=== PATIENT | female | born 1970 | race Hispanic/Latino ===

== ENCOUNTER 2017-08-02 17:01 | Emergency (ER) | payer MEDICAID ==
[2017-08-02] MEDS ORDERED: ASPIRIN 325 MG TABLET ONE (17:33)
[2017-08-02] MEDS ORDERED: HYDRALAZINE HCL 20 MG/ML VIAL ONE (17:33)
[2017-08-02 17:37] LABS: BASOPHILS % (AUTO) 0.2 % (0.0-5.0); EOSINOPHILS % (AUTO) 4.2 % (0.0-8.0); HEMATOCRIT 35.5 % (36-48); LYMPHOCYTES % (AUTO) 26.8 % (21.0-51.0); MEAN CORPUSCULAR HEMOGLOBIN 28.2 pg (27.0-33.0); MEAN CORPUSCULAR HGB CONC 34.1 g/dL (32.0-36.0); MEAN CORPUSCULAR VOLUME 82.7 fL (79-99); MONOCYTES % (AUTO) 7.3 % (3.0-13.0); NEUTROPHILS % (AUTO) 61.5 % (40.0-77.0); PLATELET COUNT (AUTO) 534 K/uL (130-400); RED BLOOD CELL COUNT(AUTO) 4.29 MIL/uL (4.00-5.50); RED CELL DISTRIBUTION WIDTH 15.5 % (11.0-15.5); WHITE BLOOD COUNT (AUTO) 9.8 K/uL (4.8-10.8)
[2017-08-02 17:49] LABS: CREATININE 1.5 mg/dL (0.5-1.5); POTASSIUM 4.1 mmol/L (3.5-5.1)
[2017-08-02 18:02] LABS: ALBUMIN 1.7 g/dL (3.5-5.0); BILIRUBIN,TOTAL 0.2 mg/dL (0.2-1.0); CREATINE KINASE MB 0.5 ng/mL (0.5-3.6); TOTAL PROTEIN, SERUM 5.8 g/dL (6.0-8.3)
[2017-08-02 18:39] LABS: APPEARANCE,URINE Clear (CLEAR); BILIRUBIN,URINE Negative (NEGATIVE); COLOR,URINE Yellow (YELLOW); GLUCOSE, URINE (UA) >=1000 mg/dL (NEGATIVE); KETONES,URINE Negative (NEGATIVE); LEUKOCYTE ESTERASE ,URINE Negative (NEGATIVE); NITRATE,URINE Negative (NEGATIVE); OCCULT BLOOD,URINE Trace (NEGATIVE); PH,URINE 6.5 (5.0-8.0); PROTEIN,URINE >=1000 (NEGATIVE); UROBILINOGEN,URINE 0.2 mg/dL (0.2-1.0)
[2017-08-02 18:45] LABS: AMPHET/METH SCREEN,URINE NEGATIVE (NEGATIVE); BARBITURATE SCREEN, URINE NEGATIVE (NEGATIVE); BENZODIAZEPINES SCREEN,URINE NEGATIVE (NEGATIVE); CANNABINOID SCREEN,URINE NEGATIVE (NEGATIVE); COCAINE SCREEN,URINE NEGATIVE (NEGATIVE); OPIATE SCREEN,URINE NEGATIVE (NEGATIVE); PHENCYCLIDINE SCREEN,URINE NEGATIVE (NEGATIVE)
[2017-08-02] MEDS ORDERED: INSULIN HUMULIN R 100 UNIT/ML 3ML ONE (18:56)
[2017-08-02 19:10] LABS: BACTERIA,URINE Few /HPF (None Seen); RBC,URINE None Seen /HPF (0-1); SQUAMOUS EPITHELIAL CELL,UR 0-2 /LPF (0-2)
[2017-09-27] MEDS ORDERED: FOLI1TAB61 PO (09:42)
[2017-09-27] MEDS ORDERED: GLIP10TA9 PO (09:42)
[2017-09-27] MEDS ORDERED: CHOL100040 PO (09:42)
[2017-09-27] MEDS ORDERED: LINA5TAB PO (09:42)
[2017-09-27] MEDS ORDERED: ASPI-555 PO (09:42)
[2017-09-27] MEDS ORDERED: LEVO50TA11 PO (09:42)
[2017-09-27] MEDS ORDERED: FURO20TA6 PO (09:42)
[2017-09-27] MEDS ORDERED: ATOR40TA71 PO (09:42)
[2017-09-27] MEDS ORDERED: LOSA25TA21 PO (10:55)
[2017-09-27] MEDS ORDERED: INSU100V12 SQ (10:55)
[2017-11-23] MEDS ORDERED: TRAM50TA4 PO (10:37)
[2017-11-23] MEDS ORDERED: CEPH500C2 PO (10:37)
[2017-11-23] MEDS ORDERED: INSU100I21 SQ ×2 (10:37)
== END 2017-08-02 22:38 | disposition left against medical advice (07) ==
LOC: EDH 17:01 → UNDOADMIN 17:02 → EDHIP 17:02 → EDH 22:38
DX: R07.89 Other chest pain (principal); R06.02 Shortness of breath; M79.89 Other specified soft tissue disorders; I10 Essential (primary) hypertension; E11.9 Type 2 diabetes mellitus without complications
CPT/HCPCS: 36415; 71045; 80053; 80305; 81001; 82550; 82553; 84484; 85025; 93005; 96374; 96375; 99285; J0360; J1815

== ENCOUNTER → 2017-08-18 | Outpatient (CLI) | payer MEDICAID ==
[~2017-08-18] MED LIST: ASPI-555 PO; ATOR40TA71 PO; CEPH500C2 PO; CHOL100040 PO; FOLI1TAB61 PO; FURO20TA6 PO; GLIP10TA9 PO; INSU100I21 SQ; INSU100V12 SQ; LEVO50TA11 PO; LINA5TAB PO; LOSA25TA21 PO; TRAM50TA4 PO
== END | disposition home or self-care (01) ==
LOC: SHCH 07:58
PROVIDERS: ATTEND Internal Medicine Cardiovascular Disease
DX: R01.1 Cardiac murmur, unspecified (principal)
CPT/HCPCS: 93306

== ENCOUNTER → 2017-08-26 | Outpatient (CLI) | payer MEDICAID ==
[~2017-08-26] MED LIST changes: +REGADENOSON 0.4 MG/5 ML PF SYG IVP SCH
== END | disposition home or self-care (01) ==
LOC: SHCH 10:29
PROVIDERS: ATTEND Internal Medicine Cardiovascular Disease
DX: R94.31 Abnormal electrocardiogram [ECG] [EKG] (principal)
CPT/HCPCS: 78452; 93017; 96374; A9500 ×2; J2785

== ENCOUNTER → 2017-09-27 | Outpatient (CLI) | payer MEDICAID ==
[~2017-09-27] VITALS: Ht 157.5 cm; Wt 61.3 kg
[~2017-09-27] MED LIST changes: +ACETAMINOPHEN 325 MG TAB PO PRN; -REGADENOSON 0.4 MG/5 ML PF SYG IVP SCH; +SODIUM CHLORIDE 0.9% 500ML 500 ML IV SCH
[2017-09-27 09:03] VITALS: BP 145/75
[2017-09-27 09:10] LABS: BASOPHILS % (AUTO) 1.1 % (0.0-5.0); EOSINOPHILS % (AUTO) 3.6 % (0.0-8.0); HEMATOCRIT 33.2 % (36-48); LYMPHOCYTES % (AUTO) 11.9 % (21.0-51.0); MEAN CORPUSCULAR HEMOGLOBIN 27.8 pg (27.0-33.0); MEAN CORPUSCULAR HGB CONC 33.4 g/dL (32.0-36.0); MEAN CORPUSCULAR VOLUME 83.2 fL (79-99); MONOCYTES % (AUTO) 8.7 % (3.0-13.0); NEUTROPHILS % (AUTO) 74.7 % (40.0-77.0); PLATELET COUNT (AUTO) 432 K/uL (130-400); RED BLOOD CELL COUNT(AUTO) 3.99 MIL/uL (4.00-5.50); RED CELL DISTRIBUTION WIDTH 15.5 % (11.0-15.5); WHITE BLOOD COUNT (AUTO) 12.7 K/uL (4.8-10.8)
[2017-09-27 09:10] LABS: BILIRUBIN,URINE Negative (NEGATIVE); COLOR,URINE Yellow (YELLOW); GLUCOSE, URINE (UA) 500 mg/dL (NEGATIVE); KETONES,URINE Negative (NEGATIVE); LEUKOCYTE ESTERASE ,URINE Negative (NEGATIVE); NITRATE,URINE Negative (NEGATIVE); OCCULT BLOOD,URINE Large (NEGATIVE); PROTEIN,URINE >=1000 (NEGATIVE); UROBILINOGEN,URINE 0.2 mg/dL (0.2-1.0)
[2017-09-27 09:14] LABS: APPEARANCE,URINE SLIGHTLY CLOUDY (CLEAR)
[2017-09-27 09:19] LABS: INR 0.91 (0.85-1.15); PARTIAL THROMBOPLASTIN TIME 25.9 SEC (26.3-35.5); POTASSIUM 4.3 mmol/L (3.5-5.1); PROTHROMBIN TIME 9.6 SEC (9.6-11.6)
[2017-09-27 09:48] LABS: BACTERIA,URINE Moderate /HPF (None Seen)
[2017-09-27 09:49] LABS: MUCUS,URINE Moderate LPF (None Seen); SQUAMOUS EPITHELIAL CELL,UR Many /HPF (0-2)
== END | disposition home or self-care (01) ==
LOC: EDSTATUS 08:00 → DAH 10:00
PROVIDERS: ATTEND Internal Medicine Cardiovascular Disease
DX: Z01.818 Encounter for other preprocedural examination (principal); I25.10 Atherosclerotic heart disease of native coronary artery without angina pectoris; R79.89 Other specified abnormal findings of blood chemistry
CPT/HCPCS: 36415; 71045; 80048; 81001; 85025; 85610; 85730; 93005

== ENCOUNTER → 2017-10-21 | Outpatient (CLI) | payer MEDICAID ==
[~2017-10-21] VITALS: Ht 154.9 cm; Wt 63.4 kg
[~2017-10-21] MED LIST changes: -ACETAMINOPHEN 325 MG TAB PO PRN
[2017-10-21 10:16] VITALS: BP 160/88
[2017-10-21 10:19] LABS: BASOPHILS % (AUTO) 0.8 % (0.0-5.0); EOSINOPHILS % (AUTO) 6.1 % (0.0-8.0); HEMATOCRIT 29.1 % (36-48); LYMPHOCYTES % (AUTO) 14.1 % (21.0-51.0); MEAN CORPUSCULAR HEMOGLOBIN 28.1 pg (27.0-33.0); MEAN CORPUSCULAR HGB CONC 33.2 g/dL (32.0-36.0); MEAN CORPUSCULAR VOLUME 84.8 fL (79-99); MONOCYTES % (AUTO) 9.4 % (3.0-13.0); NEUTROPHILS % (AUTO) 69.6 % (40.0-77.0); PLATELET COUNT (AUTO) 386 K/uL (130-400); RED BLOOD CELL COUNT(AUTO) 3.43 MIL/uL (4.00-5.50); RED CELL DISTRIBUTION WIDTH 16.8 % (11.0-15.5); WHITE BLOOD COUNT (AUTO) 13.2 K/uL (4.8-10.8)
[2017-10-21 10:23] LABS: CREATININE 1.6 mg/dL (0.5-1.5); POTASSIUM 4.3 mmol/L (3.5-5.1)
[2017-10-21 10:31] LABS: APPEARANCE,URINE CLOUDY (CLEAR); BILIRUBIN,URINE NEGATIVE (NEGATIVE); COLOR,URINE RED (YELLOW); GLUCOSE, URINE (UA) 250 mg/dL (NEGATIVE); KETONES,URINE 15 mg/dL (NEGATIVE); LEUKOCYTE ESTERASE ,URINE LARGE (NEGATIVE); NITRATE,URINE POSITIVE (NEGATIVE); OCCULT BLOOD,URINE LARGE (NEGATIVE); PH,URINE 6.5 (5.0-8.0); PROTEIN,URINE >=300 (NEGATIVE)
[2017-10-21 10:35] LABS: INR 0.9 (0.85-1.15); PROTHROMBIN TIME 9.5 SEC (9.6-11.6)
[2017-10-21 10:50] LABS: RBC,URINE >100 /HPF (0-1)
[2017-10-21 10:51] LABS: BACTERIA,URINE Few /HPF (None Seen)
[2017-10-21 10:52] LABS: SQUAMOUS EPITHELIAL CELL,UR 0-2 /HPF (0-2)
== END ==
LOC: EDSTATUS 09:00 → DAH 10:00
PROVIDERS: ATTEND Internal Medicine Cardiovascular Disease
DX: Z01.818 Encounter for other preprocedural examination (principal); R94.31 Abnormal electrocardiogram [ECG] [EKG]
CPT/HCPCS: 36415; 71045; 80048; 81001; 84703; 85025; 85610; 85730; 93005

== ENCOUNTER → 2017-11-23 | Outpatient (CLI) | payer MEDICAID ==
[~2017-11-23] VITALS: Ht 154.9 cm; Wt 61.5 kg
[~2017-11-23] MED LIST changes: -SODIUM CHLORIDE 0.9% 500ML 500 ML IV SCH
[2017-11-23 09:24] LABS: BASOPHILS % (AUTO) 1.4 % (0.0-5.0); EOSINOPHILS % (AUTO) 4.4 % (0.0-8.0); HEMATOCRIT 27.5 % (36-48); LYMPHOCYTES % (AUTO) 14.8 % (21.0-51.0); MEAN CORPUSCULAR HEMOGLOBIN 27.9 pg (27.0-33.0); MEAN CORPUSCULAR HGB CONC 33.2 g/dL (32.0-36.0); MONOCYTES % (AUTO) 6.3 % (3.0-13.0); NEUTROPHILS % (AUTO) 73.1 % (40.0-77.0); PLATELET COUNT (AUTO) 419 K/uL (130-400); RED BLOOD CELL COUNT(AUTO) 3.27 MIL/uL (4.00-5.50); RED CELL DISTRIBUTION WIDTH 15.2 % (11.0-15.5); WHITE BLOOD COUNT (AUTO) 11.7 K/uL (4.8-10.8)
[2017-11-23 09:27] LABS: APPEARANCE,URINE TURBID (CLEAR); BILIRUBIN,URINE SMALL (NEGATIVE); COLOR,URINE RED (YELLOW); GLUCOSE, URINE (UA) >=1000 mg/dL (NEGATIVE); KETONES,URINE NEGATIVE (NEGATIVE); LEUKOCYTE ESTERASE ,URINE TRACE (NEGATIVE); NITRATE,URINE NEGATIVE (NEGATIVE); OCCULT BLOOD,URINE LARGE (NEGATIVE); PH,URINE 5.5 (5.0-8.0); PROTEIN,URINE >=300 (NEGATIVE); UROBILINOGEN,URINE 0.2 mg/dL (0.2-1.0)
[2017-11-23 09:28] VITALS: BP 108/59
[2017-11-23 09:36] LABS: BACTERIA,URINE Rare /HPF (None Seen); RBC,URINE TNTC /HPF (0-1); SQUAMOUS EPITHELIAL CELL,UR Rare /HPF (0-2)
[2017-11-23 09:55] LABS: INR 0.92 (0.85-1.15); PARTIAL THROMBOPLASTIN TIME 24.6 SEC (26.3-35.5); PROTHROMBIN TIME 9.7 SEC (9.6-11.6)
[2017-11-23 10:08] LABS: CREATININE 2.1 mg/dL (0.5-1.5); POTASSIUM 4.7 mmol/L (3.5-5.1)
== END | disposition home or self-care (01) ==
LOC: EDSTATUS 09:00 → DAH 10:00
PROVIDERS: ATTEND Internal Medicine Cardiovascular Disease
DX: Z01.818 Encounter for other preprocedural examination (principal); I10 Essential (primary) hypertension; I25.119 Atherosclerotic heart disease of native coronary artery with unspecified angina pectoris; E11.9 Type 2 diabetes mellitus without complications; R79.1 Abnormal coagulation profile
CPT/HCPCS: 36415; 71045; 80048; 81001; 85025; 85610; 85730; 93005

== ENCOUNTER 2018-10-02 16:05 | Inpatient (IN) | payer MEDICAID ==
[~2018-10-02] VITALS: Ht 154.9 cm; Wt 58.6 kg
[~2018-10-02 16:05] MED LIST changes: -GLIP10TA9 PO; -INSU100V12 SQ; -LOSA25TA21 PO; +LOSA25TA41 PO
[2018-10-02] MEDS ORDERED: ONDANSETRON HCL 4 MG/2 ML VIAL ONE (16:56)
[2018-10-02 17:00] LABS: APPEARANCE,URINE Clear (CLEAR); BILIRUBIN,URINE Negative (NEGATIVE); COLOR,URINE Yellow (YELLOW); GLUCOSE, URINE (UA) >=1000 mg/dL (NEGATIVE); KETONES,URINE Negative (NEGATIVE); LEUKOCYTE ESTERASE ,URINE Negative (NEGATIVE); NITRATE,URINE Negative (NEGATIVE); OCCULT BLOOD,URINE Small (NEGATIVE); PH,URINE 6.5 (5.0-8.0); PROTEIN,URINE >=1000 mg/dL (NEGATIVE); UROBILINOGEN,URINE 0.2 mg/dL (0.2-1.0)
[2018-10-02 17:03] LABS: BASOPHILS % (AUTO) 1.4 % (0.0-5.0); EOSINOPHILS % (AUTO) 4.5 % (0.0-8.0); HEMATOCRIT 31.3 % (36-48); LYMPHOCYTES % (AUTO) 23.5 % (21.0-51.0); MEAN CORPUSCULAR HEMOGLOBIN 26.5 pg (27.0-33.0); MEAN CORPUSCULAR HGB CONC 32.5 g/dL (32.0-36.0); MEAN CORPUSCULAR VOLUME 81.6 fL (79-99); MONOCYTES % (AUTO) 8.7 % (3.0-13.0); NEUTROPHILS % (AUTO) 61.9 % (40.0-77.0); NUCLEATED RED BLOOD CELLS 0.1 % (0.0-0.19); PLATELET COUNT (AUTO) 467 K/uL (130-400); RED BLOOD CELL COUNT(AUTO) 3.84 MIL/uL (4.00-5.50); RED CELL DISTRIBUTION WIDTH 18.9 % (11.0-15.5); WHITE BLOOD COUNT (AUTO) 10.6 K/uL (4.8-10.8)
[2018-10-02 17:09] LABS: BACTERIA,URINE Rare /HPF (None Seen); MUCUS,URINE Moderate LPF (None Seen); RBC,URINE 0-1 /HPF (0-1); WBC,URINE None Seen /HPF (0-1)
[2018-10-02 17:13] LABS: CREATININE 3.4 mg/dL (0.5-1.5); POTASSIUM 3.9 mmol/L (3.5-5.1)
[2018-10-02 17:16] LABS: INR 0.9 (0.85-1.15); PARTIAL THROMBOPLASTIN TIME 25.4 SEC (26.3-35.5); PROTHROMBIN TIME 9.5 SEC (9.6-11.6)
[2018-10-02 17:18] LABS: ALBUMIN 1.5 g/dL (3.5-5.0); BILIRUBIN,TOTAL 0.1 mg/dL (0.2-1.0); TOTAL PROTEIN, SERUM 6.2 g/dL (6.0-8.3)
[2018-10-02] MEDS: SODIUM CHLORIDE 0.9% 1000ML 1,000 ML IV SCH (20:22)
[2018-10-02] MEDS ORDERED: ACETAMINOPHEN 325 MG TAB PO PRN ×2 (20:30)
[2018-10-02] MEDS ORDERED: DEXTROSE 50%-WATER 50 ML DISP.SYRIN IV PRN (20:30)
[2018-10-02] MEDS ORDERED: GLUCAGON 1MG KIT 1 MG ML IM PRN (20:30)
[2018-10-02] MEDS: INSULIN HUMULIN R 100 UNIT/ML 3ML SQ SCH (21:00)
[2018-10-02] MEDS ORDERED: GUAIFENESIN-DM 200/20 MG 10 ML PO PRN (23:00)
[2018-10-03] MEDS: IPRATROPIUM 0.5 MG/2.5 ML INH IH SCH ×5 (00:41→23:17)
[2018-10-03] MEDS ORDERED: FAMOTIDINE 20MG TAB 20 MG TAB ONE ×2 (02:27→09:14)
[2018-10-03] MEDS ORDERED: HYDROCODONE/ACETAMINOPHEN 5/325 MG TAB ONE (02:27)
[2018-10-03 05:59] LABS: BASOPHILS % (AUTO) 1.4 % (0.0-5.0); HEMATOCRIT 26.2 % (36-48); LYMPHOCYTES % (AUTO) 30.5 % (21.0-51.0); MEAN CORPUSCULAR HGB CONC 31.9 g/dL (32.0-36.0); MEAN CORPUSCULAR VOLUME 81.6 fL (79-99); MONOCYTES % (AUTO) 7.3 % (3.0-13.0); NEUTROPHILS % (AUTO) 55.8 % (40.0-77.0); NUCLEATED RED BLOOD CELLS 0.3 % (0.0-0.19); PLATELET COUNT (AUTO) 414 K/uL (130-400); RED BLOOD CELL COUNT(AUTO) 3.21 MIL/uL (4.00-5.50); RED CELL DISTRIBUTION WIDTH 18.4 % (11.0-15.5); WHITE BLOOD COUNT (AUTO) 9.8 K/uL (4.8-10.8)
[2018-10-03 06:20] LABS: ALBUMIN 1.2 g/dL (3.5-5.0); BILIRUBIN,TOTAL 0.2 mg/dL (0.2-1.0); POTASSIUM 3.6 mmol/L (3.5-5.1)
[2018-10-03] MEDS: SODIUM CHLORIDE 0.9% 1000ML 1,000 ML IV SCH ×2 (06:22→16:22)
[2018-10-03] MEDS ORDERED: IPRATROPIUM 0.5 MG/2.5 ML INH IH ONE ×2 (06:28→11:17)
[2018-10-03] MEDS: INSULIN HUMULIN R 100 UNIT/ML 3ML SQ SCH ×4 (07:30→20:45)
[2018-10-03] MEDS: ENOXAPARIN SODIUM 30 MG/0.3 ML SQ SCH (09:00)
[2018-10-03] MEDS ORDERED: FAMOTIDINE 20MG TAB 20 MG TAB PO SCH (09:00)
[2018-10-03] MEDS ORDERED: ENOXAPARIN SODIUM 30 MG/0.3 ML SQ ONE (09:14)
--- NOTE | 2018-10-03 10:38 | NUR ---
NANETTE Bonilla met with pt who states she is from her [place] [phone], and pt lives with her kids 17,13,9. Pt has Medicaid, is pending SSI, has a provider 2.5hrs daily thru [facility] to assist with ADLS and Home management. Pt has no DME, but reports multiple falls in recent days, last fall was yesterday, and states she needs a walker. pt states she has discussed with Dr Mercado, but is still waiting.Friends drive as needed. Plan is home at [place], to f/u and assist as needed Addendum: 10/03/18 at 1042 by DARIO ISSA Amended: Links added.
[2018-10-03] MEDS ORDERED: MECLIZINE HCL 25 MG TABLET ONE (10:39)
[2018-10-03] MEDS ORDERED: AMLODIPINE BESYLATE 5 MG TAB PO ONE (10:39)
[2018-10-03 11:24] LABS: AMPHET/METH SCREEN,URINE NEGATIVE (NEGATIVE); BARBITURATE SCREEN, URINE NEGATIVE (NEGATIVE); BENZODIAZEPINES SCREEN,URINE NEGATIVE (NEGATIVE); CANNABINOID SCREEN,URINE NEGATIVE (NEGATIVE); COCAINE SCREEN,URINE NEGATIVE (NEGATIVE); OPIATE SCREEN,URINE NEGATIVE (NEGATIVE); PHENCYCLIDINE SCREEN,URINE NEGATIVE (NEGATIVE)
[2018-10-03] MEDS ORDERED: ONDANSETRON HCL 4 MG/2 ML VIAL ONE (11:37)
[2018-10-03 13:45] VITALS: BP 151/73
[2018-10-03] MEDS ORDERED: MECLIZINE HCL 25 MG TABLET PO PRN (14:15)
[2018-10-03] MEDS ORDERED: ASPIRIN 81MG TAB.CHEW ONE (14:15)
[2018-10-03] MEDS ORDERED: ACETAMINOPHEN 325 MG TAB ONE (14:16)
[2018-10-03 15:45] VITALS: BP 151/73
--- NOTE | 2018-10-03 16:00 | NUR ---
ER ADMIT TO ROOM 305, AWAKE AND ALERT. ADMISSION DATABASE COMPLETED, NO C/O VOICED AT TIS TIME.. HAS BEEN SEEN IN ER BY MALU.
[2018-10-03] MEDS: MECLIZINE HCL 25 MG TABLET PO SCH ×2 (18:33→23:29)
[2018-10-03 20:00] VITALS: BP 165/85
[2018-10-03] MEDS: FAMOTIDINE 20MG TAB 20 MG TAB PO SCH (20:26)
[2018-10-03] MEDS: LOSARTAN 50 MG TABLET PO SCH (20:26)
[2018-10-04] VITALS (10 sets, daily range): BP systolic 107–159; BP diastolic 50–89
[2018-10-04 05:32] LABS: HEMATOCRIT 27.5 % (36-48); MEAN CORPUSCULAR HEMOGLOBIN 26.2 pg (27.0-33.0); MEAN CORPUSCULAR HGB CONC 32.2 g/dL (32.0-36.0); MEAN CORPUSCULAR VOLUME 81.2 fL (79-99); NUCLEATED RED BLOOD CELLS 0.9 % (0.0-0.19); PLATELET COUNT (AUTO) 405 K/uL (130-400); RED BLOOD CELL COUNT(AUTO) 3.38 MIL/uL (4.00-5.50); RED CELL DISTRIBUTION WIDTH 18.2 % (11.0-15.5); WHITE BLOOD COUNT (AUTO) 8.7 K/uL (4.8-10.8)
[2018-10-04 05:50] LABS: ALBUMIN 1.2 g/dL (3.5-5.0); BILIRUBIN,TOTAL 0.1 mg/dL (0.2-1.0); CREATININE 3.1 mg/dL (0.5-1.5); PHOSPHORUS 4.6 mg/dL (2.5-4.9); POTASSIUM 3.6 mmol/L (3.5-5.1); TOTAL PROTEIN, SERUM 5.1 g/dL (6.0-8.3); URIC ACID 5.4 mg/dL (2.6-7.2)
[2018-10-04] MEDS: MECLIZINE HCL 25 MG TABLET PO SCH ×3 (05:53→18:00)
[2018-10-04] MEDS: SODIUM CHLORIDE 0.9% 1000ML 1,000 ML IV SCH (05:55)
[2018-10-04] MEDS: IPRATROPIUM 0.5 MG/2.5 ML INH IH SCH ×4 (06:08→23:34)
[2018-10-04] MEDS ORDERED: HYDROMORPHONE HCL 0.5 MG/0.5 ML ML ONE (06:20)
[2018-10-04] MEDS: LEVOTHYROXINE 50 MCG TABLET PO SCH (06:25)
[2018-10-04] MEDS: INSULIN HUMULIN R 100 UNIT/ML 3ML SQ SCH ×4 (06:26→21:00)
[2018-10-04] MEDS ORDERED: HYDROMORPHONE HCL 0.5 MG/0.5 ML ML IVP SCH (06:30)
[2018-10-04 06:34] LABS: % IRON SATURATION 4.7 % (22-44)
--- NOTE | 2018-10-04 08:00 | NUR ---
ASSESSMENT PT IS AWAKE, ALERT AND ORIENTED X3, VOICES NO COMPLAINTS OF PAIN, DENIES DIZZINESS, CALL LLOYD WITHIN REACH.
[2018-10-04] MEDS: FOLIC ACID/VITAMIN B COMP W-C 1 MG CAPSULE PO SCH (08:58)
[2018-10-04] MEDS: ASPIRIN 81MG TAB.CHEW PO SCH (08:58)
[2018-10-04] MEDS: ATORVASTATIN CALCIUM 40 MG TABLET PO SCH (08:58)
[2018-10-04] MEDS: LOSARTAN 50 MG TABLET PO SCH ×2 (08:58→22:05)
[2018-10-04] MEDS: FUROSEMIDE 20 MG TABLET PO SCH (08:59)
[2018-10-04] MEDS: AMLODIPINE BESYLATE 5 MG TAB PO SCH (08:59)
[2018-10-04] MEDS: FAMOTIDINE 20MG TAB 20 MG TAB PO SCH ×2 (08:59→22:04)
[2018-10-04] MEDS: Cholecalciferol (Vitamin D3) (Vitamin D3) 1,000 UNIT PO SCH (09:00)
[2018-10-04] MEDS: ENOXAPARIN SODIUM 30 MG/0.3 ML SQ SCH (09:00)
--- NOTE | 2018-10-04 09:09 | NUR ---
HOME MEDS INFORMED PT NEED TO BRING IN TO CLARIFY
--- NOTE | 2018-10-04 09:30 | NUR ---
JIL/DR. KEYONA RAND HERE TO SEE PT., NO ORDERS BUT STATES PT CAN BE DISCHARGE FROM HIS STANDPOINT.
--- NOTE | 2018-10-04 13:10 | NUR ---
CALL TO DR. PARRISH T/C PLACED TO DR. PARRISH AND INFORMED OF CONSULT Addendum: 10/04/18 at 1326 by NORIS ODEN RN INCORRECT PT
--- NOTE | 2018-10-04 13:20 | NUR ---
CALL TO DR. JOSE'S OFFICE T/C PLACED TO DR. JOSE'S OFFICE AND SPOKE WITH HAMZAH, STATES THEY WILL INFORM MD OF CONSULT Addendum: 10/04/18 at 1327 by NORIS ODEN RN IN CORRECT PT
[2018-10-04] MEDS: HYDROMORPHONE HCL 0.5 MG/0.5 ML ML IVP PRN ×2 (13:57→22:44)
--- NOTE | 2018-10-04 14:10 | NUR ---
JIL/ DR. MALU TORIBIO HERE TO SEE PT, PLAN OF CARE DISCUSSED, SISTER IS PRESENT WELL.
[2018-10-04] MEDS ORDERED: LACTULOSE 20 GM/30 ML UDCUP PO PRN (14:15)
[2018-10-04] MEDS ORDERED: COMPOUND IV MISC 1 EACH IVSOLN MISC PRN (15:45)
--- NOTE | 2018-10-04 18:10 | NUR ---
NURSING OBSERVATION PT IS STILL SLEEPING, ANTIVERT NOT GIVEN
[2018-10-04] MEDS: SODIUM BICARBONATE 650 MG TAB PO SCH (22:04)
[2018-10-05] VITALS (8 sets, daily range): BP systolic 119–147; BP diastolic 58–79
[2018-10-05 05:57] LABS: CREATININE 3.5 mg/dL (0.5-1.5); PHOSPHORUS 4.7 mg/dL (2.5-4.9); POTASSIUM 3.6 mmol/L (3.5-5.1)
[2018-10-05 05:58] LABS: BASOPHILS % (AUTO) 1.1 % (0.0-5.0); EOSINOPHILS % (AUTO) 6.7 % (0.0-8.0); HEMATOCRIT 27.5 % (36-48); LYMPHOCYTES % (AUTO) 21.5 % (21.0-51.0); MEAN CORPUSCULAR HEMOGLOBIN 26.1 pg (27.0-33.0); MEAN CORPUSCULAR HGB CONC 32.1 g/dL (32.0-36.0); MEAN CORPUSCULAR VOLUME 81.1 fL (79-99); MONOCYTES % (AUTO) 9.6 % (3.0-13.0); NEUTROPHILS % (AUTO) 61.1 % (40.0-77.0); NUCLEATED RED BLOOD CELLS 1.1 % (0.0-0.19); PLATELET COUNT (AUTO) 403 K/uL (130-400); RED BLOOD CELL COUNT(AUTO) 3.39 MIL/uL (4.00-5.50); RED CELL DISTRIBUTION WIDTH 18.4 % (11.0-15.5); WHITE BLOOD COUNT (AUTO) 9.5 K/uL (4.8-10.8)
[2018-10-05] MEDS: MECLIZINE HCL 25 MG TABLET PO SCH ×4 (06:10→17:27)
[2018-10-05] MEDS: IPRATROPIUM 0.5 MG/2.5 ML INH IH SCH ×4 (06:51→23:48)
[2018-10-05] MEDS: INSULIN HUMULIN R 100 UNIT/ML 3ML SQ SCH ×4 (07:30→21:00)
[2018-10-05] MEDS: LEVOTHYROXINE 50 MCG TABLET PO SCH (08:20)
[2018-10-05] MEDS: IRON SUCROSE COMPLEX 100 MG in SODIUM CHLORIDE 0.9% 50 ML IV SCH (08:27)
[2018-10-05] MEDS: ASPIRIN 81MG TAB.CHEW PO SCH (08:27)
[2018-10-05] MEDS: LOSARTAN 50 MG TABLET PO SCH ×2 (08:27→20:47)
[2018-10-05] MEDS: Cholecalciferol (Vitamin D3) (Vitamin D3) 1,000 UNIT PO SCH (08:34)
[2018-10-05] MEDS: ATORVASTATIN CALCIUM 40 MG TABLET PO SCH (08:36)
[2018-10-05] MEDS: FUROSEMIDE 20 MG TABLET PO SCH (08:36)
[2018-10-05] MEDS: AMLODIPINE BESYLATE 5 MG TAB PO SCH (08:36)
[2018-10-05] MEDS: FOLIC ACID/VITAMIN B COMP W-C 1 MG CAPSULE PO SCH (08:36)
[2018-10-05] MEDS: FAMOTIDINE 20MG TAB 20 MG TAB PO SCH ×2 (08:37→20:48)
[2018-10-05] MEDS: ENOXAPARIN SODIUM 30 MG/0.3 ML SQ SCH (08:37)
[2018-10-05] MEDS: SODIUM BICARBONATE 650 MG TAB PO SCH ×2 (08:37→20:48)
[2018-10-05] MEDS: ONDANSETRON HCL 4 MG/2 ML VIAL IV PRN (08:56)
[2018-10-05] MEDS: HYDROMORPHONE HCL 0.5 MG/0.5 ML ML IVP PRN ×2 (08:57→18:48)
--- NOTE | 2018-10-05 11:56 | NUR ---
INSTRUCTIONS DISCHARGE INSTRUCTIONS GIVEN TO PATIENT USING TEACH BACK. F/U APPOINTMENTS MADE. NEW PRESCRIPTION PLACED IN PACKET ALONG WITH ALL PRINTED INFORMATION AND MD INSTRUCTIONS. NO QUESTIONS OR CONCERNS VOICED. IV REMOVED WITH TIP INTACT. DIRECT PRESSURE APPLIED UNTIL BLEEDING CONTROLLED THEN SITE COVERED WITH GAUZE AND SECURED WITH TAPE. PENDING RIDE HOME.
[2018-10-06] VITALS: BP 129/69
[2018-10-06] MEDS: MECLIZINE HCL 25 MG TABLET PO SCH ×4 (00:18→18:02)
[2018-10-06 04:00] VITALS: BP 143/77
[2018-10-06] MEDS: HYDROMORPHONE HCL 0.5 MG/0.5 ML ML IVP PRN ×3 (04:24→18:21)
[2018-10-06 05:45] LABS: EOSINOPHILS % (AUTO) 4.9 % (0.0-8.0); HEMATOCRIT 26.7 % (36-48); MEAN CORPUSCULAR HEMOGLOBIN 26.3 pg (27.0-33.0); MEAN CORPUSCULAR HGB CONC 32.7 g/dL (32.0-36.0); MEAN CORPUSCULAR VOLUME 80.5 fL (79-99); MONOCYTES % (AUTO) 8.5 % (3.0-13.0); NEUTROPHILS % (AUTO) 61.6 % (40.0-77.0); NUCLEATED RED BLOOD CELLS 1.7 % (0.0-0.19); PLATELET COUNT (AUTO) 393 K/uL (130-400); RED BLOOD CELL COUNT(AUTO) 3.32 MIL/uL (4.00-5.50); RED CELL DISTRIBUTION WIDTH 17.6 % (11.0-15.5); WHITE BLOOD COUNT (AUTO) 9.7 K/uL (4.8-10.8)
[2018-10-06 05:54] LABS: CREATININE 3.6 mg/dL (0.5-1.5); POTASSIUM 3.7 mmol/L (3.5-5.1)
[2018-10-06] MEDS: LEVOTHYROXINE 50 MCG TABLET PO SCH (06:13)
[2018-10-06] MEDS: IPRATROPIUM 0.5 MG/2.5 ML INH IH SCH ×4 (06:40→23:21)
[2018-10-06] MEDS: INSULIN HUMULIN R 100 UNIT/ML 3ML SQ SCH ×4 (06:50→20:29)
[2018-10-06 08:00] VITALS: BP 152/79
[2018-10-06] MEDS: Cholecalciferol (Vitamin D3) (Vitamin D3) 1,000 UNIT PO SCH (09:00)
[2018-10-06] MEDS: FOLIC ACID/VITAMIN B COMP W-C 1 MG CAPSULE PO SCH (09:04)
[2018-10-06] MEDS: IRON SUCROSE COMPLEX 100 MG in SODIUM CHLORIDE 0.9% 50 ML IV SCH (09:04)
[2018-10-06] MEDS: ASPIRIN 81MG TAB.CHEW PO SCH (09:04)
[2018-10-06] MEDS: LOSARTAN 50 MG TABLET PO SCH ×2 (09:05→21:31)
[2018-10-06] MEDS: ATORVASTATIN CALCIUM 40 MG TABLET PO SCH (09:05)
[2018-10-06] MEDS: AMLODIPINE BESYLATE 5 MG TAB PO SCH (09:05)
[2018-10-06] MEDS: FUROSEMIDE 20 MG TABLET PO SCH (09:05)
[2018-10-06] MEDS: SODIUM BICARBONATE 650 MG TAB PO SCH ×2 (09:05→21:31)
[2018-10-06] MEDS: FAMOTIDINE 20MG TAB 20 MG TAB PO SCH ×2 (09:06→21:31)
[2018-10-06] MEDS: ENOXAPARIN SODIUM 30 MG/0.3 ML SQ SCH (09:06)
[2018-10-06 12:00] VITALS: BP 130/75
--- NOTE | 2018-10-06 12:13 | NUR ---
Nutrition Intervention: Nutrition consult for renal diabetic diet education. Pt. admitted with Dx of Acute Kidney Injury, Dizziness. Pt. on 75gm CCD Heart Healthy diet with good p.o. intake, per pt. Labs reviewed(Alb 1.2, BUN 30, Creat 3.6, GFR 14, HgbA1c 10.0). Pt. with severe visceral protein depletion. Protein supplementation contraindicated due to elevated renal lab values. LBM: 09/30/18. Pt. on lactulose to help alleviate lower GI distress. SR-20, elastic. Pt. with 1+ Edema to BLE. BMI: 27.3, overweight. Pt. educated on Diabetic Renal Non dialysis diet and provided with education material. Pt. verbalized understanding. Recommendations: 1) Rec. Renal Non dialysis diet. 2) Diabetic Renal Non dialysis diet education given to patient. 3) Continue to monitor pt's nutritional status. 4) Consult RD as additional nutrition concerns arise. Addendum: 10/06/18 at [address] Amended: Links added.
[2018-10-06 16:00] VITALS: BP 139/73
[2018-10-06 20:00] VITALS: BP 131/67
[2018-10-06] MEDS: EPOETIN ALFA 10,000 UNIT/ML VIAL SQ SCH (21:31)
[2018-10-07] VITALS: BP 119/65
[2018-10-07 04:00] VITALS: BP 129/65
[2018-10-07] MEDS: HYDROMORPHONE HCL 0.5 MG/0.5 ML ML IVP PRN (04:08)
[2018-10-07 05:26] LABS: BASOPHILS % (AUTO) 1.5 % (0.0-5.0); HEMATOCRIT 26.3 % (36-48); LYMPHOCYTES % (AUTO) 27.4 % (21.0-51.0); MEAN CORPUSCULAR HEMOGLOBIN 25.8 pg (27.0-33.0); MEAN CORPUSCULAR HGB CONC 31.5 g/dL (32.0-36.0); MEAN CORPUSCULAR VOLUME 81.8 fL (79-99); MONOCYTES % (AUTO) 9.2 % (3.0-13.0); NEUTROPHILS % (AUTO) 56.9 % (40.0-77.0); NUCLEATED RED BLOOD CELLS 2.5 % (0.0-0.19); PLATELET COUNT (AUTO) 407 K/uL (130-400); RED BLOOD CELL COUNT(AUTO) 3.22 MIL/uL (4.00-5.50); RED CELL DISTRIBUTION WIDTH 17.6 % (11.0-15.5); WHITE BLOOD COUNT (AUTO) 9.5 K/uL (4.8-10.8)
[2018-10-07 05:34] LABS: CREATININE 3.5 mg/dL (0.5-1.5); POTASSIUM 3.8 mmol/L (3.5-5.1)
[2018-10-07] MEDS: IPRATROPIUM 0.5 MG/2.5 ML INH IH SCH ×3 (06:15→18:10)
[2018-10-07] MEDS: INSULIN HUMULIN R 100 UNIT/ML 3ML SQ SCH ×4 (06:27→21:00)
[2018-10-07] MEDS: LEVOTHYROXINE 50 MCG TABLET PO SCH (06:27)
[2018-10-07] MEDS: MECLIZINE HCL 25 MG TABLET PO SCH ×4 (06:27→17:48)
[2018-10-07 08:00] VITALS: BP 137/68
[2018-10-07] MEDS: Cholecalciferol (Vitamin D3) (Vitamin D3) 1,000 UNIT PO SCH (09:00)
[2018-10-07] MEDS: IRON SUCROSE COMPLEX 100 MG in SODIUM CHLORIDE 0.9% 50 ML IV SCH (09:11)
[2018-10-07] MEDS: LOSARTAN 50 MG TABLET PO SCH ×2 (09:12→21:39)
[2018-10-07] MEDS: ENOXAPARIN SODIUM 30 MG/0.3 ML SQ SCH (09:12)
[2018-10-07] MEDS: FUROSEMIDE 20 MG TABLET PO SCH (09:13)
[2018-10-07] MEDS: AMLODIPINE BESYLATE 5 MG TAB PO SCH (09:13)
[2018-10-07] MEDS: ASPIRIN 81MG TAB.CHEW PO SCH (09:13)
[2018-10-07] MEDS: SODIUM BICARBONATE 650 MG TAB PO SCH ×2 (09:13→21:39)
[2018-10-07] MEDS: FOLIC ACID/VITAMIN B COMP W-C 1 MG CAPSULE PO SCH (09:13)
[2018-10-07] MEDS: ATORVASTATIN CALCIUM 40 MG TABLET PO SCH (09:13)
[2018-10-07] MEDS: FAMOTIDINE 20MG TAB 20 MG TAB PO SCH ×2 (09:14→21:39)
[2018-10-07 12:00] VITALS: BP 116/72
[2018-10-07 16:00] VITALS: BP 137/75
[2018-10-07] MEDS: TRAMADOL HCL 50 MG TABLET PO PRN (16:06)
[2018-10-07 20:00] VITALS: BP 135/70
[2018-10-08] VITALS (7 sets, daily range): BP systolic 115–152; BP diastolic 58–79
[2018-10-08] MEDS: IPRATROPIUM 0.5 MG/2.5 ML INH IH SCH ×5 (00:04→23:31)
[2018-10-08] MEDS: TRAMADOL HCL 50 MG TABLET PO PRN (05:04)
[2018-10-08] MEDS: LEVOTHYROXINE 50 MCG TABLET PO SCH (05:05)
[2018-10-08] MEDS: MECLIZINE HCL 25 MG TABLET PO SCH ×4 (05:05→17:38)
[2018-10-08] MEDS: INSULIN HUMULIN R 100 UNIT/ML 3ML SQ SCH ×4 (06:19→22:05)
[2018-10-08 06:52] LABS: CREATININE 3.5 mg/dL (0.5-1.5); POTASSIUM 3.2 mmol/L (3.5-5.1)
[2018-10-08 06:58] LABS: HEMATOCRIT 27.2 % (36-48); MEAN CORPUSCULAR HEMOGLOBIN 26.4 pg (27.0-33.0); MEAN CORPUSCULAR HGB CONC 32.7 g/dL (32.0-36.0); MEAN CORPUSCULAR VOLUME 80.7 fL (79-99); NUCLEATED RED BLOOD CELLS 1.2 % (0.0-0.19); PLATELET COUNT (AUTO) 401 K/uL (130-400); RED BLOOD CELL COUNT(AUTO) 3.37 MIL/uL (4.00-5.50); RED CELL DISTRIBUTION WIDTH 17.6 % (11.0-15.5); WHITE BLOOD COUNT (AUTO) 10.4 K/uL (4.8-10.8)
[2018-10-08] MEDS: Cholecalciferol (Vitamin D3) (Vitamin D3) 1,000 UNIT PO SCH (09:00)
[2018-10-08] MEDS: IRON SUCROSE COMPLEX 100 MG in SODIUM CHLORIDE 0.9% 50 ML IV SCH (09:11)
[2018-10-08] MEDS: LOSARTAN 50 MG TABLET PO SCH ×2 (09:11→21:35)
[2018-10-08] MEDS: AMLODIPINE BESYLATE 5 MG TAB PO SCH (09:12)
[2018-10-08] MEDS: FUROSEMIDE 20 MG TABLET PO SCH (09:12)
[2018-10-08] MEDS: ASPIRIN 81MG TAB.CHEW PO SCH (09:12)
[2018-10-08] MEDS: FOLIC ACID/VITAMIN B COMP W-C 1 MG CAPSULE PO SCH (09:12)
[2018-10-08] MEDS: ATORVASTATIN CALCIUM 40 MG TABLET PO SCH (09:12)
[2018-10-08] MEDS: FAMOTIDINE 20MG TAB 20 MG TAB PO SCH ×2 (09:12→21:35)
[2018-10-08] MEDS: SODIUM BICARBONATE 650 MG TAB PO SCH ×2 (09:12→21:35)
[2018-10-08] MEDS: ENOXAPARIN SODIUM 30 MG/0.3 ML SQ SCH (09:13)
[2018-10-08] MEDS ORDERED: POTASSIUM CHLORIDE 20MEQ/100ML 100 ML IV PRN (10:45)
[2018-10-08] MEDS ORDERED: POTASSIUM CHLORIDE 10% ELIXIR 20 MEQ/15 ML UDCUP PO PRN (10:45)
[2018-10-08] MEDS ORDERED: LIDOCAINE HCL-MPF 1% 2ML VIAL IVP PRN (10:45)
[2018-10-08] MEDS: POTASSIUM CHLORIDE 20 MEQ ERTAB PO PRN ×3 (12:01→15:58)
--- NOTE | 2018-10-08 17:55 | NUR ---
IV IV IN RIGHT AC WAS DISCONTINUED, BLEEDING CONTROLLED, CATHLON INTACT, PATIENT TOLERATED WITHOUT INCIDENT. NEW IV ESTABLISHED IN LEFT WRIST 20 GAUGE, SALINE LOCKED.
--- NOTE | 2018-10-08 21:00 | NUR ---
PT IN BED, AWAKE. AAO3. PERRLA. NO DISTRESS NOTED. STATES THAT HAD BEEN HAVING NAUSEA EARLIER DURING THE DAY BUT AT THE MOMENT NONE NOTED.ACTIVE BOWEL SOUNDS. 10/08. ABLE TO TAKE MEDICATIONS DIRECTED. PT STATES NO PAIN AND NO SOB. PT AWARE THAT DIALYSIS AV GRAFT TO RIGHT ARM IS PART OF PLAN OF CARE. RIGHT ARM PRECAUTIONS.
[2018-10-09] VITALS (7 sets, daily range): BP systolic 107–146; BP diastolic 60–85
[2018-10-09] MEDS: IPRATROPIUM 0.5 MG/2.5 ML INH IH SCH ×4 (05:12→23:14)
[2018-10-09] MEDS: MECLIZINE HCL 25 MG TABLET PO SCH ×5 (05:38→18:31)
[2018-10-09] MEDS: LEVOTHYROXINE 50 MCG TABLET PO SCH (05:38)
[2018-10-09] MEDS: INSULIN HUMULIN R 100 UNIT/ML 3ML SQ SCH ×4 (05:39→21:00)
[2018-10-09] MEDS: POTASSIUM CHLORIDE 20 MEQ ERTAB PO PRN (06:12)
[2018-10-09] MEDS: TRAMADOL HCL 50 MG TABLET PO PRN (06:20)
--- NOTE | 2018-10-09 06:41 | NUR ---
C/O PAIN TO BACK AREA. TRAMADOL PRN GIVEN. 50MG
[2018-10-09] MEDS: Cholecalciferol (Vitamin D3) (Vitamin D3) 1,000 UNIT PO SCH (09:00)
[2018-10-09] MEDS: ENOXAPARIN SODIUM 30 MG/0.3 ML SQ SCH (09:00)
[2018-10-09] MEDS: ATORVASTATIN CALCIUM 40 MG TABLET PO SCH (10:39)
[2018-10-09] MEDS: FOLIC ACID/VITAMIN B COMP W-C 1 MG CAPSULE PO SCH (10:39)
[2018-10-09] MEDS: SODIUM BICARBONATE 650 MG TAB PO SCH ×2 (10:39→22:09)
[2018-10-09] MEDS: LOSARTAN 50 MG TABLET PO SCH ×2 (10:40→22:09)
[2018-10-09] MEDS: ASPIRIN 81MG TAB.CHEW PO SCH (10:40)
[2018-10-09] MEDS: FAMOTIDINE 20MG TAB 20 MG TAB PO SCH ×2 (10:40→22:09)
[2018-10-09] MEDS: AMLODIPINE BESYLATE 5 MG TAB PO SCH (10:40)
[2018-10-09] MEDS: FUROSEMIDE 20 MG TABLET PO SCH (10:41)
[2018-10-09] MEDS: IRON SUCROSE COMPLEX 100 MG in SODIUM CHLORIDE 0.9% 50 ML IV SCH (10:44)
--- NOTE | 2018-10-09 16:00 | NUR ---
PT AGREES TO DIALYSIS AND PERMCATH PLACEMENT PATIENT AGREES TO DIALYSIS AFTER DR JOSUE LORENZ SPOKE WITH PATIENT ABOUT THE IMPORTANCE FOR DIALYSIS. DR. TORIBIO PAGED FOR ORDERS, PENDING CALL BACK PERMACATH AND HD.
--- NOTE | 2018-10-09 16:06 | NUR ---
DR. TORIBIO PAGED FOR PERMACATH OR DIALYSIS PLANS; STATES NO PLANS AT THIS TIME PATIENT JUST WANTS AV GRAFT. UNLESS SHE AGREES THEN WE CAN ORDER PERMACATH AND DIALYSIS.
--- NOTE | 2018-10-09 20:05 | NUR ---
US VEIN MAPPING US vein mapping reports a small thrombus on the right antecubital. MD Bullard is rounding on the floor. Informed him of patient's status and diagnose and reported and read report of the US vein mapping. He is aware and no orders are obtained. Patient is on Lovenox sq daily.
[2018-10-10] VITALS (13 sets, daily range): BP systolic 119–155; BP diastolic 67–92
[2018-10-10 04:52] LABS: BASOPHILS % (AUTO) 1.1 % (0.0-5.0); EOSINOPHILS % (AUTO) 7.4 % (0.0-8.0); HEMATOCRIT 30.7 % (36-48); MEAN CORPUSCULAR HEMOGLOBIN 27.1 pg (27.0-33.0); MEAN CORPUSCULAR HGB CONC 32.7 g/dL (32.0-36.0); MEAN CORPUSCULAR VOLUME 82.7 fL (79-99); NEUTROPHILS % (AUTO) 60.5 % (40.0-77.0); NUCLEATED RED BLOOD CELLS 0.4 % (0.0-0.19); PLATELET COUNT (AUTO) 462 K/uL (130-400); RED BLOOD CELL COUNT(AUTO) 3.72 MIL/uL (4.00-5.50); RED CELL DISTRIBUTION WIDTH 18.1 % (11.0-15.5); WHITE BLOOD COUNT (AUTO) 9.7 K/uL (4.8-10.8)
[2018-10-10 05:04] LABS: INR 0.91 (0.85-1.15); PARTIAL THROMBOPLASTIN TIME 29.7 SEC (26.3-35.5); PROTHROMBIN TIME 9.6 SEC (9.6-11.6)
[2018-10-10 05:11] LABS: CREATININE 3.6 mg/dL (0.5-1.5); POTASSIUM 3.5 mmol/L (3.5-5.1)
[2018-10-10] MEDS: IPRATROPIUM 0.5 MG/2.5 ML INH IH SCH ×3 (05:21→18:48)
[2018-10-10] MEDS: MECLIZINE HCL 25 MG TABLET PO SCH ×4 (06:00→18:07)
[2018-10-10] MEDS: LEVOTHYROXINE 50 MCG TABLET PO SCH (06:01)
[2018-10-10] MEDS: INSULIN HUMULIN R 100 UNIT/ML 3ML SQ SCH ×4 (06:17→21:00)
[2018-10-10] MEDS ORDERED: LIDOCAINE HCL 1% MDV 50ML VIAL ONE (08:43)
[2018-10-10] MEDS: Cholecalciferol (Vitamin D3) (Vitamin D3) 1,000 UNIT PO SCH (09:00)
[2018-10-10] MEDS: FOLIC ACID/VITAMIN B COMP W-C 1 MG CAPSULE PO SCH (10:18)
[2018-10-10] MEDS: ATORVASTATIN CALCIUM 40 MG TABLET PO SCH (10:18)
[2018-10-10] MEDS: TRAMADOL HCL 50 MG TABLET PO PRN (10:18)
[2018-10-10] MEDS: SODIUM BICARBONATE 650 MG TAB PO SCH ×2 (10:18→21:00)
[2018-10-10] MEDS: FUROSEMIDE 20 MG TABLET PO SCH (10:18)
[2018-10-10] MEDS: FAMOTIDINE 20MG TAB 20 MG TAB PO SCH ×2 (10:18→21:00)
[2018-10-10] MEDS: ASPIRIN 81MG TAB.CHEW PO SCH (10:18)
[2018-10-10] MEDS: LOSARTAN 50 MG TABLET PO SCH ×2 (10:19→21:00)
[2018-10-10] MEDS: AMLODIPINE BESYLATE 5 MG TAB PO SCH (10:19)
[2018-10-10] MEDS: IRON SUCROSE COMPLEX 100 MG in SODIUM CHLORIDE 0.9% 50 ML IV SCH (10:19)
[2018-10-10] MEDS: HYDROMORPHONE HCL 0.5 MG/0.5 ML ML IVP PRN ×2 (13:38→19:32)
[2018-10-10] MEDS: ENOXAPARIN SODIUM 30 MG/0.3 ML SQ SCH (13:44)
[2018-10-10 14:26] LABS: HEMATOCRIT 29.7 % (36-48)
--- NOTE | 2018-10-10 14:26 | NUR ---
KENYON Note: [facility] [facility] [place] approval and chair time CM met with pt discussed MD wilkins for outpatient dialysis, pt in agreement. ABRIL signed for [facility]. Faxed clinicals and order. Pt pending labs and dialysis #1, #2, #3. Will fax clinicals once available. Pt pending approval, acceptance, and chair time. Primary nurse aware. CM to cont to follow up.
[2018-10-10 14:39] LABS: HEMOGLOBIN A1C 9.3 % (4.0-6.0)
[2018-10-10 14:47] LABS: ALBUMIN 1.4 g/dL (3.5-5.0); CREATININE 3.5 mg/dL (0.5-1.5)
[2018-10-10] MEDS ORDERED: SODIUM CHLORIDE 0.9% 1000ML 1,000 ML IV PRN (15:15)
[2018-10-10] MEDS ORDERED: 0.9% SODIUM CHLORIDE 1000 ML IV BAG IV PRN (15:15)
[2018-10-10] MEDS ORDERED: ACETAMINOPHEN 325 MG TAB PO PRN (15:15)
[2018-10-10] MEDS ORDERED: NITROGLYCERIN 0.4 MG SL TAB SL PRN (15:15)
[2018-10-10 15:21] LABS: % IRON SATURATION 100.4 % (22-44)
--- NOTE | 2018-10-10 16:00 | NUR ---
S/P LEFT CHEST PERMACATH
[2018-10-10] MEDS: HEPARIN SODIUM 5000UNIT/ML 1ML VIAL IJ PRN (16:48)
--- NOTE | 2018-10-10 17:00 | NUR ---
PT BEING DIALYZED
[2018-10-10] MEDS: ONDANSETRON HCL 4 MG/2 ML VIAL IV PRN (22:10)
[2018-10-11] MEDS: IPRATROPIUM 0.5 MG/2.5 ML INH IH SCH ×4 (00:36→18:38)
[2018-10-11] MEDS: HYDROMORPHONE HCL 0.5 MG/0.5 ML ML IVP PRN (01:22)
[2018-10-11 03:28] VITALS: BP 117/67
[2018-10-11 05:08] LABS: EOSINOPHILS % (AUTO) 3.3 % (0.0-8.0); HEMATOCRIT 28.7 % (36-48); LYMPHOCYTES % (AUTO) 16.5 % (21.0-51.0); MEAN CORPUSCULAR HEMOGLOBIN 26.5 pg (27.0-33.0); MEAN CORPUSCULAR VOLUME 82.6 fL (79-99); NEUTROPHILS % (AUTO) 68.2 % (40.0-77.0); NUCLEATED RED BLOOD CELLS 0.2 % (0.0-0.19); PLATELET COUNT (AUTO) 415 K/uL (130-400); RED BLOOD CELL COUNT(AUTO) 3.48 MIL/uL (4.00-5.50); WHITE BLOOD COUNT (AUTO) 10.8 K/uL (4.8-10.8)
[2018-10-11 05:16] LABS: CREATININE 3.1 mg/dL (0.5-1.5); POTASSIUM 3.5 mmol/L (3.5-5.1)
[2018-10-11] MEDS: INSULIN HUMULIN R 100 UNIT/ML 3ML SQ SCH ×4 (06:15→21:00)
[2018-10-11] MEDS: MECLIZINE HCL 25 MG TABLET PO SCH ×4 (06:15→19:52)
[2018-10-11] MEDS: LEVOTHYROXINE 50 MCG TABLET PO SCH (06:15)
[2018-10-11 08:00] VITALS: BP 125/78
[2018-10-11] MEDS: Cholecalciferol (Vitamin D3) (Vitamin D3) 1,000 UNIT PO SCH (09:00)
[2018-10-11] MEDS: SODIUM BICARBONATE 650 MG TAB PO SCH ×2 (09:40→21:00)
[2018-10-11] MEDS: FUROSEMIDE 20 MG TABLET PO SCH (09:40)
[2018-10-11] MEDS: FOLIC ACID/VITAMIN B COMP W-C 1 MG CAPSULE PO SCH (09:40)
[2018-10-11] MEDS: ATORVASTATIN CALCIUM 40 MG TABLET PO SCH (09:40)
[2018-10-11] MEDS: LOSARTAN 50 MG TABLET PO SCH ×2 (09:41→21:00)
[2018-10-11] MEDS: ASPIRIN 81MG TAB.CHEW PO SCH (09:41)
[2018-10-11] MEDS: AMLODIPINE BESYLATE 5 MG TAB PO SCH (09:41)
[2018-10-11] MEDS: FAMOTIDINE 20MG TAB 20 MG TAB PO SCH ×2 (09:41→21:00)
[2018-10-11] MEDS: ENOXAPARIN SODIUM 30 MG/0.3 ML SQ SCH (09:43)
[2018-10-11] MEDS: IRON SUCROSE COMPLEX 100 MG in SODIUM CHLORIDE 0.9% 50 ML IV SCH (09:56)
[2018-10-11 10:21] LABS: HEPATITIS Bs ANTIGEN SCREEN P Negative (Negative)
[2018-10-11 12:00] VITALS: BP 114/69
[2018-10-11 16:00] VITALS: BP 98/56
[2018-10-11 20:00] VITALS: BP 111/64
[2018-10-11] MEDS: HEPARIN SODIUM 5000UNIT/ML 1ML VIAL IJ PRN (23:43)
[2018-10-12] VITALS: BP 127/67
[2018-10-12] MEDS: HYDROMORPHONE HCL 0.5 MG/0.5 ML ML IVP PRN ×2 (00:35→09:30)
[2018-10-12] MEDS: ONDANSETRON HCL 4 MG/2 ML VIAL IV PRN (00:35)
[2018-10-12 04:00] VITALS: BP 121/62
[2018-10-12 05:16] LABS: BASOPHILS % (AUTO) 0.8 % (0.0-5.0); EOSINOPHILS % (AUTO) 3.5 % (0.0-8.0); HEMATOCRIT 28.3 % (36-48); LYMPHOCYTES % (AUTO) 19.8 % (21.0-51.0); MEAN CORPUSCULAR HEMOGLOBIN 27.3 pg (27.0-33.0); MEAN CORPUSCULAR HGB CONC 32.7 g/dL (32.0-36.0); MEAN CORPUSCULAR VOLUME 83.5 fL (79-99); MONOCYTES % (AUTO) 10.4 % (3.0-13.0); NEUTROPHILS % (AUTO) 65.5 % (40.0-77.0); NUCLEATED RED BLOOD CELLS 0.1 % (0.0-0.19); PLATELET COUNT (AUTO) 342 K/uL (130-400); RED BLOOD CELL COUNT(AUTO) 3.39 MIL/uL (4.00-5.50); RED CELL DISTRIBUTION WIDTH 18.5 % (11.0-15.5); WHITE BLOOD COUNT (AUTO) 10.6 K/uL (4.8-10.8)
[2018-10-12 05:18] LABS: CREATININE 2.8 mg/dL (0.5-1.5); POTASSIUM 3.2 mmol/L (3.5-5.1)
[2018-10-12] MEDS: TRAMADOL HCL 50 MG TABLET PO PRN (05:31)
[2018-10-12] MEDS: IPRATROPIUM 0.5 MG/2.5 ML INH IH SCH ×5 (06:27→23:24)
[2018-10-12] MEDS: INSULIN HUMULIN R 100 UNIT/ML 3ML SQ SCH ×4 (06:30→21:00)
[2018-10-12] MEDS: LEVOTHYROXINE 50 MCG TABLET PO SCH (06:55)
[2018-10-12] MEDS: MECLIZINE HCL 25 MG TABLET PO SCH ×5 (06:55→23:04)
[2018-10-12 08:00] VITALS: BP 117/73
[2018-10-12] MEDS: Cholecalciferol (Vitamin D3) (Vitamin D3) 1,000 UNIT PO SCH (09:00)
[2018-10-12] MEDS: FOLIC ACID/VITAMIN B COMP W-C 1 MG CAPSULE PO SCH (09:28)
[2018-10-12] MEDS: ATORVASTATIN CALCIUM 40 MG TABLET PO SCH (09:29)
[2018-10-12] MEDS: SODIUM BICARBONATE 650 MG TAB PO SCH ×2 (09:29→23:04)
[2018-10-12] MEDS: ASPIRIN 81MG TAB.CHEW PO SCH (09:29)
[2018-10-12] MEDS: FAMOTIDINE 20MG TAB 20 MG TAB PO SCH ×2 (09:29→23:04)
[2018-10-12] MEDS: FUROSEMIDE 20 MG TABLET PO SCH (09:29)
[2018-10-12] MEDS: LOSARTAN 50 MG TABLET PO SCH ×2 (09:29→23:05)
[2018-10-12] MEDS: AMLODIPINE BESYLATE 5 MG TAB PO SCH (09:30)
[2018-10-12] MEDS: ENOXAPARIN SODIUM 30 MG/0.3 ML SQ SCH (09:36)
[2018-10-12 11:55] VITALS: BP 100/60
[2018-10-12] MEDS: IRON SUCROSE COMPLEX 100 MG in SODIUM CHLORIDE 0.9% 50 ML IV SCH (12:40)
[2018-10-12 16:00] VITALS: BP 97/57
[2018-10-12 20:00] VITALS: BP_SYST 122; BP_SYST 133; BP_DIAS 68; BP_DIAS 73
[2018-10-13] VITALS (14 sets, daily range): BP systolic 103–147; BP diastolic 57–75
[2018-10-13] MEDS: HYDROMORPHONE HCL 0.5 MG/0.5 ML ML IVP PRN ×2 (00:10→17:26)
[2018-10-13] MEDS: MECLIZINE HCL 25 MG TABLET PO SCH ×4 (06:00→23:56)
[2018-10-13 06:03] LABS: HEMATOCRIT 31.5 % (36-48); MEAN CORPUSCULAR HEMOGLOBIN 26.9 pg (27.0-33.0); MEAN CORPUSCULAR HGB CONC 32.2 g/dL (32.0-36.0); MEAN CORPUSCULAR VOLUME 83.4 fL (79-99); NUCLEATED RED BLOOD CELLS 0.2 % (0.0-0.19); PLATELET COUNT (AUTO) 380 K/uL (130-400); RED BLOOD CELL COUNT(AUTO) 3.77 MIL/uL (4.00-5.50); RED CELL DISTRIBUTION WIDTH 18.8 % (11.0-15.5); WHITE BLOOD COUNT (AUTO) 9.3 K/uL (4.8-10.8)
[2018-10-13] MEDS: IPRATROPIUM 0.5 MG/2.5 ML INH IH SCH (06:23)
[2018-10-13 06:25] LABS: INR 0.91 (0.85-1.15); PARTIAL THROMBOPLASTIN TIME 30.1 SEC (26.3-35.5); PROTHROMBIN TIME 9.6 SEC (9.6-11.6)
[2018-10-13] MEDS ORDERED: IPRATROPIUM 0.5 MG/2.5 ML INH IH PRN (06:30)
[2018-10-13] MEDS: LEVOTHYROXINE 50 MCG TABLET PO SCH (06:30)
[2018-10-13 06:43] LABS: CREATININE 3.8 mg/dL (0.5-1.5); POTASSIUM 3.7 mmol/L (3.5-5.1)
[2018-10-13 06:51] LABS: BASOPHILS % (MANUAL) 1 % (0-2); EOSINOPHILS % (MANUAL) 5 % (1-6); LYMPHOCYTES % (MANUAL) 12 % (22-44); MAN.DIFF COMMENT-IMPRESSION MANUAL DIFFERENTIAL; MONOCYTES % (MANUAL) 12 % (2-9); PLATELET MORPHOLOGY COMMENT ADEQUATE; SEGMENTED NEUTROPHILS % 70 % (40-70)
[2018-10-13] MEDS ORDERED: LIDOCAINE HCL 2% 20ML ONE (07:19)
[2018-10-13] MEDS ORDERED: IOHEXOL-350 50ML VIAL IV ONE (07:19)
[2018-10-13] MEDS ORDERED: IOHEXOL 350 MG/ML 100ML INFUS..BTL IV ONE (07:19)
[2018-10-13] MEDS ORDERED: HEPARIN SODIUM 1000UNIT/ML 10ML VIAL ONE (07:19)
[2018-10-13] MEDS: INSULIN HUMULIN R 100 UNIT/ML 3ML SQ SCH ×4 (07:30→22:32)
--- NOTE | 2018-10-13 08:30 | NUR ---
S/P RIGHT HEART CATH REPORT RECEIVED FROM HARSHAW. PATIENT VITALS SIGNS STABLE. NO C/O PAIN. NO SWELLING, BLEEDING OR DISCONFORT NOTED ON THE SITE. ORDERS RECEIVED FOR STRICT BED REST FOR 8 HRS (UNTIL 4PM). PATIENT VERBALIZES UNDERSTANDING OF RESTRICTED ACTIVITY. BILATERAL DORSALIS PEDIS PULSES PALPABLE.
[2018-10-13] MEDS: Cholecalciferol (Vitamin D3) (Vitamin D3) 1,000 UNIT PO SCH (09:00)
[2018-10-13] MEDS: FUROSEMIDE 20 MG TABLET PO SCH (09:00)
[2018-10-13] MEDS: ASPIRIN 81MG TAB.CHEW PO SCH (09:00)
[2018-10-13] MEDS: LOSARTAN 50 MG TABLET PO SCH ×2 (09:00→22:09)
[2018-10-13] MEDS: AMLODIPINE BESYLATE 5 MG TAB PO SCH (09:00)
[2018-10-13] MEDS: FOLIC ACID/VITAMIN B COMP W-C 1 MG CAPSULE PO SCH (09:36)
[2018-10-13] MEDS: FAMOTIDINE 20MG TAB 20 MG TAB PO SCH ×2 (09:36→22:09)
[2018-10-13] MEDS: SODIUM BICARBONATE 650 MG TAB PO SCH ×2 (09:36→22:08)
[2018-10-13] MEDS: IRON SUCROSE COMPLEX 100 MG in SODIUM CHLORIDE 0.9% 50 ML IV SCH (09:37)
--- NOTE | 2018-10-13 11:14 | NUR ---
Nutrition Follow-up: Pt. S/P Left Chest Permacath, HD tx initiated. Pt. on 75gm CCD Renal Dialysis diet with good p.o. intake, as per pt. Labs reviewed(Alb 1.4). Spoke with pt. regarding protein supplementation and pt. agreed to try. LBM: 10/12/18. SR-22, elastic. Pt. previously educated on Renal Non diaysis diet on 10/06/18. Briefly reviewed / reinforced Renal Dialysis diet. Pt. verbalized understanding. Recommendations: 1) Continue current diet. 2) Rec. 30ml ProMod TID with meals. 3) Continue to monitor pt's nutritional status. 4) Consult RD as additional nutrition concerns arise. Addendum: 10/13/18 at [address] Amended: Links added.
--- NOTE | 2018-10-13 12:00 | NUR ---
MD JIL DUONG VISITED WITH PT. S/O ON THE CASE. WILL F/U AN OUT PATIENT. NO INTERVENTION FOR RIGHT NOW..
--- NOTE | 2018-10-13 16:36 | NUR ---
PATIENT BEING DIALYZED. VS STABLE. WILL CONTINUE TO MONITOR PATIENT.
--- NOTE | 2018-10-13 17:40 | NUR ---
DR. LANG BEEF RIBBER FOR [facility]. PAGED DR. LANG AND ASKED ABOUT CARDIAC CLEARANCE FOR PT. DR. LANG STATED IF HEART CATH NORMAL, PT MAY BE CLEARED, BUT HE WILL ROUND TOMORROW FOR A FINAL ORDER. BOB CHARGE NURSE AWARE.
[2018-10-13] MEDS: ATORVASTATIN CALCIUM 40 MG TABLET PO SCH (22:08)
[2018-10-13] MEDS: EPOETIN ALFA 10,000 UNIT/ML VIAL SQ SCH (22:09)
[2018-10-14 04:00] VITALS: BP 114/68
[2018-10-14 05:52] LABS: BASOPHILS % (AUTO) 0.8 % (0.0-5.0); EOSINOPHILS % (AUTO) 3.1 % (0.0-8.0); HEMATOCRIT 30.2 % (36-48); LYMPHOCYTES % (AUTO) 20.6 % (21.0-51.0); MEAN CORPUSCULAR HEMOGLOBIN 27.1 pg (27.0-33.0); MEAN CORPUSCULAR HGB CONC 32.7 g/dL (32.0-36.0); MEAN CORPUSCULAR VOLUME 83.1 fL (79-99); MONOCYTES % (AUTO) 11.8 % (3.0-13.0); NEUTROPHILS % (AUTO) 63.7 % (40.0-77.0); NUCLEATED RED BLOOD CELLS 0.1 % (0.0-0.19); PLATELET COUNT (AUTO) 389 K/uL (130-400); RED BLOOD CELL COUNT(AUTO) 3.64 MIL/uL (4.00-5.50); RED CELL DISTRIBUTION WIDTH 19.4 % (11.0-15.5); WHITE BLOOD COUNT (AUTO) 11.4 K/uL (4.8-10.8)
[2018-10-14] MEDS: LEVOTHYROXINE 50 MCG TABLET PO SCH (06:03)
[2018-10-14] MEDS: MECLIZINE HCL 25 MG TABLET PO SCH ×3 (06:03→17:54)
[2018-10-14] MEDS: INSULIN HUMULIN R 100 UNIT/ML 3ML SQ SCH ×4 (06:06→20:38)
[2018-10-14] MEDS: HYDROMORPHONE HCL 0.5 MG/0.5 ML ML IVP PRN ×2 (06:06→14:35)
[2018-10-14 06:07] LABS: CREATININE 3.2 mg/dL (0.5-1.5); POTASSIUM 3.3 mmol/L (3.5-5.1)
[2018-10-14] MEDS: IRON SUCROSE COMPLEX 100 MG in SODIUM CHLORIDE 0.9% 50 ML IV SCH (08:30)
[2018-10-14] MEDS: FOLIC ACID/VITAMIN B COMP W-C 1 MG CAPSULE PO SCH (08:32)
[2018-10-14] MEDS: ASPIRIN 81MG TAB.CHEW PO SCH (08:32)
[2018-10-14] MEDS: SODIUM BICARBONATE 650 MG TAB PO SCH ×2 (08:32→20:38)
[2018-10-14] MEDS: FUROSEMIDE 20 MG TABLET PO SCH (08:32)
[2018-10-14] MEDS: Cholecalciferol (Vitamin D3) (Vitamin D3) 1,000 UNIT PO SCH (08:33)
[2018-10-14] MEDS: LOSARTAN 50 MG TABLET PO SCH ×2 (08:33→20:32)
[2018-10-14] MEDS: AMLODIPINE BESYLATE 5 MG TAB PO SCH (08:35)
[2018-10-14] MEDS: FAMOTIDINE 20MG TAB 20 MG TAB PO SCH ×2 (08:35→20:38)
[2018-10-14 08:51] VITALS: BP 112/62
--- NOTE | 2018-10-14 11:30 | NUR ---
DR. CHISHOLM AWARE OF PT CARDIAC CLEARANCE. STATED HE WILL TALK TO DR. KOEHLER ABOUT THE POSSIBILITY OF HAVING AN AV FISTULA DONE BEFORE PT IS DISCHARGED.
[2018-10-14 12:01] VITALS: BP 117/66
[2018-10-14] MEDS: POTASSIUM CHLORIDE 20 MEQ ERTAB PO SCH (12:02)
[2018-10-14 16:06] VITALS: BP 106/60
[2018-10-14 20:00] VITALS: BP 91/50
--- NOTE | 2018-10-14 20:35 | NUR ---
REFUSED PT CLAIMS OF BACK PAINS. PT ASSISTED BY PCP FROM THE BATHROOM TO THE CHAIR. PT REFUSED MEDS AT THIS TIME. CLAIMS SHE DOES NOT WANT ANYTHING. PT IS CRYING IN THE CHAIR AND DOES NOT WANT TO GO BACK IN BED YET. LEFT PT BE FOR NOW.
[2018-10-14] MEDS: ATORVASTATIN CALCIUM 40 MG TABLET PO SCH (20:38)
--- NOTE | 2018-10-14 21:00 | NUR ---
RE-ASSESS PT ALREADY BACK IN BED. ASKED IF SHE WANTS HER MEDS BUT REFUSED. KEPT COMFORTABLE IN BED WITH HOB ELEVATED. WILL MONITOR PT.
[2018-10-14 23:40] VITALS: BP 114/58
--- NOTE | 2018-10-15 | NUR ---
RE-ASSESS PT IS FAIRLY ASLEEP WITH RESPIRATIONS EVEN AND UNLABORED. NO DISTRESS NOTED. KEPT UNDISTURBED FOR NOW. WILL MONITOR PT.
--- NOTE | 2018-10-15 02:00 | NUR ---
ROUNDS PT RESTING WELL, FAIRLY ASLEEP. NO DISTRESS NOTED. KEPT RESTED AND COMFORTABLE. WILL MONITOR PT. CALL LIGHT WITHIN REACH.
[2018-10-15] MEDS: HYDROMORPHONE HCL 0.5 MG/0.5 ML ML IVP PRN ×4 (03:39→23:49)
[2018-10-15 04:00] VITALS: BP 141/72
[2018-10-15] MEDS: LEVOTHYROXINE 50 MCG TABLET PO SCH (05:35)
[2018-10-15] MEDS: MECLIZINE HCL 25 MG TABLET PO SCH ×5 (05:35→23:31)
--- NOTE | 2018-10-15 05:40 | NUR ---
MEDS PT ALREADY AWAKE. NO CONCERNS VERBALIZED. DUE MEDS ADMINISTERED, TOLERATED WELL.KEPT RESTED. FOR MORE CARE.
[2018-10-15] MEDS: INSULIN HUMULIN R 100 UNIT/ML 3ML SQ SCH ×4 (06:13→21:32)
[2018-10-15 07:10] LABS: BASOPHILS % (AUTO) 1.2 % (0.0-5.0); EOSINOPHILS % (AUTO) 5.5 % (0.0-8.0); HEMATOCRIT 32.3 % (36-48); LYMPHOCYTES % (AUTO) 17.5 % (21.0-51.0); MEAN CORPUSCULAR HGB CONC 32.2 g/dL (32.0-36.0); MEAN CORPUSCULAR VOLUME 83.8 fL (79-99); NEUTROPHILS % (AUTO) 63.8 % (40.0-77.0); NUCLEATED RED BLOOD CELLS 0.1 % (0.0-0.19); PLATELET COUNT (AUTO) 381 K/uL (130-400); RED BLOOD CELL COUNT(AUTO) 3.85 MIL/uL (4.00-5.50); RED CELL DISTRIBUTION WIDTH 19.5 % (11.0-15.5); WHITE BLOOD COUNT (AUTO) 10.5 K/uL (4.8-10.8)
[2018-10-15 07:24] LABS: CREATININE 4.2 mg/dL (0.5-1.5); POTASSIUM 3.2 mmol/L (3.5-5.1)
[2018-10-15 07:37] VITALS: BP 108/80
[2018-10-15] MEDS: POTASSIUM CHLORIDE 20 MEQ ERTAB PO SCH (08:45)
[2018-10-15] MEDS: Cholecalciferol (Vitamin D3) (Vitamin D3) 1,000 UNIT PO SCH (09:00)
[2018-10-15] MEDS: FAMOTIDINE 20MG TAB 20 MG TAB PO SCH ×2 (09:14→20:07)
[2018-10-15] MEDS: FUROSEMIDE 20 MG TABLET PO SCH (09:14)
[2018-10-15] MEDS: AMLODIPINE BESYLATE 5 MG TAB PO SCH (09:14)
[2018-10-15] MEDS: FOLIC ACID/VITAMIN B COMP W-C 1 MG CAPSULE PO SCH (09:14)
[2018-10-15] MEDS: SODIUM BICARBONATE 650 MG TAB PO SCH ×2 (09:14→20:06)
[2018-10-15] MEDS: LOSARTAN 50 MG TABLET PO SCH ×2 (09:14→20:07)
[2018-10-15] MEDS: ASPIRIN 81MG TAB.CHEW PO SCH (09:14)
[2018-10-15] MEDS: IRON SUCROSE COMPLEX 100 MG in SODIUM CHLORIDE 0.9% 50 ML IV SCH (09:14)
[2018-10-15 11:17] VITALS: BP 119/70
[2018-10-15 16:01] VITALS: BP 118/66
[2018-10-15] MEDS: TRAMADOL HCL 50 MG TABLET PO PRN (16:23)
[2018-10-15 20:00] VITALS: BP 111/64
--- NOTE | 2018-10-15 20:00 | NUR ---
ASSESS SHIFT ASSESSMENT DONE, PLEASE REFER TO CHART. DUE MEDS ADMINISTERED, TOLERATED WELL. KEPT RESTED AND COMFORTABLE. CALL LIGHT WITHIN REACH. WILL MONITOR PT. Addendum: 10/15/18 at 2215 by TERRENCE DEVI RN RN Amended: Links added.
[2018-10-15] MEDS: POTASSIUM CHLORIDE 20 MEQ ERTAB PO PRN ×2 (20:06→23:32)
[2018-10-15] MEDS: ATORVASTATIN CALCIUM 40 MG TABLET PO SCH (20:07)
--- NOTE | 2018-10-15 21:32 | NUR ---
MEDS PT RESTING WELL. NO CONCERNS VERBALIZED. NO DISTRESS NOTED. INSULIN DOSE ADMINISTERED. KEPT RESTED. ENCOURAGED TO SLEEP.
--- NOTE | 2018-10-15 22:30 | NUR ---
PAGED CALLED RESOURCE NURSE AND ASKED ABOUT ANY UPDATES ON AV FISTULA PLACEMENT FOR PT. INFORMED RESOURCE NURSE THAT DR CHISHOLM INFORMED AM NURSE THAT HE WILL GET A HOLD OF DR KOEHLER HIMSELF FOR PROCEDURE. RESOURCE NURSE INSTRUCTED EXERCISE MANAGER TO CALL DR CHISHOLM AND ASK IF HE HAD SPOKEN TO DR KOEHLER. PAGED DR CHISHOLM VIA ANSWERING SERVICE. AWAITING CALL BACK.
--- NOTE | 2018-10-15 22:57 | NUR ---
CALL NO CALL BACK FROM DR CHISHOLM. PAGED DR KOEHLER VIA ANSWERING SERVICE. CALLED BACK AND ASKED ABOUT AV FISTULA PLACEMENT FOR PT. INFORMED THAT CARDIOLOGY HAD ALREADY CLEARED PT. STATED THAT HER SCHEDULE FOR THE NEXT TWO DAYS IS VERY HECTIC AND SHE WILL BE LEAVING OUT OF TOWN NEXT WEEK AND CAN DO THE PROCEDURE WHEN SHE COMES BACK BUT NOT BEFORE. FURTHER STATED THAT IF THE CHRONOMETER ASSEMBLER WANT, THEY CAN GET ANOTHER SURGEON TO DO THE PROCEDURE. WILL ENDORSE TO AM SHIFT TO CONSULT ANOTHER SURGEON IN AM.
--- NOTE | 2018-10-15 23:49 | NUR ---
PAIN PT COMPLAINTS OF ABACK PAINS. MEDICATED WITH DILAUDID IV. KEPT RESTED IN BED. CALL LIGHT WITHIN REACH. WILL RE-ASSESS PT. Addendum: 10/15/18 at 2468 by TERRENCE DEVI RN RN Amended: Links added.
[2018-10-15 23:56] VITALS: BP 103/60
--- NOTE | 2018-10-16 02:00 | NUR ---
ROUNDS PT RESTING WELL, FAIRLY ASLEEP. NO DISTRESS NOTED. KEPT UNDISTURBED FOR NOW. WILL CONTINUE TO MONITOR.
[2018-10-16 03:51] VITALS: BP 114/62
[2018-10-16] MEDS: MECLIZINE HCL 25 MG TABLET PO SCH ×4 (05:22→23:22)
[2018-10-16] MEDS: LEVOTHYROXINE 50 MCG TABLET PO SCH (05:23)
[2018-10-16] MEDS: TRAMADOL HCL 50 MG TABLET PO PRN (05:24)
--- NOTE | 2018-10-16 05:25 | NUR ---
MEDS AWAKENED PT FOR DUE MEDS. PCP IN TO GET BLOOD SUGAR=89. PT CLAIMS SHE IS NOT FEELING GOOD, HAVING DIZZINESS AND PAIN TO THE PERMA CATH SITE. MEDICATED PT. KEPT COMFORTABLE. WILL RE-ASSESS PT. FOR MORE CARE.
[2018-10-16 05:39] LABS: EOSINOPHILS % (AUTO) 4.3 % (0.0-8.0); HEMATOCRIT 31.2 % (36-48); LYMPHOCYTES % (AUTO) 19.9 % (21.0-51.0); MEAN CORPUSCULAR HEMOGLOBIN 27.2 pg (27.0-33.0); MEAN CORPUSCULAR HGB CONC 32.1 g/dL (32.0-36.0); MEAN CORPUSCULAR VOLUME 84.8 fL (79-99); MONOCYTES % (AUTO) 12.1 % (3.0-13.0); NEUTROPHILS % (AUTO) 62.7 % (40.0-77.0); NUCLEATED RED BLOOD CELLS 0.1 % (0.0-0.19); PLATELET COUNT (AUTO) 389 K/uL (130-400); RED BLOOD CELL COUNT(AUTO) 3.68 MIL/uL (4.00-5.50); WHITE BLOOD COUNT (AUTO) 11.2 K/uL (4.8-10.8)
[2018-10-16 05:49] LABS: CREATININE 4.6 mg/dL (0.5-1.5); POTASSIUM 3.5 mmol/L (3.5-5.1)
[2018-10-16] MEDS: INSULIN HUMULIN R 100 UNIT/ML 3ML SQ SCH ×4 (05:55→20:38)
[2018-10-16 07:00] VITALS: BP 118/76
[2018-10-16] MEDS: FAMOTIDINE 20MG TAB 20 MG TAB PO SCH ×2 (08:41→20:37)
[2018-10-16] MEDS: ONDANSETRON HCL 4 MG/2 ML VIAL IV PRN (08:41)
[2018-10-16] MEDS: FOLIC ACID/VITAMIN B COMP W-C 1 MG CAPSULE PO SCH (08:41)
[2018-10-16] MEDS: SODIUM BICARBONATE 650 MG TAB PO SCH ×2 (08:41→20:36)
[2018-10-16] MEDS: FUROSEMIDE 20 MG TABLET PO SCH (08:42)
[2018-10-16] MEDS: ASPIRIN 81MG TAB.CHEW PO SCH (08:42)
[2018-10-16] MEDS: POTASSIUM CHLORIDE 20 MEQ ERTAB PO SCH (08:45)
[2018-10-16] MEDS: Cholecalciferol (Vitamin D3) (Vitamin D3) 1,000 UNIT PO SCH (09:00)
[2018-10-16] MEDS: LOSARTAN 50 MG TABLET PO SCH ×2 (09:00→20:37)
[2018-10-16] MEDS: AMLODIPINE BESYLATE 5 MG TAB PO SCH (09:00)
--- NOTE | 2018-10-16 10:00 | NUR ---
cm note call [place] [facility] [place] spoke to states huong pt is accepted and has a chair for MwF schedule on 4th shift( approx 530pm.) [facility] pt can go on tuesday for 1st visit and be there around 5pm. updated pt with information provided written Hemodialysis info and times. pt verbalizes understanding. also updated primary nurse.
[2018-10-16 11:00] VITALS: BP 112/76
[2018-10-16] MEDS ORDERED: MECL-111 PO (14:27)
[2018-10-16 16:00] VITALS: BP 99/66
[2018-10-16] MEDS: IRON SUCROSE COMPLEX 100 MG in SODIUM CHLORIDE 0.9% 50 ML IV SCH (17:51)
[2018-10-16] MEDS: HEPARIN SODIUM 5000UNIT/ML 1ML VIAL IJ PRN (17:53)
[2018-10-16] MEDS: HYDROMORPHONE HCL 0.5 MG/0.5 ML ML IVP PRN (17:54)
[2018-10-16 20:00] VITALS: BP 108/59
[2018-10-16] MEDS ORDERED: TEMAZEPAM 15 MG CAPSULE PO ONE (20:30)
[2018-10-16] MEDS: ATORVASTATIN CALCIUM 40 MG TABLET PO SCH (20:37)
--- NOTE | 2018-10-16 23:23 | NUR ---
Pt sleeping at this time, no episode of nausea and vomiting, nursing will continue to monitor.
[2018-10-17] VITALS: BP 104/60
[2018-10-17 04:00] VITALS: BP 114/65
[2018-10-17 05:26] LABS: HEMATOCRIT 34.2 % (36-48); MEAN CORPUSCULAR HEMOGLOBIN 27.8 pg (27.0-33.0); MEAN CORPUSCULAR HGB CONC 32.3 g/dL (32.0-36.0); MEAN CORPUSCULAR VOLUME 86.1 fL (79-99); NUCLEATED RED BLOOD CELLS 0.1 % (0.0-0.19); PLATELET COUNT (AUTO) 413 K/uL (130-400); RED BLOOD CELL COUNT(AUTO) 3.97 MIL/uL (4.00-5.50); RED CELL DISTRIBUTION WIDTH 20.2 % (11.0-15.5); WHITE BLOOD COUNT (AUTO) 9.3 K/uL (4.8-10.8)
[2018-10-17] MEDS: HYDROMORPHONE HCL 0.5 MG/0.5 ML ML IVP PRN ×3 (05:34→20:55)
[2018-10-17 05:37] LABS: INR 0.95 (0.85-1.15); PARTIAL THROMBOPLASTIN TIME 29.2 SEC (26.3-35.5)
[2018-10-17 05:43] LABS: CREATININE 3.3 mg/dL (0.5-1.5); POTASSIUM 3.5 mmol/L (3.5-5.1)
[2018-10-17] MEDS: MECLIZINE HCL 25 MG TABLET PO SCH ×3 (06:00→18:00)
[2018-10-17] MEDS: LEVOTHYROXINE 50 MCG TABLET PO SCH (06:20)
[2018-10-17] MEDS: INSULIN HUMULIN R 100 UNIT/ML 3ML SQ SCH ×4 (06:54→21:00)
[2018-10-17 08:00] VITALS: BP 136/73
[2018-10-17] MEDS: POTASSIUM CHLORIDE 20 MEQ ERTAB PO SCH (08:45)
[2018-10-17] MEDS: Cholecalciferol (Vitamin D3) (Vitamin D3) 1,000 UNIT PO SCH (09:00)
[2018-10-17] MEDS: IRON SUCROSE COMPLEX 100 MG in SODIUM CHLORIDE 0.9% 50 ML IV SCH (09:00)
[2018-10-17] MEDS: LOSARTAN 50 MG TABLET PO SCH ×2 (09:36→20:55)
[2018-10-17] MEDS: FAMOTIDINE 20MG TAB 20 MG TAB PO SCH ×2 (09:36→20:54)
[2018-10-17] MEDS: AMLODIPINE BESYLATE 5 MG TAB PO SCH (09:36)
[2018-10-17] MEDS: SODIUM BICARBONATE 650 MG TAB PO SCH ×2 (09:37→20:55)
[2018-10-17] MEDS: FUROSEMIDE 20 MG TABLET PO SCH (09:41)
[2018-10-17] MEDS ORDERED: CEFAZOLIN SODIUM 1 GM VIAL IVP PRN (11:30)
[2018-10-17 12:00] VITALS: BP 126/73
[2018-10-17] MEDS ORDERED: SODIUM CHLORIDE 0.9% 1000ML 1,000 ML IV SCH (13:00)
[2018-10-17] MEDS: ASPIRIN 81MG TAB.CHEW PO SCH (14:01)
[2018-10-17] MEDS: FOLIC ACID/VITAMIN B COMP W-C 1 MG CAPSULE PO SCH (14:01)
[2018-10-17 16:00] VITALS: BP 119/71
[2018-10-17 19:00] VITALS: BP 115/61
[2018-10-17] MEDS ORDERED: TEMAZEPAM 15 MG CAPSULE PO ONE (20:00)
[2018-10-17] MEDS: ATORVASTATIN CALCIUM 40 MG TABLET PO SCH (20:54)
[2018-10-17] MEDS: EPOETIN ALFA 10,000 UNIT/ML VIAL SQ SCH (20:56)
[2018-10-18] VITALS (23 sets, daily range): BP systolic 110–146; BP diastolic 56–81
--- NOTE | 2018-10-18 00:43 | NUR ---
ROUNDS Pt sleeping at this time, no episode of nausea and vomiting noted.
[2018-10-18] MEDS: MECLIZINE HCL 25 MG TABLET PO SCH ×4 (04:10→17:13)
[2018-10-18] MEDS: INSULIN HUMULIN R 100 UNIT/ML 3ML SQ SCH ×4 (04:11→21:08)
[2018-10-18] MEDS: LEVOTHYROXINE 50 MCG TABLET PO SCH (04:11)
[2018-10-18 05:12] LABS: BASOPHILS % (AUTO) 1.1 % (0.0-5.0); EOSINOPHILS % (AUTO) 6.6 % (0.0-8.0); HEMATOCRIT 31.4 % (36-48); LYMPHOCYTES % (AUTO) 22.5 % (21.0-51.0); MEAN CORPUSCULAR HGB CONC 32.8 g/dL (32.0-36.0); MEAN CORPUSCULAR VOLUME 85.5 fL (79-99); NEUTROPHILS % (AUTO) 58.8 % (40.0-77.0); NUCLEATED RED BLOOD CELLS 0.1 % (0.0-0.19); PLATELET COUNT (AUTO) 452 K/uL (130-400); RED BLOOD CELL COUNT(AUTO) 3.67 MIL/uL (4.00-5.50); RED CELL DISTRIBUTION WIDTH 20.3 % (11.0-15.5)
[2018-10-18 05:23] LABS: CREATININE 4.2 mg/dL (0.5-1.5); POTASSIUM 3.2 mmol/L (3.5-5.1)
[2018-10-18] MEDS ORDERED: LIDOCAINE HCL 1% 20 ML VIAL ONE (07:32)
[2018-10-18] MEDS ORDERED: BUPIVACAINE/PF 0.5% 30ML VIAL ONE (07:32)
[2018-10-18] MEDS ORDERED: BACITRACIN 50,000 UNIT VIAL ONE (07:32)
[2018-10-18] MEDS ORDERED: CEFAZOLIN SODIUM 1 GM VIAL ONE (08:04)
[2018-10-18] MEDS ORDERED: KETAMINE 50MG/ML SYRINGE 50 MG/ML DISP.SYRIN IV ONE (08:25)
[2018-10-18] MEDS ORDERED: SUCCINYLCHOLINE 200MG/10ML SYR ONE (08:26)
[2018-10-18] MEDS ORDERED: MIDAZOLAM HCL 1 MG/ML 2ML VIAL ONE (08:26)
[2018-10-18] MEDS ORDERED: DEXAMETHASONE SOD PHOSPHATE 10MG/ML 1ML VIAL ONE (08:26)
[2018-10-18] MEDS ORDERED: LIDOCAINE PF 2% 5ML ABBOJECT ONE (08:26)
[2018-10-18] MEDS ORDERED: GLYCOPYRROLATE 1 MG/5 ML SYRINGE ONE (08:27)
[2018-10-18] MEDS ORDERED: NEOSTIGMINE 5MG/5ML SYR IV ONE (08:27)
[2018-10-18] MEDS ORDERED: PROPOFOL 10 MG/ML 20ML VIAL IV ONE (08:27)
[2018-10-18] MEDS ORDERED: ONDANSETRON HCL 4 MG/2 ML VIAL ONE (08:27)
[2018-10-18] MEDS ORDERED: ROCURONIUM 10MG/1ML SYR 10 MG/ML ML ONE (08:28)
[2018-10-18] MEDS ORDERED: FENTANYL CITRATE PF 50 MCG/1 ML 2ML VIAL ONE (08:29)
[2018-10-18] MEDS: POTASSIUM CHLORIDE 20 MEQ ERTAB PO SCH (08:45)
[2018-10-18] MEDS: AMLODIPINE BESYLATE 5 MG TAB PO SCH (09:00)
[2018-10-18] MEDS: ASPIRIN 81MG TAB.CHEW PO SCH (09:00)
[2018-10-18] MEDS: FAMOTIDINE 20MG TAB 20 MG TAB PO SCH ×2 (09:00→21:10)
[2018-10-18] MEDS: Cholecalciferol (Vitamin D3) (Vitamin D3) 1,000 UNIT PO SCH (09:00)
[2018-10-18] MEDS: FOLIC ACID/VITAMIN B COMP W-C 1 MG CAPSULE PO SCH (09:00)
[2018-10-18] MEDS: LOSARTAN 50 MG TABLET PO SCH ×2 (09:00→21:12)
[2018-10-18] MEDS: FUROSEMIDE 20 MG TABLET PO SCH (09:00)
[2018-10-18] MEDS: IRON SUCROSE COMPLEX 100 MG in SODIUM CHLORIDE 0.9% 50 ML IV SCH (09:00)
[2018-10-18] MEDS: SODIUM BICARBONATE 650 MG TAB PO SCH ×2 (09:00→21:10)
[2018-10-18] MEDS ORDERED: EPHEDRINE SULFATE 50 MG/ML AMPULE ONE (09:08)
[2018-10-18] MEDS ORDERED: POTASSIUM CHLORIDE 20 MEQ ERTAB PO SCH (09:15)
[2018-10-18] MEDS ORDERED: TRAMADOL HCL 50 MG TABLET PO PRN ×2 (09:15)
[2018-10-18] MEDS ORDERED: METOCLOPRAMIDE 10 MG/2 ML VIAL ONE (09:22)
[2018-10-18] MEDS ORDERED: DEXAMETHASONE SOD PHOSPHATE 4 MG/ML 1ML VIAL ONE (09:22)
[2018-10-18] MEDS ORDERED: PROTAMINE SULFATE 10 MG/ML 25ML VIAL IV ONE (09:43)
[2018-10-18] MEDS ORDERED: HEPARIN SODIUM 1000UNIT/ML 10ML VIAL ONE (09:43)
[2018-10-18] MEDS ORDERED: MEPERIDINE-PF 25 MG/ML SYG ONE (10:35)
--- NOTE | 2018-10-18 11:07 | NUR ---
NOTIFIED CONRAD SCHWARTZ OF [facility] 207, NO NEW ORDERS THIS TIME. WILL CONTINUE TO MONITOR. Addendum: 10/18/18 at 1108 by CORI KELLY RN RN Amended: Links added.
[2018-10-18] MEDS: HYDROMORPHONE HCL 0.5 MG/0.5 ML ML IVP PRN (18:43)
--- NOTE | 2018-10-18 19:20 | NUR ---
pt Update Pt s/p AV fistula creation today on right cephalic, undergoing dialysis at the time of report on temporary left chest perma cath, 1 liter removed at the end of dialysis with stable vital signs, later complaining of pain at right incision site, medicated for pain, plan is to d/c home tomorrow. nursing will continue to monitor.
[2018-10-18] MEDS: ATORVASTATIN CALCIUM 40 MG TABLET PO SCH (21:10)
[2018-10-18] MEDS: TRAMADOL HCL 50 MG TABLET PO PRN (21:12)
[2018-10-19 04:10] VITALS: BP 134/72
[2018-10-19 05:01] LABS: HEMATOCRIT 32.9 % (36-48); MEAN CORPUSCULAR HEMOGLOBIN 27.5 pg (27.0-33.0); MEAN CORPUSCULAR HGB CONC 32.1 g/dL (32.0-36.0); MEAN CORPUSCULAR VOLUME 85.9 fL (79-99); NUCLEATED RED BLOOD CELLS 0.1 % (0.0-0.19); PLATELET COUNT (AUTO) 473 K/uL (130-400); RED BLOOD CELL COUNT(AUTO) 3.83 MIL/uL (4.00-5.50); RED CELL DISTRIBUTION WIDTH 20.3 % (11.0-15.5); WHITE BLOOD COUNT (AUTO) 12.8 K/uL (4.8-10.8)
[2018-10-19 05:16] LABS: CREATININE 3.4 mg/dL (0.5-1.5); POTASSIUM 3.2 mmol/L (3.5-5.1)
[2018-10-19] MEDS: LEVOTHYROXINE 50 MCG TABLET PO SCH (05:55)
[2018-10-19] MEDS: MECLIZINE HCL 25 MG TABLET PO SCH ×3 (05:55→11:22)
[2018-10-19] MEDS: POTASSIUM CHLORIDE 20 MEQ ERTAB PO SCH (06:56)
[2018-10-19] MEDS: INSULIN HUMULIN R 100 UNIT/ML 3ML SQ SCH ×3 (07:30→16:51)
[2018-10-19 08:00] VITALS: BP 128/75
[2018-10-19] MEDS: Cholecalciferol (Vitamin D3) (Vitamin D3) 1,000 UNIT PO SCH (09:00)
[2018-10-19] MEDS: SODIUM BICARBONATE 650 MG TAB PO SCH (09:46)
[2018-10-19] MEDS: AMLODIPINE BESYLATE 5 MG TAB PO SCH (09:46)
[2018-10-19] MEDS: FUROSEMIDE 20 MG TABLET PO SCH (09:46)
[2018-10-19] MEDS: FOLIC ACID/VITAMIN B COMP W-C 1 MG CAPSULE PO SCH (09:46)
[2018-10-19] MEDS: HYDROMORPHONE HCL 0.5 MG/0.5 ML ML IVP PRN ×2 (09:47→16:23)
[2018-10-19] MEDS: IRON SUCROSE COMPLEX 100 MG in SODIUM CHLORIDE 0.9% 50 ML IV SCH (09:47)
[2018-10-19] MEDS: ASPIRIN 81MG TAB.CHEW PO SCH (09:47)
[2018-10-19] MEDS: LOSARTAN 50 MG TABLET PO SCH (09:47)
[2018-10-19] MEDS: FAMOTIDINE 20MG TAB 20 MG TAB PO SCH (09:47)
[2018-10-19 12:00] VITALS: BP 129/67
[2018-10-19] MEDS ORDERED: POTASSIUM CHLORIDE 20 MEQ ERTAB PO SCH (13:00)
[2018-10-19] MEDS ORDERED: FERS325 PO (13:04)
[2018-10-19] MEDS ORDERED: METF-444 PO (13:05)
[2018-10-19 16:00] VITALS: BP 96/59
--- NOTE | 2018-10-19 17:30 | NUR ---
DISCHARGE PATIENT GIVEN DISCHARGE INSTRUCTIONS AND EDUCATION ON FOLLOW UP APPOINTMENTS AND NEW PRESCRIBED MEDICATIONS. PATIENT VERBALIZED UNDERSTANDING ON ALL EDUCATION GIVEN VIA TEACH BACK. IV DISCONTINUED, CATHETER INTACT. NO DISTRESS NOTED UPON DISCHARGE. PATIENT LEFT VIA WHEELCHAIR TO PRIVATE CAR. ALL BELONGINGS TAKEN WITH.
== END 2018-10-19 17:50 | disposition home or self-care (01) | DRG 180 ==
LOC: EDH 16:05 → OBSVTOIN 16:06 → EDHIP 16:06 → 3BH 10-03 15:12
PROVIDERS: ADMIT Internal Medicine; ATTEND Internal Medicine
PROC: 5A1D70Z Performance of Urinary Filtration, Intermittent, Less than 6 Hours Per Day (ICD-10-PCS; 2018-10-10)
PROC: 0JH63XZ Insertion of Tunneled Vascular Access Device into Chest Subcutaneous Tissue and Fascia, Percutaneous Approach (ICD-10-PCS; 2018-10-10)
PROC: 02HV33Z Insertion of Infusion Device into Superior Vena Cava, Percutaneous Approach (ICD-10-PCS; 2018-10-10)
PROC: B5181ZA Fluoroscopy of Superior Vena Cava using Low Osmolar Contrast, Guidance (ICD-10-PCS; 2018-10-10)
PROC: B544ZZA Ultrasonography of Left Jugular Veins, Guidance (ICD-10-PCS; 2018-10-10)
PROC: 5A1D70Z Performance of Urinary Filtration, Intermittent, Less than 6 Hours Per Day (ICD-10-PCS; 2018-10-11)
PROC: B2111ZZ Fluoroscopy of Multiple Coronary Arteries using Low Osmolar Contrast (ICD-10-PCS; principal; 2018-10-13)
PROC: 4A023N7 Measurement of Cardiac Sampling and Pressure, Left Heart, Percutaneous Approach (ICD-10-PCS; 2018-10-13)
PROC: B2151ZZ Fluoroscopy of Left Heart using Low Osmolar Contrast (ICD-10-PCS; 2018-10-13)
PROC: 5A1D70Z Performance of Urinary Filtration, Intermittent, Less than 6 Hours Per Day (ICD-10-PCS; 2018-10-13)
PROC: 5A1D70Z Performance of Urinary Filtration, Intermittent, Less than 6 Hours Per Day (ICD-10-PCS; 2018-10-16)
PROC: 031B0ZF Bypass Right Radial Artery to Lower Arm Vein, Open Approach (ICD-10-PCS; 2018-10-18)
PROC: 5A1D70Z Performance of Urinary Filtration, Intermittent, Less than 6 Hours Per Day (ICD-10-PCS; 2018-10-18)
DX: I13.2 Hypertensive heart and chronic kidney disease with heart failure and with stage 5 chronic kidney disease, or end stage renal disease (principal); G93.41 Metabolic encephalopathy; E43 Unspecified severe protein-calorie malnutrition; N17.9 Acute kidney failure, unspecified; E11.22 Type 2 diabetes mellitus with diabetic chronic kidney disease; N18.6 End stage renal disease; E87.2 Acidosis; E11.65 Type 2 diabetes mellitus with hyperglycemia; N04.9 Nephrotic syndrome with unspecified morphologic changes; D63.1 Anemia in chronic kidney disease; E11.51 Type 2 diabetes mellitus with diabetic peripheral angiopathy without gangrene; E87.0 Hyperosmolality and hypernatremia; I25.10 Atherosclerotic heart disease of native coronary artery without angina pectoris; E78.5 Hyperlipidemia, unspecified; E87.6 Hypokalemia; E87.8 Other disorders of electrolyte and fluid balance, not elsewhere classified; H81.399 Other peripheral vertigo, unspecified ear; I50.30 Unspecified diastolic (congestive) heart failure; I95.1 Orthostatic hypotension; J32.9 Chronic sinusitis, unspecified; I35.1 Nonrheumatic aortic (valve) insufficiency; Z91.14 Patient's other noncompliance with medication regimen; Z99.2 Dependence on renal dialysis; Z91.19 Patient's noncompliance with other medical treatment and regimen; Z83.3 Family history of diabetes mellitus; Z82.49 Family history of ischemic heart disease and other diseases of the circulatory system; Z68.24 Body mass index [BMI] 24.0-24.9, adult
CPT/HCPCS: 36415; 36558; 70450; 70551; 71045; 76770; 77001; 80048; 80053; 80061; 80305; 81001; 82040; 82306; 82565; 82728; 82948; 83036; 83540; 83550; 83735; 84100; 84132; 84443; 84484; 84520; 84550; 85014; 85018; 85025; 85027; 85610; 85730; 86701; 86704; 86706; 86850; 86900; 86901; 87040; 87340; 87390; 87520; 90935; 93005; 93306; 93458; 93880; 93970; 93971; 94640; 94664; A4218; C1750; C1894; G0378; J0330; J0690; J0885; J1100; J1170; J1644; J1650; J1756; J1815; J2001; J2175; J2250; J2405; J2704; J2710; J2720; J2765; J3010; J3490; J7030; Q9967

== ENCOUNTER 2018-10-31 09:52 | Emergency (ER) | payer MEDICAID ==
[~2018-10-31 09:52] MED LIST changes: +FERS325 PO; +MECL-111 PO; +METF-444 PO
[2018-10-31 10:39] LABS: BASOPHILS % (AUTO) 1.2 % (0.0-5.0); EOSINOPHILS % (AUTO) 3.2 % (0.0-8.0); HEMATOCRIT 39.5 % (36-48); LYMPHOCYTES % (AUTO) 12.1 % (21.0-51.0); MEAN CORPUSCULAR HGB CONC 32.6 g/dL (32.0-36.0); MONOCYTES % (AUTO) 6.8 % (3.0-13.0); NEUTROPHILS % (AUTO) 76.7 % (40.0-77.0); NUCLEATED RED BLOOD CELLS 0.1 % (0.0-0.19); PLATELET COUNT (AUTO) 377 K/uL (130-400); RED BLOOD CELL COUNT(AUTO) 4.44 MIL/uL (4.00-5.50); RED CELL DISTRIBUTION WIDTH 20.1 % (11.0-15.5); WHITE BLOOD COUNT (AUTO) 11.5 K/uL (4.8-10.8)
[2018-10-31 10:50] LABS: CREATININE 3.5 mg/dL (0.5-1.5)
[2018-10-31 10:53] LABS: INR 0.94 (0.85-1.15); PARTIAL THROMBOPLASTIN TIME 26.9 SEC (26.3-35.5); PROTHROMBIN TIME 9.9 SEC (9.6-11.6)
[2018-10-31] MEDS ORDERED: HYDROCODONE/ACETAMINOPHEN 10/325 MG TAB ONE (12:24)
== END 2018-10-31 13:24 | disposition home or self-care (01) ==
LOC: EDH 09:52
DX: L03.113 Cellulitis of right upper limb (principal); I12.0 Hypertensive chronic kidney disease with stage 5 chronic kidney disease or end stage renal disease; E11.22 Type 2 diabetes mellitus with diabetic chronic kidney disease; N18.6 End stage renal disease; Z99.2 Dependence on renal dialysis
CPT/HCPCS: 36415; 80048; 83605; 85025; 85610; 85730; 87040; 93005; 93990

== ENCOUNTER 2018-12-03 16:34 | Emergency (ER) | payer MEDICARE ==
[2018-12-03 17:31] LABS: BASOPHILS % (AUTO) 1.7 % (0.0-5.0); EOSINOPHILS % (AUTO) 5.1 % (0.0-8.0); HEMATOCRIT 37.6 % (36-48); LYMPHOCYTES % (AUTO) 13.9 % (21.0-51.0); MEAN CORPUSCULAR HEMOGLOBIN 28.7 pg (27.0-33.0); MEAN CORPUSCULAR HGB CONC 32.8 g/dL (32.0-36.0); MEAN CORPUSCULAR VOLUME 87.5 fL (79-99); MONOCYTES % (AUTO) 8.3 % (3.0-13.0); PLATELET COUNT (AUTO) 306 K/uL (130-400); RED BLOOD CELL COUNT(AUTO) 4.29 MIL/uL (4.00-5.50); WHITE BLOOD COUNT (AUTO) 11.7 K/uL (4.8-10.8)
[2018-12-03 17:45] LABS: ALBUMIN 2.1 g/dL (3.5-5.0); BILIRUBIN,TOTAL 0.2 mg/dL (0.2-1.0); CREATININE 4.2 mg/dL (0.5-1.5); POTASSIUM 3.8 mmol/L (3.5-5.1); TOTAL PROTEIN, SERUM 6.2 g/dL (6.0-8.3)
[2018-12-03] MEDS ORDERED: INSULIN HUMULIN R 100 UNIT/ML 3ML ONE (18:01)
[2018-12-03] MEDS ORDERED: MAGNESIUM CITRATE 296 ML SOLUTION ONE (18:35)
== END 2018-12-03 19:26 | disposition home or self-care (01) ==
LOC: EDH 16:34
DX: M54.6 Pain in thoracic spine (principal); I12.0 Hypertensive chronic kidney disease with stage 5 chronic kidney disease or end stage renal disease; E11.22 Type 2 diabetes mellitus with diabetic chronic kidney disease; N18.6 End stage renal disease; Z99.2 Dependence on renal dialysis
CPT/HCPCS: 36415; 74176; 80053; 82948; 85025; 96374; 99285; J1815

== ENCOUNTER 2018-12-31 16:53 | Inpatient (IN) | payer MEDICARE ==
[~2018-12-31] VITALS: Ht 154.9 cm; Wt 57.2 kg
[2018-12-31] MEDS ORDERED: MORPHINE SULFATE 2 MG/ML 1ML SYG ONE (17:36)
[2018-12-31] MEDS ORDERED: ONDANSETRON HCL 4 MG/2 ML VIAL ONE (17:36)
[2018-12-31 17:50] LABS: BASOPHILS % (AUTO) 1.1 % (0.0-5.0); EOSINOPHILS % (AUTO) 1.4 % (0.0-8.0); LYMPHOCYTES % (AUTO) 8.2 % (21.0-51.0); MEAN CORPUSCULAR HEMOGLOBIN 29.1 pg (27.0-33.0); MEAN CORPUSCULAR HGB CONC 33.1 g/dL (32.0-36.0); MEAN CORPUSCULAR VOLUME 87.9 fL (79-99); MONOCYTES % (AUTO) 8.6 % (3.0-13.0); NEUTROPHILS % (AUTO) 80.7 % (40.0-77.0); PLATELET COUNT (AUTO) 349 K/uL (130-400); RED BLOOD CELL COUNT(AUTO) 4.21 MIL/uL (4.00-5.50); RED CELL DISTRIBUTION WIDTH 15.6 % (11.0-15.5); WHITE BLOOD COUNT (AUTO) 18.6 K/uL (4.8-10.8)
[2018-12-31 18:08] LABS: CREATININE 5.9 mg/dL (0.5-1.5); POTASSIUM 3.9 mmol/L (3.5-5.1)
[2018-12-31 18:13] LABS: ALBUMIN 2.3 g/dL (3.5-5.0); BILIRUBIN,TOTAL 0.6 mg/dL (0.2-1.0); TOTAL PROTEIN, SERUM 7.1 g/dL (6.0-8.3)
[2018-12-31] MEDS ORDERED: ZOSYN 3.375GM+NS 50ML 50 ML IV ONE (19:04)
[2018-12-31] MEDS ORDERED: INSULIN HUMULIN R 100 UNIT/ML 3ML ONE (19:16)
[2018-12-31] MEDS ORDERED: DEXTROSE 50%-WATER 50 ML DISP.SYRIN IV PRN (19:45)
[2018-12-31] MEDS ORDERED: GLUCAGON 1MG KIT 1 MG ML IM PRN (19:45)
[2018-12-31 20:09] LABS: HEMOGLOBIN A1C 10.5 % (4.0-6.0)
[2018-12-31] MEDS ORDERED: SODIUM CHLORIDE 0.9% 1000ML 1,000 ML IV SCH (20:59)
[2018-12-31] MEDS ORDERED: ACETAMINOPHEN 650 MG SUPPOSITORY RC PRN ×2 (21:00)
[2018-12-31] MEDS ORDERED: NITROGLYCERIN 0.4 MG SL TAB SL PRN (21:00)
[2018-12-31] MEDS ORDERED: MORPHINE SULFATE 4 MG/1ML SYG ONE (21:13)
[2018-12-31] MEDS ORDERED: METRONIDAZOLE 500MG/100ML BAG 100 ML IV SCH (22:00)
[2018-12-31 23:25] VITALS: BP 150/86
[2019-01-01] MEDS: FAMOTIDINE/PF 20 MG/2 ML VIAL IV SCH ×2 (00:07→08:48)
[2019-01-01] MEDS ORDERED: MORPHINE SULFATE 2 MG/ML 1ML SYG ONE (00:10)
[2019-01-01] MEDS ORDERED: MORPHINE SULFATE 2 MG/ML 1ML SYG IVP ONE (00:15)
[2019-01-01] MEDS: INSULIN HUMULIN R 100 UNIT/ML 3ML SQ SCH ×4 (00:16→18:00)
[2019-01-01 02:13] LABS: APPEARANCE,URINE SL CLOUDY (CLEAR); BILIRUBIN,URINE NEGATIVE (NEGATIVE); COLOR,URINE YELLOW (YELLOW); GLUCOSE, URINE (UA) 500 mg/dL (NEGATIVE); KETONES,URINE NEGATIVE (NEGATIVE); LEUKOCYTE ESTERASE ,URINE SMALL (NEGATIVE); NITRATE,URINE POSITIVE (NEGATIVE); OCCULT BLOOD,URINE MODERATE (NEGATIVE); PROTEIN,URINE >=300 mg/dL (NEGATIVE); UROBILINOGEN,URINE 0.2 mg/dL (0.2-1.0)
[2019-01-01 02:22] LABS: BACTERIA,URINE Few /HPF (None Seen); MUCUS,URINE Moderate LPF (None Seen); SQUAMOUS EPITHELIAL CELL,UR Many /HPF (0-2); WBC,URINE 26-50 /HPF (0-1)
[2019-01-01 03:13] VITALS: BP 98/53
[2019-01-01] MEDS ORDERED: ZOSYN 3.375GM+NS 50ML 50 ML IV SCH (04:00)
[2019-01-01 04:26] LABS: HEMATOCRIT 33.8 % (36-48); MEAN CORPUSCULAR HEMOGLOBIN 29.2 pg (27.0-33.0); MEAN CORPUSCULAR VOLUME 88.5 fL (79-99); PLATELET COUNT (AUTO) 308 K/uL (130-400); RED BLOOD CELL COUNT(AUTO) 3.82 MIL/uL (4.00-5.50); RED CELL DISTRIBUTION WIDTH 15.8 % (11.0-15.5)
[2019-01-01 04:51] LABS: ALBUMIN 1.9 g/dL (3.5-5.0); BILIRUBIN,TOTAL 0.6 mg/dL (0.2-1.0); CREATININE 5.5 mg/dL (0.5-1.5); POTASSIUM 3.3 mmol/L (3.5-5.1); TOTAL PROTEIN, SERUM 6.1 g/dL (6.0-8.3)
[2019-01-01 05:07] LABS: LYMPHOCYTES % (MANUAL) 8 % (22-44); MAN.DIFF COMMENT-IMPRESSION MANUAL DIFFERENTIAL; MONOCYTES % (MANUAL) 13 % (2-9); PLATELET MORPHOLOGY COMMENT ADEQUATE; SEGMENTED NEUTROPHILS % 79 % (40-70)
[2019-01-01] MEDS: MORPHINE SULFATE 2 MG/ML 1ML SYG IV PRN ×2 (05:10→11:56)
[2019-01-01 07:30] VITALS: BP 125/67
[2019-01-01] MEDS ORDERED: RENAL DOSE IV SCH (08:30)
--- NOTE | 2019-01-01 08:30 | NUR ---
DR. YESSENIA CHOUDHURY HERE TO SEE PATIENT. MD SPOKE TO PATIENT REGARDING DIVERTICULITIS DIAGNOSIS AND PLAN OF CARE (ANTIBIOTICS, NPO STATUS, SYMPTOMATIC CARE). PATIENT VERBALIZED UNDERSTANDING.
[2019-01-01] MEDS: METRONIDAZOLE 500MG/100ML BAG 100 ML IV SCH ×3 (08:48→21:57)
[2019-01-01] MEDS: ENOXAPARIN SODIUM 30 MG/0.3 ML SQ SCH (08:50)
--- NOTE | 2019-01-01 09:00 | NUR ---
PATIENT TEACHING REINFORCED DR. CASAS INSTRUCTIONS REGARDING PLAN OF CARE. PATIENT APPEARS UPSET THAT SHE IS UNABLE TO EAT OR DRINK. PROVIDED EDUCATION ON DIVERTICULITIS PATHOPHYSIOLOGY AND MD PLAN OF CARE (ANTIBIOTICS, PLAN OF CARE, NPO STATUS). PATIENT VERBALIZED THAT SHE UNDERSTOOD TEACHING, BUT PATIENT MAY NEED CONTINUE REINFORCEMENT TEACHING.
--- NOTE | 2019-01-01 09:15 | NUR ---
DR. VÍCTOR CHISHOLM MD HERE TO SEE PATIENT. PLACED ORDER FOR PATIENT TO CONTINE HEMODIALYSIS TREATMENTS IN HOSPITAL.
[2019-01-01 10:07] LABS: ALBUMIN 1.9 g/dL (3.5-5.0); CREATININE 5.5 mg/dL (0.5-1.5)
[2019-01-01 10:10] LABS: HEMATOCRIT 33.5 % (36-48); HEMOGLOBIN A1C 10.6 % (4.0-6.0)
[2019-01-01 10:27] LABS: % IRON SATURATION 15.3 % (22-44)
--- NOTE | 2019-01-01 10:45 | NUR ---
PATIENT REINFORCEMENT TEACHING PATIENT PRESSED CALL LIGHT TO INFORM NURSING STAFF THAT SHE WAS THIRSTY. PROVIDED MOUTH SWABS AND VASELINE TO PATIENT AND INSTRUCTED PATIENT ON USE OF MOUTH SWABS AND VASELINE FOR ORAL CARE AND TO PROMOTE COMFORT. PATIENT STATES "I'M SO THIRSTY. CAN'T I DRINK ANYTHING?" PROVIDED REINFORCEMENT TEACHING TO PATIENT REGARDING DIVERTICULITIS PLAN OF CARE AND DANGERS OF EATING WHILE STILL HAVING ABDOMINAL PAIN. APPEARS PATIENT MAY NEED CONTINUED REINFORCEMENT TEACHING.
[2019-01-01 11:00] VITALS: BP 145/76
[2019-01-01] MEDS ORDERED: EPOETIN ALFA 10,000 UNIT/ML VIAL SQ SCH (12:30)
--- NOTE | 2019-01-01 14:05 | NUR ---
HEMODIALYSIS PATIENT CURRENTLY STARTING HEMODIALYSIS TREATMENT IN ROOM
[2019-01-01] MEDS: MORPHINE SULFATE 4 MG/1ML SYG IV PRN ×2 (14:58→22:33)
[2019-01-01] MEDS ORDERED: SODIUM CHLORIDE 0.9% 1000ML 1,000 ML IV PRN (15:00)
[2019-01-01] MEDS ORDERED: ACETAMINOPHEN 325 MG TAB PO PRN (15:00)
[2019-01-01] MEDS ORDERED: 0.9% SODIUM CHLORIDE 1000 ML IV BAG IV PRN (15:00)
[2019-01-01] MEDS ORDERED: HEPARIN SODIUM 5000UNIT/ML 1ML VIAL IJ PRN (15:00)
[2019-01-01] MEDS ORDERED: NITROGLYCERIN 0.4 MG SL TAB SL PRN (15:00)
[2019-01-01 16:00] VITALS: BP 137/70
[2019-01-01 19:58] VITALS: BP 140/80
[2019-01-01] MEDS: ONDANSETRON HCL 4 MG/2 ML VIAL IV PRN (22:32)
[2019-01-01 23:29] VITALS: BP 100/58
[2019-01-02] MEDS: ZOSYN 3.375GM+NS 50ML 50 ML IV SCH ×2 (01:00→12:21)
[2019-01-02 04:00] VITALS: BP 104/52
[2019-01-02] MEDS: METRONIDAZOLE 500MG/100ML BAG 100 ML IV SCH ×3 (05:37→21:52)
[2019-01-02] MEDS: INSULIN HUMULIN R 100 UNIT/ML 3ML SQ SCH ×4 (05:37→18:00)
[2019-01-02] MEDS: IRON SUCROSE COMPLEX 100 MG in SODIUM CHLORIDE 0.9% 50 ML IV SCH (08:01)
[2019-01-02] MEDS: FAMOTIDINE/PF 20 MG/2 ML VIAL IV SCH (08:01)
[2019-01-02] MEDS: ENOXAPARIN SODIUM 30 MG/0.3 ML SQ SCH (08:02)
[2019-01-02 08:08] VITALS: BP 127/69
--- NOTE | 2019-01-02 08:40 | NUR ---
Patient awake, alert, oriented x 3. Dr Ferrera rounded. Pt denies pain when Dr Ferrera palpated her abdomen and stated that she is ready to eat. Dr Ferrera explained that he will start clear liquids and if she does well, she might get to go home later and if not we need to stop the liquids.
[2019-01-02] MEDS ORDERED: ACETAMINOPHEN-CODEINE 300/30MG TAB PO PRN (09:00)
[2019-01-02 09:18] LABS: BASOPHILS % (AUTO) 1.6 % (0.0-5.0); HEMATOCRIT 31.3 % (36-48); LYMPHOCYTES % (AUTO) 14.1 % (21.0-51.0); MEAN CORPUSCULAR HEMOGLOBIN 28.9 pg (27.0-33.0); MEAN CORPUSCULAR HGB CONC 32.9 g/dL (32.0-36.0); MONOCYTES % (AUTO) 10.6 % (3.0-13.0); NEUTROPHILS % (AUTO) 70.7 % (40.0-77.0); PLATELET COUNT (AUTO) 320 K/uL (130-400); RED BLOOD CELL COUNT(AUTO) 3.56 MIL/uL (4.00-5.50); RED CELL DISTRIBUTION WIDTH 15.4 % (11.0-15.5); WHITE BLOOD COUNT (AUTO) 14.1 K/uL (4.8-10.8)
[2019-01-02 11:43] VITALS: BP 122/67
--- NOTE | 2019-01-02 12:00 | NUR ---
Patient stated that her pain came back after she ate her clear liquid diet and asking for pain medication
[2019-01-02 12:12] LABS: HEPATITIS Bs ANTIGEN SCREEN P Negative (Negative)
[2019-01-02] MEDS: MORPHINE SULFATE 2 MG/ML 1ML SYG IV PRN ×2 (12:28→22:16)
--- NOTE | 2019-01-02 13:00 | NUR ---
INITIAL MET W PATIENT , ALONE, AAOX3; LIVES W 3 CHILDREN AND BOYFRIEND, NO NAME GIVEN., [facility] EDU[facility] WILL PROVIDE TRANSPORT HAS BEEN ON HD 3 MOS, GOES TO [facility]; NO DME, BOYFRIEND DRIVES TO HD. NO DC NEEDS CITED; WILL FOLLOW PT STILL IN ABD PAIN. Addendum: 01/02/19 at 1631 by CAESAR UP RN CM Amended: Links added.
--- NOTE | 2019-01-02 15:35 | NUR ---
RD Notification Pt in overt pain at time of visit. Discussed with RN trial of clear liquid diet, cause Pt severe pain to abdomen. RD to follow up for continued POC. Pt LBM 12/31/18. Pt monitored labs: Glu73, BUN 46, Cr 5.5, GFR 9, Alb 1.9, HDL 140, K 3.2. Please notify RD as additional nutrition concerns arise. Thank you. Addendum: 01/02/19 at [address] Amended: Links added.
[2019-01-02 17:12] VITALS: BP 98/55
[2019-01-02 20:00] VITALS: BP 145/78
[2019-01-02] MEDS: ONDANSETRON HCL 4 MG/2 ML VIAL IV PRN (22:16)
[2019-01-02 23:49] VITALS: BP 102/52
[2019-01-03] MEDS: ZOSYN 3.375GM+NS 50ML 50 ML IV SCH ×2 (00:48→14:27)
[2019-01-03 04:00] VITALS: BP 130/63
[2019-01-03 04:28] LABS: HEMATOCRIT 30.8 % (36-48); MEAN CORPUSCULAR HEMOGLOBIN 29.1 pg (27.0-33.0); MEAN CORPUSCULAR VOLUME 88.3 fL (79-99); NUCLEATED RED BLOOD CELLS 0.1 % (0.0-0.19); PLATELET COUNT (AUTO) 328 K/uL (130-400); RED BLOOD CELL COUNT(AUTO) 3.49 MIL/uL (4.00-5.50); RED CELL DISTRIBUTION WIDTH 15.3 % (11.0-15.5); WHITE BLOOD COUNT (AUTO) 12.7 K/uL (4.8-10.8)
[2019-01-03 04:33] LABS: CREATININE 5.2 mg/dL (0.5-1.5); POTASSIUM 3.3 mmol/L (3.5-5.1)
[2019-01-03] MEDS: METRONIDAZOLE 500MG/100ML BAG 100 ML IV SCH ×2 (05:24→14:00)
[2019-01-03] MEDS: INSULIN HUMULIN R 100 UNIT/ML 3ML SQ SCH ×3 (05:26→12:00)
[2019-01-03 08:22] VITALS: BP 148/80
[2019-01-03] MEDS: FAMOTIDINE/PF 20 MG/2 ML VIAL IV SCH (09:26)
[2019-01-03] MEDS: ENOXAPARIN SODIUM 30 MG/0.3 ML SQ SCH (09:27)
[2019-01-03] MEDS: IRON SUCROSE COMPLEX 100 MG in SODIUM CHLORIDE 0.9% 50 ML IV SCH (09:27)
[2019-01-03] MEDS ORDERED: LACTULOSE 20 GM/30 ML UDCUP PO PRN (09:45)
[2019-01-03] MEDS ORDERED: TYL3 PO (10:07)
[2019-01-03] MEDS ORDERED: METR-172 PO (10:07)
[2019-01-03] MEDS ORDERED: LEVO500T2 PO (10:07)
[2019-01-03 11:56] VITALS: BP 141/77
--- NOTE | 2019-01-03 14:30 | NUR ---
PT BEING HEMODIALYZED
[2019-01-03 16:20] VITALS: BP 161/88
--- NOTE | 2019-01-03 18:51 | NUR ---
PT D/C WITH EDUCATION GIVEN TEACH BACK SUCCESSFULLY IV REMOVED, CATHETER INTACT PT DIALYSIS REMOVED 1.5 LITERS
== END 2019-01-03 18:37 | disposition home or self-care (01) | DRG 871 ==
LOC: EDH 16:53 → EDHIP 19:53 → 4BH 23:09
PROVIDERS: ADMIT Hospitalist; ATTEND Hospitalist
PROC: 5A1D70Z Performance of Urinary Filtration, Intermittent, Less than 6 Hours Per Day (ICD-10-PCS; principal; 2019-01-01)
PROC: 5A1D70Z Performance of Urinary Filtration, Intermittent, Less than 6 Hours Per Day (ICD-10-PCS; 2019-01-03)
DX: A41.9 Sepsis, unspecified organism (principal); N18.6 End stage renal disease; N39.0 Urinary tract infection, site not specified; E44.0 Moderate protein-calorie malnutrition; K57.92 Diverticulitis of intestine, part unspecified, without perforation or abscess without bleeding; I12.0 Hypertensive chronic kidney disease with stage 5 chronic kidney disease or end stage renal disease; Z99.2 Dependence on renal dialysis; K52.9 Noninfective gastroenteritis and colitis, unspecified; E11.65 Type 2 diabetes mellitus with hyperglycemia; D64.9 Anemia, unspecified; E11.22 Type 2 diabetes mellitus with diabetic chronic kidney disease; Z91.19 Patient's noncompliance with other medical treatment and regimen; Z83.3 Family history of diabetes mellitus; Z82.49 Family history of ischemic heart disease and other diseases of the circulatory system; Z79.899 Other long term (current) drug therapy; Z68.23 Body mass index [BMI] 23.0-23.9, adult; Z79.84 Long term (current) use of oral hypoglycemic drugs
CPT/HCPCS: 36415; 71045; 74176; 80048; 80053; 80061; 81001; 82040; 82565; 82728; 82948; 83036; 83540; 83550; 83690; 84520; 85014; 85018; 85025; 85027; 86701; 86704; 86706; 87040; 87088; 87340; 87390; 87520; 90935; 93005; G0378; J0885; J1644; J1650; J1756; J1815; J2270; J2405; J2543; J3490; J7070

== ENCOUNTER 2019-01-17 19:48 | Emergency (ER) | payer MEDICARE ==
[~2019-01-17 19:48] MED LIST changes: -CEPH500C2 PO; +LEVO500T2 PO; -METF-444 PO; +METR-172 PO; -TRAM50TA4 PO; +TYL3 PO
[2019-01-17 21:07] LABS: BASOPHILS % (AUTO) 1.6 % (0.0-5.0); EOSINOPHILS % (AUTO) 3.4 % (0.0-8.0); HEMATOCRIT 35.8 % (36-48); LYMPHOCYTES % (AUTO) 18.4 % (21.0-51.0); MEAN CORPUSCULAR HEMOGLOBIN 28.9 pg (27.0-33.0); MEAN CORPUSCULAR HGB CONC 33.3 g/dL (32.0-36.0); MEAN CORPUSCULAR VOLUME 86.8 fL (79-99); MONOCYTES % (AUTO) 6.7 % (3.0-13.0); NEUTROPHILS % (AUTO) 69.9 % (40.0-77.0); PLATELET COUNT (AUTO) 469 K/uL (130-400); RED BLOOD CELL COUNT(AUTO) 4.12 MIL/uL (4.00-5.50); WHITE BLOOD COUNT (AUTO) 10.9 K/uL (4.8-10.8)
[2019-01-17] MEDS ORDERED: ONDANSETRON HCL 4 MG/2 ML VIAL ONE (21:15)
[2019-01-17] MEDS ORDERED: MORPHINE SULFATE 4 MG/1ML SYG ONE (21:16)
[2019-01-17 21:19] LABS: CREATININE 3.1 mg/dL (0.5-1.5); POTASSIUM 3.6 mmol/L (3.5-5.1)
[2019-01-17 21:23] LABS: ALBUMIN 2.4 g/dL (3.5-5.0); BILIRUBIN,TOTAL 0.2 mg/dL (0.2-1.0); TOTAL PROTEIN, SERUM 7.2 g/dL (6.0-8.3)
[2019-01-17 21:26] LABS: APPEARANCE,URINE Clear (CLEAR); BILIRUBIN,URINE Negative (NEGATIVE); COLOR,URINE Yellow (YELLOW); GLUCOSE, URINE (UA) 500 mg/dL (NEGATIVE); KETONES,URINE Negative (NEGATIVE); LEUKOCYTE ESTERASE ,URINE Trace (NEGATIVE); NITRATE,URINE Negative (NEGATIVE); OCCULT BLOOD,URINE Trace (NEGATIVE); PROTEIN,URINE >=1000 mg/dL (NEGATIVE); UROBILINOGEN,URINE 0.2 mg/dL (0.2-1.0)
[2019-01-17 21:40] LABS: RBC,URINE 0-1 /HPF (0-1)
[2019-01-17 21:41] LABS: BACTERIA,URINE Few /HPF (None Seen); SQUAMOUS EPITHELIAL CELL,UR Moderate /HPF (0-2)
[2019-01-17] MEDS ORDERED: CLONIDINE HCL 0.1 MG TABLET ONE (22:40)
== END 2019-01-17 23:42 | disposition home or self-care (01) ==
LOC: EDH 19:48
DX: M54.5 Low back pain (principal); R42 Dizziness and giddiness; I12.0 Hypertensive chronic kidney disease with stage 5 chronic kidney disease or end stage renal disease; E11.22 Type 2 diabetes mellitus with diabetic chronic kidney disease; N18.6 End stage renal disease; Z99.2 Dependence on renal dialysis; Z98.890 Other specified postprocedural states
CPT/HCPCS: 36415; 74176; 76856; 80053; 81001; 84484; 85025; 93005; 96374; 96375; 99285; J2270; J2405

== ENCOUNTER 2019-01-22 00:15 | Emergency (ER) | payer MEDICARE ==
[2019-01-22] MEDS ORDERED: ONDANSETRON HCL 4 MG/2 ML VIAL ONE (00:38)
[2019-01-22 00:43] LABS: BASOPHILS % (AUTO) 1.8 % (0.0-5.0); EOSINOPHILS % (AUTO) 5.3 % (0.0-8.0); HEMATOCRIT 33.2 % (36-48); LYMPHOCYTES % (AUTO) 25.9 % (21.0-51.0); MEAN CORPUSCULAR HEMOGLOBIN 29.1 pg (27.0-33.0); MEAN CORPUSCULAR VOLUME 88.3 fL (79-99); MONOCYTES % (AUTO) 8.9 % (3.0-13.0); NEUTROPHILS % (AUTO) 58.1 % (40.0-77.0); NUCLEATED RED BLOOD CELLS 0.1 % (0.0-0.19); PLATELET COUNT (AUTO) 369 K/uL (130-400); RED BLOOD CELL COUNT(AUTO) 3.76 MIL/uL (4.00-5.50); RED CELL DISTRIBUTION WIDTH 15.6 % (11.0-15.5); WHITE BLOOD COUNT (AUTO) 9.6 K/uL (4.8-10.8)
[2019-01-22 00:51] LABS: CARBON DIOXIDE 21 mmol/L (21-32); CHLORIDE 105 mmol/L (101-111); CREATININE 5.2 mg/dL (0.5-1.5); GLOMERULAR FILTR. RATE CALC 9 mL/min (>60); GLUCOSE,RANDOM 302 mg/dL (70-105); POTASSIUM 4.2 mmol/L (3.5-5.1); SODIUM SERUM 140 mmol/L (136-145); UREA NITROGEN, BLOOD 41 mg/dL (7-18)
[2019-01-22 00:55] LABS: ALANINE AMINOTRANSFERASE 26 U/L (12-78); ALBUMIN 2.4 g/dL (3.5-5.0); ASPARTATE AMINOTRANSFERASE 37 U/L (10-37); BILIRUBIN,DIRECT < 0.1 mg/dL (0.0-0.3); BILIRUBIN,TOTAL 0.3 mg/dL (0.2-1.0); CREATINE KINASE, TOTAL 109 U/L (21-232); LIPASE 129 U/L (114-286); TOTAL PROTEIN, SERUM 7.2 g/dL (6.0-8.3)
[2019-01-22] MEDS ORDERED: DiphenhydrAMINE HCL 50 MG/ML VIAL ONE (02:27)
[2019-01-22] MEDS ORDERED: INSULIN HUMULIN R 100 UNIT/ML 3ML ONE (02:28)
== END 2019-01-22 06:00 | disposition home or self-care (01) ==
LOC: EDH 00:15
DX: I12.0 Hypertensive chronic kidney disease with stage 5 chronic kidney disease or end stage renal disease (principal); E11.22 Type 2 diabetes mellitus with diabetic chronic kidney disease; N18.6 End stage renal disease; G89.29 Other chronic pain; M54.5 Low back pain; R11.2 Nausea with vomiting, unspecified; R42 Dizziness and giddiness; Z99.2 Dependence on renal dialysis
CPT/HCPCS: 36415; 80048; 80076; 82550; 82948; 83690; 84484 ×2; 85025; 93005 ×2; 96374; 96375; 99285; J1200; J1815; J2405

== ENCOUNTER 2019-02-05 12:44 | Emergency (ER) | payer MEDICARE ==
[2019-02-05 13:41] LABS: BASOPHILS % (AUTO) 0.9 % (0.0-5.0); HEMATOCRIT 35.4 % (36-48); LYMPHOCYTES % (AUTO) 25.9 % (21.0-51.0); MEAN CORPUSCULAR HEMOGLOBIN 30.2 pg (27.0-33.0); MEAN CORPUSCULAR HGB CONC 33.7 g/dL (32.0-36.0); MEAN CORPUSCULAR VOLUME 89.6 fL (79-99); NEUTROPHILS % (AUTO) 58.2 % (40.0-77.0); NUCLEATED RED BLOOD CELLS 0.1 % (0.0-0.19); PLATELET COUNT (AUTO) 268 K/uL (130-400); RED BLOOD CELL COUNT(AUTO) 3.96 MIL/uL (4.00-5.50); RED CELL DISTRIBUTION WIDTH 16.3 % (11.0-15.5); WHITE BLOOD COUNT (AUTO) 8.8 K/uL (4.8-10.8)
[2019-02-05] MEDS ORDERED: ONDANSETRON HCL 4 MG/2 ML VIAL ONE (13:55)
[2019-02-05] MEDS ORDERED: MORPHINE SULFATE 2 MG/ML 1ML SYG ONE (13:55)
[2019-02-05 14:02] LABS: CREATININE 2.8 mg/dL (0.5-1.5); POTASSIUM 3.4 mmol/L (3.5-5.1)
[2019-02-05] MEDS ORDERED: MECLIZINE HCL 25 MG TABLET ONE (14:57)
== END 2019-02-05 15:03 | disposition home or self-care (01) ==
LOC: EDH 12:44
DX: H81.399 Other peripheral vertigo, unspecified ear (principal); E11.22 Type 2 diabetes mellitus with diabetic chronic kidney disease; I12.0 Hypertensive chronic kidney disease with stage 5 chronic kidney disease or end stage renal disease; N18.6 End stage renal disease; Z99.2 Dependence on renal dialysis
CPT/HCPCS: 36415; 70450; 80048; 84484; 85025; 93005; 96374; 96375; 99285; J2405

== ENCOUNTER 2019-03-08 13:44 | Emergency (ER) | payer MEDICARE ==
[2019-03-08 14:29] LABS: BASOPHILS % (AUTO) 0.8 % (0.0-5.0); EOSINOPHILS % (AUTO) 3.7 % (0.0-8.0); HEMATOCRIT 38.8 % (36-48); LYMPHOCYTES % (AUTO) 8.4 % (21.0-51.0); MEAN CORPUSCULAR HEMOGLOBIN 30.1 pg (27.0-33.0); MEAN CORPUSCULAR HGB CONC 32.9 g/dL (32.0-36.0); MEAN CORPUSCULAR VOLUME 91.6 fL (79-99); NEUTROPHILS % (AUTO) 82.1 % (40.0-77.0); NUCLEATED RED BLOOD CELLS 0.1 % (0.0-0.19); PLATELET COUNT (AUTO) 344 K/uL (130-400); RED BLOOD CELL COUNT(AUTO) 4.24 MIL/uL (4.00-5.50); RED CELL DISTRIBUTION WIDTH 15.8 % (11.0-15.5); WHITE BLOOD COUNT (AUTO) 12.3 K/uL (4.8-10.8)
[2019-03-08 14:30] LABS: APPEARANCE,URINE Clear (CLEAR); BILIRUBIN,URINE Negative (NEGATIVE); COLOR,URINE Yellow (YELLOW); GLUCOSE, URINE (UA) >=1000 mg/dL (NEGATIVE); KETONES,URINE Negative (NEGATIVE); LEUKOCYTE ESTERASE ,URINE Negative (NEGATIVE); NITRATE,URINE Negative (NEGATIVE); OCCULT BLOOD,URINE Small (NEGATIVE); PROTEIN,URINE >=1000 mg/dL (NEGATIVE); UROBILINOGEN,URINE 0.2 mg/dL (0.2-1.0)
[2019-03-08 14:40] LABS: BACTERIA,URINE Few /HPF (None Seen); MUCUS,URINE Few LPF (None Seen); POTASSIUM 4.2 mmol/L (3.5-5.1); WBC,URINE 0-1 /HPF (0-1)
[2019-03-08 14:45] LABS: ALBUMIN 2.4 g/dL (3.5-5.0); BILIRUBIN,TOTAL 0.6 mg/dL (0.2-1.0); TOTAL PROTEIN, SERUM 7.2 g/dL (6.0-8.3)
[2019-03-08] MEDS ORDERED: HYDROCODONE/ACETAMINOPHEN 5/325 MG TAB ONE (15:54)
== END 2019-03-08 18:59 | disposition home or self-care (01) ==
LOC: EDH 13:44
DX: R07.89 Other chest pain (principal); R42 Dizziness and giddiness; I12.0 Hypertensive chronic kidney disease with stage 5 chronic kidney disease or end stage renal disease; E11.22 Type 2 diabetes mellitus with diabetic chronic kidney disease; N18.6 End stage renal disease; E78.00 Pure hypercholesterolemia, unspecified; E07.9 Disorder of thyroid, unspecified; Z99.2 Dependence on renal dialysis
CPT/HCPCS: 36415; 71045; 76604; 80053; 81001; 85025; 93005

== ENCOUNTER 2019-05-14 07:41 | Emergency (ER) | payer MEDICARE ==
[2019-05-14] MEDS ORDERED: HYDRALAZINE HCL 20 MG/ML VIAL ONE (08:21)
[2019-05-14] MEDS ORDERED: NIFEDIPINE ER 30 MG TAB PO ONE (08:21)
[2019-05-14 08:27] LABS: EOSINOPHILS % (AUTO) 6.6 % (0.0-8.0); HEMATOCRIT 38.2 % (36-48); LYMPHOCYTES % (AUTO) 15.8 % (21.0-51.0); MEAN CORPUSCULAR HEMOGLOBIN 29.8 pg (27.0-33.0); MEAN CORPUSCULAR HGB CONC 32.2 g/dL (32.0-36.0); MEAN CORPUSCULAR VOLUME 92.6 fL (79-99); MONOCYTES % (AUTO) 10.1 % (3.0-13.0); NEUTROPHILS % (AUTO) 66.5 % (40.0-77.0); NUCLEATED RED BLOOD CELLS 0.1 % (0.0-0.19); PLATELET COUNT (AUTO) 289 K/uL (130-400); RED BLOOD CELL COUNT(AUTO) 4.13 MIL/uL (4.00-5.50); RED CELL DISTRIBUTION WIDTH 15.5 % (11.0-15.5); WHITE BLOOD COUNT (AUTO) 10.5 K/uL (4.8-10.8)
[2019-05-14 08:47] LABS: ALBUMIN 2.7 g/dL (3.5-5.0); BILIRUBIN,TOTAL 0.5 mg/dL (0.2-1.0); POTASSIUM 4.5 mmol/L (3.5-5.1); TOTAL PROTEIN, SERUM 7.4 g/dL (6.0-8.3)
[2019-05-14 08:52] LABS: CREATININE 8.6 mg/dL (0.5-1.5)
[2019-05-14] MEDS ORDERED: SODIUM BICARB 50MEQ 50ML VIAL ONE (09:10)
[2019-05-14] MEDS ORDERED: DIAZEPAM 2 MG TAB ONE (09:11)
[2019-05-14] MEDS ORDERED: HYDROCODONE/ACETAMINOPHEN 5/325 MG TAB ONE (09:40)
== END 2019-05-14 10:13 | disposition home or self-care (01) ==
LOC: EDH 07:41
DX: I12.0 Hypertensive chronic kidney disease with stage 5 chronic kidney disease or end stage renal disease (principal); E11.22 Type 2 diabetes mellitus with diabetic chronic kidney disease; N18.6 End stage renal disease; I16.0 Hypertensive urgency; E87.2 Acidosis; M54.5 Low back pain; E78.00 Pure hypercholesterolemia, unspecified; E07.9 Disorder of thyroid, unspecified; Z99.2 Dependence on renal dialysis
CPT/HCPCS: 36415; 80053; 85025; 96374; 96375; 99284; J0360; J3490

== ENCOUNTER 2019-07-13 14:38 | Emergency (ER) | payer MEDICARE ==
[~2019-07-13 14:38] MED LIST changes: -MECL-111 PO; +MECL-160 PO
[2019-07-13] MEDS ORDERED: MORPHINE SULFATE 4 MG/1ML SYG ONE (15:16)
[2019-07-13] MEDS ORDERED: ONDANSETRON HCL 4 MG/2 ML VIAL ONE (15:16)
[2019-07-13 15:17] LABS: BASOPHILS % (AUTO) 1.4 % (0.0-5.0); EOSINOPHILS % (AUTO) 4.4 % (0.0-8.0); HEMATOCRIT 34.7 % (36-48); LYMPHOCYTES % (AUTO) 17.4 % (21.0-51.0); MEAN CORPUSCULAR HEMOGLOBIN 28.9 pg (27.0-33.0); MEAN CORPUSCULAR HGB CONC 32.3 g/dL (32.0-36.0); MEAN CORPUSCULAR VOLUME 89.7 fL (79-99); MONOCYTES % (AUTO) 11.6 % (3.0-13.0); NEUTROPHILS % (AUTO) 64.9 % (40.0-77.0); PLATELET COUNT (AUTO) 288 K/uL (130-400); RED BLOOD CELL COUNT(AUTO) 3.87 MIL/uL (4.00-5.50); RED CELL DISTRIBUTION WIDTH 14.9 % (11.0-15.5); WHITE BLOOD COUNT (AUTO) 7.3 K/uL (4.8-10.8)
[2019-07-13 15:28] LABS: CREATININE 5.5 mg/dL (0.5-1.5)
[2019-07-13 15:32] LABS: ALBUMIN 3.2 g/dL (3.5-5.0); BILIRUBIN,TOTAL 0.6 mg/dL (0.2-1.0); TOTAL PROTEIN, SERUM 7.4 g/dL (6.0-8.3)
[2019-07-13 16:53] LABS: APPEARANCE,URINE Clear (CLEAR); BILIRUBIN,URINE Negative (NEGATIVE); COLOR,URINE Yellow (YELLOW); GLUCOSE, URINE (UA) 250 mg/dL (NEGATIVE); KETONES,URINE Trace mg/dL (NEGATIVE); LEUKOCYTE ESTERASE ,URINE Trace (NEGATIVE); NITRATE,URINE Negative (NEGATIVE); OCCULT BLOOD,URINE Small (NEGATIVE); PROTEIN,URINE >=1000 mg/dL (NEGATIVE); UROBILINOGEN,URINE 0.2 mg/dL (0.2-1.0)
[2019-07-13 17:55] LABS: RBC,URINE None Seen /HPF (0-1)
[2019-07-13 17:56] LABS: BACTERIA,URINE Few /HPF (None Seen)
== END 2019-07-13 17:30 | disposition home or self-care (01) ==
LOC: EDH 14:38
DX: G89.29 Other chronic pain (principal); M54.5 Low back pain; R10.9 Unspecified abdominal pain; M79.18 Myalgia, other site; I12.0 Hypertensive chronic kidney disease with stage 5 chronic kidney disease or end stage renal disease; E11.22 Type 2 diabetes mellitus with diabetic chronic kidney disease; N18.6 End stage renal disease; E78.00 Pure hypercholesterolemia, unspecified; E07.9 Disorder of thyroid, unspecified; Z99.2 Dependence on renal dialysis
CPT/HCPCS: 36415; 80053; 81001; 83690; 84484; 85025; 93005; 96374; 96375; 99285; J2270; J2405

== ENCOUNTER 2019-08-18 23:11 | Emergency (ER) | payer MEDICARE ==
[2019-08-18 23:53] LABS: EOSINOPHILS % (AUTO) 6.1 % (0.0-8.0); HEMATOCRIT 36.7 % (36-48); LYMPHOCYTES % (AUTO) 19.4 % (21.0-51.0); MEAN CORPUSCULAR HEMOGLOBIN 28.6 pg (27.0-33.0); MEAN CORPUSCULAR HGB CONC 32.2 g/dL (32.0-36.0); MEAN CORPUSCULAR VOLUME 89.1 fL (79-99); MONOCYTES % (AUTO) 10.6 % (3.0-13.0); NEUTROPHILS % (AUTO) 62.8 % (40.0-77.0); PLATELET COUNT (AUTO) 237 K/uL (130-400); RED BLOOD CELL COUNT(AUTO) 4.12 MIL/uL (4.00-5.50); RED CELL DISTRIBUTION WIDTH 14.4 % (11.0-15.5); WHITE BLOOD COUNT (AUTO) 7.7 K/uL (4.8-10.8)
[2019-08-19 00:04] LABS: CREATININE 4.9 mg/dL (0.5-1.5); POTASSIUM 3.4 mmol/L (3.5-5.1)
[2019-08-19 00:10] LABS: ALBUMIN 2.7 g/dL (3.5-5.0); BILIRUBIN,TOTAL 0.5 mg/dL (0.2-1.0); TOTAL PROTEIN, SERUM 6.8 g/dL (6.0-8.3)
[2019-08-19] MEDS ORDERED: DiphenhydrAMINE HCL 50 MG/ML VIAL ONE (00:17)
== END 2019-08-19 00:45 | disposition home or self-care (01) ==
LOC: EDH 23:11
DX: G89.29 Other chronic pain (principal); M54.6 Pain in thoracic spine; E11.22 Type 2 diabetes mellitus with diabetic chronic kidney disease; I12.0 Hypertensive chronic kidney disease with stage 5 chronic kidney disease or end stage renal disease; N18.6 End stage renal disease; Z99.2 Dependence on renal dialysis
CPT/HCPCS: 36415; 71045; 80053; 83690; 84484; 85025; 93005; 96374; 99285; J1200

== ENCOUNTER 2019-12-02 13:11 | Inpatient (IN) | payer MEDICARE ==
[~2019-12-02] VITALS: Ht 157.5 cm; Wt 50.5 kg
[~2019-12-02 13:11] MED LIST changes: -ASPI-555 PO; +ASPI-556 PO
[2019-12-02] MEDS ORDERED: FUROSEMIDE 10 MG/ML 4ML VIAL ONE (13:36)
[2019-12-02] MEDS ORDERED: NITROGLYCERIN 1GM/1 INCH PACKET TD ONE (13:36)
[2019-12-02] MEDS ORDERED: FUROSEMIDE 10 MG/ML 2ML VIAL ONE (13:36)
[2019-12-02 13:50] LABS: ABG BASE EXCESS -5.4 mmol/L (-2.0-3.0); ABG HCO3 19.6 mmol/L (21.0-28.0); ABG OXYGEN SATURATION 93.2 % (95.0-99.0); ABG PCO2 37 mmHg (32-45)
[2019-12-02 13:55] LABS: BASOPHILS % (AUTO) 0.7 % (0.0-5.0); EOSINOPHILS % (AUTO) 0.6 % (0.0-8.0); HEMATOCRIT 39.5 % (36-48); LYMPHOCYTES % (AUTO) 6.3 % (21.0-51.0); MEAN CORPUSCULAR HGB CONC 32.9 g/dL (32.0-36.0); MEAN CORPUSCULAR VOLUME 91.2 fL (79-99); MONOCYTES % (AUTO) 11.4 % (3.0-13.0); NEUTROPHILS % (AUTO) 80.7 % (40.0-77.0); PLATELET COUNT (AUTO) 308 K/uL (130-400); RED BLOOD CELL COUNT(AUTO) 4.33 MIL/uL (4.00-5.50); RED CELL DISTRIBUTION WIDTH 15.9 % (11.0-15.5); WHITE BLOOD COUNT (AUTO) 8.6 K/uL (4.8-10.8)
[2019-12-02 14:07] LABS: INR 1.12 (0.85-1.15); PARTIAL THROMBOPLASTIN TIME 29.7 SEC (26.3-35.5)
[2019-12-02] MEDS ORDERED: ONDANSETRON HCL 4 MG/2 ML VIAL ONE (14:09)
[2019-12-02 14:11] LABS: ALBUMIN 2.9 g/dL (3.5-5.0); BILIRUBIN,TOTAL 0.7 mg/dL (0.2-1.0); POTASSIUM 4.8 mmol/L (3.5-5.1); TOTAL PROTEIN, SERUM 7.6 g/dL (6.0-8.3)
[2019-12-02 14:14] LABS: CREATININE 9.4 mg/dL (0.5-1.5)
[2019-12-02] MEDS ORDERED: ACETAMINOPHEN 325 MG TAB PO PRN (16:00)
[2019-12-02] MEDS ORDERED: GLUCAGON 1MG KIT 1 MG ML IM PRN (16:00)
[2019-12-02] MEDS ORDERED: ONDANSETRON HCL 4 MG/2 ML VIAL IVP PRN (16:00)
[2019-12-02] MEDS ORDERED: DEXTROSE 50%-WATER 50 ML DISP.SYRIN IV PRN (16:00)
[2019-12-02] MEDS ORDERED: ACETAMINOPHEN 325 MG TAB ONE (16:25)
[2019-12-02] MEDS ORDERED: INSULIN R PO SS1/2 SQ SCH (16:30)
[2019-12-02] MEDS ORDERED: DILTIAZEM HCL 125 MG/25 ML VIAL IV ONE (16:47)
[2019-12-02] MEDS ORDERED: DILTIAZEM HCL 5 MG/ML 10 ML VIAL IV ONE (16:57)
[2019-12-02] MEDS ORDERED: DILTIAZEM HCL 125 MG/25 ML 125 MG in SODIUM CHLORIDE 0.9% 100 ML IV PRN (17:00)
[2019-12-02] MEDS ORDERED: DILTIAZEM HCL 5 MG/ML 5 ML VIAL IVP PRN (17:00)
[2019-12-02 18:02] LABS: APPEARANCE,URINE Clear (CLEAR); BILIRUBIN,URINE Negative (NEGATIVE); COLOR,URINE Yellow (YELLOW); GLUCOSE, URINE (UA) TRACE mg/dL (NEGATIVE); KETONES,URINE Negative (NEGATIVE); LEUKOCYTE ESTERASE ,URINE Small (NEGATIVE); NITRATE,URINE Negative (NEGATIVE); OCCULT BLOOD,URINE Trace (NEGATIVE); PH,URINE 8.5 (5.0-8.0); PROTEIN,URINE >=1000 mg/dL (NEGATIVE)
[2019-12-02 18:17] LABS: BACTERIA,URINE Few /HPF (None Seen)
[2019-12-02 18:18] LABS: SQUAMOUS EPITHELIAL CELL,UR Few /HPF (0-2); TRIPLE PHOSPHATE CRYSTAL,UR Moderate /LPF (None Seen)
[2019-12-02 19:40] VITALS: BP 118/84
--- NOTE | 2019-12-02 19:40 | NUR ---
Received patient from ER on cardizem drip @5mg/hr.Patient was dialyzed in ER as per report and 1 liter of fluid was removed.
--- NOTE | 2019-12-02 20:55 | NUR ---
Patient converted to SB HR 40 and cardizem drip weaned off.Will continue to monitor patient.
[2019-12-02] MEDS: INSULIN R PO SS1 SQ SCH (21:00)
[2019-12-02] MEDS ORDERED: TRAMADOL HCL 50 MG TABLET ONE (23:01)
[2019-12-02] MEDS: METOPROLOL TARTRATE 25 MG TAB PO SCH (23:04)
[2019-12-02 23:40] VITALS: BP 134/74
[2019-12-03 00:59] LABS: CREATINE KINASE, TOTAL 36 U/L (21-232); MYOGLOBIN 256 ng/mL (10-92); TROPONIN I < 0.04 ng/mL (0.00-0.06)
[2019-12-03] MEDS: TRAMADOL HCL 50 MG TABLET PO PRN ×2 (01:37→11:56)
[2019-12-03 04:13] VITALS: BP 109/50
[2019-12-03 05:52] LABS: MEAN CORPUSCULAR HEMOGLOBIN 30.3 pg (27.0-33.0); MEAN CORPUSCULAR HGB CONC 33.1 g/dL (32.0-36.0); MEAN CORPUSCULAR VOLUME 91.4 fL (79-99); PLATELET COUNT (AUTO) 267 K/uL (130-400); RED BLOOD CELL COUNT(AUTO) 3.83 MIL/uL (4.00-5.50); RED CELL DISTRIBUTION WIDTH 16.1 % (11.0-15.5); WHITE BLOOD COUNT (AUTO) 7.7 K/uL (4.8-10.8)
[2019-12-03 06:21] LABS: B-TYPE NATRIURETIC PEPTIDE > 5000 pg/mL (0-100)
[2019-12-03 06:33] LABS: ALANINE AMINOTRANSFERASE 9 U/L (12-78); ALBUMIN 2.5 g/dL (3.5-5.0); ASPARTATE AMINOTRANSFERASE 15 U/L (10-37); BILIRUBIN,TOTAL 0.8 mg/dL (0.2-1.0); CARBON DIOXIDE 25 mmol/L (21-32); CHLORIDE 97 mmol/L (101-111); CREATINE KINASE, TOTAL 32 U/L (21-232); CREATININE 7.3 mg/dL (0.5-1.5); GLOMERULAR FILTR. RATE CALC 6 mL/min (>60); GLUCOSE,RANDOM 94 mg/dL (70-105); MYOGLOBIN 247 ng/mL (10-92); PHOSPHORUS 8.2 mg/dL (2.5-4.9); POTASSIUM 4.6 mmol/L (3.5-5.1); SODIUM SERUM 134 mmol/L (136-145); TOTAL PROTEIN, SERUM 6.6 g/dL (6.0-8.3); TROPONIN I < 0.04 ng/mL (0.00-0.06); UREA NITROGEN, BLOOD 49 mg/dL (7-18)
--- NOTE | 2019-12-03 06:34 | NUR ---
Patient remained sinus rhythm at this time.Patient had episode of nausea and vomiting and Zofran was given.Patient tolerated well.
[2019-12-03] MEDS: INSULIN R PO SS1 SQ SCH ×4 (06:36→21:00)
[2019-12-03 07:59] VITALS: BP 141/72
[2019-12-03] MEDS: FERROUS SULFATE 325 MG TABLET.DR PO SCH ×2 (09:17→21:38)
[2019-12-03] MEDS: METOPROLOL TARTRATE 25 MG TAB PO SCH ×2 (09:17→21:38)
[2019-12-03] MEDS: LEVOTHYROXINE 50 MCG TABLET PO SCH (09:18)
[2019-12-03] MEDS: ATORVASTATIN CALCIUM 40 MG TABLET PO SCH (09:18)
[2019-12-03 11:39] VITALS: BP 152/76
--- NOTE | 2019-12-03 12:04 | NUR ---
DCP: HOME SW met with pt who lives in [facility] with her 3 kids 17,12,and 8. Pt on SSD for ESRD, goes to [facility] at 3:00pm for treatments. Pt states she has provider 2.5hrs a day, can't remember name of agency. No HH, has walker, w/c, shower chair and states she needs O2 for home use. PCP is Suni Mercado and she uses [facility] for rx. Plan is home at ar. Ex Curt Gamble is ER contact at [phone] Addendum: 12/03/19 at 1207 by DARIO ISSA Amended: Links added.
--- NOTE | 2019-12-03 12:57 | NUR ---
DR. TORIBIO IN ROOM SPEAKING WITH PT. RE:PLAN OF CARE AND PT.'S NEED FOR COMPLIANCE WITH HD.
[2019-12-03] MEDS ORDERED: PANTOPRAZOLE 40 MG/VIAL IVP SCH (16:00)
[2019-12-03 16:31] VITALS: BP 137/74
[2019-12-03 19:00] VITALS: BP 126/64
[2019-12-03 23:00] VITALS: BP 139/66
[2019-12-04 03:00] VITALS: BP 125/56
[2019-12-04 04:22] LABS: HEMATOCRIT 36.4 % (36-48); MEAN CORPUSCULAR HEMOGLOBIN 30.3 pg (27.0-33.0); MEAN CORPUSCULAR HGB CONC 32.4 g/dL (32.0-36.0); MEAN CORPUSCULAR VOLUME 93.3 fL (79-99); RED BLOOD CELL COUNT(AUTO) 3.9 MIL/uL (4.00-5.50); WHITE BLOOD COUNT (AUTO) 7.9 K/uL (4.8-10.8)
[2019-12-04 04:38] LABS: CREATININE 6.4 mg/dL (0.5-1.5); PHOSPHORUS 7.3 mg/dL (2.5-4.9); POTASSIUM 4.3 mmol/L (3.5-5.1)
[2019-12-04] MEDS: INSULIN R PO SS1 SQ SCH ×4 (06:26→21:00)
[2019-12-04] MEDS: PANTOPRAZOLE SODIUM 40 MG TABLET.DR PO SCH (06:42)
[2019-12-04 08:00] VITALS: BP 150/65
[2019-12-04 09:39] LABS: HEMATOCRIT 34.4 % (36-48)
[2019-12-04 09:52] LABS: HEMOGLOBIN A1C 5.1 % (4.0-6.0)
[2019-12-04] MEDS: ATORVASTATIN CALCIUM 40 MG TABLET PO SCH (09:52)
[2019-12-04] MEDS: METOPROLOL TARTRATE 25 MG TAB PO SCH (09:52)
[2019-12-04] MEDS: FERROUS SULFATE 325 MG TABLET.DR PO SCH ×2 (09:52→20:41)
[2019-12-04] MEDS: LEVOTHYROXINE 50 MCG TABLET PO SCH (09:52)
[2019-12-04] MEDS: ASPIRIN 81MG TAB.CHEW PO SCH (09:53)
[2019-12-04 09:56] LABS: ALBUMIN 2.5 g/dL (3.5-5.0); CREATININE 4.9 mg/dL (0.5-1.5)
[2019-12-04 11:00] VITALS: BP 131/64
--- NOTE | 2019-12-04 13:02 | NUR ---
CM NOTE/DIALYSIS NEW ORDER FROM DR. TORIBIO FOR OUTPATIENT HEMODIALYSIS. MEET WITH PATIENT IN ROOM, CURRENTLY RECEIVING DIALYSIS TREATMENT. PATIENT AAOX3, STATES SHE ALREADY HAS DIALYSIS SET UP THRU [facility]ICE. [facility] CALLED AT [phone], PER STAFF, PATIENT IS SET UP TTS. PRIMARY NURSE, DEREK GUARDADO, MADE AWARE OF DIALYSIS SET UP.
--- NOTE | 2019-12-04 13:22 | NUR ---
CM NOTE/O2 REQUEST FROM PATIENT PER PATIENT, REQUESTING HOME 02 FOR COMPLAIN OF SHORTNESS OF BREATH AT TIMES. VITAL SIGNS NOTED, 02 SATURATION OF 91 AT REST ON ROOM AIR. HOME O2 FORMS FLAGGED IN CHART FOR MD TO REVIEW AND SIGN, PRIMARY NURSE, DEREK GUARDADO, MADE AWARE OF PENDING FORMS SIGNATURE. CM TO FOLLOW UP.
--- NOTE | 2019-12-04 14:12 | NUR ---
NUTRITION EDUCATION CHRISTIANO provided Renal Dialysis, Heart Failure Nutrition Education. Pt reports has received nutrition education in past. Pt was receptive to reference materials and handouts. CHRISTIANO reviewed handouts with Pt. Pt verbalized understanding. Addendum: 12/04/19 at [address] Amended: Links added.
--- NOTE | 2019-12-04 14:25 | NUR ---
RD Notification Pt admitted with CHF, Fluid overload. Pt tolerating Renal Dialysis diet with 1L fluid restriction per day. Pt reports poor appetite but ate 50-75% lunch today. RD provided nutrition education. Recommend continue Renal Dialysis Diet with 1L Fluid restriction Recommend 30mL ProMod TID RD to continue to monitor. Please notify as additional nutrition concerns arise. Thank you. Addendum: 12/04/19 at [address] Amended: Links added.
[2019-12-04 14:43] LABS: ABG BASE EXCESS 5.3 mmol/L (-2.0-3.0); ABG HCO3 30.3 mmol/L (21.0-28.0); ABG OXYGEN SATURATION 89.5 % (95.0-99.0); ABG PCO2 45 mmHg (32-45)
--- NOTE | 2019-12-04 15:00 | NUR ---
PATIENT PLACED ON 2L NC AT THIS TIME DUE TO ABG RESULTS; PATIENT DENIES ANY SHORTNESS OF BREATH; HOME O2 QUALIFICATION PENDING TO BE COMPLETED BY CM
[2019-12-04] MEDS: TRAMADOL HCL 50 MG TABLET PO PRN (15:57)
[2019-12-04 16:00] VITALS: BP 117/77
--- NOTE | 2019-12-04 18:15 | NUR ---
PATIENT HAS COMPLAINTS OF SEVERE BACK PAIN; DR TORIBIO PAGELakisha; NO NEW ORDERS FOR PAIN RELIEF AT THIS TIME DUE TO RENAL FAILURE; TRAMADOL HAS ALREADY BEEN GIVEN AND PATIENT STATES SHE DOES NOT WANT TYLENOL OR ZOFRAN AT THIS TIME
--- NOTE | 2019-12-04 18:30 | NUR ---
PATIENT IN BED SLEEPING AT THIS TIME
--- NOTE | 2019-12-04 19:00 | NUR ---
BRADYCARDIA PATIENT NOTED TO HAVE NONSTAINED AND SUSTAINED PERIODS OF BRADYCARDIA RANGING FROM HIGH 30S-LOW 40S; DR TORIBIO MADE AWARE EARLY THIS AFTERNOON AND DISCONTINUED PATIENT METOPROLOL; DR AVILES PAGED ABOUT HALF AN HOUR AGO TO UPDATE HIM ON PATIENT STATUS AND HAS NOT RETURNED PAGE OF YET; REPORT GIVEN TO PEDIATRIC PHYSIATRIST NURSE; PATIENT ASYMPTOMATIC
--- NOTE | 2019-12-04 19:49 | NUR ---
Dr.Yardley patrick CHOUDHURY was called and notified regarding patient's HR 39 and BP 79/38 and patient verbalized she is not feeling well because of she has been having back pain.No new order received but to call
[2019-12-04 19:54] VITALS: BP 79/38
--- NOTE | 2019-12-04 20:15 | NUR ---
Second page placed for ,vocational rehab consultant MD waiting to call back.
--- NOTE | 2019-12-04 20:23 | NUR ---
called back and updatedwith patients condition and HR 39 and BP 79/38,received order for stat EKG and Cardiac panel and [id number] Bolus.Will carry out order.
[2019-12-04] MEDS ORDERED: SODIUM CHLORIDE 0.9% 500ML 500 ML IV ONE (20:26)
[2019-12-04] MEDS ORDERED: SODIUM CHLORIDE 0.9% 500ML 500 ML IV SCH (20:30)
[2019-12-04 21:26] LABS: CREATINE KINASE, TOTAL 38 U/L (21-232); MYOGLOBIN 269 ng/mL (10-92); TROPONIN I < 0.04 ng/mL (0.00-0.06)
--- NOTE | 2019-12-04 21:40 | NUR ---
After 500 ml NS Bolus was given BP rechecked and its 102/65,HR 39 ,patient is awake and alert ,she states she is feeling much better,call light placed within her reach instructed to use call light for assistance.She denies chest pain,shortness of breath or dizziness. paged for lab results and updates ,waiting to call back.
[2019-12-04 23:16] VITALS: BP 141/83
[2019-12-05 03:30] VITALS: BP 137/63
[2019-12-05 04:33] LABS: BASOPHILS % (AUTO) 0.6 % (0.0-5.0); EOSINOPHILS % (AUTO) 1.1 % (0.0-8.0); HEMATOCRIT 37.1 % (36-48); LYMPHOCYTES % (AUTO) 11.1 % (21.0-51.0); MEAN CORPUSCULAR HEMOGLOBIN 30.1 pg (27.0-33.0); MEAN CORPUSCULAR HGB CONC 33.2 g/dL (32.0-36.0); MEAN CORPUSCULAR VOLUME 90.7 fL (79-99); MONOCYTES % (AUTO) 13.2 % (3.0-13.0); NEUTROPHILS % (AUTO) 73.8 % (40.0-77.0); PLATELET COUNT (AUTO) 288 K/uL (130-400); RED BLOOD CELL COUNT(AUTO) 4.09 MIL/uL (4.00-5.50); RED CELL DISTRIBUTION WIDTH 15.7 % (11.0-15.5); WHITE BLOOD COUNT (AUTO) 8.3 K/uL (4.8-10.8)
[2019-12-05 04:52] LABS: CREATININE 5.4 mg/dL (0.5-1.5); PHOSPHORUS 5.6 mg/dL (2.5-4.9); POTASSIUM 3.7 mmol/L (3.5-5.1)
[2019-12-05] MEDS: INSULIN R PO SS1 SQ SCH ×4 (06:40→21:00)
[2019-12-05] MEDS: PANTOPRAZOLE SODIUM 40 MG TABLET.DR PO SCH (06:44)
[2019-12-05 07:00] VITALS: BP 176/78
[2019-12-05 07:14] LABS: HEPATITIS Bs ANTIGEN SCREEN P Negative (Negative)
--- NOTE | 2019-12-05 08:00 | NUR ---
PT AAO X 3 , QUIET , REVIEW PLAN OF CARE , PER DIALYSIS STAFF, PT IS NOT DUE FOR DIALYSIS TODAY,AND HER DIALYSIS DAYS AR ESTELA WILLIAMSON, SAT.. DENIES ANY SOB. AND FALL RISK AND CALL LIGHT IN REACH, ON ROOM AIR. [id number] 96%
[2019-12-05] MEDS: ATORVASTATIN CALCIUM 40 MG TABLET PO SCH (09:33)
[2019-12-05] MEDS: ASPIRIN 81MG TAB.CHEW PO SCH (09:33)
[2019-12-05] MEDS: LEVOTHYROXINE 50 MCG TABLET PO SCH (09:33)
[2019-12-05] MEDS: FERROUS SULFATE 325 MG TABLET.DR PO SCH ×2 (09:33→20:22)
[2019-12-05 11:00] VITALS: BP 151/78
--- NOTE | 2019-12-05 13:30 | NUR ---
DR. LAW HERE , AND SPOKE WITH PT . OF HER CARE, AND NEEDED STANDPOINT OF HER DIALYSIS . CARE, AND THAT PT NEEDED TO STAY ON HER DIALYSIS TREATMENT OR SHE WOULD GET SICKER , QUESTION REVIEW OF PLAN OF CARE, AND CALL LIGHT IN REACH. PT WAS ABLE TO FOCUS OF DR. LAW CONCERNS OF HER CARE.
[2019-12-05 16:00] VITALS: BP 133/67
[2019-12-05 19:52] VITALS: BP 148/71
[2019-12-05 23:41] VITALS: BP 138/73
[2019-12-06 04:45] VITALS: BP 176/77
[2019-12-06] MEDS: PANTOPRAZOLE SODIUM 40 MG TABLET.DR PO SCH (06:04)
[2019-12-06] MEDS: INSULIN R PO SS1 SQ SCH ×2 (07:01→11:30)
[2019-12-06 07:30] VITALS: BP 146/69
[2019-12-06] MEDS: FERROUS SULFATE 325 MG TABLET.DR PO SCH (09:00)
[2019-12-06] MEDS: ASPIRIN 81MG TAB.CHEW PO SCH (09:00)
[2019-12-06] MEDS: ATORVASTATIN CALCIUM 40 MG TABLET PO SCH (09:00)
[2019-12-06] MEDS: LEVOTHYROXINE 50 MCG TABLET PO SCH (09:00)
[2019-12-06 09:36] LABS: HEMATOCRIT 34.5 % (36-48); MEAN CORPUSCULAR HEMOGLOBIN 30.2 pg (27.0-33.0); MEAN CORPUSCULAR HGB CONC 33.6 g/dL (32.0-36.0); MEAN CORPUSCULAR VOLUME 89.8 fL (79-99); RED BLOOD CELL COUNT(AUTO) 3.84 MIL/uL (4.00-5.50); RED CELL DISTRIBUTION WIDTH 15.6 % (11.0-15.5)
--- NOTE | 2019-12-06 09:40 | NUR ---
STARTED ON H-D TX. NOW.
[2019-12-06 09:49] LABS: CREATININE 7.2 mg/dL (0.5-1.5); POTASSIUM 3.8 mmol/L (3.5-5.1)
[2019-12-06 11:00] VITALS: BP 134/72
--- NOTE | 2019-12-06 12:40 | NUR ---
H-D TX. NOW COMPLETE,2.2 LITERS REMOVED.TOLERATED TX WELL. BP 131/57, HR 76, T98.4
--- NOTE | 2019-12-06 14:30 | NUR ---
DR. TORIBIO HERE, DC ORDERS GIVEN.
--- NOTE | 2019-12-06 17:00 | NUR ---
DISCHARGED NOW USING TEACH BACK. SALINE LOCK REMOVED, HEART MONITOR DCD .INST AND DRS. JESSICA MADE FOR HER, STRESSED IMPORTANCE OF KEEPING DIALYSIS SCHEDULE AND TAKING MEDS INST. DR. TORIBIO STATES IS VERY NON COMPLIANT.
== END 2019-12-06 17:00 | disposition home or self-care (01) | DRG 291 ==
LOC: EDH 13:11 → EDHIP 15:10 → 4DH 20:09
PROVIDERS: ADMIT Internal Medicine Nephrology; ATTEND Internal Medicine Nephrology
PROC: 5A1D70Z Performance of Urinary Filtration, Intermittent, Less than 6 Hours Per Day (ICD-10-PCS; principal; 2019-12-02)
PROC: 5A1D70Z Performance of Urinary Filtration, Intermittent, Less than 6 Hours Per Day (ICD-10-PCS; 2019-12-03)
PROC: 5A1D70Z Performance of Urinary Filtration, Intermittent, Less than 6 Hours Per Day (ICD-10-PCS; 2019-12-04)
PROC: 5A1D70Z Performance of Urinary Filtration, Intermittent, Less than 6 Hours Per Day (ICD-10-PCS; 2019-12-06)
DX: I13.2 Hypertensive heart and chronic kidney disease with heart failure and with stage 5 chronic kidney disease, or end stage renal disease (principal); N18.6 End stage renal disease; I50.33 Acute on chronic diastolic (congestive) heart failure; I31.3 Pericardial effusion (noninflammatory); I48.91 Unspecified atrial fibrillation; E11.22 Type 2 diabetes mellitus with diabetic chronic kidney disease; E03.9 Hypothyroidism, unspecified; I48.0 Paroxysmal atrial fibrillation; I08.1 Rheumatic disorders of both mitral and tricuspid valves; E78.5 Hyperlipidemia, unspecified; D64.9 Anemia, unspecified; M54.9 Dorsalgia, unspecified; I25.10 Atherosclerotic heart disease of native coronary artery without angina pectoris; Z99.2 Dependence on renal dialysis; Z91.19 Patient's noncompliance with other medical treatment and regimen; Z91.15 Patient's noncompliance with renal dialysis; Z79.4 Long term (current) use of insulin
CPT/HCPCS: 36415; 36600; 71045; 71250; 74176; 80048; 80053; 80061; 81001; 82040; 82150; 82435; 82550; 82565; 82728; 82803; 82947; 82948; 83036; 83540; 83550; 83605; 83690; 83735; 83874; 83880; 84100; 84132; 84295; 84443; 84484; 84520; 85014; 85018; 85025; 85027; 85610; 85730; 86701; 86704; 86706; 87040; 87088; 87340; 87390; 87520; 90935; 93005; 93306; 93356; 97039; 99291; C9113; G0378; J1940; J2405; J3490; J7040

== ENCOUNTER 2020-04-13 18:31 | Emergency (ER) | payer MEDICARE ==
[2020-04-13] MEDS ORDERED: FENTANYL 25 MCG/HR PATCH TD ONE (20:10)
[2020-04-13] MEDS ORDERED: HYDROMORPHONE 1 MG/1 ML AMP ONE (20:11)
== END 2020-04-13 22:53 | disposition home or self-care (01) ==
LOC: EDH 18:31
DX: E11.52 Type 2 diabetes mellitus with diabetic peripheral angiopathy with gangrene (principal); I96 Gangrene, not elsewhere classified; I12.0 Hypertensive chronic kidney disease with stage 5 chronic kidney disease or end stage renal disease; E11.22 Type 2 diabetes mellitus with diabetic chronic kidney disease; N18.6 End stage renal disease; E78.00 Pure hypercholesterolemia, unspecified; Z99.2 Dependence on renal dialysis
CPT/HCPCS: 96372; 99283; J1170

== ENCOUNTER 2020-08-15 04:50 | Inpatient (IN) | payer MEDICARE ==
[~2020-08-15] VITALS: Ht 154.9 cm; Wt 50.8 kg
[~2020-08-15 04:50] MED LIST changes: -LEVO500T2 PO; -METR-172 PO; -TYL3 PO
[2020-08-15 05:08] LABS: BASOPHILS % (AUTO) 0.7 % (0.0-5.0); HEMATOCRIT 39.2 % (36-48); LYMPHOCYTES % (AUTO) 6.5 % (21.0-51.0); MEAN CORPUSCULAR HEMOGLOBIN 30.8 pg (27.0-33.0); MEAN CORPUSCULAR HGB CONC 33.7 g/dL (32.0-36.0); MEAN CORPUSCULAR VOLUME 91.4 fL (79-99); MONOCYTES % (AUTO) 11.2 % (3.0-13.0); NEUTROPHILS % (AUTO) 79.2 % (40.0-77.0); PLATELET COUNT (AUTO) 262 K/uL (130-400); RED BLOOD CELL COUNT(AUTO) 4.29 MIL/uL (4.00-5.50); RED CELL DISTRIBUTION WIDTH 16.3 % (11.0-15.5); WHITE BLOOD COUNT (AUTO) 7.6 K/uL (4.8-10.8)
[2020-08-15 05:26] LABS: INR 1.12 (0.85-1.15); PROTHROMBIN TIME 12.1 SEC (9.6-11.6)
[2020-08-15 05:27] LABS: PARTIAL THROMBOPLASTIN TIME 25.5 SEC (26.3-35.5)
[2020-08-15 05:28] LABS: CREATININE 6.4 mg/dL (0.5-1.5); POTASSIUM 4.1 mmol/L (3.5-5.1)
[2020-08-15 05:32] LABS: ALBUMIN 2.9 g/dL (3.5-5.0); BILIRUBIN,TOTAL 1.1 mg/dL (0.2-1.0); TOTAL PROTEIN, SERUM 7.8 g/dL (6.0-8.3)
[2020-08-15] MEDS ORDERED: MORPHINE 2 MG SYG ONE (06:58)
[2020-08-15] MEDS ORDERED: ACETAMINOPHEN 325 MG TAB PO PRN (07:00)
[2020-08-15] MEDS: HEPARIN 5,000 UNIT VIAL SQ SCH ×3 (07:00→23:00)
[2020-08-15] MEDS ORDERED: DEXTROSE 50%-WATER 50 ML DISP.SYRIN IV PRN (07:15)
[2020-08-15] MEDS ORDERED: HYDROMORPHONE 1 MG INJ IVP PRN (07:15)
[2020-08-15] MEDS ORDERED: GLUCAGON 1MG KIT 1 MG ML IM PRN (07:15)
[2020-08-15] MEDS: INSULIN HUMULIN R 100 UNIT/ML 3ML SQ SCH ×4 (07:30→21:00)
[2020-08-15] MEDS ORDERED: FERROUS SULFATE 325 MG TABLET.DR ONE (07:48)
[2020-08-15] MEDS ORDERED: ASPIRIN 81MG CHEW TAB ONE (07:48)
[2020-08-15] MEDS ORDERED: FUROSEMIDE 20 MG TABLET ONE (07:48)
[2020-08-15] MEDS ORDERED: HEPARIN 5,000 UNIT VIAL ONE (07:49)
[2020-08-15] MEDS ORDERED: FAMOTIDINE 20MG TAB ONE (07:49)
[2020-08-15] MEDS ORDERED: ALBUMIN (HUMAN) 25% 200 ML IV ONE (08:55)
[2020-08-15] MEDS: FERROUS SULFATE 325 MG TABLET.DR PO SCH ×2 (09:00→23:06)
[2020-08-15] MEDS: ASPIRIN 81MG CHEW TAB PO SCH (09:00)
[2020-08-15] MEDS: FUROSEMIDE 20 MG TABLET PO SCH (09:00)
[2020-08-15] MEDS: FAMOTIDINE 20MG TAB PO SCH ×2 (09:00→23:06)
[2020-08-15] MEDS ORDERED: HYDROMORPHONE 0.5 MG SYG (0.5MG/0.5ML) ONE ×3 (12:07→18:50)
[2020-08-15 13:14] VITALS: BP 143/81
[2020-08-15 17:15] LABS: APPEARANCE BODY FLUID CLEAR (CLEAR); BODY FLUID WBC 48 /cu. mm.; COLOR,BODY FLUID YELLOW (LT YELLOW); SPECIMENTYPE,BODY FLUID ASCITES; TOTAL VOLUME,BODY FLUID 7000 mL
[2020-08-15 17:16] LABS: BODY FLUID RBC 105 /cu. mm.
[2020-08-15 18:30] LABS: BF LYMPHOCYTE 36 %; BF MONOCYTE 3 %; BF OTHER CELLS 2
[2020-08-15 18:45] VITALS: BP 139/79
[2020-08-15 19:39] VITALS: BP 138/78
[2020-08-15] MEDS ORDERED: ATORVASTATIN 40 MG TABLET PO SCH (21:00)
[2020-08-15 23:40] VITALS: BP 146/76
[2020-08-16] MEDS: HYDROMORPHONE 0.5 MG SYG (0.5MG/0.5ML) IVP PRN ×3 (00:23→13:41)
[2020-08-16] MEDS: ONDANSETRON 4MG INJ IVP PRN ×2 (00:24→06:40)
[2020-08-16 04:00] VITALS: BP 121/66
[2020-08-16 06:05] LABS: EOSINOPHILS % (AUTO) 1.3 % (0.0-8.0); HEMATOCRIT 37.1 % (36-48); LYMPHOCYTES % (AUTO) 9.3 % (21.0-51.0); MEAN CORPUSCULAR HEMOGLOBIN 29.6 pg (27.0-33.0); MEAN CORPUSCULAR HGB CONC 32.9 g/dL (32.0-36.0); MONOCYTES % (AUTO) 11.9 % (3.0-13.0); NEUTROPHILS % (AUTO) 76.4 % (40.0-77.0); PLATELET COUNT (AUTO) 238 K/uL (130-400); RED BLOOD CELL COUNT(AUTO) 4.12 MIL/uL (4.00-5.50); RED CELL DISTRIBUTION WIDTH 16.2 % (11.0-15.5); WHITE BLOOD COUNT (AUTO) 6.9 K/uL (4.8-10.8)
[2020-08-16 06:18] LABS: ALBUMIN 2.7 g/dL (3.5-5.0); BILIRUBIN,TOTAL 1.6 mg/dL (0.2-1.0); CREATININE 4.5 mg/dL (0.5-1.5); HEMOGLOBIN A1C 5.3 % (4.0-6.0); PHOSPHORUS 6.3 mg/dL (2.5-4.9); POTASSIUM 4.5 mmol/L (3.5-5.1); TOTAL PROTEIN, SERUM 6.3 g/dL (6.0-8.3)
[2020-08-16] MEDS ORDERED: LEVOTHYROXINE 50 MCG TABLET PO SCH (06:30)
[2020-08-16] MEDS: HEPARIN 5,000 UNIT VIAL SQ SCH ×2 (06:44→15:00)
[2020-08-16] MEDS: INSULIN HUMULIN R 100 UNIT/ML 3ML SQ SCH ×3 (06:45→16:08)
[2020-08-16] MEDS: FUROSEMIDE 20 MG TABLET PO SCH (08:39)
[2020-08-16] MEDS: FERROUS SULFATE 325 MG TABLET.DR PO SCH (08:39)
[2020-08-16] MEDS: ASPIRIN 81MG CHEW TAB PO SCH (08:39)
[2020-08-16] MEDS: FAMOTIDINE 20MG TAB PO SCH (08:39)
[2020-08-16 08:41] VITALS: BP 164/102
[2020-08-16 11:44] VITALS: BP 130/69
[2020-08-16 16:25] VITALS: BP 126/81
[2020-08-16 20:00] VITALS: BP 142/67
[2020-08-18 09:10] LABS: HEPATITIS A ANTIBODY IGM Negative (Negative); HEPATITIS B CORE IGM Negative (Negative); HEPATITIS Bs ANTIGEN SCREEN P Negative (Negative)
[2020-12-05] MEDS ORDERED: MECL-160 PO (00:14)
[2020-12-05] MEDS ORDERED: GABA-529 PO (00:14)
[2020-12-05] MEDS ORDERED: CALC667C10 PO (00:14)
[2020-12-05] MEDS ORDERED: ATOR40TA69 PO (00:14)
[2020-12-05] MEDS ORDERED: LOSA25TA41 PO (00:14)
[2020-12-05] MEDS ORDERED: FURO40TA5 PO (00:14)
[2020-12-05] MEDS ORDERED: IBUP-2076 PO (00:14)
[2020-12-05] MEDS ORDERED: LINA5TAB PO (00:14)
[2020-12-05] MEDS ORDERED: HYDR-4154 PO (00:14)
== END 2020-08-16 20:35 | disposition home or self-care (01) | DRG 640 ==
LOC: EDH 04:50 → EDHIP 06:35 → OBSVTOIN 06:35 → 3AH 13:09
PROVIDERS: ADMIT Family Medicine; ATTEND Family Medicine
PROC: 5A1D70Z Performance of Urinary Filtration, Intermittent, Less than 6 Hours Per Day (ICD-10-PCS; 2020-08-14)
PROC: 0W9G3ZZ Drainage of Peritoneal Cavity, Percutaneous Approach (ICD-10-PCS; principal; 2020-08-15)
PROC: 5A1D70Z Performance of Urinary Filtration, Intermittent, Less than 6 Hours Per Day (ICD-10-PCS; 2020-08-15)
DX: E87.70 Fluid overload, unspecified (principal); J96.01 Acute respiratory failure with hypoxia; N18.6 End stage renal disease; I12.0 Hypertensive chronic kidney disease with stage 5 chronic kidney disease or end stage renal disease; R18.8 Other ascites; L97.919 Non-pressure chronic ulcer of unspecified part of right lower leg with unspecified severity; E78.5 Hyperlipidemia, unspecified; E03.9 Hypothyroidism, unspecified; Z20.822 Contact with and (suspected) exposure to COVID-19; D64.9 Anemia, unspecified; E11.22 Type 2 diabetes mellitus with diabetic chronic kidney disease; E11.51 Type 2 diabetes mellitus with diabetic peripheral angiopathy without gangrene; Z79.899 Other long term (current) drug therapy; Z83.3 Family history of diabetes mellitus; Z82.49 Family history of ischemic heart disease and other diseases of the circulatory system; E11.65 Type 2 diabetes mellitus with hyperglycemia; Z91.15 Patient's noncompliance with renal dialysis; Z99.2 Dependence on renal dialysis; Z91.19 Patient's noncompliance with other medical treatment and regimen; Z98.891 History of uterine scar from previous surgery
CPT/HCPCS: 36415; 49083; 71045; 80053; 80074; 82550; 82948; 83036; 83605; 83690; 83735; 84100; 84484; 85025; 85610; 85730; 87071; 87205; 87426; 89051; 90935; 93005; 96365; C1729; G0378; J1170; J1644; J2405; P9046; U0003

== ENCOUNTER 2020-08-19 08:50 | Inpatient (IN) | payer MEDICARE ==
[~2020-08-19] VITALS: Ht 152.4 cm; Wt 55.3 kg
[2020-08-19] MEDS ORDERED: ZOSYN 3.375GM+NS 50ML 50 ML IV ONE ×2 (09:37→22:39)
[2020-08-19] MEDS ORDERED: ONDANSETRON 4MG INJ ONE (09:37)
[2020-08-19] MEDS ORDERED: MORPHINE 4 MG SYG ONE (09:38)
[2020-08-19 09:54] LABS: EOSINOPHILS % (AUTO) 3.1 % (0.0-8.0); HEMATOCRIT 39.9 % (36-48); LYMPHOCYTES % (AUTO) 11.1 % (21.0-51.0); MEAN CORPUSCULAR HEMOGLOBIN 29.6 pg (27.0-33.0); MEAN CORPUSCULAR HGB CONC 32.1 g/dL (32.0-36.0); MEAN CORPUSCULAR VOLUME 92.1 fL (79-99); MONOCYTES % (AUTO) 12.7 % (3.0-13.0); NEUTROPHILS % (AUTO) 71.8 % (40.0-77.0); PLATELET COUNT (AUTO) 287 K/uL (130-400); RED BLOOD CELL COUNT(AUTO) 4.33 MIL/uL (4.00-5.50)
[2020-08-19 10:13] LABS: INR 1.1 (0.85-1.15); PROTHROMBIN TIME 11.9 SEC (9.6-11.6)
[2020-08-19 10:15] LABS: PARTIAL THROMBOPLASTIN TIME 25.7 SEC (26.3-35.5)
[2020-08-19 10:17] LABS: CARBON DIOXIDE 27 mmol/L (21-32); CHLORIDE 99 mmol/L (101-111); CREATININE 5.5 mg/dL (0.5-1.5); GLOMERULAR FILTR. RATE CALC 9 mL/min (>60); GLUCOSE,RANDOM 91 mg/dL (70-105); POTASSIUM 5.4 mmol/L (3.5-5.1); SODIUM SERUM 137 mmol/L (136-145); UREA NITROGEN, BLOOD 47 mg/dL (7-18)
[2020-08-19 10:28] LABS: ALANINE AMINOTRANSFERASE 21 U/L (12-78); ALBUMIN 2.8 g/dL (3.5-5.0); ASPARTATE AMINOTRANSFERASE 25 U/L (10-37); CREATINE KINASE, TOTAL 61 U/L (21-232); MYOGLOBIN 256 ng/mL (10-92); TOTAL PROTEIN, SERUM 7.5 g/dL (6.0-8.3); TROPONIN I < 0.04 ng/mL (0.00-0.06)
[2020-08-19] MEDS: NITROGLYCERIN 1GM OINT 1 INCH/1GM TD SCH ×2 (11:45→19:45)
[2020-08-19] MEDS ORDERED: HYDROMORPHONE 0.5 MG SYG (0.5MG/0.5ML) ONE ×2 (12:01→21:55)
[2020-08-19] MEDS ORDERED: NITROGLYCERIN 1GM OINT 1 INCH/1GM TD ONE ×2 (13:50→22:29)
[2020-08-19] MEDS: HEPARIN 5,000 UNIT VIAL SQ SCH ×2 (14:00→21:00)
[2020-08-19] MEDS ORDERED: ACETAMINOPHEN WITH CODEINE 1 TAB TAB ONE (14:17)
[2020-08-19] MEDS ORDERED: FAMOTIDINE 20MG VIAL IV ONE (22:29)
[2020-08-19] MEDS ORDERED: HEPARIN 5,000 UNIT VIAL ONE (22:29)
[2020-08-20] MEDS ORDERED: HYDROMORPHONE 0.5 MG SYG (0.5MG/0.5ML) ONE ×3 (02:34→12:46)
[2020-08-20] MEDS: NITROGLYCERIN 1GM OINT 1 INCH/1GM TD SCH ×3 (03:45→19:45)
[2020-08-20 05:35] LABS: BASOPHILS % (AUTO) 0.6 % (0.0-5.0); HEMATOCRIT 35.6 % (36-48); LYMPHOCYTES % (AUTO) 8.8 % (21.0-51.0); MEAN CORPUSCULAR HEMOGLOBIN 29.8 pg (27.0-33.0); MEAN CORPUSCULAR HGB CONC 32.9 g/dL (32.0-36.0); MEAN CORPUSCULAR VOLUME 90.6 fL (79-99); MONOCYTES % (AUTO) 13.2 % (3.0-13.0); NEUTROPHILS % (AUTO) 75.1 % (40.0-77.0); PLATELET COUNT (AUTO) 260 K/uL (130-400); RED BLOOD CELL COUNT(AUTO) 3.93 MIL/uL (4.00-5.50); RED CELL DISTRIBUTION WIDTH 16.5 % (11.0-15.5); WHITE BLOOD COUNT (AUTO) 6.4 K/uL (4.8-10.8)
[2020-08-20 05:46] LABS: CREATININE 3.9 mg/dL (0.5-1.5); POTASSIUM 4.5 mmol/L (3.5-5.1)
[2020-08-20 05:51] LABS: ALBUMIN 2.4 g/dL (3.5-5.0); BILIRUBIN,DIRECT 0.5 mg/dL (0.0-0.3); MAGNESIUM 1.8 mg/dL (1.80-2.40); PHOSPHORUS 6.8 mg/dL (2.5-4.9); TOTAL PROTEIN, SERUM 6.3 g/dL (6.0-8.3)
[2020-08-20] MEDS ORDERED: DEXTROSE 50%-WATER 50 ML DISP.SYRIN IV ONE ×2 (06:02→20:10)
[2020-08-20] MEDS ORDERED: ZOSYN 3.375GM+NS 50ML 50 ML IV ONE (07:27)
[2020-08-20] MEDS: FAMOTIDINE 20MG VIAL IV SCH (09:00)
[2020-08-20] MEDS: HEPARIN 5,000 UNIT VIAL SQ SCH ×3 (09:00→20:40)
[2020-08-20] MEDS: ASPIRIN 81MG CHEW TAB PO SCH (09:00)
[2020-08-20] MEDS ORDERED: HEPARIN 5,000 UNIT VIAL ONE (09:11)
[2020-08-20] MEDS ORDERED: ASPIRIN 81MG CHEW TAB ONE (09:11)
[2020-08-20] MEDS ORDERED: FAMOTIDINE 20MG VIAL IV ONE (09:12)
[2020-08-20] MEDS ORDERED: IODIXANOL 320 MG/ML 100 ML VIAL ONE (15:18)
[2020-08-20] MEDS ORDERED: LIDOCAINE HCL 1% MDV 50ML VIAL ONE (15:19)
[2020-08-20] MEDS ORDERED: MIDAZOLAM HCL 1 MG/ML 2ML VIAL ONE ×2 (15:36→16:55)
[2020-08-20] MEDS ORDERED: FENTANYL CITRATE PF 50 MCG/1 ML 2ML VIAL ONE (15:36)
[2020-08-20 18:00] VITALS: BP 135/73
[2020-08-20 20:13] VITALS: BP 116/68
[2020-08-20] MEDS ORDERED: GLUCAGON 1MG KIT 1 MG ML IM PRN (20:15)
[2020-08-20] MEDS: ZOSYN 3.375GM+NS 50ML 50 ML IV SCH (20:15)
[2020-08-20] MEDS: ATORVASTATIN 20 MG TABLET PO SCH (20:23)
[2020-08-20] MEDS: ONDANSETRON 4MG INJ IV PRN (21:16)
[2020-08-20] MEDS: MORPHINE 2 MG SYG IM PRN (21:16)
[2020-08-20 23:37] VITALS: BP 120/63
[2020-08-21] MEDS: MORPHINE 2 MG SYG IM PRN (01:15)
[2020-08-21] MEDS: NITROGLYCERIN 1GM OINT 1 INCH/1GM TD SCH ×4 (03:40→18:21)
[2020-08-21 03:49] VITALS: BP 125/63
[2020-08-21 04:01] LABS: BASOPHILS % (AUTO) 0.9 % (0.0-5.0); EOSINOPHILS % (AUTO) 3.2 % (0.0-8.0); HEMATOCRIT 36.6 % (36-48); LYMPHOCYTES % (AUTO) 9.1 % (21.0-51.0); MEAN CORPUSCULAR HEMOGLOBIN 29.9 pg (27.0-33.0); MEAN CORPUSCULAR HGB CONC 32.2 g/dL (32.0-36.0); MEAN CORPUSCULAR VOLUME 92.9 fL (79-99); NEUTROPHILS % (AUTO) 71.5 % (40.0-77.0); PLATELET COUNT (AUTO) 272 K/uL (130-400); RED BLOOD CELL COUNT(AUTO) 3.94 MIL/uL (4.00-5.50); RED CELL DISTRIBUTION WIDTH 16.9 % (11.0-15.5); WHITE BLOOD COUNT (AUTO) 6.9 K/uL (4.8-10.8)
[2020-08-21 04:17] LABS: ALBUMIN 2.4 g/dL (3.5-5.0); BILIRUBIN,TOTAL 0.9 mg/dL (0.2-1.0); CREATININE 4.8 mg/dL (0.5-1.5); POTASSIUM 4.8 mmol/L (3.5-5.1); TOTAL PROTEIN, SERUM 6.4 g/dL (6.0-8.3)
[2020-08-21] MEDS: HYDROMORPHONE 1 MG INJ IV PRN ×4 (04:35→23:00)
[2020-08-21] MEDS: DEXTROSE 50%-WATER 50 ML DISP.SYRIN IV PRN (05:54)
[2020-08-21 07:42] VITALS: BP 120/69
[2020-08-21] MEDS: ZOSYN 3.375GM+NS 50ML 50 ML IV SCH ×2 (09:00→21:17)
[2020-08-21] MEDS: HEPARIN 5,000 UNIT VIAL SQ SCH ×3 (09:00→21:18)
[2020-08-21 10:55] VITALS: BP 127/70
[2020-08-21] MEDS: FAMOTIDINE 20MG VIAL IV SCH (11:59)
[2020-08-21] MEDS: ASPIRIN 81MG CHEW TAB PO SCH (12:00)
[2020-08-21 16:25] VITALS: BP 124/67
[2020-08-21 20:00] VITALS: BP 139/70
[2020-08-21] MEDS: ATORVASTATIN 20 MG TABLET PO SCH (21:17)
[2020-08-22] VITALS: BP 123/72
[2020-08-22] MEDS: NITROGLYCERIN 1GM OINT 1 INCH/1GM TD SCH ×4 (03:45→19:45)
[2020-08-22 04:00] VITALS: BP 128/66
[2020-08-22 08:00] VITALS: BP 143/76
[2020-08-22 08:00] LABS: HEMATOCRIT 37.7 % (36-48); MEAN CORPUSCULAR HEMOGLOBIN 30.1 pg (27.0-33.0); MEAN CORPUSCULAR HGB CONC 31.8 g/dL (32.0-36.0); MEAN CORPUSCULAR VOLUME 94.5 fL (79-99); RED BLOOD CELL COUNT(AUTO) 3.99 MIL/uL (4.00-5.50); RED CELL DISTRIBUTION WIDTH 16.7 % (11.0-15.5); WHITE BLOOD COUNT (AUTO) 6.8 K/uL (4.8-10.8)
[2020-08-22 08:16] LABS: ALBUMIN 2.6 g/dL (3.5-5.0); BILIRUBIN,TOTAL 0.9 mg/dL (0.2-1.0); CREATININE 4.1 mg/dL (0.5-1.5); PHOSPHORUS 7.1 mg/dL (2.5-4.9); POTASSIUM 4.2 mmol/L (3.5-5.1); TOTAL PROTEIN, SERUM 7.1 g/dL (6.0-8.3)
[2020-08-22] MEDS: HYDROMORPHONE 1 MG INJ IV PRN ×3 (08:24→22:40)
[2020-08-22] MEDS: ZOSYN 3.375GM+NS 50ML 50 ML IV SCH ×2 (08:26→22:20)
[2020-08-22] MEDS: HEPARIN 5,000 UNIT VIAL SQ SCH ×4 (08:29→21:00)
[2020-08-22] MEDS: ASPIRIN 81MG CHEW TAB PO SCH (08:30)
[2020-08-22] MEDS: FAMOTIDINE 20MG VIAL IV SCH (08:30)
[2020-08-22 11:45] VITALS: BP 138/76
[2020-08-22 16:00] VITALS: BP 143/69
[2020-08-22 20:00] VITALS: BP 132/73
[2020-08-22] MEDS: ATORVASTATIN 20 MG TABLET PO SCH (22:21)
[2020-08-23] VITALS: BP 143/76
[2020-08-23] MEDS: NITROGLYCERIN 1GM OINT 1 INCH/1GM TD SCH ×4 (03:14→21:06)
[2020-08-23 04:00] VITALS: BP 146/91
[2020-08-23] MEDS: HYDROMORPHONE 1 MG INJ IV PRN ×4 (05:14→21:05)
[2020-08-23 05:35] LABS: POTASSIUM 4.8 mmol/L (3.5-5.1)
[2020-08-23 05:39] LABS: BASOPHILS % (AUTO) 0.9 % (0.0-5.0); EOSINOPHILS % (AUTO) 3.9 % (0.0-8.0); HEMATOCRIT 34.8 % (36-48); LYMPHOCYTES % (AUTO) 9.3 % (21.0-51.0); MEAN CORPUSCULAR HEMOGLOBIN 30.2 pg (27.0-33.0); MEAN CORPUSCULAR HGB CONC 32.8 g/dL (32.0-36.0); MEAN CORPUSCULAR VOLUME 92.3 fL (79-99); MONOCYTES % (AUTO) 13.2 % (3.0-13.0); NEUTROPHILS % (AUTO) 72.4 % (40.0-77.0); PLATELET COUNT (AUTO) 295 K/uL (130-400); RED BLOOD CELL COUNT(AUTO) 3.77 MIL/uL (4.00-5.50); RED CELL DISTRIBUTION WIDTH 16.4 % (11.0-15.5); WHITE BLOOD COUNT (AUTO) 7.9 K/uL (4.8-10.8)
[2020-08-23 08:00] VITALS: BP 134/69
[2020-08-23] MEDS: HEPARIN 5,000 UNIT VIAL SQ SCH ×3 (09:00→21:00)
[2020-08-23] MEDS: ASPIRIN 81MG CHEW TAB PO SCH (09:52)
[2020-08-23] MEDS: ZOSYN 3.375GM+NS 50ML 50 ML IV SCH ×2 (09:52→21:07)
[2020-08-23] MEDS: FAMOTIDINE 20MG VIAL IV SCH (09:52)
[2020-08-23 12:08] VITALS: BP 156/82
[2020-08-23 16:00] VITALS: BP 134/71
[2020-08-23] MEDS: HONEY 1 APPL/ML TUBE TP SCH (17:15)
[2020-08-23] MEDS: ATORVASTATIN 20 MG TABLET PO SCH (21:06)
[2020-08-23 21:31] VITALS: BP 156/79
[2020-08-24 00:40] VITALS: BP 146/76
[2020-08-24] MEDS: ONDANSETRON 4MG INJ IV PRN (01:03)
[2020-08-24] MEDS: HYDROMORPHONE 1 MG INJ IV PRN ×3 (01:04→11:22)
[2020-08-24] MEDS: NITROGLYCERIN 1GM OINT 1 INCH/1GM TD SCH ×3 (03:45→19:45)
[2020-08-24 03:51] VITALS: BP 129/68
[2020-08-24 06:06] LABS: BASOPHILS % (AUTO) 1.2 % (0.0-5.0); EOSINOPHILS % (AUTO) 5.3 % (0.0-8.0); HEMATOCRIT 35.4 % (36-48); LYMPHOCYTES % (AUTO) 11.5 % (21.0-51.0); MEAN CORPUSCULAR HEMOGLOBIN 30.1 pg (27.0-33.0); MEAN CORPUSCULAR HGB CONC 31.9 g/dL (32.0-36.0); MEAN CORPUSCULAR VOLUME 94.4 fL (79-99); MONOCYTES % (AUTO) 14.9 % (3.0-13.0); NEUTROPHILS % (AUTO) 66.8 % (40.0-77.0); PLATELET COUNT (AUTO) 289 K/uL (130-400); RED BLOOD CELL COUNT(AUTO) 3.75 MIL/uL (4.00-5.50); RED CELL DISTRIBUTION WIDTH 16.7 % (11.0-15.5); WHITE BLOOD COUNT (AUTO) 7.5 K/uL (4.8-10.8)
[2020-08-24 06:41] LABS: CREATININE 3.6 mg/dL (0.5-1.5); POTASSIUM 3.8 mmol/L (3.5-5.1)
[2020-08-24 08:00] VITALS: BP 128/73
[2020-08-24] MEDS: HEPARIN 5,000 UNIT VIAL SQ SCH ×3 (09:00→20:19)
[2020-08-24] MEDS: ZOSYN 3.375GM+NS 50ML 50 ML IV SCH ×2 (10:11→20:09)
[2020-08-24] MEDS: ASPIRIN 81MG CHEW TAB PO SCH (10:11)
[2020-08-24] MEDS: FAMOTIDINE 20MG VIAL IV SCH (10:11)
[2020-08-24] MEDS: DEXTROSE 50%-WATER 50 ML DISP.SYRIN IV PRN (11:34)
[2020-08-24 12:00] VITALS: BP 137/75
[2020-08-24 16:00] VITALS: BP 140/74
[2020-08-24] MEDS: HONEY 1 APPL/ML TUBE TP SCH (17:15)
[2020-08-24] MEDS: ACETAMINOPHEN WITH CODEINE 1 TAB TAB PO PRN (17:20)
[2020-08-24] MEDS: ATORVASTATIN 20 MG TABLET PO SCH (20:10)
[2020-08-24 20:12] VITALS: BP 139/79
[2020-08-24] MEDS: HYDROMORPHONE 0.5 MG SYG (0.5MG/0.5ML) IVP PRN (20:15)
[2020-08-25] VITALS (26 sets, daily range): BP systolic 102–149; BP diastolic 59–92
[2020-08-25] MEDS: HYDROMORPHONE 0.5 MG SYG (0.5MG/0.5ML) IVP PRN ×5 (00:48→21:36)
[2020-08-25] MEDS: NITROGLYCERIN 1GM OINT 1 INCH/1GM TD SCH ×3 (03:45→19:45)
[2020-08-25] MEDS: DEXTROSE 50%-WATER 50 ML DISP.SYRIN IV PRN ×3 (05:09→13:32)
[2020-08-25 05:43] LABS: EOSINOPHILS % (AUTO) 5.8 % (0.0-8.0); HEMATOCRIT 36.7 % (36-48); LYMPHOCYTES % (AUTO) 12.4 % (21.0-51.0); MEAN CORPUSCULAR HGB CONC 31.9 g/dL (32.0-36.0); MEAN CORPUSCULAR VOLUME 94.1 fL (79-99); MONOCYTES % (AUTO) 14.3 % (3.0-13.0); NEUTROPHILS % (AUTO) 66.2 % (40.0-77.0); PLATELET COUNT (AUTO) 346 K/uL (130-400); RED CELL DISTRIBUTION WIDTH 16.6 % (11.0-15.5); WHITE BLOOD COUNT (AUTO) 6.9 K/uL (4.8-10.8)
[2020-08-25 05:48] LABS: CREATININE 4.5 mg/dL (0.5-1.5); POTASSIUM 4.6 mmol/L (3.5-5.1)
[2020-08-25] MEDS: ASPIRIN 81MG CHEW TAB PO SCH (09:00)
[2020-08-25] MEDS: FAMOTIDINE 20MG VIAL IV SCH (09:00)
[2020-08-25] MEDS: HEPARIN 5,000 UNIT VIAL SQ SCH ×3 (09:00→21:00)
[2020-08-25] MEDS: ZOSYN 3.375GM+NS 50ML 50 ML IV SCH ×2 (11:36→21:32)
[2020-08-25] MEDS ORDERED: ROCURONIUM 10MG/1ML SYR 10 MG/ML ML ONE (11:56)
[2020-08-25] MEDS ORDERED: NEOSTIGMINE 5MG/5ML SYR IV ONE (11:56)
[2020-08-25] MEDS ORDERED: GLYCOPYRROLATE 1 MG/5 ML SYRINGE ONE (11:56)
[2020-08-25] MEDS ORDERED: MIDAZOLAM HCL 1 MG/ML 2ML VIAL ONE (11:56)
[2020-08-25] MEDS ORDERED: DEXAMETHASONE SOD PHOSPHATE 10MG/ML 1ML VIAL ONE (11:56)
[2020-08-25] MEDS ORDERED: FENTANYL CITRATE PF 50 MCG/1 ML 2ML VIAL ONE (11:56)
[2020-08-25] MEDS ORDERED: ONDANSETRON 4MG INJ ONE (11:56)
[2020-08-25] MEDS ORDERED: LIDOCAINE PF 100MG/5ML (2%) SYRINGE 5ML ONE ×2 (11:56→11:57)
[2020-08-25] MEDS ORDERED: PROPOFOL 10 MG/ML 20ML VIAL IV ONE (11:56)
[2020-08-25] MEDS ORDERED: SUCCINYLCHOLINE 200MG/10ML SYR ONE ×2 (11:56→11:57)
[2020-08-25] MEDS ORDERED: CEFAZOLIN SODIUM 1 GM VIAL ONE (12:34)
[2020-08-25] MEDS ORDERED: ROPIVACAINE 0.5% 5MG/ML 30ML IJ ONE (12:40)
[2020-08-25] MEDS: HONEY 1 APPL/ML TUBE TP SCH (16:49)
[2020-08-25] MEDS: SOLU-MEDROL 40MG VIAL IVP SCH ×2 (16:49→21:33)
[2020-08-25] MEDS: ATORVASTATIN 20 MG TABLET PO SCH (21:35)
[2020-08-26] VITALS (7 sets, daily range): BP systolic 136–149; BP diastolic 78–87
[2020-08-26] MEDS: HYDROMORPHONE 0.5 MG SYG (0.5MG/0.5ML) IVP PRN ×5 (01:31→21:26)
[2020-08-26] MEDS: NITROGLYCERIN 1GM OINT 1 INCH/1GM TD SCH ×3 (01:40→19:45)
[2020-08-26] MEDS: SOLU-MEDROL 40MG VIAL IVP SCH ×4 (02:07→21:26)
[2020-08-26 05:06] LABS: HEMATOCRIT 37.3 % (36-48); MEAN CORPUSCULAR HEMOGLOBIN 29.7 pg (27.0-33.0); MEAN CORPUSCULAR HGB CONC 31.6 g/dL (32.0-36.0); PLATELET COUNT (AUTO) 335 K/uL (130-400); RED BLOOD CELL COUNT(AUTO) 3.97 MIL/uL (4.00-5.50); RED CELL DISTRIBUTION WIDTH 16.3 % (11.0-15.5); WHITE BLOOD COUNT (AUTO) 4.7 K/uL (4.8-10.8)
[2020-08-26 05:24] LABS: BAND NEUTROPHILS % (MANUAL) 8 % (0-2); LYMPHOCYTES % (MANUAL) 4 % (22-44); MAN.DIFF COMMENT-IMPRESSION MANUAL DIFFERENTIAL; MONOCYTES % (MANUAL) 8 % (2-9); PLATELET MORPHOLOGY COMMENT ADEQUATE; SEGMENTED NEUTROPHILS % 80 % (40-70)
[2020-08-26 05:29] LABS: CREATININE 5.3 mg/dL (0.5-1.5); PHOSPHORUS 8.9 mg/dL (2.5-4.9); POTASSIUM 5.1 mmol/L (3.5-5.1)
[2020-08-26] MEDS: HEPARIN 5,000 UNIT VIAL SQ SCH ×3 (09:00→21:00)
[2020-08-26] MEDS: ZOSYN 3.375GM+NS 50ML 50 ML IV SCH ×2 (09:27→21:26)
[2020-08-26] MEDS: FAMOTIDINE 20MG VIAL IV SCH (09:27)
[2020-08-26] MEDS: ASPIRIN 81MG CHEW TAB PO SCH (09:27)
[2020-08-26] MEDS: ATORVASTATIN 20 MG TABLET PO SCH (21:25)
[2020-08-26] MEDS: HONEY 1 APPL/ML TUBE TP SCH (21:27)
[2020-08-27 01:11] VITALS: BP 134/79
[2020-08-27] MEDS: SOLU-MEDROL 40MG VIAL IVP SCH ×4 (01:30→19:30)
[2020-08-27] MEDS: HYDROMORPHONE 0.5 MG SYG (0.5MG/0.5ML) IVP PRN ×3 (01:40→12:09)
[2020-08-27] MEDS: NITROGLYCERIN 1GM OINT 1 INCH/1GM TD SCH ×3 (03:45→19:45)
[2020-08-27 04:56] VITALS: BP 142/78
[2020-08-27 05:16] LABS: HEMATOCRIT 36.2 % (36-48); MEAN CORPUSCULAR HEMOGLOBIN 30.2 pg (27.0-33.0); MEAN CORPUSCULAR HGB CONC 32.3 g/dL (32.0-36.0); MEAN CORPUSCULAR VOLUME 93.3 fL (79-99); MONOCYTES % (AUTO) 6.1 % (3.0-13.0); NEUTROPHILS % (AUTO) 89.5 % (40.0-77.0); PLATELET COUNT (AUTO) 332 K/uL (130-400); RED BLOOD CELL COUNT(AUTO) 3.88 MIL/uL (4.00-5.50); RED CELL DISTRIBUTION WIDTH 16.5 % (11.0-15.5); WHITE BLOOD COUNT (AUTO) 6.7 K/uL (4.8-10.8)
[2020-08-27 05:26] LABS: CREATININE 4.3 mg/dL (0.5-1.5); POTASSIUM 4.2 mmol/L (3.5-5.1)
[2020-08-27] MEDS: HEPARIN 5,000 UNIT VIAL SQ SCH ×3 (09:00→20:40)
[2020-08-27] MEDS: ZOSYN 3.375GM+NS 50ML 50 ML IV SCH ×2 (09:05→20:40)
[2020-08-27] MEDS: FAMOTIDINE 20MG VIAL IV SCH (09:06)
[2020-08-27] MEDS: ASPIRIN 81MG CHEW TAB PO SCH (09:06)
[2020-08-27] MEDS: ACETAMINOPHEN WITH CODEINE 1 TAB TAB PO PRN ×2 (09:10→18:11)
[2020-08-27 10:38] VITALS: BP 149/83
[2020-08-27] MEDS ORDERED: CEPH500B PO (14:39)
[2020-08-27] MEDS ORDERED: METH4TAB3 PO (14:41)
[2020-08-27 16:00] VITALS: BP 151/84
[2020-08-27] MEDS: HONEY 1 APPL/ML TUBE TP SCH (17:55)
[2020-08-27] MEDS: ATORVASTATIN 20 MG TABLET PO SCH (20:40)
[2020-12-05] MEDS ORDERED: GABA-529 PO (00:14)
[2020-12-05] MEDS ORDERED: ATOR40TA69 PO (00:14)
[2020-12-05] MEDS ORDERED: IBUP-2076 PO (00:14)
[2020-12-05] MEDS ORDERED: CALC667C10 PO (00:14)
[2020-12-05] MEDS ORDERED: LOSA25TA41 PO (00:14)
[2020-12-05] MEDS ORDERED: HYDR-4154 PO (00:14)
[2020-12-05] MEDS ORDERED: MECL-160 PO (00:14)
[2020-12-05] MEDS ORDERED: LINA5TAB PO (00:14)
[2020-12-05] MEDS ORDERED: FURO40TA5 PO (00:14)
== END 2020-08-27 22:45 | disposition home or self-care (01) | DRG 255 ==
LOC: EDH 08:50 → EDHIP 11:36 → 3DH 08-20 18:10
PROVIDERS: ADMIT Internal Medicine; ATTEND Internal Medicine
PROC: 5A1D70Z Performance of Urinary Filtration, Intermittent, Less than 6 Hours Per Day (ICD-10-PCS; 2020-08-19)
PROC: B51W1ZZ Fluoroscopy of Dialysis Shunt/Fistula using Low Osmolar Contrast (ICD-10-PCS; principal; 2020-08-20)
PROC: B54MZZA Ultrasonography of Right Upper Extremity Veins, Guidance (ICD-10-PCS; 2020-08-20)
PROC: B31H1ZZ Fluoroscopy of Right Upper Extremity Arteries using Low Osmolar Contrast (ICD-10-PCS; 2020-08-20)
PROC: 5A1D70Z Performance of Urinary Filtration, Intermittent, Less than 6 Hours Per Day (ICD-10-PCS; 2020-08-21)
PROC: 5A1D70Z Performance of Urinary Filtration, Intermittent, Less than 6 Hours Per Day (ICD-10-PCS; 2020-08-23)
PROC: 0X6N0Z2 Detachment at Right Index Finger, Mid, Open Approach (ICD-10-PCS; 2020-08-25)
PROC: 5A1D70Z Performance of Urinary Filtration, Intermittent, Less than 6 Hours Per Day (ICD-10-PCS; 2020-08-26)
DX: E11.52 Type 2 diabetes mellitus with diabetic peripheral angiopathy with gangrene (principal); N18.6 End stage renal disease; T82.898A Other specified complication of vascular prosthetic devices, implants and grafts, initial encounter; I12.0 Hypertensive chronic kidney disease with stage 5 chronic kidney disease or end stage renal disease; R18.8 Other ascites; L97.919 Non-pressure chronic ulcer of unspecified part of right lower leg with unspecified severity; E11.22 Type 2 diabetes mellitus with diabetic chronic kidney disease; E11.40 Type 2 diabetes mellitus with diabetic neuropathy, unspecified; Z99.2 Dependence on renal dialysis; D64.9 Anemia, unspecified; E03.9 Hypothyroidism, unspecified; E78.5 Hyperlipidemia, unspecified; E83.39 Other disorders of phosphorus metabolism; F17.210 Nicotine dependence, cigarettes, uncomplicated; K74.60 Unspecified cirrhosis of liver; Z83.3 Family history of diabetes mellitus; Z82.49 Family history of ischemic heart disease and other diseases of the circulatory system; Z91.19 Patient's noncompliance with other medical treatment and regimen; Z98.891 History of uterine scar from previous surgery; E11.649 Type 2 diabetes mellitus with hypoglycemia without coma; Y83.8 Other surgical procedures as the cause of abnormal reaction of the patient, or of later complication, without mention of misadventure at the time of the procedure; Y92.89 Other specified places as the place of occurrence of the external cause
CPT/HCPCS: 36415; 36901; 70450; 71045; 73030; 73070; 73140; 73200; 80048; 80053; 80076; 82550; 82948; 83605; 83735; 83874; 84100; 84145; 84484; 85025; 85027; 85610; 85730; 86850; 86900; 86901; 87040; 88305; 88311; 90935; 93005; 93931; 99156; 99157; A4606; C1769; C1894; G0378; J0330; J0690; J1100; J1170; J1644; J2001; J2250; J2270; J2405; J2543; J2704; J2710; J2795; J2920; J3010; J3490; J7030; J7070; Q9967

== ENCOUNTER 2020-09-09 09:18 | Inpatient (IN) | payer MEDICARE ==
[~2020-09-09] VITALS: Ht 154.9 cm; Wt 49.6 kg
[~2020-09-09 09:18] MED LIST changes: -ASPI-556 PO; -ATOR40TA71 PO; +CEPH500B PO; -CHOL100040 PO; -FERS325 PO; -FOLI1TAB61 PO; -FURO20TA6 PO; -INSU100I21 SQ; -LEVO50TA11 PO; -LINA5TAB PO; -LOSA25TA41 PO; -MECL-160 PO; +METH4TAB3 PO
[2020-09-09 10:01] LABS: BASOPHILS % (AUTO) 0.9 % (0.0-5.0); EOSINOPHILS % (AUTO) 2.4 % (0.0-8.0); HEMATOCRIT 39.2 % (36-48); LYMPHOCYTES % (AUTO) 7.7 % (21.0-51.0); MEAN CORPUSCULAR HGB CONC 31.6 g/dL (32.0-36.0); MEAN CORPUSCULAR VOLUME 94.9 fL (79-99); MONOCYTES % (AUTO) 9.9 % (3.0-13.0); NEUTROPHILS % (AUTO) 78.7 % (40.0-77.0); PLATELET COUNT (AUTO) 355 K/uL (130-400); RED BLOOD CELL COUNT(AUTO) 4.13 MIL/uL (4.00-5.50); RED CELL DISTRIBUTION WIDTH 17.3 % (11.0-15.5); WHITE BLOOD COUNT (AUTO) 9.1 K/uL (4.8-10.8)
[2020-09-09 10:11] LABS: INR 1.14 (0.85-1.15); PROTHROMBIN TIME 12.3 SEC (9.6-11.6)
[2020-09-09 10:12] LABS: PARTIAL THROMBOPLASTIN TIME 27.6 SEC (26.3-35.5); POTASSIUM 4.9 mmol/L (3.5-5.1)
[2020-09-09 10:16] LABS: ALBUMIN 2.6 g/dL (3.5-5.0); TOTAL PROTEIN, SERUM 7.7 g/dL (6.0-8.3)
[2020-09-09 10:30] LABS: B-TYPE NATRIURETIC PEPTIDE > 5000 pg/mL (0-100)
[2020-09-09] MEDS ORDERED: HYDROCODONE/ACETAMINOPHEN 5/325 MG TAB ONE (12:18)
[2020-09-09] MEDS ORDERED: HYDROMORPHONE 1 MG INJ IVP PRN (13:15)
[2020-09-09] MEDS: HEPARIN 5,000 UNIT VIAL SQ SCH (13:15)
[2020-09-09] MEDS: FUROSEMIDE 40MG VIAL IV SCH ×2 (13:15→21:15)
[2020-09-09] MEDS ORDERED: GLUCAGON 1MG KIT 1 MG ML IM PRN (13:15)
[2020-09-09] MEDS ORDERED: DEXTROSE 50%-WATER 50 ML DISP.SYRIN IV PRN (13:15)
[2020-09-09] MEDS ORDERED: ACETAMINOPHEN 325 MG TAB PO PRN (13:15)
[2020-09-09] MEDS ORDERED: FUROSEMIDE 40MG VIAL ONE (15:25)
[2020-09-09] MEDS ORDERED: HYDROMORPHONE 1 MG INJ ONE (15:25)
[2020-09-09] MEDS ORDERED: HEPARIN 5,000 UNIT VIAL ONE ×2 (15:25→19:54)
[2020-09-09 16:22] LABS: TROPONIN I 0.1 ng/mL (0.00-0.06)
[2020-09-09] MEDS: INSULIN HUMULIN R 100 UNIT/ML 3ML SQ SCH ×2 (16:30→21:00)
[2020-09-09] MEDS ORDERED: HYDROMORPHONE 0.5 MG SYG (0.5MG/0.5ML) ONE (19:55)
[2020-09-09] MEDS ORDERED: FAMOTIDINE 20MG VIAL IV ONE (19:55)
[2020-09-09] MEDS: FAMOTIDINE 20MG VIAL IV SCH (21:00)
[2020-09-10 00:07] LABS: TROPONIN I 0.11 ng/mL (0.00-0.06)
[2020-09-10] MEDS ORDERED: FUROSEMIDE 40MG VIAL ONE ×2 (00:11→16:44)
[2020-09-10] MEDS: HEPARIN 5,000 UNIT VIAL SQ SCH ×2 (01:15→13:15)
[2020-09-10] MEDS: FUROSEMIDE 40MG VIAL IV SCH ×3 (05:15→20:16)
[2020-09-10 05:55] LABS: EOSINOPHILS % (AUTO) 1.5 % (0.0-8.0); HEMATOCRIT 35.5 % (36-48); LYMPHOCYTES % (AUTO) 7.6 % (21.0-51.0); MEAN CORPUSCULAR HEMOGLOBIN 30.3 pg (27.0-33.0); MEAN CORPUSCULAR HGB CONC 32.4 g/dL (32.0-36.0); MEAN CORPUSCULAR VOLUME 93.4 fL (79-99); MONOCYTES % (AUTO) 10.5 % (3.0-13.0); NEUTROPHILS % (AUTO) 78.9 % (40.0-77.0); NUCLEATED RED BLOOD CELLS 0.2 % (0.0-0.19); PLATELET COUNT (AUTO) 357 K/uL (130-400); RED CELL DISTRIBUTION WIDTH 17.1 % (11.0-15.5); WHITE BLOOD COUNT (AUTO) 10.1 K/uL (4.8-10.8)
[2020-09-10 06:15] LABS: ALBUMIN 2.4 g/dL (3.5-5.0); BILIRUBIN,TOTAL 1.1 mg/dL (0.2-1.0); POTASSIUM 5.6 mmol/L (3.5-5.1)
[2020-09-10 06:24] LABS: CREATININE 8.4 mg/dL (0.5-1.5)
[2020-09-10 06:25] LABS: B-TYPE NATRIURETIC PEPTIDE > 5000 pg/mL (0-100)
[2020-09-10] MEDS: INSULIN HUMULIN R 100 UNIT/ML 3ML SQ SCH ×4 (07:30→20:16)
[2020-09-10] MEDS: AMLODIPINE 5 MG TAB PO SCH (09:00)
[2020-09-10] MEDS ORDERED: ALBUMIN (HUMAN) 25% 200 ML IV ONE (09:06)
[2020-09-10] MEDS ORDERED: HYDROMORPHONE 0.5 MG SYG (0.5MG/0.5ML) ONE ×2 (10:18→15:39)
[2020-09-10] MEDS ORDERED: AMLODIPINE 5 MG TAB ONE (10:18)
[2020-09-10] MEDS ORDERED: DEXTROSE 50%-WATER 50 ML DISP.SYRIN IV ONE (11:46)
[2020-09-10 16:01] LABS: APPEARANCE BODY FLUID SLIGHTLY CLOUDY (CLEAR); COLOR,BODY FLUID DARK YELLOW (LT YELLOW); SPECIMENTYPE,BODY FLUID ASCITES; TOTAL VOLUME,BODY FLUID 6200 mL
[2020-09-10 16:02] LABS: BODY FLUID RBC 2200 /cu. mm.; BODY FLUID WBC 514 /cu. mm.
[2020-09-10 16:40] LABS: BF EOSINOPHIL 3 %; BF LYMPHOCYTE 7 %; BF MESOTHELIAL 1 %; BF MONOCYTE 2 %
[2020-09-10] MEDS ORDERED: HEPARIN 5,000 UNIT VIAL ONE (16:44)
[2020-09-10 18:50] VITALS: BP 140/72
[2020-09-10] MEDS: FAMOTIDINE 20MG VIAL IV SCH (20:16)
[2020-09-10] MEDS: HYDROMORPHONE 0.5 MG SYG (0.5MG/0.5ML) IVP PRN (20:23)
[2020-09-10 23:46] VITALS: BP 138/79
[2020-09-11] MEDS: HYDROMORPHONE 0.5 MG SYG (0.5MG/0.5ML) IVP PRN ×4 (00:38→17:12)
[2020-09-11] MEDS: HEPARIN 5,000 UNIT VIAL SQ SCH ×2 (00:39→13:15)
[2020-09-11] MEDS: FUROSEMIDE 40MG VIAL IV SCH ×2 (04:43→13:15)
[2020-09-11 05:09] VITALS: BP 133/71
[2020-09-11 05:31] LABS: BASOPHILS % (AUTO) 0.9 % (0.0-5.0); EOSINOPHILS % (AUTO) 1.9 % (0.0-8.0); LYMPHOCYTES % (AUTO) 6.8 % (21.0-51.0); MEAN CORPUSCULAR HEMOGLOBIN 30.6 pg (27.0-33.0); MEAN CORPUSCULAR HGB CONC 32.9 g/dL (32.0-36.0); MEAN CORPUSCULAR VOLUME 92.9 fL (79-99); MONOCYTES % (AUTO) 10.9 % (3.0-13.0); NEUTROPHILS % (AUTO) 79.1 % (40.0-77.0); PLATELET COUNT (AUTO) 333 K/uL (130-400); RED BLOOD CELL COUNT(AUTO) 3.66 MIL/uL (4.00-5.50); WHITE BLOOD COUNT (AUTO) 9.4 K/uL (4.8-10.8)
[2020-09-11 06:03] LABS: B-TYPE NATRIURETIC PEPTIDE > 5000 pg/mL (0-100)
[2020-09-11 06:18] LABS: ALBUMIN 2.6 g/dL (3.5-5.0); BILIRUBIN,TOTAL 1.1 mg/dL (0.2-1.0); CREATININE 6.2 mg/dL (0.5-1.5); MAGNESIUM 2.3 mg/dL (1.80-2.40); PHOSPHORUS 9.5 mg/dL (2.5-4.9); POTASSIUM 4.6 mmol/L (3.5-5.1); THYROID STIMULATING HORMONE 10.58 uIU/mL (0.36-3.74); TOTAL PROTEIN, SERUM 6.5 g/dL (6.0-8.3)
[2020-09-11] MEDS: INSULIN HUMULIN R 100 UNIT/ML 3ML SQ SCH ×3 (06:24→16:30)
[2020-09-11 07:30] VITALS: BP 129/72
[2020-09-11] MEDS: AMLODIPINE 5 MG TAB PO SCH (09:00)
[2020-09-11 11:55] VITALS: BP 134/83
[2020-09-11] MEDS ORDERED: HONEY 1 APPL/ML TUBE TP SCH (14:30)
[2020-09-11 15:59] VITALS: BP 152/81
[2020-12-05] MEDS ORDERED: HYDR-4154 PO (00:14)
[2020-12-05] MEDS ORDERED: LINA5TAB PO (00:14)
[2020-12-05] MEDS ORDERED: IBUP-2076 PO (00:14)
[2020-12-05] MEDS ORDERED: FURO40TA5 PO (00:14)
[2020-12-05] MEDS ORDERED: ATOR40TA69 PO (00:14)
[2020-12-05] MEDS ORDERED: CALC667C10 PO (00:14)
[2020-12-05] MEDS ORDERED: MECL-160 PO (00:14)
[2020-12-05] MEDS ORDERED: LOSA25TA41 PO (00:14)
[2020-12-05] MEDS ORDERED: GABA-529 PO (00:14)
== END 2020-09-11 19:15 | disposition home health service (06) | DRG 640 ==
LOC: EDH 09:18 → OBSVTOIN 13:14 → EDHIP 13:14 → 3DH 09-10 18:46
PROVIDERS: ADMIT Family Medicine; ATTEND Family Medicine
PROC: 0W9G3ZZ Drainage of Peritoneal Cavity, Percutaneous Approach (ICD-10-PCS; principal; 2020-09-10)
PROC: 5A1D70Z Performance of Urinary Filtration, Intermittent, Less than 6 Hours Per Day (ICD-10-PCS; 2020-09-10)
PROC: 5A1D70Z Performance of Urinary Filtration, Intermittent, Less than 6 Hours Per Day (ICD-10-PCS; 2020-09-11)
DX: E87.70 Fluid overload, unspecified (principal); N18.6 End stage renal disease; E43 Unspecified severe protein-calorie malnutrition; I12.0 Hypertensive chronic kidney disease with stage 5 chronic kidney disease or end stage renal disease; R18.8 Other ascites; J90 Pleural effusion, not elsewhere classified; L97.919 Non-pressure chronic ulcer of unspecified part of right lower leg with unspecified severity; K74.60 Unspecified cirrhosis of liver; E11.22 Type 2 diabetes mellitus with diabetic chronic kidney disease; E78.5 Hyperlipidemia, unspecified; E11.51 Type 2 diabetes mellitus with diabetic peripheral angiopathy without gangrene; Z20.822 Contact with and (suspected) exposure to COVID-19; D64.9 Anemia, unspecified; Z68.20 Body mass index [BMI] 20.0-20.9, adult; Z99.2 Dependence on renal dialysis; Z89.021 Acquired absence of right finger(s); Z91.15 Patient's noncompliance with renal dialysis; Z91.19 Patient's noncompliance with other medical treatment and regimen; Z83.3 Family history of diabetes mellitus; Z82.49 Family history of ischemic heart disease and other diseases of the circulatory system
CPT/HCPCS: 36415; 49083; 70450; 71045; 72170; 73502; 76604; 76705; 80053; 82550; 82948; 83605; 83735; 83874; 83880; 84100; 84145; 84443; 84484; 84550; 85025; 85610; 85730; 87071; 87205; 87426; 89051; 90935; 93005; 96365; C1729; G0378; J1170; J1644; J1940; J3490; J7070; P9046; U0003

== ENCOUNTER 2020-09-24 23:24 | Inpatient (IN) | payer MEDICARE ==
[~2020-09-24] VITALS: Ht 154.9 cm; Wt 52.5 kg
[2020-09-25 00:15] LABS: BASOPHILS % (AUTO) 1.4 % (0.0-5.0); EOSINOPHILS % (AUTO) 2.5 % (0.0-8.0); HEMATOCRIT 36.8 % (36-48); LYMPHOCYTES % (AUTO) 9.1 % (21.0-51.0); MEAN CORPUSCULAR HEMOGLOBIN 30.3 pg (27.0-33.0); MEAN CORPUSCULAR HGB CONC 32.1 g/dL (32.0-36.0); MEAN CORPUSCULAR VOLUME 94.6 fL (79-99); MONOCYTES % (AUTO) 9.2 % (3.0-13.0); NEUTROPHILS % (AUTO) 76.8 % (40.0-77.0); PLATELET COUNT (AUTO) 506 K/uL (130-400); RED BLOOD CELL COUNT(AUTO) 3.89 MIL/uL (4.00-5.50); RED CELL DISTRIBUTION WIDTH 16.7 % (11.0-15.5); WHITE BLOOD COUNT (AUTO) 9.7 K/uL (4.8-10.8)
[2020-09-25 00:46] LABS: CREATININE 7.7 mg/dL (0.5-1.5); POTASSIUM 4.7 mmol/L (3.5-5.1)
[2020-09-25 00:50] LABS: ALBUMIN 2.6 g/dL (3.5-5.0); BILIRUBIN,TOTAL 0.7 mg/dL (0.2-1.0); TOTAL PROTEIN, SERUM 7.3 g/dL (6.0-8.3)
[2020-09-25 00:54] LABS: B-TYPE NATRIURETIC PEPTIDE > 5000 pg/mL (0-100)
[2020-09-25] MEDS ORDERED: MORPHINE 2 MG SYG ONE (03:43)
[2020-09-25] MEDS ORDERED: DiphenhydrAMINE HCL 50 MG/ML VIAL IV PRN (04:45)
[2020-09-25] MEDS ORDERED: MAG/ALUM/SIMETH 30 ML UDCUP PO PRN (04:45)
[2020-09-25] MEDS ORDERED: LACTULOSE 20 GM/30 ML UDCUP PO PRN (04:45)
[2020-09-25] MEDS ORDERED: ACETAMINOPHEN 325 MG TAB PO PRN ×2 (04:45)
[2020-09-25] MEDS ORDERED: NITROGLYCERIN 0.4 MG SL TAB SL PRN (04:45)
[2020-09-25] MEDS ORDERED: GUAIFENESIN-DM 200/20 MG 10 ML PO PRN (04:45)
[2020-09-25] MEDS ORDERED: ONDANSETRON 4MG INJ IV PRN (04:45)
[2020-09-25] MEDS ORDERED: DIPHENHYDRAMINE HCL 25 MG CAPSULE PO PRN (04:45)
[2020-09-25 06:20] VITALS: BP 159/83
[2020-09-25 08:00] VITALS: BP 155/73
[2020-09-25] MEDS: FAMOTIDINE 20MG VIAL IV SCH ×2 (08:59→19:54)
[2020-09-25] MEDS: TRAMADOL HCL 50 MG TABLET PO SCH ×2 (09:00→19:56)
[2020-09-25] MEDS: HYDROMORPHONE 1 MG INJ IV PRN ×3 (11:58→22:26)
[2020-09-25 12:00] VITALS: BP 148/79
[2020-09-25 12:07] LABS: INR 1.1 (0.85-1.15); PROTHROMBIN TIME 11.9 SEC (9.6-11.6)
[2020-09-25 13:04] LABS: AMYLASE,BODY FLUID 29 U/L
[2020-09-25 13:06] LABS: LIPASE,BODY FLUID 42 U/L
[2020-09-25 14:10] LABS: SPECIMENTYPE,BODY FLUID PARACENTESIS
[2020-09-25 14:11] LABS: APPEARANCE BODY FLUID CLEAR (CLEAR); BODY FLUID RBC 175 /cu. mm.; BODY FLUID WBC 138 /cu. mm.; COLOR,BODY FLUID YELLOW (LT YELLOW); TOTAL VOLUME,BODY FLUID 1100 mL
[2020-09-25 14:15] LABS: BF LYMPHOCYTE 29 %; BF MESOTHELIAL 49 %; BF MONOCYTE 1 %
[2020-09-25 16:00] VITALS: BP 133/69
[2020-09-25 16:56] LABS: HEMATOCRIT 30.7 % (36-48)
[2020-09-25 19:34] VITALS: BP 157/77
[2020-09-25 23:55] VITALS: BP 126/69
[2020-09-26 04:00] VITALS: BP 133/79
[2020-09-26] MEDS: HYDROMORPHONE 1 MG INJ IV PRN ×2 (04:44→11:41)
[2020-09-26 05:22] LABS: BASOPHILS % (AUTO) 1.2 % (0.0-5.0); EOSINOPHILS % (AUTO) 1.9 % (0.0-8.0); HEMATOCRIT 33.6 % (36-48); LYMPHOCYTES % (AUTO) 8.6 % (21.0-51.0); MEAN CORPUSCULAR HEMOGLOBIN 30.2 pg (27.0-33.0); MEAN CORPUSCULAR HGB CONC 32.1 g/dL (32.0-36.0); MEAN CORPUSCULAR VOLUME 93.9 fL (79-99); MONOCYTES % (AUTO) 9.7 % (3.0-13.0); NEUTROPHILS % (AUTO) 77.8 % (40.0-77.0); PLATELET COUNT (AUTO) 405 K/uL (130-400); RED BLOOD CELL COUNT(AUTO) 3.58 MIL/uL (4.00-5.50); RED CELL DISTRIBUTION WIDTH 16.5 % (11.0-15.5); WHITE BLOOD COUNT (AUTO) 9.3 K/uL (4.8-10.8)
[2020-09-26 05:33] LABS: CREATININE 5.5 mg/dL (0.5-1.5); MAGNESIUM 2.1 mg/dL (1.80-2.40); PHOSPHORUS 8.5 mg/dL (2.5-4.9); POTASSIUM 4.5 mmol/L (3.5-5.1)
[2020-09-26 08:00] VITALS: BP 139/82
[2020-09-26] MEDS: TRAMADOL HCL 50 MG TABLET PO SCH ×2 (08:09→20:44)
[2020-09-26] MEDS: FAMOTIDINE 20MG VIAL IV SCH ×2 (08:09→20:43)
[2020-09-26] MEDS: SEVELAMER HCL 800 MG TABLET PO SCH ×2 (13:05→16:51)
[2020-09-26 16:00] VITALS: BP 110/62
[2020-09-26 20:00] VITALS: BP 139/75
[2020-09-27] VITALS: BP 143/76
[2020-09-27 04:00] VITALS: BP 137/66
[2020-09-27 04:36] LABS: EOSINOPHILS % (AUTO) 2.2 % (0.0-8.0); HEMATOCRIT 33.1 % (36-48); LYMPHOCYTES % (AUTO) 6.9 % (21.0-51.0); MEAN CORPUSCULAR HEMOGLOBIN 29.7 pg (27.0-33.0); MEAN CORPUSCULAR HGB CONC 31.7 g/dL (32.0-36.0); MEAN CORPUSCULAR VOLUME 93.8 fL (79-99); MONOCYTES % (AUTO) 9.5 % (3.0-13.0); NEUTROPHILS % (AUTO) 79.8 % (40.0-77.0); PLATELET COUNT (AUTO) 409 K/uL (130-400); RED BLOOD CELL COUNT(AUTO) 3.53 MIL/uL (4.00-5.50); RED CELL DISTRIBUTION WIDTH 16.5 % (11.0-15.5)
[2020-09-27 04:55] LABS: CREATININE 6.4 mg/dL (0.5-1.5)
[2020-09-27 06:13] LABS: HEPATITIS B CORE IGM Negative (Negative); HEPATITIS Bs ANTIGEN SCREEN P Negative (Negative)
[2020-09-27 08:00] VITALS: BP 149/75
[2020-09-27] MEDS: HYDROMORPHONE 1 MG INJ IV PRN ×2 (11:22→15:00)
[2020-09-27] MEDS: SEVELAMER HCL 800 MG TABLET PO SCH ×2 (11:27→13:32)
[2020-09-27] MEDS: FAMOTIDINE 20MG VIAL IV SCH (11:27)
[2020-09-27 12:00] VITALS: BP 148/69
[2020-09-27 12:04] LABS: APPEARANCE BODY FLUID CLEAR (CLEAR); COLOR,BODY FLUID LT YELLOW (LT YELLOW); SPECIMENTYPE,BODY FLUID PLEURAL; TOTAL VOLUME,BODY FLUID 400 mL
[2020-09-27 12:35] LABS: BODY FLUID RBC 52 /cu. mm.; BODY FLUID WBC 170 /cu. mm.
[2020-09-27 12:41] LABS: BF BASOPHIL 6 %; BF EOSINOPHIL 1 %; BF LYMPHOCYTE 53 %; BF MESOTHELIAL 1 %; BF MONOCYTE 25 %
[2020-09-27] MEDS: TRAMADOL HCL 50 MG TABLET PO SCH (13:32)
[2020-09-27 16:00] VITALS: BP 144/76
[2020-12-05] MEDS ORDERED: CALC667C10 PO (00:14)
[2020-12-05] MEDS ORDERED: GABA-529 PO (00:14)
[2020-12-05] MEDS ORDERED: FURO40TA5 PO (00:14)
[2020-12-05] MEDS ORDERED: ATOR40TA69 PO (00:14)
[2020-12-05] MEDS ORDERED: HYDR-4154 PO (00:14)
[2020-12-05] MEDS ORDERED: LINA5TAB PO (00:14)
[2020-12-05] MEDS ORDERED: MECL-160 PO (00:14)
[2020-12-05] MEDS ORDERED: LOSA25TA41 PO (00:14)
[2020-12-05] MEDS ORDERED: IBUP-2076 PO (00:14)
== END 2020-09-27 16:45 | disposition home or self-care (01) | DRG 682 ==
LOC: EDH 23:24 → EDHIP 09-25 04:37 → 4DH 09-25 05:53
PROVIDERS: ADMIT Family Medicine; ATTEND Family Medicine
PROC: 0W9G3ZZ Drainage of Peritoneal Cavity, Percutaneous Approach (ICD-10-PCS; principal; 2020-09-25)
PROC: 5A1D70Z Performance of Urinary Filtration, Intermittent, Less than 6 Hours Per Day (ICD-10-PCS; 2020-09-25)
PROC: 0W9B30Z Drainage of Left Pleural Cavity with Drainage Device, Percutaneous Approach (ICD-10-PCS; 2020-09-27)
PROC: 5A1D70Z Performance of Urinary Filtration, Intermittent, Less than 6 Hours Per Day (ICD-10-PCS; 2020-09-27)
DX: I13.11 Hypertensive heart and chronic kidney disease without heart failure, with stage 5 chronic kidney disease, or end stage renal disease (principal); N18.6 End stage renal disease; E43 Unspecified severe protein-calorie malnutrition; R18.8 Other ascites; J91.8 Pleural effusion in other conditions classified elsewhere; E87.70 Fluid overload, unspecified; E11.51 Type 2 diabetes mellitus with diabetic peripheral angiopathy without gangrene; D64.9 Anemia, unspecified; E11.22 Type 2 diabetes mellitus with diabetic chronic kidney disease; E78.5 Hyperlipidemia, unspecified; E83.39 Other disorders of phosphorus metabolism; Z99.2 Dependence on renal dialysis; Z82.49 Family history of ischemic heart disease and other diseases of the circulatory system; Z83.3 Family history of diabetes mellitus; Z89.021 Acquired absence of right finger(s); Z90.5 Acquired absence of kidney; Z91.15 Patient's noncompliance with renal dialysis; Z91.19 Patient's noncompliance with other medical treatment and regimen; Z68.21 Body mass index [BMI] 21.0-21.9, adult
CPT/HCPCS: 36415; 71045; 76700; 80048; 80053; 80074; 82042; 82150; 82570; 82945; 82948; 83615; 83690; 83735; 83880; 83986; 84100; 84145; 84157; 84300; 85014; 85018; 85025; 85610; 87071; 87116; 87205; 87206; 88112; 88305; 89051; 90935; 93005; G0378; J1170; J2405; J3490

== ENCOUNTER 2020-10-11 11:58 | Inpatient (IN) | payer MEDICARE ==
[~2020-10-11] VITALS: Ht 154.9 cm; Wt 48.1 kg
[2020-10-11 12:29] LABS: EOSINOPHILS % (AUTO) 1.9 % (0.0-8.0); HEMATOCRIT 33.9 % (36-48); LYMPHOCYTES % (AUTO) 7.9 % (21.0-51.0); MEAN CORPUSCULAR HEMOGLOBIN 30.6 pg (27.0-33.0); MEAN CORPUSCULAR HGB CONC 32.4 g/dL (32.0-36.0); MEAN CORPUSCULAR VOLUME 94.4 fL (79-99); MONOCYTES % (AUTO) 8.4 % (3.0-13.0); NEUTROPHILS % (AUTO) 79.5 % (40.0-77.0); PLATELET COUNT (AUTO) 448 K/uL (130-400); RED BLOOD CELL COUNT(AUTO) 3.59 MIL/uL (4.00-5.50); RED CELL DISTRIBUTION WIDTH 16.5 % (11.0-15.5); WHITE BLOOD COUNT (AUTO) 11.5 K/uL (4.8-10.8)
[2020-10-11 12:47] LABS: ALBUMIN 2.4 g/dL (3.5-5.0); BILIRUBIN,TOTAL 0.6 mg/dL (0.2-1.0); CREATININE 7.1 mg/dL (0.5-1.5); POTASSIUM 4.6 mmol/L (3.5-5.1); TOTAL PROTEIN, SERUM 7.2 g/dL (6.0-8.3)
[2020-10-11] MEDS ORDERED: MORPHINE 2 MG SYG ONE (13:11)
[2020-10-11] MEDS ORDERED: ONDANSETRON 4MG INJ ONE (13:11)
[2020-10-11] MEDS ORDERED: ACETAMINOPHEN 325 MG TAB PO PRN ×2 (15:45)
[2020-10-11] MEDS ORDERED: ACETAMINOPHEN WITH CODEINE 1 TAB TAB PO PRN (15:45)
[2020-10-11] MEDS ORDERED: ONDANSETRON 4MG INJ IV PRN (15:45)
[2020-10-11] MEDS ORDERED: CEFEPIME HCL 2 GM VIAL IVP SCH (16:45)
[2020-10-11] MEDS ORDERED: VANCOMYCIN PROTOCOL PER PHARMACY IV SCH (16:45)
[2020-10-11] MEDS ORDERED: GLUCAGON 1MG KIT 1 MG ML IM PRN (16:45)
[2020-10-11] MEDS ORDERED: DEXTROSE 50%-WATER 50 ML DISP.SYRIN IV PRN (16:45)
[2020-10-11] MEDS ORDERED: CEFEPIME HCL 2 GM VIAL ONE (17:11)
[2020-10-11] MEDS ORDERED: VANCOMYCIN 1G/250ML KIT 250 ML IV SCH (18:00)
[2020-10-11] MEDS ORDERED: ACETAMINOPHEN WITH CODEINE 1 TAB TAB ONE (18:25)
[2020-10-11 20:23] VITALS: BP 145/70
[2020-10-11] MEDS: INSULIN HUMULIN R 100 UNIT/ML 3ML SQ SCH (21:00)
[2020-10-11 23:01] VITALS: BP 121/70
[2020-10-12] MEDS ORDERED: MORPHINE 2 MG SYG ONE (00:56)
[2020-10-12] MEDS: MORPHINE 2 MG SYG IVP PRN ×4 (01:06→16:11)
[2020-10-12 03:49] VITALS: BP 131/68
[2020-10-12 04:13] LABS: EOSINOPHILS % (AUTO) 2.4 % (0.0-8.0); HEMATOCRIT 35.5 % (36-48); LYMPHOCYTES % (AUTO) 7.3 % (21.0-51.0); MEAN CORPUSCULAR HEMOGLOBIN 29.9 pg (27.0-33.0); MEAN CORPUSCULAR HGB CONC 30.7 g/dL (32.0-36.0); MEAN CORPUSCULAR VOLUME 97.3 fL (79-99); MONOCYTES % (AUTO) 7.3 % (3.0-13.0); NEUTROPHILS % (AUTO) 80.9 % (40.0-77.0); NUCLEATED RED BLOOD CELLS 0.3 % (0.0-0.19); PLATELET COUNT (AUTO) 358 K/uL (130-400); RED BLOOD CELL COUNT(AUTO) 3.65 MIL/uL (4.00-5.50); RED CELL DISTRIBUTION WIDTH 16.9 % (11.0-15.5); WHITE BLOOD COUNT (AUTO) 11.4 K/uL (4.8-10.8)
[2020-10-12 04:33] LABS: ALBUMIN 2.3 g/dL (3.5-5.0); BILIRUBIN,TOTAL 0.7 mg/dL (0.2-1.0); CREATININE 4.7 mg/dL (0.5-1.5); POTASSIUM 4.5 mmol/L (3.5-5.1); TOTAL PROTEIN, SERUM 6.9 g/dL (6.0-8.3)
[2020-10-12] MEDS: INSULIN HUMULIN R 100 UNIT/ML 3ML SQ SCH ×4 (06:31→21:00)
[2020-10-12 07:00] VITALS: BP 140/80
[2020-10-12] MEDS: ENOXAPARIN SODIUM 30 MG/0.3 ML SQ SCH (09:46)
[2020-10-12] MEDS: FUROSEMIDE 20MG VIAL IV SCH (09:47)
[2020-10-12] MEDS: FAMOTIDINE 20MG TAB PO SCH (09:47)
[2020-10-12 11:00] VITALS: BP 144/73
[2020-10-12 15:00] VITALS: BP 144/78
[2020-10-12] MEDS: CEFEPIME HCL 1 GM VIAL IVP SCH (17:10)
[2020-10-12 20:26] VITALS: BP 151/80
[2020-10-12 23:46] VITALS: BP 137/76
[2020-10-13] VITALS (22 sets, daily range): BP systolic 125–155; BP diastolic 59–81
[2020-10-13] MEDS: MORPHINE 2 MG SYG IVP PRN ×4 (00:18→20:38)
[2020-10-13 05:24] LABS: BASOPHILS % (AUTO) 0.9 % (0.0-5.0); EOSINOPHILS % (AUTO) 4.4 % (0.0-8.0); HEMATOCRIT 31.6 % (36-48); LYMPHOCYTES % (AUTO) 6.7 % (21.0-51.0); MEAN CORPUSCULAR HEMOGLOBIN 29.8 pg (27.0-33.0); MEAN CORPUSCULAR HGB CONC 31.3 g/dL (32.0-36.0); MEAN CORPUSCULAR VOLUME 95.2 fL (79-99); MONOCYTES % (AUTO) 10.3 % (3.0-13.0); NUCLEATED RED BLOOD CELLS 0.3 % (0.0-0.19); PLATELET COUNT (AUTO) 309 K/uL (130-400); RED BLOOD CELL COUNT(AUTO) 3.32 MIL/uL (4.00-5.50); RED CELL DISTRIBUTION WIDTH 16.6 % (11.0-15.5); WHITE BLOOD COUNT (AUTO) 10.3 K/uL (4.8-10.8)
[2020-10-13 06:10] LABS: CREATININE 6.8 mg/dL (0.5-1.5); PHOSPHORUS 8.9 mg/dL (2.5-4.9); POTASSIUM 4.7 mmol/L (3.5-5.1)
[2020-10-13] MEDS: INSULIN HUMULIN R 100 UNIT/ML 3ML SQ SCH ×4 (06:38→20:49)
[2020-10-13 08:46] LABS: INR 1.11 (0.85-1.15)
[2020-10-13] MEDS: FAMOTIDINE 20MG TAB PO SCH (08:46)
[2020-10-13 08:47] LABS: PARTIAL THROMBOPLASTIN TIME 25.5 SEC (26.3-35.5)
[2020-10-13] MEDS: FUROSEMIDE 20MG VIAL IV SCH (08:47)
[2020-10-13] MEDS: ENOXAPARIN SODIUM 30 MG/0.3 ML SQ SCH (08:47)
[2020-10-13] MEDS ORDERED: 0.9% NACL 500ML IV.SOLN 500 ML IV ONE (11:10)
[2020-10-13] MEDS: MEPERIDINE-PF 25 MG/ML SYG ONE ×2 (11:30→11:31)
[2020-10-13] MEDS ORDERED: MEPERIDINE-PF 25 MG/ML SYG IVP SCH (11:30)
[2020-10-13] MEDS ORDERED: MEPERIDINE HCL/PF 25 MG/0.5 ML AMPUL IVP SCH (11:30)
[2020-10-13] MEDS ORDERED: MIDAZOLAM HCL 1 MG/ML 2ML VIAL ONE (11:50)
[2020-10-13] MEDS ORDERED: PROPOFOL 10 MG/ML 20ML VIAL IV ONE (11:50)
[2020-10-13] MEDS ORDERED: FENTANYL CITRATE PF 50 MCG/1 ML 2ML VIAL ONE (11:50)
[2020-10-13] MEDS ORDERED: GLYCOPYRROLATE 1 MG/5 ML SYRINGE ONE (11:50)
[2020-10-13] MEDS ORDERED: NEOSTIGMINE 5MG/5ML SYR IV ONE (11:50)
[2020-10-13] MEDS ORDERED: DEXAMETHASONE SOD PHOSPHATE 10MG/ML 1ML VIAL ONE (11:50)
[2020-10-13] MEDS ORDERED: LIDOCAINE PF 100MG/5ML (2%) SYRINGE 5ML ONE (11:50)
[2020-10-13] MEDS ORDERED: SUCCINYLCHOLINE 200MG/10ML SYR ONE (11:50)
[2020-10-13] MEDS ORDERED: ROCURONIUM 10MG/1ML SYR 10 MG/ML ML ONE (11:50)
[2020-10-13] MEDS ORDERED: CEFAZOLIN SODIUM 1 GM VIAL ONE (12:00)
[2020-10-13] MEDS ORDERED: SUGAMMADEX SODIUM 200 MG/2 ML VIAL IV ONE (12:26)
[2020-10-13] MEDS: CEFEPIME HCL 1 GM VIAL IVP SCH (17:53)
[2020-10-13] MEDS: ACETAMINOPHEN WITH CODEINE 1 TAB TAB PO PRN (18:54)
[2020-10-13] MEDS ORDERED: HYDROMORPHONE 0.5 MG SYG (0.5MG/0.5ML) ONE (22:45)
[2020-10-14 04:00] VITALS: BP 137/80
[2020-10-14] MEDS: HYDROMORPHONE 0.5 MG SYG (0.5MG/0.5ML) IVP PRN ×2 (04:45→12:20)
[2020-10-14 05:30] LABS: EOSINOPHILS % (AUTO) 5.1 % (0.0-8.0); HEMATOCRIT 33.2 % (36-48); MEAN CORPUSCULAR HEMOGLOBIN 29.9 pg (27.0-33.0); MEAN CORPUSCULAR VOLUME 96.5 fL (79-99); MONOCYTES % (AUTO) 10.7 % (3.0-13.0); NEUTROPHILS % (AUTO) 75.3 % (40.0-77.0); NUCLEATED RED BLOOD CELLS 0.3 % (0.0-0.19); PLATELET COUNT (AUTO) 330 K/uL (130-400); RED BLOOD CELL COUNT(AUTO) 3.44 MIL/uL (4.00-5.50); RED CELL DISTRIBUTION WIDTH 17.1 % (11.0-15.5)
[2020-10-14 06:08] LABS: ALBUMIN 2.2 g/dL (3.5-5.0); BILIRUBIN,TOTAL 0.6 mg/dL (0.2-1.0); CREATININE 7.7 mg/dL (0.5-1.5); POTASSIUM 5.5 mmol/L (3.5-5.1); TOTAL PROTEIN, SERUM 6.8 g/dL (6.0-8.3)
[2020-10-14] MEDS: INSULIN HUMULIN R 100 UNIT/ML 3ML SQ SCH ×3 (06:33→16:30)
[2020-10-14 08:00] VITALS: BP 139/75
[2020-10-14] MEDS: FAMOTIDINE 20MG TAB PO SCH (09:02)
[2020-10-14] MEDS: ACETAMINOPHEN WITH CODEINE 1 TAB TAB PO PRN (09:02)
[2020-10-14] MEDS: FUROSEMIDE 20MG VIAL IV SCH ×2 (09:02→12:19)
[2020-10-14] MEDS: ENOXAPARIN SODIUM 30 MG/0.3 ML SQ SCH (09:03)
[2020-10-14] MEDS ORDERED: CEFD300C3 PO (11:11)
[2020-10-14] MEDS ORDERED: ACET1TAB25 PO (11:11)
[2020-10-14 12:00] VITALS: BP 126/61
[2020-10-14] MEDS ORDERED: EPOETIN ALFA-EPBX (ESRD) 10,000 UNIT/ML VIAL SQ SCH (12:45)
[2020-10-14] MEDS: CEFEPIME HCL 1 GM VIAL IVP SCH (17:18)
[2020-12-05] MEDS ORDERED: HYDR-4154 PO (00:14)
[2020-12-05] MEDS ORDERED: ATOR40TA69 PO (00:14)
[2020-12-05] MEDS ORDERED: GABA-529 PO (00:14)
[2020-12-05] MEDS ORDERED: LOSA25TA41 PO (00:14)
[2020-12-05] MEDS ORDERED: CALC667C10 PO (00:14)
[2020-12-05] MEDS ORDERED: LINA5TAB PO (00:14)
[2020-12-05] MEDS ORDERED: FURO40TA5 PO (00:14)
[2020-12-05] MEDS ORDERED: MECL-160 PO (00:14)
[2020-12-05] MEDS ORDERED: IBUP-2076 PO (00:14)
== END 2020-10-14 17:37 | disposition home or self-care (01) | DRG 255 ==
LOC: EDH 11:58 → EDHIP 15:44 → 4BH 20:09
PROVIDERS: ADMIT Internal Medicine; ATTEND Internal Medicine
PROC: 5A1D70Z Performance of Urinary Filtration, Intermittent, Less than 6 Hours Per Day (ICD-10-PCS; 2020-10-11)
PROC: 0W9G3ZZ Drainage of Peritoneal Cavity, Percutaneous Approach (ICD-10-PCS; 2020-10-13)
PROC: 0X6N0Z0 Detachment at Right Index Finger, Complete, Open Approach (ICD-10-PCS; principal; 2020-10-13 11:52)
PROC: 5A1D70Z Performance of Urinary Filtration, Intermittent, Less than 6 Hours Per Day (ICD-10-PCS; 2020-10-14)
DX: E11.52 Type 2 diabetes mellitus with diabetic peripheral angiopathy with gangrene (principal); N18.6 End stage renal disease; T82.898A Other specified complication of vascular prosthetic devices, implants and grafts, initial encounter; I12.0 Hypertensive chronic kidney disease with stage 5 chronic kidney disease or end stage renal disease; R18.8 Other ascites; J90 Pleural effusion, not elsewhere classified; M86.8X4 Other osteomyelitis, hand; E11.22 Type 2 diabetes mellitus with diabetic chronic kidney disease; D64.9 Anemia, unspecified; D72.829 Elevated white blood cell count, unspecified; E11.69 Type 2 diabetes mellitus with other specified complication; E78.5 Hyperlipidemia, unspecified; E87.5 Hyperkalemia; I25.10 Atherosclerotic heart disease of native coronary artery without angina pectoris; E83.39 Other disorders of phosphorus metabolism; Y83.8 Other surgical procedures as the cause of abnormal reaction of the patient, or of later complication, without mention of misadventure at the time of the procedure; I99.8 Other disorder of circulatory system; Z99.2 Dependence on renal dialysis; Z83.3 Family history of diabetes mellitus; Z91.14 Patient's other noncompliance with medication regimen; Z91.15 Patient's noncompliance with renal dialysis; Z91.19 Patient's noncompliance with other medical treatment and regimen; Z82.49 Family history of ischemic heart disease and other diseases of the circulatory system; Y92.89 Other specified places as the place of occurrence of the external cause
CPT/HCPCS: 36415; 49083; 71045; 80048; 80053; 82150; 82948; 83605; 83690; 83880; 84100; 85025; 85610; 85730; 87040; 88305; 88311; 90935; A4606; C1729; G0378; J0330; J0690; J0692; J1100; J1170; J1650; J1940; J2001; J2175; J2250; J2405; J2704; J2710; J3010; J3370; J3490; J7040; J7120

== ENCOUNTER 2020-11-04 13:44 | Emergency (ER) | payer MEDICARE ==
[~2020-11-04 13:44] MED LIST changes: +ACET1TAB25 PO; +CEFD300C3 PO; -CEPH500B PO; -METH4TAB3 PO
[2020-11-04 14:11] LABS: BASOPHILS % (AUTO) 1.5 % (0.0-5.0); EOSINOPHILS % (AUTO) 6.5 % (0.0-8.0); HEMATOCRIT 37.4 % (36-48); LYMPHOCYTES % (AUTO) 12.1 % (21.0-51.0); MEAN CORPUSCULAR HEMOGLOBIN 30.6 pg (27.0-33.0); MEAN CORPUSCULAR HGB CONC 32.4 g/dL (32.0-36.0); MEAN CORPUSCULAR VOLUME 94.4 fL (79-99); MONOCYTES % (AUTO) 12.1 % (3.0-13.0); NEUTROPHILS % (AUTO) 67.3 % (40.0-77.0); PLATELET COUNT (AUTO) 341 K/uL (130-400); RED BLOOD CELL COUNT(AUTO) 3.96 MIL/uL (4.00-5.50); WHITE BLOOD COUNT (AUTO) 8.6 K/uL (4.8-10.8)
[2020-11-04 14:22] LABS: INR 1.07 (0.85-1.15); PROTHROMBIN TIME 11.6 SEC (9.6-11.6)
[2020-11-04 14:23] LABS: PARTIAL THROMBOPLASTIN TIME 25.7 SEC (26.3-35.5)
[2020-11-04 14:25] LABS: ALBUMIN 2.6 g/dL (3.5-5.0); BILIRUBIN,TOTAL 0.7 mg/dL (0.2-1.0); TOTAL PROTEIN, SERUM 7.2 g/dL (6.0-8.3)
[2020-11-04] MEDS ORDERED: ALBUMIN (HUMAN) 25% 200 ML IV ONE (14:26)
[2020-11-04 14:29] LABS: POTASSIUM 6.1 mmol/L (3.5-5.1)
[2020-11-04 14:31] LABS: CREATININE 9.2 mg/dL (0.5-1.5)
[2020-11-04] MEDS ORDERED: KAYEXALATE 15GM/60ML ONE (15:32)
[2020-12-05] MEDS ORDERED: CALC667C10 PO (00:14)
[2020-12-05] MEDS ORDERED: LOSA25TA41 PO (00:14)
[2020-12-05] MEDS ORDERED: HYDR-4154 PO (00:14)
[2020-12-05] MEDS ORDERED: MECL-160 PO (00:14)
[2020-12-05] MEDS ORDERED: IBUP-2076 PO (00:14)
[2020-12-05] MEDS ORDERED: FURO40TA5 PO (00:14)
[2020-12-05] MEDS ORDERED: ATOR40TA69 PO (00:14)
[2020-12-05] MEDS ORDERED: GABA-529 PO (00:14)
[2020-12-05] MEDS ORDERED: LINA5TAB PO (00:14)
== END 2020-11-04 15:50 | disposition home or self-care (01) ==
LOC: EDH 13:44
DX: R18.8 Other ascites (principal); I12.0 Hypertensive chronic kidney disease with stage 5 chronic kidney disease or end stage renal disease; E11.22 Type 2 diabetes mellitus with diabetic chronic kidney disease; N18.6 End stage renal disease; Z99.2 Dependence on renal dialysis
CPT/HCPCS: 36415; 49083; 71045; 80053; 83690; 85025; 85610; 85730; 93005; 96365; 99285; A4215; P9046; C1729

== ENCOUNTER 2020-11-25 08:47 | Emergency (ER) | payer MEDICARE ==
[2020-11-25 09:28] LABS: BASOPHILS % (AUTO) 1.1 % (0.0-5.0); EOSINOPHILS % (AUTO) 5.8 % (0.0-8.0); LYMPHOCYTES % (AUTO) 9.5 % (21.0-51.0); MEAN CORPUSCULAR HEMOGLOBIN 30.2 pg (27.0-33.0); MEAN CORPUSCULAR HGB CONC 32.6 g/dL (32.0-36.0); MEAN CORPUSCULAR VOLUME 92.6 fL (79-99); MONOCYTES % (AUTO) 14.6 % (3.0-13.0); NEUTROPHILS % (AUTO) 68.6 % (40.0-77.0); PLATELET COUNT (AUTO) 363 K/uL (130-400); RED BLOOD CELL COUNT(AUTO) 3.67 MIL/uL (4.00-5.50); RED CELL DISTRIBUTION WIDTH 15.1 % (11.0-15.5); WHITE BLOOD COUNT (AUTO) 9.3 K/uL (4.8-10.8)
[2020-11-25 09:41] LABS: INR 1.1 (0.85-1.15); PROTHROMBIN TIME 11.9 SEC (9.6-11.6)
[2020-11-25 09:42] LABS: PARTIAL THROMBOPLASTIN TIME 27.3 SEC (26.3-35.5)
[2020-11-25 09:47] LABS: ALBUMIN 2.7 g/dL (3.5-5.0); BILIRUBIN,TOTAL 0.7 mg/dL (0.2-1.0); CREATININE 7.2 mg/dL (0.5-1.5); POTASSIUM 4.7 mmol/L (3.5-5.1); TOTAL PROTEIN, SERUM 7.2 g/dL (6.0-8.3)
[2020-11-25] MEDS ORDERED: MORPHINE SULFATE 4 MG/1ML SYG ONE (11:46)
[2020-11-25] MEDS ORDERED: ONDANSETRON HCL 4 MG/2 ML VIAL ONE (11:46)
[2020-11-25] MEDS ORDERED: ALBUMIN (HUMAN) 25% 200 ML IV ONE (12:24)
[2020-11-25] MEDS ORDERED: ALBUMIN (HUMAN) 25% 100 ML IV SCH (12:30)
[2020-11-25 14:00] LABS: APPEARANCE BODY FLUID CLEAR (CLEAR); COLOR,BODY FLUID YELLOW (LT YELLOW); SPECIMENTYPE,BODY FLUID ASCITES; TOTAL VOLUME,BODY FLUID 4800 mL
[2020-11-25 14:04] LABS: BODY FLUID RBC 194 /cu. mm.; BODY FLUID WBC 214 /cu. mm.
[2020-11-25 14:14] LABS: BF LYMPHOCYTE 45 %; BF MESOTHELIAL 42 %; BF MONOCYTE 11 %
== END 2020-11-25 13:47 | disposition home or self-care (01) ==
LOC: EDH 08:47
DX: R18.8 Other ascites (principal); I12.0 Hypertensive chronic kidney disease with stage 5 chronic kidney disease or end stage renal disease; E11.22 Type 2 diabetes mellitus with diabetic chronic kidney disease; N18.6 End stage renal disease; E78.00 Pure hypercholesterolemia, unspecified; Z99.2 Dependence on renal dialysis; Z98.890 Other specified postprocedural states
CPT/HCPCS: 36415; 49083; 80053; 83690; 84484; 85025; 85610; 85730; 87071; 87205; 89051; 93005; 96365; 96375; 99285; A4215; J2270; J2405; P9046

== ENCOUNTER 2020-12-27 11:46 | Emergency (ER) | payer MEDICARE ==
[~2020-12-27] VITALS: Ht 152.4 cm; Wt 49.4 kg
[~2020-12-27 11:46] MED LIST changes: +ATOR40TA69 PO; +CALC667C10 PO; +FURO40TA5 PO; +GABA-529 PO; +HYDR-4154 PO; +IBUP-2076 PO; +LINA5TAB PO; +LOSA25TA41 PO; +MECL-160 PO
[2020-12-27 11:56] VITALS: BP 161/72
[2020-12-27] MEDS ORDERED: FENTANYL CITRATE PF 50 MCG/1 ML 2ML VIAL ONE (12:23)
[2020-12-27] MEDS ORDERED: FENTANYL CITRATE PF 50 MCG/1 ML 2ML VIAL IM ONE (12:30)
[2020-12-27] MEDS ORDERED: FENTANYL 50 MCG/HR PATCH TD SCH (12:30)
== END 2020-12-27 13:13 | disposition home or self-care (01) ==
LOC: EDH 11:46
DX: G89.29 Other chronic pain (principal); M79.671 Pain in right foot; I10 Essential (primary) hypertension; E11.9 Type 2 diabetes mellitus without complications; E78.5 Hyperlipidemia, unspecified; I25.10 Atherosclerotic heart disease of native coronary artery without angina pectoris; F32.9 Major depressive disorder, single episode, unspecified; I73.9 Peripheral vascular disease, unspecified; Z89.421 Acquired absence of other right toe(s); Z79.899 Other long term (current) drug therapy
CPT/HCPCS: 96372; 99283; J3010

== ENCOUNTER → 2020-12-31 | Outpatient (CLI) | payer MEDICARE | END | disposition home or self-care (01) | LOC: WHH 08:24 | PROVIDERS: ATTEND Podiatrist Foot & Ankle Surgery | DX: I96 Gangrene, not elsewhere classified (principal); E11.52 Type 2 diabetes mellitus with diabetic peripheral angiopathy with gangrene; E11.22 Type 2 diabetes mellitus with diabetic chronic kidney disease; I12.0 Hypertensive chronic kidney disease with stage 5 chronic kidney disease or end stage renal disease; N18.6 End stage renal disease; E11.69 Type 2 diabetes mellitus with other specified complication; M86.672 Other chronic osteomyelitis, left ankle and foot; E11.40 Type 2 diabetes mellitus with diabetic neuropathy, unspecified; I25.10 Atherosclerotic heart disease of native coronary artery without angina pectoris; E78.5 Hyperlipidemia, unspecified; R18.8 Other ascites; E78.00 Pure hypercholesterolemia, unspecified; I35.0 Nonrheumatic aortic (valve) stenosis; G89.29 Other chronic pain; F32.9 Major depressive disorder, single episode, unspecified; Z79.899 Other long term (current) drug therapy; Z79.84 Long term (current) use of oral hypoglycemic drugs; Z89.421 Acquired absence of other right toe(s); Z99.2 Dependence on renal dialysis; Z98.890 Other specified postprocedural states; Z87.891 Personal history of nicotine dependence | CPT/HCPCS: A4450; G0463 ==

== ENCOUNTER 2021-02-03 10:41 | Observation (INO) | payer MEDICARE ==
[2021-02-03] VITALS (10 sets, daily range): BP systolic 124–150; BP diastolic 58–77
[~2021-02-03] VITALS: Ht 154.9 cm; Wt 48.4 kg
[~2021-02-03 10:41] MED LIST changes: -ACET1TAB25 PO; -CEFD300C3 PO
[2021-02-03 11:23] LABS: BASOPHILS % (AUTO) 1.9 % (0.0-5.0); EOSINOPHILS % (AUTO) 7.2 % (0.0-8.0); HEMATOCRIT 35.6 % (36-48); LYMPHOCYTES % (AUTO) 9.6 % (21.0-51.0); MEAN CORPUSCULAR HEMOGLOBIN 30.4 pg (27.0-33.0); MEAN CORPUSCULAR HGB CONC 32.6 g/dL (32.0-36.0); MEAN CORPUSCULAR VOLUME 93.2 fL (79-99); MONOCYTES % (AUTO) 16.3 % (3.0-13.0); NEUTROPHILS % (AUTO) 64.5 % (40.0-77.0); PLATELET COUNT (AUTO) 461 K/uL (130-400); RED BLOOD CELL COUNT(AUTO) 3.82 MIL/uL (4.00-5.50); RED CELL DISTRIBUTION WIDTH 17.5 % (11.0-15.5); WHITE BLOOD COUNT (AUTO) 9.7 K/uL (4.8-10.8)
[2021-02-03 11:33] LABS: CREATININE 6.4 mg/dL (0.5-1.5); POTASSIUM 4.5 mmol/L (3.5-5.1)
[2021-02-03 11:37] LABS: ALBUMIN 2.4 g/dL (3.5-5.0); BILIRUBIN,TOTAL 0.6 mg/dL (0.2-1.0); TOTAL PROTEIN, SERUM 7.9 g/dL (6.0-8.3)
[2021-02-03 11:54] LABS: INR 1.12 (0.85-1.15); PROTHROMBIN TIME 12.1 SEC (9.6-11.6)
[2021-02-03 11:55] LABS: PARTIAL THROMBOPLASTIN TIME 29.2 SEC (26.3-35.5)
[2021-02-03] MEDS ORDERED: ALBUMIN (HUMAN) 25% 200 ML IV ONE (12:52)
[2021-02-03] MEDS: 0.9%NACL 1000ML 1,000 ML IV SCH (16:00)
[2021-02-03] MEDS ORDERED: HYDROCODONE/ACETAMINOPHEN 5/325 MG TAB PO ONE (16:30)
[2021-02-03] MEDS ORDERED: DEXTROSE 50%-WATER 50 ML DISP.SYRIN IV ONE (17:50)
[2021-02-03] MEDS ORDERED: ACETAMINOPHEN 325 MG TAB PO PRN (19:30)
[2021-02-03] MEDS ORDERED: ONDANSETRON 4MG INJ IVP PRN (19:30)
[2021-02-03] MEDS ORDERED: ZINC454P MC (20:56)
[2021-02-03] MEDS ORDERED: IODOG TP (20:56)
[2021-02-03] MEDS ORDERED: SEVE800T7 PO (20:56)
[2021-02-03] MEDS ORDERED: MECL-160 PO (20:56)
[2021-02-03] MEDS ORDERED: FAMO20TA8 PO (20:56)
[2021-02-03] MEDS ORDERED: ASPI-1197 PO (20:56)
[2021-02-03] MEDS ORDERED: LOSA50TA64 PO (20:56)
[2021-02-03] MEDS ORDERED: BALS60OI TP (20:56)
[2021-02-03] MEDS ORDERED: [UNRECOGNIZED DRUG - CODE] IJ (20:56)
[2021-02-03] MEDS ORDERED: ONDA4TAB4 PO (20:56)
[2021-02-03] MEDS ORDERED: MULT-1311 PO (20:56)
[2021-02-03] MEDS ORDERED: ATOR40TA69 PO (20:56)
[2021-02-03] MEDS ORDERED: ZINC (20:56)
[2021-02-03] MEDS ORDERED: FOLI1TAB61 PO (20:56)
[2021-02-03] MEDS ORDERED: ZINC57OI4 TP (20:56)
[2021-02-03] MEDS ORDERED: THIA500T3 PO (20:56)
[2021-02-03] MEDS ORDERED: PROT946L PO (20:56)
[2021-02-03] MEDS ORDERED: GABA-529 PO (20:56)
[2021-02-03] MEDS ORDERED: ASCO500T10 PO (20:56)
[2021-02-03] MEDS ORDERED: NUTR1PAC14 PO (20:56)
[2021-02-03] MEDS ORDERED: TRAM1TAB PO (20:56)
[2021-02-03] MEDS ORDERED: METO25TA6 PO (20:56)
[2021-02-03] MEDS ORDERED: AMLO-257 PO (20:56)
[2021-02-03] MEDS ORDERED: ACET-66 PO (20:56)
[2021-02-03] MEDS ORDERED: LACT10SO9 PO (20:56)
[2021-02-03] MEDS: GLUTAMINE PO SCH (21:00)
[2021-02-03] MEDS: ARGININE PO SCH (21:00)
[2021-02-03] MEDS ORDERED: ACETAMINOPHEN 500 MG TABLET PO PRN (21:00)
[2021-02-03] MEDS ORDERED: ONDANSETRON 4MG TABLET PO PRN (21:00)
[2021-02-03] MEDS: CALCIUM HMB PO SCH (21:00)
[2021-02-03] MEDS ORDERED: ZINC OXIDE OINT 114 GM TUBE TP PRN (21:00)
[2021-02-03] MEDS ORDERED: ATORVASTATIN 40 MG TABLET PO SCH (21:00)
[2021-02-03] MEDS: LACTULOSE 20 GM/30 ML UDCUP PO SCH (21:00)
[2021-02-03] MEDS ORDERED: BALSAM PERU/CASTOR OIL 60 GM TUBE TP PRN (21:00)
[2021-02-03] MEDS: METOPROLOL TARTRATE 25 MG TAB PO SCH (22:13)
[2021-02-03] MEDS: SEVELAMER HCL 800 MG TABLET PO SCH (22:13)
[2021-02-03] MEDS: ASCORBIC ACID 500 MG TAB PO SCH (22:13)
[2021-02-03] MEDS: TRAMADOL /APAP 37.5MG/325MG TAB PO SCH (22:13)
[2021-02-03] MEDS: MECLIZINE HCL 25 MG TABLET PO SCH (22:14)
[2021-02-03] MEDS: GABAPENTIN 100 MG CAPSULE PO SCH (22:15)
[2021-02-03] MEDS: HEPARIN 5,000 UNIT VIAL SQ SCH (22:50)
[2021-02-04] VITALS (20 sets, daily range): BP systolic 112–148; BP diastolic 53–75
[2021-02-04 04:57] LABS: BASOPHILS % (AUTO) 1.2 % (0.0-5.0); EOSINOPHILS % (AUTO) 5.3 % (0.0-8.0); HEMATOCRIT 32.2 % (36-48); LYMPHOCYTES % (AUTO) 5.3 % (21.0-51.0); MEAN CORPUSCULAR HEMOGLOBIN 30.2 pg (27.0-33.0); MEAN CORPUSCULAR HGB CONC 32.9 g/dL (32.0-36.0); MEAN CORPUSCULAR VOLUME 91.7 fL (79-99); NEUTROPHILS % (AUTO) 72.7 % (40.0-77.0); PLATELET COUNT (AUTO) 401 K/uL (130-400); RED BLOOD CELL COUNT(AUTO) 3.51 MIL/uL (4.00-5.50); RED CELL DISTRIBUTION WIDTH 17.2 % (11.0-15.5); WHITE BLOOD COUNT (AUTO) 10.7 K/uL (4.8-10.8)
[2021-02-04 05:14] LABS: ALBUMIN 2.5 g/dL (3.5-5.0); BILIRUBIN,TOTAL 0.7 mg/dL (0.2-1.0); CREATININE 6.8 mg/dL (0.5-1.5); MAGNESIUM 2.9 mg/dL (1.80-2.40); POTASSIUM 4.9 mmol/L (3.5-5.1); TOTAL PROTEIN, SERUM 6.6 g/dL (6.0-8.3)
[2021-02-04] MEDS: CALCIUM AC 667MG CAP PO SCH ×3 (08:00→17:00)
[2021-02-04] MEDS: HEPARIN 5,000 UNIT VIAL SQ SCH (09:00)
[2021-02-04] MEDS: GLUTAMINE PO SCH (09:00)
[2021-02-04] MEDS ORDERED: IODOSORB GEL 40GM TP SCH (09:00)
[2021-02-04] MEDS: ARGININE PO SCH (09:00)
[2021-02-04] MEDS ORDERED: Vitamin B Complex/Vit C/Folic Acid PO SCH (09:00)
[2021-02-04] MEDS ORDERED: FAMOTIDINE 20MG TAB PO SCH (09:00)
[2021-02-04] MEDS ORDERED: THIAMINE HCL 100 MG TABLET PO SCH (09:00)
[2021-02-04] MEDS: GABAPENTIN 100 MG CAPSULE PO SCH (09:00)
[2021-02-04] MEDS ORDERED: PROTEIN SUPPLEMENT 946 ML BOTTLE PO SCH (09:00)
[2021-02-04] MEDS: CALCIUM HMB PO SCH (09:00)
[2021-02-04] MEDS: SEVELAMER HCL 800 MG TABLET PO SCH ×2 (09:00→14:36)
[2021-02-04] MEDS ORDERED: AMLODIPINE 5 MG TAB PO SCH (09:00)
[2021-02-04] MEDS ORDERED: MULTIVITAMIN WITH MINERALS TABLET PO SCH (09:00)
[2021-02-04] MEDS: ASCORBIC ACID 500 MG TAB PO SCH (09:00)
[2021-02-04] MEDS ORDERED: ZINC SULFATE 220 CAPSULE PO SCH (09:00)
[2021-02-04] MEDS: METOPROLOL TARTRATE 25 MG TAB PO SCH (09:00)
[2021-02-04] MEDS: MECLIZINE HCL 25 MG TABLET PO SCH ×2 (09:00→14:36)
[2021-02-04] MEDS: TRAMADOL /APAP 37.5MG/325MG TAB PO SCH (09:00)
[2021-02-04] MEDS: LACTULOSE 20 GM/30 ML UDCUP PO SCH (09:00)
[2021-02-04] MEDS ORDERED: ASPIRIN 81MG CHEW TAB PO SCH (09:00)
[2021-02-04] MEDS ORDERED: LOSARTAN 50 MG TABLET PO SCH (09:00)
[2021-02-04] MEDS: 0.9%NACL 1000ML 1,000 ML IV SCH (12:00)
[2021-02-05 08:14] LABS: HEPATITIS Bs ANTIGEN SCREEN P Negative (Negative)
[2021-02-10] MEDS ORDERED: EPOETIN ALFA-EPBX (NON-ESRD) 10,000 UNIT/ML VIAL IJ SCH (09:00)
== END 2021-02-04 18:30 ==
LOC: EDH 10:41 → EDHIP 18:55 → 3CH 20:25
PROVIDERS: ADMIT Internal Medicine Infectious Disease; ATTEND Internal Medicine Infectious Disease
DX: K74.60 Unspecified cirrhosis of liver (principal); Z20.822 Contact with and (suspected) exposure to COVID-19; R18.8 Other ascites; E87.70 Fluid overload, unspecified; I12.0 Hypertensive chronic kidney disease with stage 5 chronic kidney disease or end stage renal disease; N18.6 End stage renal disease; E11.22 Type 2 diabetes mellitus with diabetic chronic kidney disease; I73.9 Peripheral vascular disease, unspecified; D63.1 Anemia in chronic kidney disease; M86.9 Osteomyelitis, unspecified; E78.5 Hyperlipidemia, unspecified; L97.919 Non-pressure chronic ulcer of unspecified part of right lower leg with unspecified severity; Z99.2 Dependence on renal dialysis; Z98.891 History of uterine scar from previous surgery; Z79.899 Other long term (current) drug therapy; Z98.890 Other specified postprocedural states; Z91.19 Patient's noncompliance with other medical treatment and regimen; Z89.021 Acquired absence of right finger(s)
CPT/HCPCS: 36415 ×2; 49083; 71045; 80053 ×2; 82948 ×6; 83690; 83735; 85025 ×2; 85610; 85730; 86704; 86706; 87340; 87635; 90935; 93005; 96372; 97039; 97161; 99285; C1729; C9803; G0378 ×20; G8981; G8982; G8983; J1644; J7070; P9046

== ENCOUNTER → 2021-02-19 | Outpatient (CLI) | payer MEDICARE ==
[~2021-02-19] MED LIST changes: +ACET-66 PO; +ALBUMIN (HUMAN) 25% 200 ML IV ONE; +AMLO-257 PO; +ASCO500T10 PO; +ASPI-1197 PO; +BALS60OI TP; +FAMO20TA8 PO; +FOLI1TAB61 PO; +IODOG TP; +LACT10SO9 PO; +LOSA50TA64 PO; +METO25TA6 PO; +MULT-1311 PO; +NUTR1PAC14 PO; +ONDA4TAB4 PO; +PROT946L PO; +SEVE800T7 PO; +THIA500T3 PO; +TRAM1TAB PO; +ZINC; +ZINC454P MC; +ZINC57OI4 TP; +[UNRECOGNIZED DRUG - CODE] IJ
== END | disposition home or self-care (01) ==
LOC: RAH 07:41
PROVIDERS: ATTEND Internal Medicine Infectious Disease
DX: R18.8 Other ascites (principal); K74.60 Unspecified cirrhosis of liver; E11.52 Type 2 diabetes mellitus with diabetic peripheral angiopathy with gangrene; E11.22 Type 2 diabetes mellitus with diabetic chronic kidney disease; I12.0 Hypertensive chronic kidney disease with stage 5 chronic kidney disease or end stage renal disease; N18.6 End stage renal disease; M86.672 Other chronic osteomyelitis, left ankle and foot; E11.40 Type 2 diabetes mellitus with diabetic neuropathy, unspecified; I25.10 Atherosclerotic heart disease of native coronary artery without angina pectoris; E78.5 Hyperlipidemia, unspecified; E78.00 Pure hypercholesterolemia, unspecified; F32.9 Major depressive disorder, single episode, unspecified; Z79.899 Other long term (current) drug therapy; Z79.84 Long term (current) use of oral hypoglycemic drugs; Z89.421 Acquired absence of other right toe(s); Z99.2 Dependence on renal dialysis; Z98.890 Other specified postprocedural states; Z87.891 Personal history of nicotine dependence
CPT/HCPCS: 49083; C1729; P9046

== ENCOUNTER 2021-03-13 12:48 | Inpatient (IN) | payer MEDICARE ==
[~2021-03-13] VITALS: Ht 152.4 cm; Wt 53.1 kg
[~2021-03-13 12:48] MED LIST changes: -ALBUMIN (HUMAN) 25% 200 ML IV ONE
[2021-03-13 13:17] VITALS: BP 124/73
[2021-03-13 14:26] LABS: EOSINOPHILS % (AUTO) 1.5 % (0.0-8.0); HEMATOCRIT 34.2 % (36-48); LYMPHOCYTES % (AUTO) 9.1 % (21.0-51.0); MEAN CORPUSCULAR HEMOGLOBIN 29.9 pg (27.0-33.0); MEAN CORPUSCULAR HGB CONC 31.9 g/dL (32.0-36.0); MONOCYTES % (AUTO) 14.5 % (3.0-13.0); NEUTROPHILS % (AUTO) 73.1 % (40.0-77.0); PLATELET COUNT (AUTO) 496 K/uL (130-400); RED BLOOD CELL COUNT(AUTO) 3.64 MIL/uL (4.00-5.50); RED CELL DISTRIBUTION WIDTH 14.6 % (11.0-15.5)
[2021-03-13 14:39] LABS: ALBUMIN 2.1 g/dL (3.5-5.0); BILIRUBIN,TOTAL 0.5 mg/dL (0.2-1.0); TOTAL PROTEIN, SERUM 7.7 g/dL (6.0-8.3)
[2021-03-13 14:51] LABS: B-TYPE NATRIURETIC PEPTIDE > 5000 pg/mL (0-100)
[2021-03-13 16:00] VITALS: BP 122/73
[2021-03-13] MEDS ORDERED: DEXTROSE 50%-WATER 50 ML DISP.SYRIN IV ONE ×2 (17:00→18:34)
[2021-03-13] MEDS ORDERED: DEXTROSE 50%-WATER 25 GM/50 ML VIAL IV ONE (17:00)
[2021-03-13] MEDS ORDERED: INSULIN HUMULIN R 100 UNIT/ML 3ML IV ONE (17:00)
[2021-03-13] MEDS ORDERED: ASPIRIN 325MG TAB PO ONE (17:00)
[2021-03-13] MEDS ORDERED: KAYEXALATE 15GM/60ML PO ONE (18:00)
[2021-03-13] MEDS ORDERED: NITROGLYCERIN 0.4 MG SL TAB SL PRN (18:30)
[2021-03-13] MEDS ORDERED: ACETAMINOPHEN 325 MG TAB PO PRN (18:30)
[2021-03-13] MEDS ORDERED: LACTULOSE 20 GM/30 ML UDCUP PO PRN (18:30)
[2021-03-13] MEDS ORDERED: ONDANSETRON 4MG INJ IV PRN (18:30)
[2021-03-13] MEDS ORDERED: ASPIRIN 325MG TAB ONE (18:33)
[2021-03-13] MEDS ORDERED: INSULIN HUMULIN R 100 UNIT/ML 3ML ONE (18:34)
[2021-03-13] MEDS: NITROGLYCERIN 1GM OINT 1 INCH/1GM TD SCH (19:00)
[2021-03-13] MEDS: FAMOTIDINE 20MG VIAL IV SCH (19:03)
[2021-03-13] MEDS: METOPROLOL TARTRATE 25 MG TAB PO SCH (19:04)
[2021-03-13] MEDS: ATORVASTATIN 40 MG TABLET PO SCH (19:04)
[2021-03-13] MEDS: GABAPENTIN 100 MG CAPSULE PO SCH (19:05)
[2021-03-13 19:48] VITALS: BP 123/50
[2021-03-13 20:18] LABS: APPEARANCE,URINE Cloudy (CLEAR); BILIRUBIN,URINE Negative (NEGATIVE); COLOR,URINE Yellow (YELLOW); GLUCOSE, URINE (UA) Negative (NEGATIVE); KETONES,URINE Negative (NEGATIVE); LEUKOCYTE ESTERASE ,URINE Small (NEGATIVE); NITRATE,URINE Negative (NEGATIVE); OCCULT BLOOD,URINE Negative (NEGATIVE); PH,URINE 8.5 (5.0-8.0); PROTEIN,URINE >=1000 mg/dL (NEGATIVE); UROBILINOGEN,URINE 0.2 mg/dL (0.2-1.0)
[2021-03-13 20:30] LABS: BACTERIA,URINE Rare /HPF (None Seen); RBC,URINE 0-1 /HPF (0-1)
[2021-03-13 20:31] LABS: SQUAMOUS EPITHELIAL CELL,UR Rare /HPF (0-2)
[2021-03-13 21:50] VITALS: BP 127/67
[2021-03-13 23:28] VITALS: BP 156/60
[2021-03-14] VITALS (26 sets, daily range): BP systolic 104–142; BP diastolic 47–94
[2021-03-14] MEDS: NITROGLYCERIN 1GM OINT 1 INCH/1GM TD SCH ×4 (02:30→13:00)
[2021-03-14 03:17] LABS: CHOLESTEROL 82 mg/dL (<200); HDL CHOLESTEROL 48 mg/dL (35-85); LDL DIRECT 39 mg/dL (0-99); TRIGLYCERIDES 43 mg/dL (30-200)
[2021-03-14 08:47] LABS: BASOPHILS % (AUTO) 0.7 % (0.0-5.0); HEMATOCRIT 31.6 % (36-48); LYMPHOCYTES % (AUTO) 8.6 % (21.0-51.0); MEAN CORPUSCULAR HEMOGLOBIN 29.7 pg (27.0-33.0); MEAN CORPUSCULAR HGB CONC 31.6 g/dL (32.0-36.0); MEAN CORPUSCULAR VOLUME 93.8 fL (79-99); MONOCYTES % (AUTO) 12.8 % (3.0-13.0); NEUTROPHILS % (AUTO) 76.3 % (40.0-77.0); PLATELET COUNT (AUTO) 518 K/uL (130-400); RED BLOOD CELL COUNT(AUTO) 3.37 MIL/uL (4.00-5.50); RED CELL DISTRIBUTION WIDTH 14.6 % (11.0-15.5); WHITE BLOOD COUNT (AUTO) 11.8 K/uL (4.8-10.8)
[2021-03-14 09:06] LABS: BILIRUBIN,TOTAL 0.5 mg/dL (0.2-1.0); CREATININE 6.6 mg/dL (0.5-1.5); MAGNESIUM 2.6 mg/dL (1.80-2.40); PHOSPHORUS 8.4 mg/dL (2.5-4.9); POTASSIUM 5.7 mmol/L (3.5-5.1); TOTAL PROTEIN, SERUM 7.2 g/dL (6.0-8.3)
[2021-03-14] MEDS: FAMOTIDINE 20MG VIAL IV SCH ×2 (10:44→20:43)
[2021-03-14] MEDS: GABAPENTIN 100 MG CAPSULE PO SCH ×2 (10:45→20:42)
[2021-03-14] MEDS: AMLODIPINE 5 MG TAB PO SCH (10:45)
[2021-03-14] MEDS: ASPIRIN 81MG CHEW TAB PO SCH (10:45)
[2021-03-14] MEDS: METOPROLOL TARTRATE 25 MG TAB PO SCH ×2 (10:45→20:42)
[2021-03-14] MEDS: LOSARTAN 50 MG TABLET PO SCH (10:48)
[2021-03-14] MEDS: ENOXAPARIN SODIUM 30 MG/0.3 ML SQ SCH (10:48)
[2021-03-14] MEDS ORDERED: 0.9%NACL 1000ML 2,000 ML IV ONE (13:46)
[2021-03-14] MEDS ORDERED: THIA500T3 PO (14:14)
[2021-03-14] MEDS ORDERED: SEVE800T7 PO (14:56)
[2021-03-14] MEDS ORDERED: ZINC220T4 PO (14:57)
[2021-03-14] MEDS ORDERED: LACT10SO9 PO (15:03)
[2021-03-14] MEDS ORDERED: TRAM1TAB PO (15:06)
[2021-03-14] MEDS ORDERED: MEGE40L PO (15:12)
[2021-03-14] MEDS ORDERED: INSREG SQ (15:14)
[2021-03-14] MEDS ORDERED: LIDO1ADH71 TP (15:15)
[2021-03-14] MEDS ORDERED: BET120L MISC (15:16)
[2021-03-14] MEDS: SEVELAMER HCL 800 MG TABLET PO SCH (17:00)
[2021-03-14] MEDS: MORPHINE 2 MG SYG IV PRN ×2 (18:29→23:39)
[2021-03-14] MEDS: ATORVASTATIN 40 MG TABLET PO SCH (20:42)
[2021-03-15] VITALS (20 sets, daily range): BP systolic 99–178; BP diastolic 47–71
[2021-03-15] MEDS: NITROGLYCERIN 1GM OINT 1 INCH/1GM TD SCH ×3 (03:55→18:30)
[2021-03-15 05:05] LABS: BASOPHILS % (AUTO) 0.7 % (0.0-5.0); EOSINOPHILS % (AUTO) 1.9 % (0.0-8.0); HEMATOCRIT 28.5 % (36-48); LYMPHOCYTES % (AUTO) 7.9 % (21.0-51.0); MEAN CORPUSCULAR HGB CONC 31.9 g/dL (32.0-36.0); MEAN CORPUSCULAR VOLUME 94.1 fL (79-99); PLATELET COUNT (AUTO) 457 K/uL (130-400); RED BLOOD CELL COUNT(AUTO) 3.03 MIL/uL (4.00-5.50); RED CELL DISTRIBUTION WIDTH 14.6 % (11.0-15.5); WHITE BLOOD COUNT (AUTO) 13.4 K/uL (4.8-10.8)
[2021-03-15] MEDS ORDERED: DEXTROSE 50%-WATER 50 ML DISP.SYRIN IV ONE ×2 (05:17→07:59)
[2021-03-15 05:37] LABS: ALBUMIN 1.8 g/dL (3.5-5.0); BILIRUBIN,TOTAL 0.5 mg/dL (0.2-1.0); CREATININE 4.9 mg/dL (0.5-1.5); POTASSIUM 4.7 mmol/L (3.5-5.1); TOTAL PROTEIN, SERUM 6.4 g/dL (6.0-8.3)
[2021-03-15] MEDS: MORPHINE 2 MG SYG IV PRN ×2 (06:07→21:27)
[2021-03-15] MEDS: SEVELAMER HCL 800 MG TABLET PO SCH ×3 (08:00→17:53)
[2021-03-15] MEDS: METOPROLOL TARTRATE 25 MG TAB PO SCH ×2 (08:08→21:17)
[2021-03-15] MEDS: DEXTROSE 5%-WATER 1,000 ML IV SCH (08:30)
[2021-03-15] MEDS: GABAPENTIN 100 MG CAPSULE PO SCH ×2 (09:00→21:16)
[2021-03-15] MEDS: FAMOTIDINE 20MG VIAL IV SCH ×2 (09:00→21:16)
[2021-03-15] MEDS: ASPIRIN 81MG CHEW TAB PO SCH (09:00)
[2021-03-15] MEDS: ENOXAPARIN SODIUM 30 MG/0.3 ML SQ SCH (09:00)
[2021-03-15] MEDS: AMLODIPINE 5 MG TAB PO SCH (09:00)
[2021-03-15] MEDS: LOSARTAN 50 MG TABLET PO SCH (09:00)
[2021-03-15] MEDS ORDERED: PROPOFOL 10 MG/ML 20ML VIAL IV ONE (09:26)
[2021-03-15] MEDS: ATORVASTATIN 40 MG TABLET PO SCH (21:17)
[2021-03-15] MEDS: PANTOPRAZOLE 40 MG/VIAL IVP SCH (21:17)
[2021-03-16] MEDS: NITROGLYCERIN 1GM OINT 1 INCH/1GM TD SCH ×4 (02:13→22:47)
[2021-03-16] MEDS: DEXTROSE 5%-WATER 1,000 ML IV SCH (02:13)
[2021-03-16 03:56] VITALS: BP 108/48
[2021-03-16] MEDS: ACETAMINOPHEN 325 MG TAB PO PRN ×2 (05:34→21:48)
[2021-03-16 06:06] LABS: BASOPHILS % (AUTO) 0.5 % (0.0-5.0); HEMATOCRIT 28.1 % (36-48); LYMPHOCYTES % (AUTO) 6.5 % (21.0-51.0); MEAN CORPUSCULAR HEMOGLOBIN 29.6 pg (27.0-33.0); MEAN CORPUSCULAR HGB CONC 31.7 g/dL (32.0-36.0); MEAN CORPUSCULAR VOLUME 93.4 fL (79-99); MONOCYTES % (AUTO) 9.7 % (3.0-13.0); NEUTROPHILS % (AUTO) 80.8 % (40.0-77.0); PLATELET COUNT (AUTO) 462 K/uL (130-400); RED BLOOD CELL COUNT(AUTO) 3.01 MIL/uL (4.00-5.50); RED CELL DISTRIBUTION WIDTH 14.5 % (11.0-15.5); WHITE BLOOD COUNT (AUTO) 14.9 K/uL (4.8-10.8)
[2021-03-16 06:22] LABS: ALBUMIN 1.8 g/dL (3.5-5.0); BILIRUBIN,TOTAL 0.5 mg/dL (0.2-1.0); CREATININE 6.3 mg/dL (0.5-1.5); POTASSIUM 5.8 mmol/L (3.5-5.1); TOTAL PROTEIN, SERUM 6.4 g/dL (6.0-8.3)
[2021-03-16 08:10] VITALS: BP 122/61
[2021-03-16] MEDS: PANTOPRAZOLE 40 MG/VIAL IVP SCH ×2 (08:33→21:48)
[2021-03-16] MEDS: FAMOTIDINE 20MG VIAL IV SCH ×2 (08:33→21:48)
[2021-03-16] MEDS: AMLODIPINE 5 MG TAB PO SCH (08:33)
[2021-03-16] MEDS: METOPROLOL TARTRATE 25 MG TAB PO SCH ×2 (08:34→21:48)
[2021-03-16] MEDS: GABAPENTIN 100 MG CAPSULE PO SCH ×2 (08:34→21:47)
[2021-03-16] MEDS: SEVELAMER HCL 800 MG TABLET PO SCH ×3 (08:34→17:25)
[2021-03-16] MEDS: ASPIRIN 81MG CHEW TAB PO SCH (08:34)
[2021-03-16] MEDS: LOSARTAN 50 MG TABLET PO SCH (08:34)
[2021-03-16] MEDS: HYDROMORPHONE 0.5 MG SYG (0.5MG/0.5ML) IVP PRN ×2 (08:59→17:33)
[2021-03-16 11:47] VITALS: BP 119/59
[2021-03-16] MEDS ORDERED: KAYEXALATE 15GM/60ML PO SCH (12:30)
[2021-03-16 16:31] VITALS: BP 120/61
[2021-03-16] MEDS: ZOSYN 3.375GM +NS 50ML IV SCH (19:24)
[2021-03-16 20:00] VITALS: BP 108/57
[2021-03-16] MEDS: ATORVASTATIN 40 MG TABLET PO SCH (21:48)
[2021-03-17] VITALS (28 sets, daily range): BP systolic 93–136; BP diastolic 39–65
[2021-03-17] MEDS: ZOSYN 3.375GM +NS 50ML IV SCH (04:03)
[2021-03-17] MEDS: HYDROMORPHONE 0.5 MG SYG (0.5MG/0.5ML) IVP PRN ×3 (05:19→18:49)
[2021-03-17] MEDS ORDERED: DEXTROSE 50%-WATER 50 ML DISP.SYRIN IV ONE (05:22)
[2021-03-17] MEDS ORDERED: GLUCAGON 1MG KIT 1 MG ML IM PRN (05:30)
[2021-03-17] MEDS ORDERED: DEXTROSE 50%-WATER 50 ML DISP.SYRIN IV PRN (05:30)
[2021-03-17 06:01] LABS: BASOPHILS % (AUTO) 0.5 % (0.0-5.0); EOSINOPHILS % (AUTO) 1.8 % (0.0-8.0); HEMATOCRIT 27.4 % (36-48); LYMPHOCYTES % (AUTO) 5.5 % (21.0-51.0); MEAN CORPUSCULAR HEMOGLOBIN 30.1 pg (27.0-33.0); MEAN CORPUSCULAR HGB CONC 31.8 g/dL (32.0-36.0); MEAN CORPUSCULAR VOLUME 94.8 fL (79-99); MONOCYTES % (AUTO) 11.3 % (3.0-13.0); NEUTROPHILS % (AUTO) 80.4 % (40.0-77.0); PLATELET COUNT (AUTO) 465 K/uL (130-400); RED BLOOD CELL COUNT(AUTO) 2.89 MIL/uL (4.00-5.50); RED CELL DISTRIBUTION WIDTH 14.6 % (11.0-15.5); WHITE BLOOD COUNT (AUTO) 15.5 K/uL (4.8-10.8)
[2021-03-17 06:19] LABS: ALBUMIN 1.8 g/dL (3.5-5.0); BILIRUBIN,TOTAL 0.7 mg/dL (0.2-1.0); CREATININE 7.5 mg/dL (0.5-1.5); POTASSIUM 5.8 mmol/L (3.5-5.1); TOTAL PROTEIN, SERUM 6.4 g/dL (6.0-8.3)
[2021-03-17 06:55] LABS: INR 1.21 (0.85-1.15)
[2021-03-17 06:57] LABS: PARTIAL THROMBOPLASTIN TIME 27.5 SEC (26.3-35.5)
[2021-03-17] MEDS: AMLODIPINE 5 MG TAB PO SCH (08:04)
[2021-03-17] MEDS: PANTOPRAZOLE 40 MG/VIAL IVP SCH (08:04)
[2021-03-17] MEDS: SEVELAMER HCL 800 MG TABLET PO SCH ×3 (08:04→16:29)
[2021-03-17] MEDS: GABAPENTIN 100 MG CAPSULE PO SCH (08:04)
[2021-03-17] MEDS: ASPIRIN 81MG CHEW TAB PO SCH (08:05)
[2021-03-17] MEDS: LOSARTAN 50 MG TABLET PO SCH (08:05)
[2021-03-17] MEDS: FAMOTIDINE 20MG VIAL IV SCH (08:05)
[2021-03-17] MEDS: METOPROLOL TARTRATE 25 MG TAB PO SCH (08:05)
[2021-03-17] MEDS: NITROGLYCERIN 1GM OINT 1 INCH/1GM TD SCH ×2 (08:06→16:29)
[2021-03-17] MEDS ORDERED: VANCOMYCIN PROTOCOL PER PHARMACY IV SCH (10:30)
[2021-03-17] MEDS ORDERED: VANCOMYCIN 750MG 750 MG in 0.9% NACL 250ML 250 ML IVPB SCH (10:30)
[2021-03-17] MEDS ORDERED: COMPOUND IV REFRIGERATED 1 EACH IVSOLN MISC PRN (10:30)
[2021-03-17 11:49] LABS: APPEARANCE BODY FLUID CLOUDY (CLEAR); SPECIMENTYPE,BODY FLUID ASCITES
[2021-03-17 11:50] LABS: BODY FLUID RBC 690 /cu. mm.; BODY FLUID WBC 826 /cu. mm.; COLOR,BODY FLUID AMBER (LT YELLOW); TOTAL VOLUME,BODY FLUID 4500 mL
[2021-03-17 11:59] LABS: GLUCOSE,BODY FLUID 39 mg/dL (1-40)
[2021-03-17] MEDS ORDERED: VANCOMYCIN 750MG VIAL ONE (12:53)
[2021-03-17 13:14] LABS: BF LYMPHOCYTE 9 %; BF MESOTHELIAL 39 %; BF MONOCYTE 3 %
[2021-03-17 14:10] LABS: HEPATITIS Bs ANTIGEN SCREEN P Negative (Negative)
[2021-03-18] MEDS: NITROGLYCERIN 1GM OINT 1 INCH/1GM TD SCH (00:05)
[2021-03-18] MEDS: METOPROLOL TARTRATE 25 MG TAB PO SCH ×3 (00:08→11:11)
[2021-03-18] MEDS: ATORVASTATIN 40 MG TABLET PO SCH (00:09)
[2021-03-18] MEDS: GABAPENTIN 100 MG CAPSULE PO SCH (00:09)
[2021-03-18] MEDS: PANTOPRAZOLE 40 MG/VIAL IVP SCH ×2 (00:09→11:10)
[2021-03-18 04:05] VITALS: BP 125/60
[2021-03-18 04:25] LABS: HEMATOCRIT 25.8 % (36-48); MEAN CORPUSCULAR HGB CONC 32.6 g/dL (32.0-36.0); MEAN CORPUSCULAR VOLUME 92.1 fL (79-99); PLATELET COUNT (AUTO) 413 K/uL (130-400); RED CELL DISTRIBUTION WIDTH 14.5 % (11.0-15.5)
[2021-03-18 04:39] LABS: CREATININE 3.9 mg/dL (0.5-1.5); POTASSIUM 3.9 mmol/L (3.5-5.1)
[2021-03-18 05:14] LABS: BAND NEUTROPHILS % (MANUAL) 1 % (0-2); BASOPHILS % (MANUAL) 1 % (0-2); EOSINOPHILS % (MANUAL) 1 % (1-6); LYMPHOCYTES % (MANUAL) 5 % (22-44); MAN.DIFF COMMENT-IMPRESSION MANUAL DIFFERENTIAL; MONOCYTES % (MANUAL) 6 % (2-9); SEGMENTED NEUTROPHILS % 86 % (40-70)
[2021-03-18 08:00] VITALS: BP 130/60
[2021-03-18] MEDS: SEVELAMER HCL 800 MG TABLET PO SCH ×4 (08:00→16:17)
[2021-03-18] MEDS: AMLODIPINE 5 MG TAB PO SCH ×2 (09:00→11:11)
[2021-03-18] MEDS: ASPIRIN 81MG CHEW TAB PO SCH ×2 (09:00→11:10)
[2021-03-18] MEDS: LOSARTAN 50 MG TABLET PO SCH ×2 (09:00→11:25)
[2021-03-18] MEDS ORDERED: FAMOTIDINE 20MG VIAL IV SCH (09:00)
[2021-03-18 12:00] VITALS: BP 129/58
[2021-03-18 16:00] VITALS: BP 109/52
[2021-03-18] MEDS: ACETAMINOPHEN 325 MG TAB PO PRN (18:40)
== END 2021-03-18 19:25 | disposition left against medical advice (07) | DRG 380 ==
LOC: EDH 12:48 → EDHIP 18:01 → 4CH 03-14 17:39
PROVIDERS: ADMIT Internal Medicine; ATTEND Internal Medicine
PROC: 5A1D70Z Performance of Urinary Filtration, Intermittent, Less than 6 Hours Per Day (ICD-10-PCS; principal; 2021-03-14)
PROC: 0DB58ZX Excision of Esophagus, Via Natural or Artificial Opening Endoscopic, Diagnostic (ICD-10-PCS; 2021-03-15)
PROC: 5A1D70Z Performance of Urinary Filtration, Intermittent, Less than 6 Hours Per Day (ICD-10-PCS; 2021-03-17)
PROC: 0W9G3ZZ Drainage of Peritoneal Cavity, Percutaneous Approach (ICD-10-PCS; 2021-03-17)
DX: K22.11 Ulcer of esophagus with bleeding (principal); N18.6 End stage renal disease; I50.33 Acute on chronic diastolic (congestive) heart failure; I21.A1 Myocardial infarction type 2; K65.2 Spontaneous bacterial peritonitis; R18.8 Other ascites; I13.2 Hypertensive heart and chronic kidney disease with heart failure and with stage 5 chronic kidney disease, or end stage renal disease; I25.110 Atherosclerotic heart disease of native coronary artery with unstable angina pectoris; I42.8 Other cardiomyopathies; K74.60 Unspecified cirrhosis of liver; K29.70 Gastritis, unspecified, without bleeding; E87.5 Hyperkalemia; E11.22 Type 2 diabetes mellitus with diabetic chronic kidney disease; E78.5 Hyperlipidemia, unspecified; K27.9 Peptic ulcer, site unspecified, unspecified as acute or chronic, without hemorrhage or perforation; K31.89 Other diseases of stomach and duodenum; R13.10 Dysphagia, unspecified; E11.51 Type 2 diabetes mellitus with diabetic peripheral angiopathy without gangrene; E83.39 Other disorders of phosphorus metabolism; Y92.89 Other specified places as the place of occurrence of the external cause; Z99.2 Dependence on renal dialysis; Z79.82 Long term (current) use of aspirin; Z79.899 Other long term (current) drug therapy; Z87.19 Personal history of other diseases of the digestive system; Z89.021 Acquired absence of right finger(s); Z91.15 Patient's noncompliance with renal dialysis; Z91.19 Patient's noncompliance with other medical treatment and regimen; Z99.3 Dependence on wheelchair; Z83.3 Family history of diabetes mellitus; Z82.49 Family history of ischemic heart disease and other diseases of the circulatory system; Z20.822 Contact with and (suspected) exposure to COVID-19; R23.4 Changes in skin texture
CPT/HCPCS: 36415; 43239; 49083; 71045; 80048; 80053; 80061; 81001; 82550; 82945; 82948; 83036; 83615; 83735; 83874; 83880; 83986; 84100; 84157; 84484; 85025; 85610; 85730; 86704; 86706; 87040; 87071; 87088; 87205; 87340; 87635; 88305; 88312; 88341; 88342; 89051; 90935; 93005; A4606; C1729; C9113; G0378; J1170; J1650; J1815; J2543; J2704; J3490; J7030; J7050; J7070

== ENCOUNTER 2021-04-02 10:50 | Inpatient (IN) | payer MEDICARE ==
[~2021-04-02] VITALS: Ht 154.9 cm; Wt 46.1 kg
[2021-04-02] VITALS (21 sets, daily range): BP systolic 138–159; BP diastolic 57–83
[~2021-04-02 10:50] MED LIST changes: +BET120L MISC; -CALC667C10 PO; -FURO40TA5 PO; -HYDR-4154 PO; -IBUP-2076 PO; +INSREG SQ; -IODOG TP; +LIDO1ADH71 TP; -LINA5TAB PO; -LOSA25TA41 PO; +MEGE40L PO; -MULT-1311 PO; -PROT946L PO; -ZINC; +ZINC220T4 PO; -ZINC454P MC
[2021-04-02 11:20] LABS: MEAN CORPUSCULAR HEMOGLOBIN 29.9 pg (27.0-33.0); MEAN CORPUSCULAR VOLUME 93.5 fL (79-99); NUCLEATED RED BLOOD CELLS 0.2 % (0.0-0.19); PLATELET COUNT (AUTO) 581 K/uL (130-400); RED BLOOD CELL COUNT(AUTO) 3.21 MIL/uL (4.00-5.50); RED CELL DISTRIBUTION WIDTH 16.2 % (11.0-15.5); WHITE BLOOD COUNT (AUTO) 11.5 K/uL (4.8-10.8)
[2021-04-02 11:34] LABS: INR 1.1 (0.85-1.15); PROTHROMBIN TIME 11.9 SEC (9.6-11.6)
[2021-04-02 11:45] LABS: EOSINOPHILS % (MANUAL) 1 % (1-6); LYMPHOCYTES % (MANUAL) 7 % (22-44); MONOCYTES % (MANUAL) 6 % (2-9); SEGMENTED NEUTROPHILS % 86 % (40-70)
[2021-04-02 11:46] LABS: MAN.DIFF COMMENT-IMPRESSION MANUAL DIFFERENTIAL; PLATELET MORPHOLOGY COMMENT SLIGHT INCREASED
[2021-04-02 11:49] LABS: ALBUMIN 2.5 g/dL (3.5-5.0); BILIRUBIN,TOTAL 0.7 mg/dL (0.2-1.0); POTASSIUM 5.8 mmol/L (3.5-5.1); TOTAL PROTEIN, SERUM 8.3 g/dL (6.0-8.3)
[2021-04-02] MEDS ORDERED: TRAMADOL HCL 50 MG TABLET PO ONE (13:00)
[2021-04-02] MEDS ORDERED: ALBUMIN (HUMAN) 25% 200 ML IV ONE (13:57)
[2021-04-02] MEDS ORDERED: CEFTRIAXONE 2GM VIAL IVP SCH (17:00)
[2021-04-02] MEDS ORDERED: ACETAMINOPHEN 325 MG TAB PO PRN ×2 (17:30)
[2021-04-02] MEDS ORDERED: HYDROMORPHONE 1 MG INJ IVP ONE (18:00)
[2021-04-02] MEDS: ACETAMINOPHEN WITH CODEINE 1 TAB TAB PO PRN (19:07)
[2021-04-02] MEDS ORDERED: 0.9%NACL 50ML 50 ML IV ONE (21:17)
[2021-04-02] MEDS: HEPARIN 5,000 UNIT VIAL SQ SCH (21:35)
[2021-04-02] MEDS: FAMOTIDINE 20MG VIAL IV SCH (21:35)
[2021-04-03] VITALS: BP 124/67
[2021-04-03] MEDS: ACETAMINOPHEN WITH CODEINE 1 TAB TAB PO PRN (00:49)
[2021-04-03] MEDS ORDERED: ALPRAZOLAM 0.5 MG TABLET ONE (03:11)
[2021-04-03 03:20] VITALS: BP 143/69
[2021-04-03 04:19] LABS: BASOPHILS % (AUTO) 1.2 % (0.0-5.0); EOSINOPHILS % (AUTO) 2.6 % (0.0-8.0); HEMATOCRIT 25.8 % (36-48); LYMPHOCYTES % (AUTO) 7.8 % (21.0-51.0); MEAN CORPUSCULAR HEMOGLOBIN 29.3 pg (27.0-33.0); MEAN CORPUSCULAR HGB CONC 31.8 g/dL (32.0-36.0); MEAN CORPUSCULAR VOLUME 92.1 fL (79-99); MONOCYTES % (AUTO) 11.2 % (3.0-13.0); NEUTROPHILS % (AUTO) 76.7 % (40.0-77.0); PLATELET COUNT (AUTO) 483 K/uL (130-400); WHITE BLOOD COUNT (AUTO) 9.2 K/uL (4.8-10.8)
[2021-04-03 04:37] LABS: CREATININE 4.3 mg/dL (0.5-1.5); MAGNESIUM 2.1 mg/dL (1.80-2.40); PHOSPHORUS 6.3 mg/dL (2.5-4.9)
[2021-04-03 08:00] VITALS: BP 154/77
[2021-04-03] MEDS: CEFTRIAXONE 2GM VIAL IVP SCH ×2 (10:10→19:28)
[2021-04-03] MEDS: HEPARIN 5,000 UNIT VIAL SQ SCH ×2 (10:10→21:24)
[2021-04-03 12:00] VITALS: BP 134/68
[2021-04-03] MEDS: ALPRAZOLAM 0.5 MG TABLET PO PRN (14:56)
[2021-04-03] MEDS: GABAPENTIN 300 MG CAPSULE PO SCH (14:56)
[2021-04-03] MEDS: FAMOTIDINE 20MG VIAL IV SCH (19:29)
[2021-04-03 20:00] VITALS: BP 122/69
[2021-04-04] VITALS: BP 139/66
[2021-04-04] MEDS: ALPRAZOLAM 0.5 MG TABLET PO PRN ×3 (01:42→22:15)
[2021-04-04 04:00] VITALS: BP 132/65
[2021-04-04 06:58] LABS: BASOPHILS % (AUTO) 1.3 % (0.0-5.0); EOSINOPHILS % (AUTO) 5.3 % (0.0-8.0); HEMATOCRIT 26.8 % (36-48); LYMPHOCYTES % (AUTO) 9.6 % (21.0-51.0); MEAN CORPUSCULAR HEMOGLOBIN 29.4 pg (27.0-33.0); MEAN CORPUSCULAR HGB CONC 31.3 g/dL (32.0-36.0); MEAN CORPUSCULAR VOLUME 93.7 fL (79-99); MONOCYTES % (AUTO) 14.3 % (3.0-13.0); NEUTROPHILS % (AUTO) 69.2 % (40.0-77.0); PLATELET COUNT (AUTO) 432 K/uL (130-400); RED BLOOD CELL COUNT(AUTO) 2.86 MIL/uL (4.00-5.50); RED CELL DISTRIBUTION WIDTH 15.9 % (11.0-15.5); WHITE BLOOD COUNT (AUTO) 8.8 K/uL (4.8-10.8)
[2021-04-04 07:16] LABS: CREATININE 6.1 mg/dL (0.5-1.5); POTASSIUM 5.6 mmol/L (3.5-5.1)
[2021-04-04 08:00] VITALS: BP 138/66
[2021-04-04 08:13] LABS: HEPATITIS Bs ANTIGEN SCREEN P Negative (Negative)
[2021-04-04] MEDS: CEFTRIAXONE 2GM VIAL IVP SCH ×2 (10:18→20:05)
[2021-04-04] MEDS: HEPARIN 5,000 UNIT VIAL SQ SCH ×2 (10:25→20:05)
[2021-04-04 12:00] VITALS: BP 141/74
[2021-04-04] MEDS: GABAPENTIN 300 MG CAPSULE PO SCH (15:00)
[2021-04-04 16:00] VITALS: BP 127/59
[2021-04-04] MEDS ORDERED: PHARMACY COMMUNICATION MISC SCH (17:00)
[2021-04-04] MEDS ORDERED: MAG/ALUM/SIMETH 30 ML UDCUP PO SCH (17:45)
[2021-04-04] MEDS: PANTOPRAZOLE 40 MG TAB DR PO SCH (17:57)
[2021-04-04] MEDS: SUCRALFATE 1 GM TABLET PO SCH (17:57)
[2021-04-04] MEDS ORDERED: KAYEXALATE 15GM/60ML PO SCH (19:00)
[2021-04-04 20:00] VITALS: BP 127/63
[2021-04-05] VITALS: BP 139/75
[2021-04-05] MEDS ORDERED: FOLI1TAB85 PO (01:21)
[2021-04-05] MEDS: ACETAMINOPHEN WITH CODEINE 1 TAB TAB PO PRN ×2 (02:31→21:50)
[2021-04-05 04:00] VITALS: BP 150/75
[2021-04-05] MEDS: ALPRAZOLAM 0.5 MG TABLET PO PRN (04:46)
[2021-04-05 05:24] LABS: INR 1.09 (0.85-1.15); PROTHROMBIN TIME 11.8 SEC (9.6-11.6)
[2021-04-05 05:25] LABS: PARTIAL THROMBOPLASTIN TIME 27.2 SEC (26.3-35.5)
[2021-04-05 06:09] LABS: BASOPHILS % (AUTO) 0.6 % (0.0-5.0); EOSINOPHILS % (AUTO) 3.9 % (0.0-8.0); HEMATOCRIT 27.2 % (36-48); MEAN CORPUSCULAR HEMOGLOBIN 30.1 pg (27.0-33.0); MEAN CORPUSCULAR VOLUME 94.1 fL (79-99); MONOCYTES % (AUTO) 12.8 % (3.0-13.0); NEUTROPHILS % (AUTO) 75.9 % (40.0-77.0); PLATELET COUNT (AUTO) 456 K/uL (130-400); RED BLOOD CELL COUNT(AUTO) 2.89 MIL/uL (4.00-5.50); RED CELL DISTRIBUTION WIDTH 15.9 % (11.0-15.5); WHITE BLOOD COUNT (AUTO) 10.4 K/uL (4.8-10.8)
[2021-04-05 06:16] LABS: POTASSIUM 5.4 mmol/L (3.5-5.1)
[2021-04-05] MEDS: SUCRALFATE 1 GM TABLET PO SCH ×3 (06:30→17:01)
[2021-04-05 08:00] VITALS: BP 132/68
[2021-04-05] MEDS: HEPARIN 5,000 UNIT VIAL SQ SCH ×2 (09:00→22:01)
[2021-04-05] MEDS: PANTOPRAZOLE 40 MG TAB DR PO SCH (10:23)
[2021-04-05] MEDS: CEFTRIAXONE 2GM VIAL IVP SCH ×2 (10:23→21:52)
[2021-04-05 10:27] LABS: GLUCOSE,BODY FLUID 83 mg/dL (1-40)
[2021-04-05 12:00] VITALS: BP 127/69
[2021-04-05 14:00] LABS: APPEARANCE BODY FLUID SLIGHTLY CLOUDY (CLEAR); SPECIMENTYPE,BODY FLUID THORACENTESIS
[2021-04-05 14:01] LABS: COLOR,BODY FLUID YELLOW (LT YELLOW); TOTAL VOLUME,BODY FLUID 400 mL
[2021-04-05 14:02] LABS: BODY FLUID WBC 79 /cu. mm.
[2021-04-05 14:03] LABS: BODY FLUID RBC 875 /cu. mm.
[2021-04-05 14:06] LABS: BF LYMPHOCYTE 27 %; BF MONOCYTE 44 %
[2021-04-05 16:00] VITALS: BP 165/92
[2021-04-05] MEDS: SEVELAMER HCL 800 MG TABLET PO SCH (17:01)
[2021-04-05] MEDS: MECLIZINE HCL 25 MG TABLET PO SCH ×2 (17:12→21:52)
[2021-04-05] MEDS ORDERED: LORAZEPAM 0.5 MG TABLET PO ONE (18:00)
[2021-04-05 20:00] VITALS: BP 148/80
[2021-04-05] MEDS: ASCORBIC ACID 500 MG TAB PO SCH (21:53)
[2021-04-05] MEDS: GABAPENTIN 100 MG CAPSULE PO SCH (21:53)
[2021-04-06] VITALS: BP 131/70
[2021-04-06 04:00] VITALS: BP 122/60
[2021-04-06] MEDS: SUCRALFATE 1 GM TABLET PO SCH ×4 (06:56→17:00)
[2021-04-06] MEDS: ACETAMINOPHEN WITH CODEINE 1 TAB TAB PO PRN ×6 (07:03→16:16)
[2021-04-06 07:07] LABS: BASOPHILS % (AUTO) 0.5 % (0.0-5.0); EOSINOPHILS % (AUTO) 6.7 % (0.0-8.0); HEMATOCRIT 27.5 % (36-48); LYMPHOCYTES % (AUTO) 5.9 % (21.0-51.0); MEAN CORPUSCULAR HEMOGLOBIN 29.4 pg (27.0-33.0); MEAN CORPUSCULAR HGB CONC 30.9 g/dL (32.0-36.0); MEAN CORPUSCULAR VOLUME 95.2 fL (79-99); MONOCYTES % (AUTO) 10.5 % (3.0-13.0); NEUTROPHILS % (AUTO) 75.8 % (40.0-77.0); PLATELET COUNT (AUTO) 438 K/uL (130-400); RED BLOOD CELL COUNT(AUTO) 2.89 MIL/uL (4.00-5.50); WHITE BLOOD COUNT (AUTO) 11.3 K/uL (4.8-10.8)
[2021-04-06 07:19] LABS: POTASSIUM 5.4 mmol/L (3.5-5.1)
[2021-04-06 07:22] LABS: CREATININE 7.9 mg/dL (0.5-1.5)
[2021-04-06 08:00] VITALS: BP 146/77
[2021-04-06] MEDS: SEVELAMER HCL 800 MG TABLET PO SCH ×3 (08:00→17:00)
[2021-04-06] MEDS: CEFTRIAXONE 2GM VIAL IVP SCH ×2 (09:57→20:20)
[2021-04-06] MEDS: MECLIZINE HCL 25 MG TABLET PO SCH ×3 (09:57→20:21)
[2021-04-06] MEDS: MEGESTROL 400 MG/10 ML UDCUP PO SCH (09:58)
[2021-04-06] MEDS: LOSARTAN 50 MG TABLET PO SCH (09:58)
[2021-04-06] MEDS: ATORVASTATIN 40 MG TABLET PO SCH (09:58)
[2021-04-06] MEDS: ASPIRIN 81MG CHEW TAB PO SCH (09:58)
[2021-04-06] MEDS: ASCORBIC ACID 500 MG TAB PO SCH ×2 (09:59→20:21)
[2021-04-06] MEDS: Vitamin B Complex/Vit C/Folic Acid PO SCH (09:59)
[2021-04-06] MEDS: AMLODIPINE 5 MG TAB PO SCH (09:59)
[2021-04-06] MEDS: GABAPENTIN 100 MG CAPSULE PO SCH ×2 (09:59→20:21)
[2021-04-06] MEDS: PANTOPRAZOLE 40 MG TAB DR PO SCH (09:59)
[2021-04-06] MEDS: THIAMINE HCL 100 MG TABLET PO SCH (09:59)
[2021-04-06] MEDS: ONDANSETRON 4MG INJ IV PRN (10:21)
[2021-04-06] MEDS: HEPARIN 5,000 UNIT VIAL SQ SCH ×2 (10:25→20:24)
[2021-04-06 12:00] VITALS: BP 144/77
[2021-04-06 16:00] VITALS: BP 130/68
[2021-04-06 20:00] VITALS: BP 119/64
[2021-04-07] VITALS (22 sets, daily range): BP systolic 100–142; BP diastolic 54–85
[2021-04-07 06:34] LABS: BASOPHILS % (AUTO) 1.1 % (0.0-5.0); EOSINOPHILS % (AUTO) 4.8 % (0.0-8.0); HEMATOCRIT 26.5 % (36-48); LYMPHOCYTES % (AUTO) 6.9 % (21.0-51.0); MEAN CORPUSCULAR HEMOGLOBIN 29.7 pg (27.0-33.0); MEAN CORPUSCULAR HGB CONC 32.1 g/dL (32.0-36.0); MEAN CORPUSCULAR VOLUME 92.7 fL (79-99); MONOCYTES % (AUTO) 10.6 % (3.0-13.0); PLATELET COUNT (AUTO) 438 K/uL (130-400); RED BLOOD CELL COUNT(AUTO) 2.86 MIL/uL (4.00-5.50); RED CELL DISTRIBUTION WIDTH 15.9 % (11.0-15.5); WHITE BLOOD COUNT (AUTO) 8.2 K/uL (4.8-10.8)
[2021-04-07 06:43] LABS: MAGNESIUM 2.6 mg/dL (1.80-2.40); POTASSIUM 5.4 mmol/L (3.5-5.1)
[2021-04-07 06:51] LABS: CREATININE 8.6 mg/dL (0.5-1.5)
[2021-04-07] MEDS: SUCRALFATE 1 GM TABLET PO SCH ×3 (06:56→17:00)
[2021-04-07] MEDS: SEVELAMER HCL 800 MG TABLET PO SCH ×3 (08:00→17:00)
[2021-04-07] MEDS: ONDANSETRON 4MG INJ IV PRN (08:20)
[2021-04-07] MEDS: ASCORBIC ACID 500 MG TAB PO SCH ×2 (09:00→21:26)
[2021-04-07] MEDS: MEGESTROL 400 MG/10 ML UDCUP PO SCH (09:00)
[2021-04-07] MEDS: ATORVASTATIN 40 MG TABLET PO SCH (09:00)
[2021-04-07] MEDS: MECLIZINE HCL 25 MG TABLET PO SCH ×3 (09:00→21:26)
[2021-04-07] MEDS: PANTOPRAZOLE 40 MG TAB DR PO SCH (09:00)
[2021-04-07] MEDS: LOSARTAN 50 MG TABLET PO SCH (09:00)
[2021-04-07] MEDS: Vitamin B Complex/Vit C/Folic Acid PO SCH (09:00)
[2021-04-07] MEDS: GABAPENTIN 100 MG CAPSULE PO SCH ×2 (09:00→21:26)
[2021-04-07] MEDS: ASPIRIN 81MG CHEW TAB PO SCH (09:00)
[2021-04-07] MEDS: HEPARIN 5,000 UNIT VIAL SQ SCH ×2 (09:00→21:00)
[2021-04-07] MEDS: AMLODIPINE 5 MG TAB PO SCH (09:00)
[2021-04-07] MEDS: THIAMINE HCL 100 MG TABLET PO SCH (09:00)
[2021-04-07] MEDS: ACETAMINOPHEN WITH CODEINE 1 TAB TAB PO PRN ×2 (10:52→21:43)
[2021-04-07] MEDS: EPOETIN ALFA-EPBX (ESRD) 10,000 UNIT/ML VIAL SQ SCH (14:25)
[2021-04-07] MEDS ORDERED: HYDROMORPHONE 0.5 MG SYG (0.5MG/0.5ML) IVP ONE (15:30)
[2021-04-07] MEDS: CEFTRIAXONE 2GM VIAL IVP SCH (21:27)
[2021-04-08] VITALS (7 sets, daily range): BP systolic 105–153; BP diastolic 50–83
[2021-04-08] MEDS ORDERED: HYDROMORPHONE 0.5 MG SYG (0.5MG/0.5ML) ONE (00:54)
[2021-04-08] MEDS ORDERED: HYDROMORPHONE 0.5 MG SYG (0.5MG/0.5ML) IVP ONE (01:00)
[2021-04-08 04:21] LABS: HEMATOCRIT 24.6 % (36-48); MEAN CORPUSCULAR HEMOGLOBIN 29.7 pg (27.0-33.0); MEAN CORPUSCULAR HGB CONC 32.1 g/dL (32.0-36.0); MEAN CORPUSCULAR VOLUME 92.5 fL (79-99); RED BLOOD CELL COUNT(AUTO) 2.66 MIL/uL (4.00-5.50); RED CELL DISTRIBUTION WIDTH 16.4 % (11.0-15.5); WHITE BLOOD COUNT (AUTO) 7.3 K/uL (4.8-10.8)
[2021-04-08 04:46] LABS: CREATININE 5.4 mg/dL (0.5-1.5); POTASSIUM 4.3 mmol/L (3.5-5.1)
[2021-04-08] MEDS: SUCRALFATE 1 GM TABLET PO SCH ×3 (06:00→16:02)
[2021-04-08] MEDS: ASPIRIN 81MG CHEW TAB PO SCH (07:09)
[2021-04-08] MEDS: Vitamin B Complex/Vit C/Folic Acid PO SCH (07:09)
[2021-04-08] MEDS: AMLODIPINE 5 MG TAB PO SCH (07:09)
[2021-04-08] MEDS: ASCORBIC ACID 500 MG TAB PO SCH ×2 (07:09→20:54)
[2021-04-08] MEDS: MEGESTROL 400 MG/10 ML UDCUP PO SCH (07:09)
[2021-04-08] MEDS: MECLIZINE HCL 25 MG TABLET PO SCH ×3 (07:10→20:54)
[2021-04-08] MEDS: ATORVASTATIN 40 MG TABLET PO SCH (07:10)
[2021-04-08] MEDS: LOSARTAN 50 MG TABLET PO SCH (07:10)
[2021-04-08] MEDS: THIAMINE HCL 100 MG TABLET PO SCH (07:10)
[2021-04-08] MEDS: SEVELAMER HCL 800 MG TABLET PO SCH ×3 (07:10→16:02)
[2021-04-08] MEDS: HEPARIN 5,000 UNIT VIAL SQ SCH ×2 (07:10→21:04)
[2021-04-08] MEDS: GABAPENTIN 100 MG CAPSULE PO SCH ×2 (07:10→20:46)
[2021-04-08] MEDS: PANTOPRAZOLE 40 MG TAB DR PO SCH (07:10)
[2021-04-08] MEDS ORDERED: HYDROMORPHONE 0.5 MG SYG (0.5MG/0.5ML) IVP SCH (12:30)
[2021-04-08] MEDS: CEFTRIAXONE 2GM VIAL IVP SCH (20:54)
[2021-04-09] VITALS (19 sets, daily range): BP systolic 100–145; BP diastolic 54–80
[2021-04-09] MEDS: ACETAMINOPHEN WITH CODEINE 1 TAB TAB PO PRN (00:19)
[2021-04-09] MEDS ORDERED: ALPRAZOLAM 0.5 MG TABLET PO SCH (02:00)
[2021-04-09] MEDS: ASPIRIN 81MG CHEW TAB PO SCH (07:53)
[2021-04-09] MEDS: THIAMINE HCL 100 MG TABLET PO SCH (07:53)
[2021-04-09] MEDS: SEVELAMER HCL 800 MG TABLET PO SCH ×3 (07:53→17:00)
[2021-04-09] MEDS: PANTOPRAZOLE 40 MG TAB DR PO SCH (07:53)
[2021-04-09] MEDS: HEPARIN 5,000 UNIT VIAL SQ SCH ×2 (07:53→20:57)
[2021-04-09] MEDS: MECLIZINE HCL 25 MG TABLET PO SCH ×3 (07:54→20:50)
[2021-04-09] MEDS: ATORVASTATIN 40 MG TABLET PO SCH (07:54)
[2021-04-09] MEDS: AMLODIPINE 5 MG TAB PO SCH (07:54)
[2021-04-09] MEDS: MEGESTROL 400 MG/10 ML UDCUP PO SCH (07:54)
[2021-04-09] MEDS: ASCORBIC ACID 500 MG TAB PO SCH ×2 (07:54→20:51)
[2021-04-09] MEDS: LOSARTAN 50 MG TABLET PO SCH (07:54)
[2021-04-09] MEDS: Vitamin B Complex/Vit C/Folic Acid PO SCH (07:54)
[2021-04-09] MEDS: SUCRALFATE 1 GM TABLET PO SCH ×3 (07:54→17:00)
[2021-04-09] MEDS: GABAPENTIN 100 MG CAPSULE PO SCH ×2 (07:56→20:51)
[2021-04-09] MEDS: EPOETIN ALFA-EPBX (ESRD) 10,000 UNIT/ML VIAL SQ SCH (11:17)
[2021-04-09] MEDS ORDERED: HYDROMORPHONE 0.5 MG SYG (0.5MG/0.5ML) IVP SCH (16:00)
[2021-04-09] MEDS: CEFTRIAXONE 2GM VIAL IVP SCH (20:51)
[2021-04-10] MEDS: ACETAMINOPHEN WITH CODEINE 1 TAB TAB PO PRN (02:34)
[2021-04-10 03:30] VITALS: BP 148/62
[2021-04-10 04:22] LABS: EOSINOPHILS % (AUTO) 4.6 % (0.0-8.0); HEMATOCRIT 27.1 % (36-48); LYMPHOCYTES % (AUTO) 12.1 % (21.0-51.0); MEAN CORPUSCULAR HEMOGLOBIN 29.7 pg (27.0-33.0); MEAN CORPUSCULAR HGB CONC 31.7 g/dL (32.0-36.0); MEAN CORPUSCULAR VOLUME 93.4 fL (79-99); MONOCYTES % (AUTO) 14.9 % (3.0-13.0); NEUTROPHILS % (AUTO) 66.3 % (40.0-77.0); NUCLEATED RED BLOOD CELLS 0.3 % (0.0-0.19); PLATELET COUNT (AUTO) 414 K/uL (130-400); RED CELL DISTRIBUTION WIDTH 16.8 % (11.0-15.5); WHITE BLOOD COUNT (AUTO) 9.6 K/uL (4.8-10.8)
[2021-04-10 04:33] LABS: INR 1.11 (0.85-1.15)
[2021-04-10 04:34] LABS: PARTIAL THROMBOPLASTIN TIME 30.9 SEC (26.3-35.5)
[2021-04-10 04:36] LABS: CREATININE 5.1 mg/dL (0.5-1.5); POTASSIUM 3.9 mmol/L (3.5-5.1)
[2021-04-10] MEDS: SUCRALFATE 1 GM TABLET PO SCH ×3 (06:11→17:28)
[2021-04-10 08:00] VITALS: BP 134/69
[2021-04-10] MEDS: GABAPENTIN 100 MG CAPSULE PO SCH ×2 (09:00→20:56)
[2021-04-10] MEDS: PANTOPRAZOLE 40 MG TAB DR PO SCH (09:00)
[2021-04-10] MEDS: ASCORBIC ACID 500 MG TAB PO SCH ×2 (09:00→20:56)
[2021-04-10] MEDS: MECLIZINE HCL 25 MG TABLET PO SCH ×3 (09:00→20:57)
[2021-04-10 12:00] VITALS: BP 145/62
[2021-04-10] MEDS: LOSARTAN 50 MG TABLET PO SCH (12:18)
[2021-04-10] MEDS: SEVELAMER HCL 800 MG TABLET PO SCH ×3 (12:18→17:28)
[2021-04-10] MEDS: ATORVASTATIN 40 MG TABLET PO SCH (12:19)
[2021-04-10] MEDS: THIAMINE HCL 100 MG TABLET PO SCH (12:19)
[2021-04-10] MEDS: AMLODIPINE 5 MG TAB PO SCH (12:19)
[2021-04-10] MEDS: MEGESTROL 400 MG/10 ML UDCUP PO SCH (12:20)
[2021-04-10] MEDS: ASPIRIN 81MG CHEW TAB PO SCH (12:20)
[2021-04-10] MEDS: Vitamin B Complex/Vit C/Folic Acid PO SCH (12:20)
[2021-04-10] MEDS: HEPARIN 5,000 UNIT VIAL SQ SCH ×2 (12:33→21:16)
[2021-04-10 16:00] VITALS: BP 118/58
[2021-04-10 20:17] VITALS: BP 140/61
[2021-04-10] MEDS: CEFTRIAXONE 2GM VIAL IVP SCH (20:59)
[2021-04-10] MEDS ORDERED: INSULIN HUMULIN R 100 UNIT/ML 3ML SQ SCH (21:00)
[2021-04-10 22:10] VITALS: BP 132/63
[2021-04-11] VITALS (21 sets, daily range): BP systolic 128–169; BP diastolic 58–87
[2021-04-11 04:21] LABS: HEMATOCRIT 27.4 % (36-48); MEAN CORPUSCULAR HEMOGLOBIN 29.8 pg (27.0-33.0); MEAN CORPUSCULAR HGB CONC 31.8 g/dL (32.0-36.0); MEAN CORPUSCULAR VOLUME 93.8 fL (79-99); NUCLEATED RED BLOOD CELLS 1.1 % (0.0-0.19); RED BLOOD CELL COUNT(AUTO) 2.92 MIL/uL (4.00-5.50); RED CELL DISTRIBUTION WIDTH 17.2 % (11.0-15.5); WHITE BLOOD COUNT (AUTO) 9.7 K/uL (4.8-10.8)
[2021-04-11 04:31] LABS: CREATININE 6.8 mg/dL (0.5-1.5); POTASSIUM 4.7 mmol/L (3.5-5.1)
[2021-04-11] MEDS: SUCRALFATE 1 GM TABLET PO SCH ×3 (07:30→16:37)
[2021-04-11] MEDS: SEVELAMER HCL 800 MG TABLET PO SCH ×3 (08:00→17:00)
[2021-04-11] MEDS ORDERED: 0.9%NACL 1000ML 1,000 ML IV PRN (11:30)
[2021-04-11] MEDS: MECLIZINE HCL 25 MG TABLET PO SCH ×3 (14:00→21:50)
[2021-04-11] MEDS: Vitamin B Complex/Vit C/Folic Acid PO SCH (15:23)
[2021-04-11] MEDS: THIAMINE HCL 100 MG TABLET PO SCH (15:23)
[2021-04-11] MEDS: ASPIRIN 81MG CHEW TAB PO SCH (15:24)
[2021-04-11] MEDS: PANTOPRAZOLE 40 MG TAB DR PO SCH (15:24)
[2021-04-11] MEDS: GABAPENTIN 100 MG CAPSULE PO SCH ×2 (15:24→21:50)
[2021-04-11] MEDS: ATORVASTATIN 40 MG TABLET PO SCH (15:24)
[2021-04-11] MEDS: AMLODIPINE 5 MG TAB PO SCH (15:24)
[2021-04-11] MEDS: ASCORBIC ACID 500 MG TAB PO SCH ×2 (15:24→21:49)
[2021-04-11] MEDS: LOSARTAN 50 MG TABLET PO SCH (15:25)
[2021-04-11] MEDS: MEGESTROL 400 MG/10 ML UDCUP PO SCH (15:25)
[2021-04-11] MEDS: HEPARIN 5,000 UNIT VIAL SQ SCH ×2 (15:32→21:59)
[2021-04-11] MEDS: EPOETIN ALFA-EPBX (ESRD) 10,000 UNIT/ML VIAL SQ SCH (18:42)
[2021-04-11] MEDS: CEFTRIAXONE 2GM VIAL IVP SCH (21:49)
[2021-04-11] MEDS: ACETAMINOPHEN WITH CODEINE 1 TAB TAB PO PRN (22:54)
[2021-04-12] MEDS: SUCRALFATE 1 GM TABLET PO SCH ×2 (07:30→11:25)
[2021-04-12 08:00] VITALS: BP 137/70
[2021-04-12] MEDS: SEVELAMER HCL 800 MG TABLET PO SCH ×2 (08:00→11:25)
[2021-04-12 08:13] LABS: HEMATOCRIT 27.8 % (36-48); MEAN CORPUSCULAR HEMOGLOBIN 30.1 pg (27.0-33.0); MEAN CORPUSCULAR HGB CONC 31.3 g/dL (32.0-36.0); MEAN CORPUSCULAR VOLUME 96.2 fL (79-99); NUCLEATED RED BLOOD CELLS 1.7 % (0.0-0.19); PLATELET COUNT (AUTO) 429 K/uL (130-400); RED BLOOD CELL COUNT(AUTO) 2.89 MIL/uL (4.00-5.50); RED CELL DISTRIBUTION WIDTH 18.4 % (11.0-15.5); WHITE BLOOD COUNT (AUTO) 10.2 K/uL (4.8-10.8)
[2021-04-12 08:22] LABS: POTASSIUM 3.9 mmol/L (3.5-5.1)
[2021-04-12 09:10] LABS: BASOPHILS % (MANUAL) 2 % (0-2); EOSINOPHILS % (MANUAL) 3 % (1-6); LYMPHOCYTES % (MANUAL) 11 % (22-44); MONOCYTES % (MANUAL) 13 % (2-9); REACTIVE LYMPHOCYTES 1 % (0-0); SEGMENTED NEUTROPHILS % 70 % (40-70)
[2021-04-12 09:11] LABS: PLATELET MORPHOLOGY COMMENT SLIGHT INCREASED
[2021-04-12] MEDS: AMLODIPINE 5 MG TAB PO SCH (10:22)
[2021-04-12] MEDS: THIAMINE HCL 100 MG TABLET PO SCH (10:22)
[2021-04-12] MEDS: ASCORBIC ACID 500 MG TAB PO SCH (10:22)
[2021-04-12] MEDS: ASPIRIN 81MG CHEW TAB PO SCH (10:22)
[2021-04-12] MEDS: ATORVASTATIN 40 MG TABLET PO SCH (10:22)
[2021-04-12] MEDS: Vitamin B Complex/Vit C/Folic Acid PO SCH (10:22)
[2021-04-12] MEDS: PANTOPRAZOLE 40 MG TAB DR PO SCH (10:22)
[2021-04-12] MEDS: GABAPENTIN 100 MG CAPSULE PO SCH (10:23)
[2021-04-12] MEDS: LOSARTAN 50 MG TABLET PO SCH (10:23)
[2021-04-12] MEDS: MEGESTROL 400 MG/10 ML UDCUP PO SCH (10:23)
[2021-04-12] MEDS: MECLIZINE HCL 25 MG TABLET PO SCH (10:24)
[2021-04-12] MEDS: HEPARIN 5,000 UNIT VIAL SQ SCH (10:26)
[2021-04-12 11:35] VITALS: BP 136/63
[2021-04-12] MEDS ORDERED: TYL3B PO (12:43)
[2021-04-12] MEDS ORDERED: SUCR1ORA15 PO (12:43)
[2021-04-12] MEDS ORDERED: PANT40TA PO (12:43)
[2021-04-12] MEDS ORDERED: METR375C2 PO (12:48)
[2021-04-12 15:50] VITALS: BP 121/61
== END 2021-04-12 16:30 | disposition home health service (06) | DRG 432 ==
LOC: EDH 10:50 → EDHIP 17:05 → 4CH 23:15
PROVIDERS: ADMIT Internal Medicine; ATTEND Internal Medicine
PROC: 5A1D70Z Performance of Urinary Filtration, Intermittent, Less than 6 Hours Per Day (ICD-10-PCS; principal; 2021-04-02)
PROC: 5A1D70Z Performance of Urinary Filtration, Intermittent, Less than 6 Hours Per Day (ICD-10-PCS; 2021-04-03)
PROC: 0W9B3ZZ Drainage of Left Pleural Cavity, Percutaneous Approach (ICD-10-PCS; 2021-04-05)
PROC: 5A1D70Z Performance of Urinary Filtration, Intermittent, Less than 6 Hours Per Day (ICD-10-PCS; 2021-04-07)
PROC: 5A1D70Z Performance of Urinary Filtration, Intermittent, Less than 6 Hours Per Day (ICD-10-PCS; 2021-04-09)
PROC: 5A1D70Z Performance of Urinary Filtration, Intermittent, Less than 6 Hours Per Day (ICD-10-PCS; 2021-04-11)
PROC: 0W9G3ZZ Drainage of Peritoneal Cavity, Percutaneous Approach (ICD-10-PCS; 2021-04-11)
DX: K74.60 Unspecified cirrhosis of liver (principal); N18.6 End stage renal disease; R18.8 Other ascites; E11.52 Type 2 diabetes mellitus with diabetic peripheral angiopathy with gangrene; I13.2 Hypertensive heart and chronic kidney disease with heart failure and with stage 5 chronic kidney disease, or end stage renal disease; I42.9 Cardiomyopathy, unspecified; J98.11 Atelectasis; K22.10 Ulcer of esophagus without bleeding; T87.89 Other complications of amputation stump; E11.22 Type 2 diabetes mellitus with diabetic chronic kidney disease; D64.9 Anemia, unspecified; E87.5 Hyperkalemia; L97.529 Non-pressure chronic ulcer of other part of left foot with unspecified severity; E11.621 Type 2 diabetes mellitus with foot ulcer; E78.5 Hyperlipidemia, unspecified; E83.39 Other disorders of phosphorus metabolism; I08.1 Rheumatic disorders of both mitral and tricuspid valves; I25.10 Atherosclerotic heart disease of native coronary artery without angina pectoris; I50.9 Heart failure, unspecified; L08.9 Local infection of the skin and subcutaneous tissue, unspecified; L97.519 Non-pressure chronic ulcer of other part of right foot with unspecified severity; Z53.20 Procedure and treatment not carried out because of patient's decision for unspecified reasons; Y83.5 Amputation of limb(s) as the cause of abnormal reaction of the patient, or of later complication, without mention of misadventure at the time of the procedure; Y92.89 Other specified places as the place of occurrence of the external cause; Z99.2 Dependence on renal dialysis; Z74.01 Bed confinement status; Z87.19 Personal history of other diseases of the digestive system; T87.81 Dehiscence of amputation stump; Z89.021 Acquired absence of right finger(s); Z89.431 Acquired absence of right foot; Z91.15 Patient's noncompliance with renal dialysis; Z91.19 Patient's noncompliance with other medical treatment and regimen; Z99.3 Dependence on wheelchair; Z83.3 Family history of diabetes mellitus; Z82.49 Family history of ischemic heart disease and other diseases of the circulatory system; Z20.822 Contact with and (suspected) exposure to COVID-19
CPT/HCPCS: 36415; 49083; 71045; 73620; 76705; 80048; 80053; 82550; 82945; 82948; 83605; 83615; 83735; 83874; 84100; 84145; 84157; 84484; 85025; 85027; 85610; 85730; 86704; 86706; 87040; 87071; 87177; 87205; 87340; 87635; 89051; 90935; 93005; 94760; 96365; 97039; C1729; G0378; J0696; J1170; J1644; J2405; J3490; P9046

== ENCOUNTER 2021-05-11 00:37 | Inpatient (IN) | payer MEDICARE ==
[2021-05-11] VITALS (16 sets, daily range): BP systolic 131–166; BP diastolic 59–77
[~2021-05-11] VITALS: Ht 154.9 cm; Wt 52.8 kg
[~2021-05-11 00:37] MED LIST changes: -BALS60OI TP; -BET120L MISC; -FOLI1TAB61 PO; +FOLI1TAB85 PO; -INSREG SQ; -LACT10SO9 PO; -METO25TA6 PO; +METR375C2 PO; +PANT40TA PO; +SUCR1ORA15 PO; +TYL3B PO
[2021-05-11 01:34] LABS: BASOPHILS % (AUTO) 1.3 % (0.0-5.0); EOSINOPHILS % (AUTO) 3.4 % (0.0-8.0); HEMATOCRIT 31.7 % (36-48); LYMPHOCYTES % (AUTO) 8.1 % (21.0-51.0); MEAN CORPUSCULAR HEMOGLOBIN 30.3 pg (27.0-33.0); MEAN CORPUSCULAR HGB CONC 31.2 g/dL (32.0-36.0); MEAN CORPUSCULAR VOLUME 96.9 fL (79-99); MONOCYTES % (AUTO) 16.2 % (3.0-13.0); NEUTROPHILS % (AUTO) 70.6 % (40.0-77.0); NUCLEATED RED BLOOD CELLS 0.3 % (0.0-0.19); PLATELET COUNT (AUTO) 367 K/uL (130-400); RED BLOOD CELL COUNT(AUTO) 3.27 MIL/uL (4.00-5.50); RED CELL DISTRIBUTION WIDTH 17.3 % (11.0-15.5); WHITE BLOOD COUNT (AUTO) 9.1 K/uL (4.8-10.8)
[2021-05-11 01:48] LABS: INR 1.16 (0.85-1.15); PROTHROMBIN TIME 12.5 SEC (9.6-11.6)
[2021-05-11 01:51] LABS: ALANINE AMINOTRANSFERASE 20 U/L (12-78); ALBUMIN 2.8 g/dL (3.5-5.0); AMYLASE 20 U/L (25-115); ASPARTATE AMINOTRANSFERASE 19 U/L (10-37); BILIRUBIN,TOTAL 0.7 mg/dL (0.2-1.0); CARBON DIOXIDE 27 mmol/L (21-32); CHLORIDE 99 mmol/L (101-111); CREATINE KINASE, TOTAL 95 U/L (21-232); GLOMERULAR FILTR. RATE CALC 5 mL/min (>60); GLUCOSE,RANDOM 88 mg/dL (70-105); POTASSIUM 5.2 mmol/L (3.5-5.1); SODIUM SERUM 144 mmol/L (136-145); UREA NITROGEN, BLOOD 44 mg/dL (7-18)
[2021-05-11 02:11] LABS: CREATININE 8.9 mg/dL (0.5-1.5); LIPASE < 50 U/L (114-286)
[2021-05-11] MEDS ORDERED: HYDRALAZINE 20MG/ML VIAL IV PRN (04:00)
[2021-05-11] MEDS ORDERED: ZOLPIDEM TARTRATE 5 MG TAB PO PRN (04:00)
[2021-05-11] MEDS ORDERED: NITROGLYCERIN 0.4 MG SL TAB SL PRN (04:00)
[2021-05-11] MEDS ORDERED: DiphenhydrAMINE HCL 50 MG/ML VIAL IV PRN (04:00)
[2021-05-11] MEDS ORDERED: LACTULOSE 20 GM/30 ML UDCUP PO PRN (04:00)
[2021-05-11] MEDS ORDERED: ACETAMINOPHEN 325 MG TAB PO PRN ×2 (04:00)
[2021-05-11] MEDS ORDERED: DIPHENHYDRAMINE HCL 25 MG CAPSULE PO PRN (04:00)
[2021-05-11] MEDS ORDERED: ONDANSETRON 4MG INJ IV PRN (04:00)
[2021-05-11 05:41] LABS: ABG BASE EXCESS -3.9 mmol/L (-2.0-3.0); ABG HCO3 21.9 mmol/L (21.0-28.0); ABG OXYGEN SATURATION 98.6 % (95.0-99.0); ABG PCO2 42 mmHg (32-45)
[2021-05-11 05:57] LABS: CHOLESTEROL 208 mg/dL (<200); HDL CHOLESTEROL 48 mg/dL (35-85); LDL DIRECT 124 mg/dL (0-99); TRIGLYCERIDES 124 mg/dL (30-200)
[2021-05-11] MEDS: INSULIN HUMULIN R 100 UNIT/ML 3ML SQ SCH ×4 (07:30→21:00)
[2021-05-11] MEDS: CEFTRIAXONE 1G VIAL IVP SCH (07:30)
[2021-05-11] MEDS ORDERED: DEXTROSE 50%-WATER 50 ML DISP.SYRIN IV ONE (07:40)
[2021-05-11] MEDS ORDERED: KAYEXALATE 15GM/60ML PO ONE (08:00)
[2021-05-11] MEDS ORDERED: GLUCAGON 1MG KIT 1 MG ML IM PRN (08:00)
[2021-05-11] MEDS ORDERED: DEXTROSE 50%-WATER 50 ML DISP.SYRIN IV PRN (08:00)
[2021-05-11] MEDS: HEPARIN 5,000 UNIT VIAL SQ SCH ×2 (08:26→21:23)
[2021-05-11] MEDS: PANTOPRAZOLE 40 MG TAB DR PO SCH (08:26)
[2021-05-11] MEDS ORDERED: HEPARIN 5,000 UNIT VIAL SQ SCH (09:00)
[2021-05-11] MEDS ORDERED: ALBUMIN (HUMAN) 25% 200 ML IV ONE (09:14)
[2021-05-11] MEDS: LACTULOSE 20 GM/30 ML UDCUP PO SCH ×2 (11:52→21:00)
[2021-05-11 12:48] LABS: ALBUMIN,BODY FLUID 1.8 g/dL; GLUCOSE,BODY FLUID 88 mg/dL (1-40)
[2021-05-11 14:13] LABS: APPEARANCE BODY FLUID CLEAR (CLEAR); BODY FLUID WBC 39 /cu. mm.; COLOR,BODY FLUID YELLOW (LT YELLOW); SPECIMENTYPE,BODY FLUID ASCITES; TOTAL VOLUME,BODY FLUID 5000 mL
[2021-05-11 14:14] LABS: BODY FLUID RBC 27 /cu. mm.
[2021-05-11 14:15] LABS: BF LYMPHOCYTE 27 %; BF MESOTHELIAL 61 %; BF MONOCYTE 4 %
[2021-05-12] VITALS (16 sets, daily range): BP systolic 122–147; BP diastolic 52–74
[2021-05-12 04:45] LABS: BASOPHILS % (AUTO) 0.8 % (0.0-5.0); EOSINOPHILS % (AUTO) 0.6 % (0.0-8.0); HEMATOCRIT 28.8 % (36-48); LYMPHOCYTES % (AUTO) 3.6 % (21.0-51.0); MEAN CORPUSCULAR HEMOGLOBIN 29.6 pg (27.0-33.0); MEAN CORPUSCULAR HGB CONC 31.3 g/dL (32.0-36.0); MEAN CORPUSCULAR VOLUME 94.7 fL (79-99); MONOCYTES % (AUTO) 8.6 % (3.0-13.0); NEUTROPHILS % (AUTO) 85.8 % (40.0-77.0); PLATELET COUNT (AUTO) 273 K/uL (130-400); RED BLOOD CELL COUNT(AUTO) 3.04 MIL/uL (4.00-5.50); RED CELL DISTRIBUTION WIDTH 16.7 % (11.0-15.5); WHITE BLOOD COUNT (AUTO) 8.9 K/uL (4.8-10.8)
[2021-05-12 05:03] LABS: INR 1.21 (0.85-1.15)
[2021-05-12 05:04] LABS: PARTIAL THROMBOPLASTIN TIME 28.5 SEC (26.3-35.5)
[2021-05-12 05:19] LABS: ALBUMIN 2.9 g/dL (3.5-5.0); BILIRUBIN,TOTAL 0.8 mg/dL (0.2-1.0); CREATININE 5.9 mg/dL (0.5-1.5); MAGNESIUM 2.5 mg/dL (1.80-2.40); PHOSPHORUS 9.4 mg/dL (2.5-4.9); POTASSIUM 4.4 mmol/L (3.5-5.1); THYROID STIMULATING HORMONE 6.94 uIU/mL (0.36-3.74); TOTAL PROTEIN, SERUM 6.7 g/dL (6.0-8.3)
[2021-05-12] MEDS: CEFTRIAXONE 1G VIAL IVP SCH (06:21)
[2021-05-12] MEDS: INSULIN HUMULIN R 100 UNIT/ML 3ML SQ SCH ×2 (06:34→11:30)
[2021-05-12] MEDS ORDERED: Vitamin B Complex/Vit C/Folic Acid PO SCH (09:00)
[2021-05-12] MEDS: LACTULOSE 20 GM/30 ML UDCUP PO SCH (09:08)
[2021-05-12] MEDS: PANTOPRAZOLE 40 MG TAB DR PO SCH (09:09)
[2021-05-12] MEDS: HEPARIN 5,000 UNIT VIAL SQ SCH (09:33)
[2021-07-25] MEDS ORDERED: ACET1TAB25 PO (23:08)
[2021-07-25] MEDS ORDERED: CEPH500B PO (23:10)
== END 2021-05-12 20:00 | disposition home or self-care (01) | DRG 291 ==
LOC: EDH 00:37 → EDHIP 03:39 → OBSVTOIN 03:39 → 4DH 22:11
PROVIDERS: ADMIT Internal Medicine; ATTEND Internal Medicine
PROC: 0W9G3ZZ Drainage of Peritoneal Cavity, Percutaneous Approach (ICD-10-PCS; principal; 2021-05-11)
PROC: 5A1D70Z Performance of Urinary Filtration, Intermittent, Less than 6 Hours Per Day (ICD-10-PCS; 2021-05-11)
PROC: 5A1D70Z Performance of Urinary Filtration, Intermittent, Less than 6 Hours Per Day (ICD-10-PCS; 2021-05-12)
DX: I13.2 Hypertensive heart and chronic kidney disease with heart failure and with stage 5 chronic kidney disease, or end stage renal disease (principal); N18.6 End stage renal disease; I50.43 Acute on chronic combined systolic (congestive) and diastolic (congestive) heart failure; R18.8 Other ascites; E44.0 Moderate protein-calorie malnutrition; K74.60 Unspecified cirrhosis of liver; H54.62 Unqualified visual loss, left eye, normal vision right eye; E11.22 Type 2 diabetes mellitus with diabetic chronic kidney disease; D64.9 Anemia, unspecified; E87.5 Hyperkalemia; E78.00 Pure hypercholesterolemia, unspecified; E78.5 Hyperlipidemia, unspecified; Z68.22 Body mass index [BMI] 22.0-22.9, adult; Z99.2 Dependence on renal dialysis; Z89.021 Acquired absence of right finger(s); Z89.421 Acquired absence of other right toe(s); Z87.19 Personal history of other diseases of the digestive system; Z91.19 Patient's noncompliance with other medical treatment and regimen; Z83.3 Family history of diabetes mellitus; Z82.49 Family history of ischemic heart disease and other diseases of the circulatory system; Z20.822 Contact with and (suspected) exposure to COVID-19
CPT/HCPCS: 36415; 36600; 49083; 71045; 74021; 80053; 80061; 82042; 82140; 82150; 82550; 82803; 82945; 82948; 83540; 83550; 83615; 83690; 83735; 83874; 83880; 83986; 84100; 84145; 84157; 84443; 84484; 85025; 85610; 85730; 87071; 87205; 87635; 89051; 90935; 94760; 96365; A4606; C1729; G0378; J0696; J1644; J2405; J7070; P9046

== ENCOUNTER → 2021-05-28 | Outpatient (CLI) | payer MEDICARE ==
[~2021-05-28] MED LIST changes: -ACET-66 PO; +ALBUMIN (HUMAN) 25% 300 ML IV SCH; -AMLO-257 PO; -ASCO500T10 PO; -ATOR40TA69 PO; +CEPH250C2 PO; -FAMO20TA8 PO; -GABA-529 PO; -LIDO1ADH71 TP; -LOSA50TA64 PO; -MECL-160 PO; -METR375C2 PO; -NUTR1PAC14 PO; -ONDA4TAB4 PO; -TRAM1TAB PO; -TYL3B PO; -ZINC220T4 PO; -ZINC57OI4 TP; -[UNRECOGNIZED DRUG - CODE] IJ
[2021-05-28 10:37] LABS: BASOPHILS % (AUTO) 1.4 % (0.0-5.0); EOSINOPHILS % (AUTO) 1.2 % (0.0-8.0); HEMATOCRIT 34.4 % (36-48); MEAN CORPUSCULAR HEMOGLOBIN 29.9 pg (27.0-33.0); MEAN CORPUSCULAR HGB CONC 30.5 g/dL (32.0-36.0); NEUTROPHILS % (AUTO) 82.9 % (40.0-77.0); NUCLEATED RED BLOOD CELLS 1.6 % (0.0-0.19); PLATELET COUNT (AUTO) 420 K/uL (130-400); RED BLOOD CELL COUNT(AUTO) 3.51 MIL/uL (4.00-5.50); RED CELL DISTRIBUTION WIDTH 17.7 % (11.0-15.5)
[2021-05-28 10:53] LABS: INR 1.16 (0.85-1.15); PROTHROMBIN TIME 12.5 SEC (9.6-11.6)
[2021-05-28 10:54] LABS: PARTIAL THROMBOPLASTIN TIME 28.3 SEC (26.3-35.5)
[2021-05-28 10:58] LABS: BILIRUBIN,TOTAL 0.9 mg/dL (0.2-1.0)
[2021-05-28 11:24] LABS: CREATININE 8.6 mg/dL (0.5-1.5); POTASSIUM 6.2 mmol/L (3.5-5.1)
[2021-05-28 12:38] LABS: ALBUMIN,BODY FLUID 1.9 g/dL
[2021-05-28 13:32] LABS: APPEARANCE BODY FLUID CLEAR (CLEAR); COLOR,BODY FLUID YELLOW (LT YELLOW); SPECIMENTYPE,BODY FLUID ASCITES
[2021-05-28 13:33] LABS: BODY FLUID RBC 52 /cu. mm.; BODY FLUID WBC 94 /cu. mm.
[2021-05-28 14:01] LABS: BF LYMPHOCYTE 37 %; BF MESOTHELIAL 57 %; BF MONOCYTE 6 %
[2021-05-28 14:06] LABS: TOTAL VOLUME,BODY FLUID 2700 mL
== END | disposition home or self-care (01) ==
LOC: RAH 09:31
PROVIDERS: ATTEND Internal Medicine Gastroenterology
DX: R18.8 Other ascites (principal); Z79.01 Long term (current) use of anticoagulants
CPT/HCPCS: 36415; 49083; 80053; 82042; 84157; 85025; 85610; 85730; 87071; 87205; 88108; 88305; 89051; C1729

== ENCOUNTER → 2021-06-10 | Outpatient (CLI) | payer MEDICARE ==
[~2021-06-10] MED LIST changes: -ALBUMIN (HUMAN) 25% 300 ML IV SCH; +LIDOCAINE HCL 4% LTA SOL 4 ML VIAL TP ONE
== END | disposition home or self-care (01) ==
LOC: WHH 09:48
PROVIDERS: ATTEND Podiatrist Foot & Ankle Surgery
DX: T87.89 Other complications of amputation stump (principal); E11.621 Type 2 diabetes mellitus with foot ulcer; I70.235 Atherosclerosis of native arteries of right leg with ulceration of other part of foot; L97.514 Non-pressure chronic ulcer of other part of right foot with necrosis of bone; E11.622 Type 2 diabetes mellitus with other skin ulcer; I70.233 Atherosclerosis of native arteries of right leg with ulceration of ankle; L97.311 Non-pressure chronic ulcer of right ankle limited to breakdown of skin; E11.42 Type 2 diabetes mellitus with diabetic polyneuropathy; E11.52 Type 2 diabetes mellitus with diabetic peripheral angiopathy with gangrene; I96 Gangrene, not elsewhere classified; E11.22 Type 2 diabetes mellitus with diabetic chronic kidney disease; I13.2 Hypertensive heart and chronic kidney disease with heart failure and with stage 5 chronic kidney disease, or end stage renal disease; I50.33 Acute on chronic diastolic (congestive) heart failure; N18.6 End stage renal disease; I25.10 Atherosclerotic heart disease of native coronary artery without angina pectoris; I25.2 Old myocardial infarction; J98.11 Atelectasis; E78.5 Hyperlipidemia, unspecified; K74.60 Unspecified cirrhosis of liver; Z89.021 Acquired absence of right finger(s); Z79.82 Long term (current) use of aspirin; Z79.899 Other long term (current) drug therapy; Y83.5 Amputation of limb(s) as the cause of abnormal reaction of the patient, or of later complication, without mention of misadventure at the time of the procedure
CPT/HCPCS: 97597; 97598; A4450; A6207

== ENCOUNTER 2021-06-11 11:37 | Emergency (ER) | payer MEDICARE ==
[~2021-06-11] VITALS: Ht 154.9 cm; Wt 54.4 kg
[~2021-06-11 11:37] MED LIST changes: -ALBUMIN (HUMAN) 25% 200 ML IV SCH; -CEPH250C2 PO
[2021-06-11 12:32] LABS: BASOPHILS % (AUTO) 0.9 % (0.0-5.0); EOSINOPHILS % (AUTO) 1.1 % (0.0-8.0); LYMPHOCYTES % (AUTO) 6.9 % (21.0-51.0); MEAN CORPUSCULAR HEMOGLOBIN 29.2 pg (27.0-33.0); MEAN CORPUSCULAR VOLUME 94.2 fL (79-99); MONOCYTES % (AUTO) 11.6 % (3.0-13.0); NEUTROPHILS % (AUTO) 79.2 % (40.0-77.0); NUCLEATED RED BLOOD CELLS 1.1 % (0.0-0.19); PLATELET COUNT (AUTO) 332 K/uL (130-400); RED BLOOD CELL COUNT(AUTO) 4.14 MIL/uL (4.00-5.50); RED CELL DISTRIBUTION WIDTH 16.5 % (11.0-15.5)
[2021-06-11 12:48] LABS: INR 1.19 (0.85-1.15); PROTHROMBIN TIME 12.8 SEC (9.6-11.6)
[2021-06-11 12:49] LABS: PARTIAL THROMBOPLASTIN TIME 27.7 SEC (26.3-35.5)
[2021-06-11 12:53] LABS: ALBUMIN 2.7 g/dL (3.5-5.0); BILIRUBIN,TOTAL 0.8 mg/dL (0.2-1.0); POTASSIUM 4.9 mmol/L (3.5-5.1); TOTAL PROTEIN, SERUM 7.6 g/dL (6.0-8.3)
[2021-06-11 12:57] LABS: CREATININE 8.4 mg/dL (0.5-1.5)
[2021-06-11] MEDS ORDERED: CEFTRIAXONE 1G VIAL ONE (17:50)
[2021-06-11] MEDS ORDERED: LIDOCAINE HCL-MPF 1% 2ML VIAL ONE (17:51)
[2021-06-11] MEDS ORDERED: CEFTRIAXONE 1G VIAL IM SCH (18:00)
[2021-06-11] MEDS ORDERED: CEFTRIAXONE 1G VIAL IVP SCH (18:00)
[2021-06-11] MEDS ORDERED: CEPH250C2 PO (18:07)
[2021-06-11 20:13] VITALS: BP 135/70
[2021-07-25] MEDS ORDERED: ACET1TAB25 PO (23:08)
[2021-07-25] MEDS ORDERED: CEPH500B PO (23:10)
== END 2021-06-11 21:05 | disposition home or self-care (01) ==
LOC: EDH 11:37
DX: L03.114 Cellulitis of left upper limb (principal); I12.0 Hypertensive chronic kidney disease with stage 5 chronic kidney disease or end stage renal disease; E11.22 Type 2 diabetes mellitus with diabetic chronic kidney disease; N18.6 End stage renal disease; E78.00 Pure hypercholesterolemia, unspecified; Z79.82 Long term (current) use of aspirin; Z99.2 Dependence on renal dialysis
CPT/HCPCS: 36415; 49083; 73080; 73090; 73120; 80053; 82042; 82948 ×3; 84157; 85025; 85610; 85730; 87071; 87205; 88112; 88305; 89051; 93005; 93971; 96372; 99285; C1729; J0696; J3490; P9046

== ENCOUNTER → 2021-06-11 | Outpatient (CLI) | payer MEDICARE ==
[~2021-06-11] MED LIST changes: +ALBUMIN (HUMAN) 25% 200 ML IV SCH; -LIDOCAINE HCL 4% LTA SOL 4 ML VIAL TP ONE
[2021-06-11 14:38] LABS: ALBUMIN,BODY FLUID 1.7 g/dL
[2021-06-11 15:03] LABS: APPEARANCE BODY FLUID SLIGHTLY CLOUDY (CLEAR); COLOR,BODY FLUID YELLOW (LT YELLOW); SPECIMENTYPE,BODY FLUID ASCITES; TOTAL VOLUME,BODY FLUID 4000 mL
[2021-06-11 15:04] LABS: BODY FLUID RBC 25 /cu. mm.; BODY FLUID WBC 32 /cu. mm.
[2021-06-11 15:10] LABS: BF LYMPHOCYTE 55 %; BF MESOTHELIAL 43 %
== END | disposition home or self-care (01) ==
LOC: RAH 09:45
PROVIDERS: ATTEND Internal Medicine Gastroenterology
DX: R18.8 Other ascites (principal); K74.60 Unspecified cirrhosis of liver; E11.22 Type 2 diabetes mellitus with diabetic chronic kidney disease; I12.0 Hypertensive chronic kidney disease with stage 5 chronic kidney disease or end stage renal disease; N18.6 End stage renal disease; E03.9 Hypothyroidism, unspecified; K21.9 Gastro-esophageal reflux disease without esophagitis; E78.2 Mixed hyperlipidemia; Z99.2 Dependence on renal dialysis; Z99.81 Dependence on supplemental oxygen; Z79.01 Long term (current) use of anticoagulants; Z98.891 History of uterine scar from previous surgery
CPT/HCPCS: 49083; 82042; 82948 ×3; 84157; 87071; 87205; 89051; C1729; P9046

== ENCOUNTER → 2021-06-25 | Outpatient (CLI) | payer MEDICARE ==
[~2021-06-25] MED LIST changes: +ALBUMIN (HUMAN) 25% 300 ML IV SCH; +CEPH250C2 PO
[2021-06-25 13:09] LABS: APPEARANCE BODY FLUID CLEAR (CLEAR); COLOR,BODY FLUID YELLOW (LT YELLOW); SPECIMENTYPE,BODY FLUID ASCITES; TOTAL VOLUME,BODY FLUID 3000 mL
[2021-06-25 13:10] LABS: BODY FLUID RBC 95 /cu. mm.; BODY FLUID WBC 72 /cu. mm.
[2021-06-25 13:18] LABS: ALBUMIN,BODY FLUID 1.5 g/dL
[2021-06-25 13:44] LABS: BF LYMPHOCYTE 29 %; BF MESOTHELIAL 68 %; BF MONOCYTE 2 %
== END | disposition home or self-care (01) ==
LOC: RAH 08:15
PROVIDERS: ATTEND Internal Medicine Gastroenterology
DX: R18.8 Other ascites (principal); K74.60 Unspecified cirrhosis of liver; E11.22 Type 2 diabetes mellitus with diabetic chronic kidney disease; I12.0 Hypertensive chronic kidney disease with stage 5 chronic kidney disease or end stage renal disease; N18.6 End stage renal disease; K21.00 Gastro-esophageal reflux disease with esophagitis, without bleeding; E78.2 Mixed hyperlipidemia; Z99.2 Dependence on renal dialysis; Z99.81 Dependence on supplemental oxygen
CPT/HCPCS: 49083; 82042; 84157; 87071; 87205; 88112; 88305; 89051; C1729; P9046

== ENCOUNTER → 2021-07-22 | Outpatient (CLI) | payer MEDICARE ==
[~2021-07-22] MED LIST changes: +ACET1TAB25 PO; -ALBUMIN (HUMAN) 25% 300 ML IV SCH; +CEPH500B PO; +LIDOCAINE HCL 4% LTA SOL 4 ML VIAL TP ONE
== END | disposition home or self-care (01) ==
LOC: WHH 10:36
PROVIDERS: ATTEND Podiatrist Foot & Ankle Surgery
DX: T87.89 Other complications of amputation stump (principal); E11.621 Type 2 diabetes mellitus with foot ulcer; I70.235 Atherosclerosis of native arteries of right leg with ulceration of other part of foot; L97.514 Non-pressure chronic ulcer of other part of right foot with necrosis of bone; E11.622 Type 2 diabetes mellitus with other skin ulcer; I70.233 Atherosclerosis of native arteries of right leg with ulceration of ankle; L97.311 Non-pressure chronic ulcer of right ankle limited to breakdown of skin; E11.42 Type 2 diabetes mellitus with diabetic polyneuropathy; E11.52 Type 2 diabetes mellitus with diabetic peripheral angiopathy with gangrene; I96 Gangrene, not elsewhere classified; E11.22 Type 2 diabetes mellitus with diabetic chronic kidney disease; I13.2 Hypertensive heart and chronic kidney disease with heart failure and with stage 5 chronic kidney disease, or end stage renal disease; I50.33 Acute on chronic diastolic (congestive) heart failure; N18.6 End stage renal disease; I25.10 Atherosclerotic heart disease of native coronary artery without angina pectoris; I25.2 Old myocardial infarction; J98.11 Atelectasis; E78.5 Hyperlipidemia, unspecified; K74.60 Unspecified cirrhosis of liver; Z89.021 Acquired absence of right finger(s); Z79.82 Long term (current) use of aspirin; Z79.899 Other long term (current) drug therapy; Y83.5 Amputation of limb(s) as the cause of abnormal reaction of the patient, or of later complication, without mention of misadventure at the time of the procedure
CPT/HCPCS: 11042; A4450; A6209

== ENCOUNTER → 2021-07-24 | Outpatient (CLI) | payer MEDICARE ==
[~2021-07-24] MED LIST changes: +ALBUMIN (HUMAN) 25% 200 ML IV SCH; -LIDOCAINE HCL 4% LTA SOL 4 ML VIAL TP ONE
[2021-07-24 09:52] LABS: HEMATOCRIT 37.8 % (36-48); MEAN CORPUSCULAR HEMOGLOBIN 28.5 pg (27.0-33.0); MEAN CORPUSCULAR HGB CONC 30.4 g/dL (32.0-36.0); MEAN CORPUSCULAR VOLUME 93.8 fL (79-99); PLATELET COUNT (AUTO) 406 K/uL (130-400); RED BLOOD CELL COUNT(AUTO) 4.03 MIL/uL (4.00-5.50); RED CELL DISTRIBUTION WIDTH 19.4 % (11.0-15.5); WHITE BLOOD COUNT (AUTO) 14.1 K/uL (4.8-10.8)
[2021-07-24 10:10] LABS: INR 1.18 (0.85-1.15); PROTHROMBIN TIME 12.7 SEC (9.6-11.6)
[2021-07-24 10:13] LABS: ALBUMIN 2.4 g/dL (3.5-5.0); BILIRUBIN,TOTAL 1.4 mg/dL (0.2-1.0); POTASSIUM 5.3 mmol/L (3.5-5.1); TOTAL PROTEIN, SERUM 7.5 g/dL (6.0-8.3)
[2021-07-24 10:27] LABS: CREATININE 8.4 mg/dL (0.5-1.5)
[2021-07-24 10:31] LABS: EOSINOPHILS % (MANUAL) 1 % (1-6); LYMPHOCYTES % (MANUAL) 2 % (22-44); MAN.DIFF COMMENT-IMPRESSION MANUAL DIFFERENTIAL; MONOCYTES % (MANUAL) 5 % (2-9); PLATELET MORPHOLOGY COMMENT SLIGHT INCREASED; SEGMENTED NEUTROPHILS % 92 % (40-70)
[2021-07-24 11:29] LABS: ALBUMIN,BODY FLUID 1.4 g/dL
[2021-07-24 14:09] LABS: SPECIMENTYPE,BODY FLUID ASCITES
[2021-07-24 14:10] LABS: APPEARANCE BODY FLUID SLIGHTLY CLOUDY (CLEAR)
[2021-07-24 14:12] LABS: COLOR,BODY FLUID YELLOW (LT YELLOW); TOTAL VOLUME,BODY FLUID 2000 mL
[2021-07-24 14:13] LABS: BODY FLUID RBC 10 /cu. mm.; BODY FLUID WBC 29 /cu. mm.
[2021-07-24 14:17] LABS: BF LYMPHOCYTE 66 %; BF MONOCYTE 6 %
== END | disposition home or self-care (01) ==
LOC: RAH 09:05
PROVIDERS: ATTEND Internal Medicine
DX: R18.8 Other ascites (principal); K74.60 Unspecified cirrhosis of liver; E11.22 Type 2 diabetes mellitus with diabetic chronic kidney disease; I12.0 Hypertensive chronic kidney disease with stage 5 chronic kidney disease or end stage renal disease; N18.6 End stage renal disease; E78.2 Mixed hyperlipidemia; K21.00 Gastro-esophageal reflux disease with esophagitis, without bleeding; Z99.2 Dependence on renal dialysis; Z99.81 Dependence on supplemental oxygen; Z79.01 Long term (current) use of anticoagulants
CPT/HCPCS: 36415; 49083; 80053; 82042; 84157; 85025; 85610; 87071; 87205; 89051; C1729; P9046

== ENCOUNTER 2021-07-27 16:17 | Inpatient (IN) | payer MEDICARE ==
[~2021-07-27] VITALS: Ht 154.9 cm; Wt 50.8 kg
[2021-07-27] VITALS (12 sets, daily range): BP systolic 99–136; BP diastolic 53–71
[~2021-07-27 16:17] MED LIST changes: -ALBUMIN (HUMAN) 25% 200 ML IV SCH
[2021-07-27 16:49] LABS: BASOPHILS % (AUTO) 0.3 % (0.0-5.0); EOSINOPHILS % (AUTO) 0.1 % (0.0-8.0); HEMATOCRIT 38.4 % (36-48); LYMPHOCYTES % (AUTO) 0.7 % (21.0-51.0); MEAN CORPUSCULAR HEMOGLOBIN 29.6 pg (27.0-33.0); MEAN CORPUSCULAR HGB CONC 31.3 g/dL (32.0-36.0); MEAN CORPUSCULAR VOLUME 94.8 fL (79-99); MONOCYTES % (AUTO) 4.8 % (3.0-13.0); NEUTROPHILS % (AUTO) 93.1 % (40.0-77.0); PLATELET COUNT (AUTO) 440 K/uL (130-400); RED BLOOD CELL COUNT(AUTO) 4.05 MIL/uL (4.00-5.50); RED CELL DISTRIBUTION WIDTH 19.6 % (11.0-15.5); WHITE BLOOD COUNT (AUTO) 22.6 K/uL (4.8-10.8)
[2021-07-27 17:12] LABS: INR 1.32 (0.85-1.15)
[2021-07-27 17:13] LABS: PARTIAL THROMBOPLASTIN TIME 34.2 SEC (26.3-35.5)
[2021-07-27 17:18] LABS: ALBUMIN 2.2 g/dL (3.5-5.0); BILIRUBIN,TOTAL 1.2 mg/dL (0.2-1.0); TOTAL PROTEIN, SERUM 7.1 g/dL (6.0-8.3)
[2021-07-27 17:23] LABS: B-TYPE NATRIURETIC PEPTIDE > 5000 pg/mL (0-100)
[2021-07-27 17:39] LABS: POTASSIUM 6.7 mmol/L (3.5-5.1)
[2021-07-27 17:41] LABS: CREATININE 9.6 mg/dL (0.5-1.5)
[2021-07-27] MEDS ORDERED: ONDANSETRON 4MG INJ ONE (17:44)
[2021-07-27] MEDS ORDERED: MORPHINE 2 MG SYG ONE (17:44)
[2021-07-27] MEDS: ALBUTEROL 0.083% 2.5 MG/3 ML INH IH SCH (18:00)
[2021-07-27] MEDS ORDERED: MORPHINE 2 MG SYG IVP ONE (18:00)
[2021-07-27] MEDS ORDERED: SODIUM BICARB 8.4% 50ML SYRINGE IVP ONE (18:00)
[2021-07-27] MEDS ORDERED: SODIUM ZIRCONIUM CYCLOSILICATE 5 GM POWD.PACK PO SCH (18:00)
[2021-07-27] MEDS ORDERED: CEFTRIAXONE 1G VIAL IVP ONE (18:00)
[2021-07-27] MEDS ORDERED: CALCIUM GLUC 1GM 1 GM in 0.9%NACL 100ML 100 ML IV ONE (18:00)
[2021-07-27] MEDS ORDERED: DEXTROSE 50%-WATER 25 GM/50 ML VIAL IV ONE (18:00)
[2021-07-27] MEDS ORDERED: ONDANSETRON 4MG INJ IVP ONE (18:00)
[2021-07-27] MEDS ORDERED: ACET1TAB25 PO (18:27)
[2021-07-27] MEDS ORDERED: NITROGLYCERIN 1GM OINT 1 INCH/1GM TD ONE (18:30)
[2021-07-27] MEDS ORDERED: ASPIRIN 325MG TAB PO ONE (18:30)
[2021-07-27] MEDS ORDERED: GLUCAGON 1MG KIT 1 MG ML IM PRN (18:30)
[2021-07-27] MEDS ORDERED: SODIUM BICARB 50MEQ 50ML VIAL 50 ML ONE (18:41)
[2021-07-27] MEDS ORDERED: ACETAMINOPHEN 325 MG TAB PO PRN ×2 (19:00)
[2021-07-27] MEDS ORDERED: AZITHROMYCIN 500MG+NS 250ML IVPB SCH (19:00)
[2021-07-27] MEDS ORDERED: CEFTRIAXONE 1G VIAL IVP SCH (19:00)
[2021-07-27] MEDS ORDERED: ALBUTEROL INHALER 90MCG/INH IH PRN (19:00)
[2021-07-27 19:58] LABS: HEMOGLOBIN A1C 4.4 % (4.0-6.0)
[2021-07-27] MEDS ORDERED: HYDROMORPHONE 0.5 MG SYG (0.5MG/0.5ML) IVP ONE (20:30)
[2021-07-27] MEDS: HEPARIN 5,000 UNIT VIAL SQ SCH (20:40)
[2021-07-27] MEDS: FAMOTIDINE 20MG TAB PO SCH (20:40)
[2021-07-27 20:45] LABS: CRP QUANTITATIVE 286.5 mg/L (0.00-9.0); MAGNESIUM 2.2 mg/dL (1.80-2.40)
[2021-07-27] MEDS: ONDANSETRON 4MG INJ IV PRN (21:04)
[2021-07-27 21:05] LABS: PHOSPHORUS 14.5 mg/dL (2.5-4.9)
[2021-07-27 23:59] LABS: HEPATITIS B SURFACE ANTIGEN Non-Reactive (Negative)
[2021-07-28] VITALS (19 sets, daily range): BP systolic 90–133; BP diastolic 50–78
[2021-07-28] MEDS: ALBUTEROL 0.083% 2.5 MG/3 ML INH IH SCH
[2021-07-28 00:03] LABS: POTASSIUM 4.5 mmol/L (3.5-5.1)
[2021-07-28] MEDS: DEXTROSE 50%-WATER 50 ML DISP.SYRIN IV PRN ×4 (00:43→22:21)
[2021-07-28] MEDS ORDERED: HYDROMORPHONE 0.5 MG SYG (0.5MG/0.5ML) IVP ONE (03:00)
[2021-07-28 04:07] LABS: HEMATOCRIT 34.5 % (36-48); MEAN CORPUSCULAR HEMOGLOBIN 29.1 pg (27.0-33.0); MEAN CORPUSCULAR VOLUME 93.8 fL (79-99); RED BLOOD CELL COUNT(AUTO) 3.68 MIL/uL (4.00-5.50); RED CELL DISTRIBUTION WIDTH 19.5 % (11.0-15.5)
[2021-07-28 04:46] LABS: ALBUMIN 1.9 g/dL (3.5-5.0); BILIRUBIN,DIRECT 0.7 mg/dL (0.0-0.3); BILIRUBIN,TOTAL 1.1 mg/dL (0.2-1.0); CREATININE 6.6 mg/dL (0.5-1.5); POTASSIUM 4.7 mmol/L (3.5-5.1); TOTAL PROTEIN, SERUM 6.4 g/dL (6.0-8.3)
[2021-07-28] MEDS: ONDANSETRON 4MG INJ IV PRN (05:10)
[2021-07-28] MEDS: HEPARIN 5,000 UNIT VIAL SQ SCH ×3 (10:17→20:53)
[2021-07-28] MEDS: ASPIRIN 81 MG EC TAB PO SCH (11:11)
[2021-07-28] MEDS: METOPROLOL TARTRATE 25 MG TAB PO SCH ×2 (11:11→20:42)
[2021-07-28] MEDS ORDERED: RENAL DOSE IV SCH (13:00)
[2021-07-28] MEDS ORDERED: HYDROCODONE/ACETAMINOPHEN 7.5/325 MG TAB PO PRN (13:00)
[2021-07-28] MEDS ORDERED: ALBUMIN (HUMAN) 25% 100 ML IV PRN (14:30)
[2021-07-28] MEDS: LINEZOLID 600 MG/ISO-OSM 300 ML IV SCH (14:34)
[2021-07-28] MEDS: MEROPENEM 1 GM VIAL IVP SCH (14:34)
[2021-07-28] MEDS: GABAPENTIN 300 MG CAPSULE PO SCH (14:34)
[2021-07-28] MEDS: PANTOPRAZOLE 40 MG TAB DR PO SCH (14:36)
[2021-07-28] MEDS: SEVELAMER HCL 800 MG TABLET PO SCH (17:00)
[2021-07-28] MEDS: DRONABINOL 2.5 MG CAP PO SCH (20:42)
[2021-07-28] MEDS: FAMOTIDINE 20MG TAB PO SCH (20:42)
[2021-07-28] MEDS ORDERED: DEXTROSE 5%-LACTATED RINGERS 1,000 ML IV ONE (23:39)
[2021-07-28 23:56] LABS: BASOPHILS % (AUTO) 0.4 % (0.0-5.0); EOSINOPHILS % (AUTO) 1.5 % (0.0-8.0); HEMATOCRIT 30.5 % (36-48); LYMPHOCYTES % (AUTO) 1.3 % (21.0-51.0); MEAN CORPUSCULAR HEMOGLOBIN 29.7 pg (27.0-33.0); MEAN CORPUSCULAR HGB CONC 31.1 g/dL (32.0-36.0); MEAN CORPUSCULAR VOLUME 95.3 fL (79-99); PLATELET COUNT (AUTO) 336 K/uL (130-400); RED CELL DISTRIBUTION WIDTH 19.2 % (11.0-15.5); WHITE BLOOD COUNT (AUTO) 15.8 K/uL (4.8-10.8)
[2021-07-29] VITALS (25 sets, daily range): BP systolic 86–115; BP diastolic 47–69
[2021-07-29] MEDS ORDERED: NOREPINEPHRIN 4MG/NS 250ML 250 ML IV SCH
[2021-07-29] MEDS ORDERED: ALBUMIN (HUMAN) 25% 50 ML IV SCH
[2021-07-29 00:06] LABS: CREATININE 4.4 mg/dL (0.5-1.5); POTASSIUM 4.1 mmol/L (3.5-5.1)
[2021-07-29 00:12] LABS: MAGNESIUM 1.9 mg/dL (1.80-2.40); PHOSPHORUS 7.6 mg/dL (2.5-4.9)
[2021-07-29 00:31] LABS: ALBUMIN 1.5 g/dL (3.5-5.0); BILIRUBIN,TOTAL 0.8 mg/dL (0.2-1.0); TOTAL PROTEIN, SERUM 5.3 g/dL (6.0-8.3)
[2021-07-29] MEDS: DEXTROSE 5%-LACTATED RINGERS 1,000 ML IV SCH ×2 (01:10→21:31)
[2021-07-29] MEDS: LINEZOLID 600 MG/ISO-OSM 300 ML IV SCH ×2 (03:46→12:03)
[2021-07-29 05:27] LABS: HEMATOCRIT 30.5 % (36-48); MEAN CORPUSCULAR HEMOGLOBIN 29.9 pg (27.0-33.0); MEAN CORPUSCULAR HGB CONC 30.5 g/dL (32.0-36.0); MEAN CORPUSCULAR VOLUME 98.1 fL (79-99); NUCLEATED RED BLOOD CELLS 0.1 % (0.0-0.19); PLATELET COUNT (AUTO) 315 K/uL (130-400); RED BLOOD CELL COUNT(AUTO) 3.11 MIL/uL (4.00-5.50); RED CELL DISTRIBUTION WIDTH 19.9 % (11.0-15.5)
[2021-07-29 05:39] LABS: BILIRUBIN,DIRECT 0.6 mg/dL (0.0-0.3); BILIRUBIN,TOTAL 1.1 mg/dL (0.2-1.0); CREATININE 4.4 mg/dL (0.5-1.5); PHOSPHORUS 7.6 mg/dL (2.5-4.9); POTASSIUM 3.5 mmol/L (3.5-5.1); TOTAL PROTEIN, SERUM 5.5 g/dL (6.0-8.3)
[2021-07-29 05:45] LABS: BAND NEUTROPHILS % (MANUAL) 1 % (0-2); EOSINOPHILS % (MANUAL) 3 % (1-6); LYMPHOCYTES % (MANUAL) 1 % (22-44); MAN.DIFF COMMENT-IMPRESSION MANUAL DIFFERENTIAL; MONOCYTES % (MANUAL) 5 % (2-9); PLATELET MORPHOLOGY COMMENT ADEQUATE; SEGMENTED NEUTROPHILS % 90 % (40-70)
[2021-07-29] MEDS: SEVELAMER HCL 800 MG TABLET PO SCH ×3 (07:34→16:28)
[2021-07-29] MEDS: PANTOPRAZOLE 40 MG TAB DR PO SCH (07:34)
[2021-07-29] MEDS: METOPROLOL TARTRATE 25 MG TAB PO SCH ×2 (08:03→21:00)
[2021-07-29] MEDS: ASPIRIN 81 MG EC TAB PO SCH (08:04)
[2021-07-29] MEDS: DRONABINOL 2.5 MG CAP PO SCH ×3 (08:04→21:32)
[2021-07-29] MEDS: HEPARIN 5,000 UNIT VIAL SQ SCH ×3 (08:06→21:33)
[2021-07-29] MEDS: HYDROCODONE/ACETAMINOPHEN 5/325 MG TAB PO PRN ×2 (08:54→15:45)
[2021-07-29] MEDS: DEXTROSE 50%-WATER 50 ML DISP.SYRIN IV PRN (11:26)
[2021-07-29] MEDS: MEROPENEM 1 GM VIAL IVP SCH (13:37)
[2021-07-29] MEDS: GABAPENTIN 300 MG CAPSULE PO SCH (14:51)
[2021-07-29] MEDS: FAMOTIDINE 20MG TAB PO SCH ×2 (21:00→21:32)
[2021-07-30] VITALS (17 sets, daily range): BP systolic 88–121; BP diastolic 46–69
[2021-07-30] MEDS: LINEZOLID 600 MG/ISO-OSM 300 ML IV SCH ×2 (01:17→13:00)
[2021-07-30 03:45] LABS: HEMATOCRIT 29.2 % (36-48); MEAN CORPUSCULAR HEMOGLOBIN 28.7 pg (27.0-33.0); MEAN CORPUSCULAR HGB CONC 29.8 g/dL (32.0-36.0); MEAN CORPUSCULAR VOLUME 96.4 fL (79-99); NUCLEATED RED BLOOD CELLS 0.3 % (0.0-0.19); RED BLOOD CELL COUNT(AUTO) 3.03 MIL/uL (4.00-5.50); RED CELL DISTRIBUTION WIDTH 19.2 % (11.0-15.5); WHITE BLOOD COUNT (AUTO) 15.5 K/uL (4.8-10.8)
[2021-07-30 03:59] LABS: CREATININE 4.8 mg/dL (0.5-1.5); MAGNESIUM 1.8 mg/dL (1.80-2.40); PHOSPHORUS 7.7 mg/dL (2.5-4.9); POTASSIUM 3.7 mmol/L (3.5-5.1)
[2021-07-30] MEDS: ASPIRIN 81 MG EC TAB PO SCH (08:41)
[2021-07-30] MEDS: SEVELAMER HCL 800 MG TABLET PO SCH ×3 (08:41→17:00)
[2021-07-30] MEDS: DRONABINOL 2.5 MG CAP PO SCH (08:46)
[2021-07-30] MEDS: PANTOPRAZOLE 40 MG TAB DR PO SCH (08:46)
[2021-07-30] MEDS: HEPARIN 5,000 UNIT VIAL SQ SCH ×2 (09:00→14:00)
[2021-07-30] MEDS ORDERED: AEC81 PO (12:49)
[2021-07-30] MEDS ORDERED: LEVO500T90 PO (12:49)
[2021-07-30] MEDS: DEXTROSE 5%-LACTATED RINGERS 1,000 ML IV SCH (16:00)
[2021-07-30] MEDS ORDERED: MEROPENEM 1 GM VIAL IVP SCH (16:00)
[2021-07-30] MEDS: GABAPENTIN 300 MG CAPSULE PO SCH (16:21)
== END 2021-07-30 18:45 | disposition home or self-care (01) | DRG 564 ==
LOC: EDH 16:17 → EDHIP 18:21 → OBSVTOIN 18:21 → 4AH 07-28 01:30 → 4CH 07-28 18:31 → 2DH 07-29 01:03 → 4DH 07-30 05:46
PROVIDERS: ADMIT Hospitalist; ATTEND Internal Medicine
PROC: 5A1D70Z Performance of Urinary Filtration, Intermittent, Less than 6 Hours Per Day (ICD-10-PCS; 2021-07-27)
PROC: 5A1D70Z Performance of Urinary Filtration, Intermittent, Less than 6 Hours Per Day (ICD-10-PCS; principal; 2021-07-28)
PROC: 5A1D70Z Performance of Urinary Filtration, Intermittent, Less than 6 Hours Per Day (ICD-10-PCS; 2021-07-30)
DX: T87.43 Infection of amputation stump, right lower extremity (principal); A41.9 Sepsis, unspecified organism; N18.6 End stage renal disease; J18.9 Pneumonia, unspecified organism; E43 Unspecified severe protein-calorie malnutrition; G93.41 Metabolic encephalopathy; I21.A1 Myocardial infarction type 2; J96.00 Acute respiratory failure, unspecified whether with hypoxia or hypercapnia; R18.8 Other ascites; I13.2 Hypertensive heart and chronic kidney disease with heart failure and with stage 5 chronic kidney disease, or end stage renal disease; E11.52 Type 2 diabetes mellitus with diabetic peripheral angiopathy with gangrene; I31.3 Pericardial effusion (noninflammatory); I50.42 Chronic combined systolic (congestive) and diastolic (congestive) heart failure; I96 Gangrene, not elsewhere classified; Z20.822 Contact with and (suspected) exposure to COVID-19; K74.60 Unspecified cirrhosis of liver; E87.5 Hyperkalemia; E83.51 Hypocalcemia; D63.8 Anemia in other chronic diseases classified elsewhere; E11.22 Type 2 diabetes mellitus with diabetic chronic kidney disease; E11.621 Type 2 diabetes mellitus with foot ulcer; E11.649 Type 2 diabetes mellitus with hypoglycemia without coma; E78.00 Pure hypercholesterolemia, unspecified; E78.5 Hyperlipidemia, unspecified; F41.9 Anxiety disorder, unspecified; G89.29 Other chronic pain; L89.629 Pressure ulcer of left heel, unspecified stage; L97.519 Non-pressure chronic ulcer of other part of right foot with unspecified severity; E83.59 Other disorders of calcium metabolism; M19.90 Unspecified osteoarthritis, unspecified site; M54.9 Dorsalgia, unspecified; Z83.3 Family history of diabetes mellitus; Z89.431 Acquired absence of right foot; Z99.2 Dependence on renal dialysis; Z74.01 Bed confinement status; Z89.021 Acquired absence of right finger(s); Z68.21 Body mass index [BMI] 21.0-21.9, adult; Z79.899 Other long term (current) drug therapy; Y83.8 Other surgical procedures as the cause of abnormal reaction of the patient, or of later complication, without mention of misadventure at the time of the procedure; Y92.89 Other specified places as the place of occurrence of the external cause
CPT/HCPCS: 36415; 49083; 71045; 80048; 80053; 80061; 80076; 81001; 82042; 82140; 82306; 82330; 82550; 82948; 83036; 83605; 83735; 83874; 83880; 84100; 84132; 84145; 84157; 84484; 85025; 85027; 85610; 85730; 86140; 86704; 86706; 87040; 87070; 87071; 87076; 87077; 87088; 87186; 87205; 87340; 87426; 88112; 88305; 89051; 90935; 93005; 93306; 94640; 94660; C1729; G0378; J0456; J0610; J0696; J1170; J1644; J2020; J2185; J2405; J3490; J7070; P9046; Q0167

== ENCOUNTER 2021-08-01 13:21 | Emergency (ER) | payer MEDICARE ==
[~2021-08-01] VITALS: Ht 160 cm; Wt 63.5 kg
[~2021-08-01 13:21] MED LIST changes: +AEC81 PO; -CEPH250C2 PO; -CEPH500B PO; +LEVO500T90 PO; -SUCR1ORA15 PO
[2021-08-01 13:52] LABS: BASOPHILS % (AUTO) 0.2 % (0.0-5.0); EOSINOPHILS % (AUTO) 1.1 % (0.0-8.0); HEMATOCRIT 32.8 % (36-48); LYMPHOCYTES % (AUTO) 1.1 % (21.0-51.0); MEAN CORPUSCULAR HEMOGLOBIN 28.9 pg (27.0-33.0); MEAN CORPUSCULAR HGB CONC 30.2 g/dL (32.0-36.0); MEAN CORPUSCULAR VOLUME 95.9 fL (79-99); MONOCYTES % (AUTO) 7.1 % (3.0-13.0); NEUTROPHILS % (AUTO) 88.1 % (40.0-77.0); NUCLEATED RED BLOOD CELLS 0.2 % (0.0-0.19); PLATELET COUNT (AUTO) 347 K/uL (130-400); RED BLOOD CELL COUNT(AUTO) 3.42 MIL/uL (4.00-5.50); RED CELL DISTRIBUTION WIDTH 19.3 % (11.0-15.5); WHITE BLOOD COUNT (AUTO) 16.8 K/uL (4.8-10.8)
[2021-08-01 13:53] VITALS: BP 123/65
[2021-08-01] MEDS ORDERED: HYDROCODONE/ACETAMINOPHEN 5/325 MG TAB PO ONE (14:00)
[2021-08-01 14:03] LABS: ALBUMIN 2.2 g/dL (3.5-5.0); BILIRUBIN,TOTAL 1.1 mg/dL (0.2-1.0); TOTAL PROTEIN, SERUM 6.5 g/dL (6.0-8.3)
[2021-08-01] MEDS ORDERED: TRAM100T40 PO (14:03)
== END 2021-08-01 14:24 | disposition home or self-care (01) ==
LOC: EDH 13:21
DX: M54.50 Low back pain, unspecified (principal); I12.0 Hypertensive chronic kidney disease with stage 5 chronic kidney disease or end stage renal disease; E11.22 Type 2 diabetes mellitus with diabetic chronic kidney disease; N18.6 End stage renal disease; Z99.2 Dependence on renal dialysis; Z98.890 Other specified postprocedural states; Z79.82 Long term (current) use of aspirin; Z79.899 Other long term (current) drug therapy
CPT/HCPCS: 36415; 80053; 85025

== ENCOUNTER → 2021-08-05 | Outpatient (CLI) | payer MEDICARE ==
[~2021-08-05] MED LIST changes: +LIDOCAINE HCL 4% LTA SOL 4 ML VIAL TP ONE; +TRAM100T40 PO
== END | disposition home or self-care (01) ==
LOC: WHH 10:00
PROVIDERS: ATTEND Podiatrist Foot & Ankle Surgery
DX: T87.89 Other complications of amputation stump (principal); E11.621 Type 2 diabetes mellitus with foot ulcer; I70.235 Atherosclerosis of native arteries of right leg with ulceration of other part of foot; L97.514 Non-pressure chronic ulcer of other part of right foot with necrosis of bone; L89.622 Pressure ulcer of left heel, stage 2; L97.421 Non-pressure chronic ulcer of left heel and midfoot limited to breakdown of skin; S91.105A Unspecified open wound of left lesser toe(s) without damage to nail, initial encounter; E11.42 Type 2 diabetes mellitus with diabetic polyneuropathy; E11.52 Type 2 diabetes mellitus with diabetic peripheral angiopathy with gangrene; I96 Gangrene, not elsewhere classified; E11.22 Type 2 diabetes mellitus with diabetic chronic kidney disease; I13.2 Hypertensive heart and chronic kidney disease with heart failure and with stage 5 chronic kidney disease, or end stage renal disease; I50.33 Acute on chronic diastolic (congestive) heart failure; N18.6 End stage renal disease; I25.10 Atherosclerotic heart disease of native coronary artery without angina pectoris; I25.2 Old myocardial infarction; J98.11 Atelectasis; E78.5 Hyperlipidemia, unspecified; K74.60 Unspecified cirrhosis of liver; Z89.021 Acquired absence of right finger(s); Z79.82 Long term (current) use of aspirin; Z79.899 Other long term (current) drug therapy; Y83.5 Amputation of limb(s) as the cause of abnormal reaction of the patient, or of later complication, without mention of misadventure at the time of the procedure; X58.XXXA Exposure to other specified factors, initial encounter; Y93.89 Activity, other specified; Y92.89 Other specified places as the place of occurrence of the external cause; Y99.8 Other external cause status
CPT/HCPCS: A6209; G0463

== ENCOUNTER 2021-08-16 07:43 | Inpatient (IN) | payer MEDICARE ==
[~2021-08-16] VITALS: Ht 152.4 cm; Wt 51.0 kg
[~2021-08-16 07:43] MED LIST changes: -LIDOCAINE HCL 4% LTA SOL 4 ML VIAL TP ONE
[2021-08-16 08:28] LABS: BASOPHILS % (AUTO) 0.4 % (0.0-5.0); EOSINOPHILS % (AUTO) 0.1 % (0.0-8.0); HEMATOCRIT 30.3 % (36-48); LYMPHOCYTES % (AUTO) 1.8 % (21.0-51.0); MEAN CORPUSCULAR HGB CONC 29.7 g/dL (32.0-36.0); NEUTROPHILS % (AUTO) 88.3 % (40.0-77.0); PLATELET COUNT (AUTO) 374 K/uL (130-400); WHITE BLOOD COUNT (AUTO) 16.3 K/uL (4.8-10.8)
[2021-08-16] MEDS ORDERED: HYDROCODONE/ACETAMINOPHEN 5/325 MG TAB PO ONE (08:30)
[2021-08-16] MEDS ORDERED: KETOROLAC 30MG VIAL (30MG/ML) IM ONE (08:30)
[2021-08-16 09:48] LABS: ALBUMIN 2.3 g/dL (3.5-5.0); BILIRUBIN,TOTAL 1.1 mg/dL (0.2-1.0); CREATININE 5.3 mg/dL (0.5-1.5); POTASSIUM 5.4 mmol/L (3.5-5.1); TOTAL PROTEIN, SERUM 7.1 g/dL (6.0-8.3)
[2021-08-16] MEDS ORDERED: HYDRALAZINE 20MG/ML VIAL IV PRN (11:00)
[2021-08-16] MEDS ORDERED: ONDANSETRON 4MG INJ IV PRN (11:00)
[2021-08-16] MEDS ORDERED: AZITHROMYCIN 500MG+NS 250ML IVPB SCH (11:00)
[2021-08-16] MEDS ORDERED: ACETAMINOPHEN 325 MG TAB PO PRN ×2 (11:00)
[2021-08-16] MEDS ORDERED: CEFTRIAXONE 1G VIAL IV SCH (11:00)
[2021-08-16 11:15] LABS: HEMOGLOBIN A1C 4.4 % (4.0-6.0)
[2021-08-16] MEDS ORDERED: COMPOUND IV MISC 1 EACH IVSOLN MISC PRN (12:00)
[2021-08-16] MEDS ORDERED: NA ZIRCON CYCLOSIL(LOKELMA 10GM) PO SCH (12:00)
[2021-08-16] MEDS ORDERED: GLUCAGON 1MG KIT 1 MG ML IM PRN (12:30)
[2021-08-16] MEDS ORDERED: DEXTROSE 50%-WATER 50 ML DISP.SYRIN IV PRN (12:30)
[2021-08-16] MEDS: IRON SUCROSE COMPLEX 300 MG in 0.9%NACL 50ML 50 ML IV SCH (12:59)
[2021-08-16 13:00] VITALS: BP 99/61
[2021-08-16 13:29] LABS: INR 1.21 (0.85-1.15)
[2021-08-16 13:30] LABS: PARTIAL THROMBOPLASTIN TIME 36.5 SEC (26.3-35.5)
[2021-08-16 15:00] VITALS: BP 99/61
[2021-08-16] MEDS ORDERED: VANCOMYCIN PROTOCOL PER PHARMACY IV SCH (16:30)
[2021-08-16] MEDS: MEROPENEM 500 MG VIAL IV SCH (16:54)
[2021-08-16] MEDS: VANCOMYCIN 750MG VIAL IVPB SCH (16:55)
[2021-08-16] MEDS: 0.9% NACL 250ML 250 ML IV SCH (16:55)
[2021-08-16] MEDS ORDERED: ALBUTEROL INHALER 90MCG/INH IH PRN (18:00)
[2021-08-16] MEDS ORDERED: DEXTROSE 5%-WATER 1,000 ML IV SCH (20:01)
[2021-08-16 20:23] VITALS: BP 107/63
[2021-08-16] MEDS ORDERED: DEXTROSE 50%-WATER 50 ML DISP.SYRIN IV ONE (23:29)
[2021-08-16 23:49] VITALS: BP 98/56
[2021-08-17] VITALS (19 sets, daily range): BP systolic 92–126; BP diastolic 50–84
[2021-08-17] MEDS ORDERED: DEXTROSE 10%-WATER 1,000 ML IV ONE (00:18)
[2021-08-17 05:15] LABS: BASOPHILS % (AUTO) 0.3 % (0.0-5.0); EOSINOPHILS % (AUTO) 0.4 % (0.0-8.0); HEMATOCRIT 27.5 % (36-48); LYMPHOCYTES % (AUTO) 2.6 % (21.0-51.0); MEAN CORPUSCULAR HGB CONC 29.1 g/dL (32.0-36.0); MEAN CORPUSCULAR VOLUME 99.6 fL (79-99); MONOCYTES % (AUTO) 10.7 % (3.0-13.0); NEUTROPHILS % (AUTO) 84.4 % (40.0-77.0); NUCLEATED RED BLOOD CELLS 0.1 % (0.0-0.19); PLATELET COUNT (AUTO) 389 K/uL (130-400); RED BLOOD CELL COUNT(AUTO) 2.76 MIL/uL (4.00-5.50); RED CELL DISTRIBUTION WIDTH 20.8 % (11.0-15.5); WHITE BLOOD COUNT (AUTO) 16.4 K/uL (4.8-10.8)
[2021-08-17 05:36] LABS: CREATININE 5.5 mg/dL (0.5-1.5); PHOSPHORUS 9.3 mg/dL (2.5-4.9); POTASSIUM 5.3 mmol/L (3.5-5.1)
[2021-08-17] MEDS: FAMOTIDINE 20MG VIAL IV SCH (09:23)
[2021-08-17] MEDS: MEROPENEM 500 MG VIAL IV SCH (17:18)
[2021-08-17] MEDS: IRON SUCROSE COMPLEX 300 MG in 0.9%NACL 50ML 50 ML IV SCH (17:19)
[2021-08-17] MEDS ORDERED: ALPRAZOLAM 0.25 MG TABLET PO PRN (18:30)
[2021-08-17] MEDS: DEXTROSE 10%-WATER 1,000 ML IV SCH (20:07)
[2021-08-17 20:50] LABS: HEPATITIS B SURFACE ANTIGEN Non-Reactive (Negative)
[2021-08-17] MEDS: BALSAM PERU/CASTOR OIL 60 GM TUBE TP SCH (20:52)
[2021-08-17] MEDS ORDERED: PHARMACY COMMUNICATION MISC SCH (22:30)
[2021-08-17] MEDS: DEXAMETHASONE SOD PHOSPHATE 4 MG/ML 1ML VIAL IV SCH (23:09)
[2021-08-18] VITALS (24 sets, daily range): BP systolic 92–142; BP diastolic 51–65
[2021-08-18 05:04] LABS: BASOPHILS % (AUTO) 0.1 % (0.0-5.0); HEMATOCRIT 27.8 % (36-48); MEAN CORPUSCULAR HEMOGLOBIN 30.4 pg (27.0-33.0); MEAN CORPUSCULAR HGB CONC 24.5 g/dL (32.0-36.0); MEAN CORPUSCULAR VOLUME 124.1 fL (79-99); MONOCYTES % (AUTO) 3.9 % (3.0-13.0); NEUTROPHILS % (AUTO) 92.7 % (40.0-77.0); PLATELET COUNT (AUTO) 282 K/uL (130-400); RED BLOOD CELL COUNT(AUTO) 2.24 MIL/uL (4.00-5.50); RED CELL DISTRIBUTION WIDTH 21.7 % (11.0-15.5)
[2021-08-18 07:08] LABS: ABG BASE EXCESS -9.7 mmol/L (-2.0-3.0); ABG HCO3 18.6 mmol/L (21.0-28.0); ABG OXYGEN SATURATION 77.6 % (95.0-99.0); ABG PCO2 50 mmHg (32-45)
[2021-08-18 07:22] LABS: ABG BASE EXCESS -2.6 mmol/L (-2.0-3.0); ABG OXYGEN SATURATION 97.9 % (95.0-99.0); ABG PCO2 55 mmHg (32-45)
[2021-08-18] MEDS ORDERED: HYDROMORPHONE 1 MG INJ ONE ×2 (08:13→21:44)
[2021-08-18 08:35] LABS: ALBUMIN 2.1 g/dL (3.5-5.0); BILIRUBIN,TOTAL 1.1 mg/dL (0.2-1.0); CREATININE 4.1 mg/dL (0.5-1.5); POTASSIUM 5.2 mmol/L (3.5-5.1); TOTAL PROTEIN, SERUM 6.7 g/dL (6.0-8.3)
[2021-08-18 08:46] LABS: CRP QUANTITATIVE 206.7 mg/L (0.00-9.0)
[2021-08-18] MEDS ORDERED: EPOETIN ALFA-EPBX (ESRD) 10,000 UNIT/ML VIAL SQ SCH (13:00)
[2021-08-18 13:35] LABS: HEMATOCRIT 30.9 % (36-48)
[2021-08-18 13:59] LABS: % IRON SATURATION 101.9 % (22-44)
[2021-08-18] MEDS: BALSAM PERU/CASTOR OIL 60 GM TUBE TP SCH ×3 (14:00→20:40)
[2021-08-18 17:24] LABS: APPEARANCE BODY FLUID CLEAR (CLEAR); COLOR,BODY FLUID YELLOW (LT YELLOW); SPECIMENTYPE,BODY FLUID PLEURAL; TOTAL VOLUME,BODY FLUID 500 mL
[2021-08-18] MEDS: IRON SUCROSE COMPLEX 300 MG in 0.9%NACL 50ML 50 ML IV SCH (17:24)
[2021-08-18] MEDS: APIXABAN 2.5 MG TABLET PO SCH ×2 (17:24→20:40)
[2021-08-18] MEDS: FAMOTIDINE 20MG VIAL IV SCH (17:24)
[2021-08-18] MEDS: MEROPENEM 500 MG VIAL IV SCH (17:24)
[2021-08-18 17:25] LABS: BODY FLUID RBC 220 /cu. mm.; BODY FLUID WBC 136 /cu. mm.
[2021-08-18 18:31] LABS: BF LYMPHOCYTE 20 %; BF MONOCYTE 1 %; BF OTHER CELLS 1
[2021-08-18] MEDS ORDERED: HYDROXYZINE 25 MG TABLET PO PRN (19:30)
[2021-08-18] MEDS ORDERED: TRAZODONE HCL 50 MG TAB PO PRN (19:30)
[2021-08-18] MEDS ORDERED: LACTULOSE 20 GM/30 ML UDCUP PO PRN (20:30)
[2021-08-18] MEDS: DEXAMETHASONE SOD PHOSPHATE 4 MG/ML 1ML VIAL IV SCH (21:49)
[2021-08-18] MEDS: HYDROMORPHONE 0.5 MG SYG (0.5MG/0.5ML) IVP PRN (21:51)
[2021-08-19 04:00] VITALS: BP 140/65
[2021-08-19 04:45] LABS: HEMATOCRIT 30.6 % (36-48); MEAN CORPUSCULAR HEMOGLOBIN 29.9 pg (27.0-33.0); MEAN CORPUSCULAR HGB CONC 28.8 g/dL (32.0-36.0); MEAN CORPUSCULAR VOLUME 104.1 fL (79-99); NUCLEATED RED BLOOD CELLS 0.3 % (0.0-0.19); PLATELET COUNT (AUTO) 357 K/uL (130-400); RED BLOOD CELL COUNT(AUTO) 2.94 MIL/uL (4.00-5.50); RED CELL DISTRIBUTION WIDTH 21.2 % (11.0-15.5); WHITE BLOOD COUNT (AUTO) 15.2 K/uL (4.8-10.8)
[2021-08-19 04:56] LABS: CHLORIDE 92 mmol/L (101-111); PHOSPHORUS 6.6 mg/dL (2.5-4.9); POTASSIUM 4.2 mmol/L (3.5-5.1); SODIUM SERUM 131 mmol/L (136-145); UREA NITROGEN, BLOOD 28 mg/dL (7-18)
[2021-08-19 05:00] LABS: CARBON DIOXIDE 26 mmol/L (21-32); GLUCOSE,RANDOM 212 mg/dL (70-105)
[2021-08-19 05:26] LABS: AMMONIA < 3 umol/L (11-32)
[2021-08-19 05:38] LABS: GLOMERULAR FILTR. RATE CALC 11 mL/min (>60)
[2021-08-19 06:00] LABS: LYMPHOCYTES % (MANUAL) 3 % (22-44); MAN.DIFF COMMENT-IMPRESSION MANUAL DIFFERENTIAL; MONOCYTES % (MANUAL) 1 % (2-9); MYELOCYTES % 2 % (0-0); PLATELET MORPHOLOGY COMMENT ADEQUATE; SEGMENTED NEUTROPHILS % 94 % (40-70)
[2021-08-19 07:16] LABS: ABG BASE EXCESS -1.8 mmol/L (-2.0-3.0); ABG HCO3 26.4 mmol/L (21.0-28.0); ABG OXYGEN SATURATION 95.7 % (95.0-99.0); ABG PCO2 59 mmHg (32-45)
[2021-08-19 07:55] VITALS: BP 137/62
[2021-08-19] MEDS: IRON SUCROSE COMPLEX 300 MG in 0.9%NACL 50ML 50 ML IV SCH (08:34)
[2021-08-19] MEDS: FAMOTIDINE 20MG VIAL IV SCH (08:34)
[2021-08-19] MEDS: APIXABAN 2.5 MG TABLET PO SCH ×2 (08:34→20:19)
[2021-08-19 11:15] VITALS: BP 138/69
[2021-08-19] MEDS: BALSAM PERU/CASTOR OIL 60 GM TUBE TP SCH ×3 (12:43→20:19)
[2021-08-19] MEDS ORDERED: HYDROMORPHONE 1 MG INJ ONE (12:53)
[2021-08-19] MEDS: HYDROMORPHONE 0.5 MG SYG (0.5MG/0.5ML) IVP PRN (12:58)
[2021-08-19] MEDS: DEXTROSE 10%-WATER 1,000 ML IV SCH (13:06)
[2021-08-19 15:35] VITALS: BP 136/62
[2021-08-19] MEDS: MEROPENEM 500 MG VIAL IV SCH (17:25)
[2021-08-19] MEDS: 0.9% NACL 250ML 250 ML IV SCH (17:26)
[2021-08-19] MEDS: VANCOMYCIN 750MG VIAL IVPB SCH (17:26)
[2021-08-19 19:00] VITALS: BP 142/72
[2021-08-19] MEDS: DEXAMETHASONE SOD PHOSPHATE 4 MG/ML 1ML VIAL IV SCH (21:40)
[2021-08-19 23:14] VITALS: BP 122/62
[2021-08-20 03:38] VITALS: BP 126/55
[2021-08-20 05:27] LABS: BASOPHILS % (AUTO) 0.6 % (0.0-5.0); LYMPHOCYTES % (AUTO) 1.3 % (21.0-51.0); MEAN CORPUSCULAR HEMOGLOBIN 29.6 pg (27.0-33.0); MEAN CORPUSCULAR HGB CONC 28.3 g/dL (32.0-36.0); MEAN CORPUSCULAR VOLUME 104.3 fL (79-99); MONOCYTES % (AUTO) 7.4 % (3.0-13.0); NEUTROPHILS % (AUTO) 86.4 % (40.0-77.0); NUCLEATED RED BLOOD CELLS 0.5 % (0.0-0.19); PLATELET COUNT (AUTO) 406 K/uL (130-400); RED BLOOD CELL COUNT(AUTO) 3.45 MIL/uL (4.00-5.50); WHITE BLOOD COUNT (AUTO) 15.2 K/uL (4.8-10.8)
[2021-08-20 05:45] LABS: ALBUMIN 2.6 g/dL (3.5-5.0); BILIRUBIN,TOTAL 1.2 mg/dL (0.2-1.0); CREATININE 3.4 mg/dL (0.5-1.5); POTASSIUM 4.5 mmol/L (3.5-5.1); TOTAL PROTEIN, SERUM 7.8 g/dL (6.0-8.3)
[2021-08-20 08:00] VITALS: BP 121/61
[2021-08-20 12:00] VITALS: BP 102/54
[2021-08-20] MEDS ORDERED: VANCOMYCIN 500MG+NS 100ML IVPB IV SCH (12:00)
[2021-08-20] MEDS ORDERED: 0.9%NACL 100ML 100 ML IV SCH (12:00)
[2021-08-20] MEDS ORDERED: LORAZEPAM 2 MG/ML 1 ML VIAL IVP PRN (13:00)
[2021-08-20] MEDS ORDERED: HYDROMORPHONE 0.5 MG SYG (0.5MG/0.5ML) IVP PRN (13:00)
== END 2021-08-20 13:55 | DRG 871 ==
LOC: EDH 07:43 → EDHIP 10:49 → 4AH 15:22
PROVIDERS: ADMIT Internal Medicine; ATTEND Internal Medicine
PROC: 5A1D70Z Performance of Urinary Filtration, Intermittent, Less than 6 Hours Per Day (ICD-10-PCS; 2021-08-17)
PROC: 5A1D70Z Performance of Urinary Filtration, Intermittent, Less than 6 Hours Per Day (ICD-10-PCS; principal; 2021-08-18)
PROC: 0W993ZZ Drainage of Right Pleural Cavity, Percutaneous Approach (ICD-10-PCS; 2021-08-18)
DX: A41.9 Sepsis, unspecified organism (principal); E43 Unspecified severe protein-calorie malnutrition; J96.01 Acute respiratory failure with hypoxia; N18.6 End stage renal disease; U07.1 COVID-19; J69.0 Pneumonitis due to inhalation of food and vomit; I21.A1 Myocardial infarction type 2; J12.82 Pneumonia due to coronavirus disease 2019; J96.02 Acute respiratory failure with hypercapnia; I13.2 Hypertensive heart and chronic kidney disease with heart failure and with stage 5 chronic kidney disease, or end stage renal disease; D68.69 Other thrombophilia; I50.42 Chronic combined systolic (congestive) and diastolic (congestive) heart failure; E11.52 Type 2 diabetes mellitus with diabetic peripheral angiopathy with gangrene; G93.49 Other encephalopathy; I42.9 Cardiomyopathy, unspecified; R45.851 Suicidal ideations; J91.8 Pleural effusion in other conditions classified elsewhere; Z66 Do not resuscitate; G89.4 Chronic pain syndrome; E87.5 Hyperkalemia; E11.649 Type 2 diabetes mellitus with hypoglycemia without coma; L89.152 Pressure ulcer of sacral region, stage 2; E11.22 Type 2 diabetes mellitus with diabetic chronic kidney disease; D64.9 Anemia, unspecified; F32.A Depression, unspecified; L89.890 Pressure ulcer of other site, unstageable; L97.519 Non-pressure chronic ulcer of other part of right foot with unspecified severity; L97.529 Non-pressure chronic ulcer of other part of left foot with unspecified severity; E11.621 Type 2 diabetes mellitus with foot ulcer; E78.5 Hyperlipidemia, unspecified; F41.1 Generalized anxiety disorder; I25.10 Atherosclerotic heart disease of native coronary artery without angina pectoris; K74.60 Unspecified cirrhosis of liver; Z74.01 Bed confinement status; Z89.021 Acquired absence of right finger(s); Z89.511 Acquired absence of right leg below knee; Z89.512 Acquired absence of left leg below knee; Z91.15 Patient's noncompliance with renal dialysis; Z99.2 Dependence on renal dialysis; Z98.891 History of uterine scar from previous surgery; Z68.22 Body mass index [BMI] 22.0-22.9, adult; Z79.899 Other long term (current) drug therapy
CPT/HCPCS: 32555; 36415; 36600; 71045; 80048; 80053; 80202; 82140; 82550; 82728; 82803; 82945; 82948; 83036; 83540; 83550; 83615; 83880; 83986; 84100; 84145; 84157; 84484; 85014; 85018; 85025; 85378; 85610; 85730; 86140; 86704; 86706; 87040; 87071; 87116; 87205; 87206; 87340; 87635; 89051; 90935; 93005; 93970; 93971; 94660; C1729; G0378; J0456; J0696; J1100; J1170; J1610; J1756; J1885; J2185; J3490; J7050; J7070